=== PATIENT | male | born 1965 ===

== ENCOUNTER 2017-05-08 13:41 | Emergency (ER) | payer OTHER, SELFPAY ==
[2017-05-08 13:53] VITALS: BMI 29.4
[2017-05-08 13:55] VITALS: BP 124/76; PULSE 105; RESP 20; TEMP 99.5; O2SAT 98
--- NOTE | 2017-05-08 16:05 | C.PDOC ---
History Of Present Illness 51 y/o male presents to ED with complaints of rectal pain and erythema with associated drainage for 2 weeks. Patient states he was taking outpatient antibiotics with no improvement. Patient denies fever, chills, nausea, vomiting , blood in stool or any other complaints at this time. Time Seen by Provider: 05/08/17 15:44 Chief Complaint (Nursing): GI Problem History Per: Patient History/Exam Limitations: no limitations Onset/Duration Of Symptoms: Days Current Symptoms Are (Timing): Still Present Past Medical History Reviewed: Historical Data, Nursing Documentation, Vital Signs Vital Signs: Last Vital Signs Temp 99.5 F 05/08/17 13:54 Pulse 105 H 05/08/17 13:54 Resp 20 05/08/17 13:54 BP 124/76 05/08/17 13:54 Pulse Ox 98 05/08/17 16:09 - Medical History PMH: Diverticulitis Surgical History: No Surg Hx - [facility] Procedures ENDO RECTUM POLYPECTOMY (08/05/13) PERCUTANEOUS ABDOMINAL DRAINAGE (02/10/13) Family History: States: No Known Family Hx - Social History Hx Tobacco Use: Yes Hx Alcohol Use: Yes Hx Substance Use: No - Immunization History Hx Tetanus Toxoid Vaccination: No Hx Influenza Vaccination: No Hx Pneumococcal Vaccination: No Review Of Systems Constitutional: Negative for: Fever, Chills Gastrointestinal: Positive for: Rectal Pain. Negative for: Nausea, Vomiting, Abdominal Pain Skin: Negative for: Rash Physical Exam - Physical Exam Appears: Non-toxic, No Acute Distress Skin: Warm, Dry, No Rash Head: Atraumatic, Normacephalic Oral Mucosa: Moist Neck: Supple Cardiovascular: Rhythm Regular Respiratory: Normal Breath Sounds, No Rales, No Rhonchi, No Wheezing Gastrointestinal/Abdominal: Soft, No Tenderness, No Guarding, No Rebound Rectal: Other (Large area of tenderness and erythema with discharge ) Back: No CVA Tenderness Extremity: Normal ROM Neurological/Psych: Oriented x3 ED Course And Treatment - Laboratory Results Result Diagrams: 05/08/17 16:01 05/08/17 16:01 O2 Sat by Pulse Oximetry: 98 (RA) Pulse Ox Interpretation: Normal Medical Decision Making Medical Decision Making: pt with noted cellutlis, failuf of outpt. ct neg for abscess. pttold he would be admitted, but then later pulled iv and eloped, stating "i hate hospitals" Disposition - Disposition Disposition: ELOPEMENT - ER ONLY Disposition Time: 07:00 Condition: UNKNOWN Forms: [facility] (Belgian) - Clinical Impression Clinical Impression: Cellulitis - Scribe Statement The provider has reviewed the documentation as recorded by the Alexanderibsara Spivey All medical record entries made by the Alexanderibsara were at my direction and personally dictated by me. I have reviewed the chart and agree that the record accurately reflects my personal performance of the history, physical exam, medical decision making, and the department course for this patient. I have also personally directed, reviewed, and agree with the discharge instructions and disposition.
[2017-05-08] MEDS ORDERED: Vancomycin 1 gm/NS 200 ml 1 GM/200 ML BAG IVPB ONE (16:15)
[2017-05-08 16:18] LABS: BASO # 0.1 K/uL (0.0-0.2); EOS # 0.1 K/uL (0.0-0.7); EOS % 2.7 % (0.0-4.0); HEMOGLOBIN 14.5 g/dL (12.0-18.0); LYMPH # 1.2 K/uL (1.0-4.3); LYMPH % 21.3 % (20.0-40.0); MEAN CELL VOLUME 88.1 fL (80.0-94.0); MEAN CORPUSCULAR HGB CONC 32.9 g/dL (33.0-37.0); MEAN PLATELET VOLUME 8.1 fL (7.2-11.7); MONO # 0.4 K/uL (0.0-0.8); MONO % 7.4 % (0.0-10.0); NEUT # 3.7 K/uL (1.8-7.0); NEUT % 67.6 % (50.0-75.0); NRBC % 0.1 % (0.0-2.0); WHITE BLOOD COUNT 5.5 K/uL (4.8-10.8)
[2017-05-08 16:27] LABS: PROTHROMBIN TIME 11.9 SECONDS (9.7-12.2)
[2017-05-08 16:28] LABS: ALB/GLOB RATIO 1.2 (1.0-2.1); ALT/SGPT 43 U/L (21-72); AST/SGOT 30 U/L (17-59); BLOOD UREA NITROGEN 14 mg/dL (9-20); GFR AFRICAN-AMERICAN > 60; GFR NON-AFRICAN AMERICAN > 60
[2017-05-08] MEDS ORDERED: Iohexol 350mg/ml 100 ML ONE (17:28)
--- NOTE | 2017-05-08 18:31 | CT ---
PROCEDURE: CT Abdomen and Pelvis with contrast HISTORY: rectal pain, swelling r/o abscess COMPARISON: CT abdomen and pelvis with 02/18/13 TECHNIQUE: Contrast dose: 100 Omnipaque 350 Radiation dose: Total exam DLP = 997.34 MGy-cm. This CT exam was performed using one or more of the following dose reduction techniques: Automated exposure control, adjustment of the mA and/or kV according to patient size, and/or use of iterative reconstruction technique. FINDINGS: LOWER THORAX: No visible consolidation, pleural effusion, or pneumothorax. LIVER: Unremarkable. GALLBLADDER AND BILE DUCTS: Unremarkable. PANCREAS: Unremarkable. SPLEEN: Unremarkable. ADRENALS: Unremarkable. KIDNEYS AND URETERS: The kidneys enhance symmetrically. No hydronephrosis or obstructing calculus identified. VASCULATURE: No aortic aneurysm. BOWEL: Stomach is nondistended. Lack of oral contrast limits evaluation for bowel pathology. Bowel loops appear within normal limits of caliber without evidence of obstruction. Diverticulosis, wall thickening, and mild adjacent inflammatory changes involving the rectosigmoid colon appear consistent with acute diverticulitis. APPENDIX: The appendix appears within normal limits of caliber. No secondary signs of acute appendicitis. PERITONEUM: No significant free fluid. No definite free. LYMPH NODES: No bulky adenopathy identified. BLADDER: Unremarkable. REPRODUCTIVE: Unremarkable. BONES: Degenerative changes. OTHER FINDINGS: Posterior soft tissue stranding at the level of the buttocks bilaterally. No focal fluid collection or abscess evident. IMPRESSION: Diverticulosis, wall thickening, and mild adjacent inflammatory changes involving the rectosigmoid colon appear consistent with acute diverticulitis. Correlate clinically. Posterior soft tissue stranding at the level of the buttocks bilaterally. No focal fluid collection or abscess evident.
== END 2017-05-08 18:34 | disposition left against medical advice (07) ==
LOC: C.ER 13:41 → UNDOADMIN 18:35 → C.9E 18:35
DX: K61.1 Rectal abscess (principal); Z87.891 Personal history of nicotine dependence
CPT/HCPCS: 74177; 80053; 85025; 85610; 85730; 87040; 96365; 96367; 99281; J3370; Q9967

== ENCOUNTER 2017-05-15 10:31 | Inpatient (IN) | payer MEDICAID, OTHER ==
[2017-05-15 10:32] VITALS: BMI 29.4
--- NOTE | 2017-05-15 12:01 | C.PDOC ---
History Of Present Illness 51 y/o male brought to ED by family for evaluation of bizarre behavior, loss of memory and loss of appetite for 2 weeks. As per sister who is at bedside patient is not at baseline but states she has not been with him until yesterday when she came from [place]. HPI limited secondary to patient not answering questions. Time Seen by Provider: 05/15/17 11:21 Chief Complaint (Nursing): Weakness/Neurological Deficit History Per: Patient History/Exam Limitations: no limitations Onset/Duration Of Symptoms: Days Current Symptoms Are (Timing): Still Present Past Medical History Reviewed: Historical Data, Nursing Documentation, Vital Signs Vital Signs: Last Vital Signs Temp 97.9 F 05/15/17 10:49 Pulse 81 05/15/17 10:49 Resp 18 05/15/17 10:49 BP 95/58 L 05/15/17 10:49 Pulse Ox 97 05/15/17 18:12 - Medical History PMH: Diverticulitis Surgical History: No Surg Hx - [facility] Procedures ENDO RECTUM POLYPECTOMY (08/05/13) PERCUTANEOUS ABDOMINAL DRAINAGE (02/10/13) Family History: States: No Known Family Hx - Social History Hx Tobacco Use: Yes Hx Alcohol Use: No Hx Substance Use: No - Immunization History Hx Tetanus Toxoid Vaccination: No Hx Influenza Vaccination: No Hx Pneumococcal Vaccination: No Review Of Systems Review Of Systems: ROS cannot be obtained secondary to pt's inabilty to answer questions. (Patient is not answering any questions) Physical Exam - Physical Exam Appears: Non-toxic, Other (Bizarre behavior ) Skin: Warm, Dry Head: Atraumatic, Normacephalic Oral Mucosa: Moist Neck: Normal ROM, Supple Cardiovascular: Rhythm Regular Respiratory: Normal Breath Sounds, No Rales, No Rhonchi, No Wheezing Gastrointestinal/Abdominal: Soft, No Tenderness, No Guarding, No Rebound Extremity: Normal ROM, Capillary Refill (<2 seconds) Neurological/Psych: Oriented x3 ED Course And Treatment - Laboratory Results Result Diagrams: 05/15/17 12:46 05/15/17 12:46 Lab Interpretation: Normal O2 Sat by Pulse Oximetry: 97 (RA) Pulse Ox Interpretation: Normal - Radiology CXR: Interpreted by Me CXR Interpretation: Yes: No Acute Disease - Other Rad CXR X-Ray: Viewed By Me, Read By Radiologist Interpretation: HISTORY: SOB. COMPARISON: Chest x-ray performed 02/11/13. TECHNIQUE: Chest PA and lateral. FINDINGS: Examination limited by habitus and hypoinflation. LUNGS: No focal consolidation. Please note that chest x- ray has limited sensitivity for the detection of pulmonary masses. PLEURA: No significant pleural effusion identified. No definite pneumothorax . CARDIOVASCULAR: Heart size appears within normal limits. OSSEOUS STRUCTURES: No acute osseous abnormality identified. VISUALIZED UPPER ABDOMEN: Unremarkable. OTHER FINDINGS: None. IMPRESSION: No focal consolidation, significant pleural effusion, or definite pneumothorax identified. - CT Scan/US No standard instances Other Rad Studies (CT/US): Read By Radiologist, Radiology Report Reviewed CT/US Interpretation: FINDINGS: HEMORRHAGE: No intracranial hemorrhage. BRAIN : No mass effect or edema. Patchy hypodensities involving the left temporal parietal lobe consistent with encephalomalacia. VENTRICLES: No hydrocephalus. CALVARIUM: Unremarkable. PARANASAL SINUSES: Unremarkable as visualized. No significant inflammatory changes. MASTOID AIR CELLS: Unremarkable as visualized. No inflammatory changes. OTHER FINDINGS: Opacification of bilateral external auditory canals, likely cerumen. IMPRESSION: Patchy hypodensities involving the left temporal parietal lobe consistent with encephalomalacia. MRI may be considered for further evaluation if indicated. 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 Case discussed with Dr Starks who agrees to admit. Case discussed with Dr Márquez who request CT abdomen and Pelvis with IV contrast. Shock Panel ordered. Vancomycin and azactam ordered. Patient pacing in room in no distress Reassessment Condition: Unchanged - Physician Consult Information Physician Contacted: Ry Márquez Outcome Of Conversation: admit Medical Decision Making Medical Decision Making: Patient presented to ED with family who report strange behavior over the past 2 weeks Patient had recent abcess on buttocks and on antibiotics patient was evaluated in ED on 05/[address] abdomen/pelvis (+) diverticulitis, patient refused admission and left after he pulled out his IV Patient unable to provide any information and continues to pace in room with occasional outbreaks of smiling Family reports he was working up until 2 weeks ago and was normal Disposition Discussed With : Ry Márquez Doctor Will See Patient In The: Hospital - Disposition Disposition: HOSPITALIZED Disposition Time: 17:20 Condition: STABLE - POA Present On Arrival: None - Clinical Impression Clinical Impression: Altered mental status, Diverticulitis of sigmoid colon - PA / CURING SUPERVISOR / Resident Statement MD/DO has reviewed & agrees with the documentation as recorded. - Scribe Statement The provider has reviewed the documentation as recorded by the Murtaza Spivey All medical record entries made by the Murtaza were at my direction and personally dictated by me. I have reviewed the chart and agree that the record accurately reflects my personal performance of the history, physical exam, medical decision making, and the department course for this patient. I have also personally directed, reviewed, and agree with the discharge instructions and disposition. Decision To Admit - Pt Status Changed To: Hospital Disposition Of: Inpatient - Admit Certification Admit to Inpatient:: After my assessment, the patient will require hospitalization for at least two midnights. This is because of the severity of symptoms shown, intensity of services needed, and/or the medical risk in this patient being treated as an outpatient. - InPatient: Physician Admission Certification: I certify that this patient requires 2 or more midnights of care for the following reason:: AMS - . Bed Request Type: Regular Admitting Physician: Ry Márquez Patient Diagnosis: Altered mental status
--- NOTE | 2017-05-15 12:25 | RAD ---
HISTORY: SOB COMPARISON: Chest x-ray performed 02/11/13 TECHNIQUE: Chest PA and lateral FINDINGS: Examination limited by habitus and hypoinflation. LUNGS: No focal consolidation. Please note that chest x-ray has limited sensitivity for the detection of pulmonary masses. PLEURA: No significant pleural effusion identified. No definite pneumothorax . CARDIOVASCULAR: Heart size appears within normal limits. OSSEOUS STRUCTURES: No acute osseous abnormality identified. VISUALIZED UPPER ABDOMEN: Unremarkable. OTHER FINDINGS: None. IMPRESSION: No focal consolidation, significant pleural effusion, or definite pneumothorax identified.
[2017-05-15 12:49] LABS: BASO # 0.1 K/uL (0.0-0.2); BASO % 1.3 % (0.0-2.0); EOS # 0.1 K/uL (0.0-0.7); EOS % 2.3 % (0.0-4.0); HEMOGLOBIN 13.7 g/dL (12.0-18.0); LYMPH # 0.9 K/uL (1.0-4.3); LYMPH % 24.2 % (20.0-40.0); MEAN CELL VOLUME 87.8 fL (80.0-94.0); MEAN CORPUSCULAR HEMOGLOBIN 29.5 pg (27.0-31.0); MEAN CORPUSCULAR HGB CONC 33.6 g/dL (33.0-37.0); MEAN PLATELET VOLUME 8.3 fL (7.2-11.7); MONO # 0.5 K/uL (0.0-0.8); MONO % 13.8 % (0.0-10.0); NEUT # 2.3 K/uL (1.8-7.0); NEUT % 58.4 % (50.0-75.0); RBC 4.63 Mil/uL (4.40-5.90); RED CELL DISTRIBUTION WIDTH 13.9 % (11.5-14.5); WHITE BLOOD COUNT 3.9 K/uL (4.8-10.8)
--- NOTE | 2017-05-15 12:49 | CT ---
PROCEDURE: CT HEAD WITHOUT CONTRAST. HISTORY: R/O Bleed COMPARISON: None available. TECHNIQUE: Axial computed tomography images were obtained through the head/brain without intravenous contrast. Radiation dose: Total exam DLP = 970.68 mGy-cm. This CT exam was performed using one or more of the following dose reduction techniques: Automated exposure control, adjustment of the mA and/or kV according to patient size, and/or use of iterative reconstruction technique. FINDINGS: HEMORRHAGE: No intracranial hemorrhage. BRAIN: No mass effect or edema. Patchy hypodensities involving the left temporal parietal lobe consistent with encephalomalacia. VENTRICLES: No hydrocephalus. CALVARIUM: Unremarkable. PARANASAL SINUSES: Unremarkable as visualized. No significant inflammatory changes. MASTOID AIR CELLS: Unremarkable as visualized. No inflammatory changes. OTHER FINDINGS: Opacification of bilateral external auditory canals, likely cerumen. IMPRESSION: Patchy hypodensities involving the left temporal parietal lobe consistent with encephalomalacia. MRI may be considered for further evaluation if indicated.
[2017-05-15 13:09] LABS: ALB/GLOB RATIO 1.2 (1.0-2.1); ALT/SGPT 35 U/L (21-72); AST/SGOT 29 U/L (17-59); BLOOD UREA NITROGEN 17 mg/dL (9-20); CALCIUM 8.7 mg/dl (8.6-10.4); GFR AFRICAN-AMERICAN > 60; GFR NON-AFRICAN AMERICAN > 60; LIPASE 61 U/L (23-300)
[2017-05-15 17:23] LABS: SQUAMOUS EPITHIAL < 1 /hpf (0-5); URINE BACTERIA OCC (<OCC); URINE BILIRUBIN NEGATIVE (NEGATIVE); URINE BLOOD NEGATIVE (NEGATIVE); URINE CLARITY Clear (Clear); URINE COLOR Yellow (YELLOW); URINE GLUCOSE (UA) NORMAL (Normal); URINE LEUKOCYTE ESTERASE NEG Leu/uL (Negative); URINE NITRATE NEGATIVE (NEGATIVE); URINE PROTEIN 1+ mg/dL (NEGATIVE)
[2017-05-15 17:49] LABS: BARBITURATES, UR NEGATIVE (NEGATIVE); BENZODIAZEPINES, UR NEGATIVE (NEGATIVE); OPIATES, UR NEGATIVE (NEGATIVE); PHENCYCLIDINE, UR NEGATIVE (NEGATIVE)
[2017-05-15] MEDS ORDERED: Sodium Chloride 0.9% 1,000 ML IV ONE (18:04)
[2017-05-15] MEDS ORDERED: Iohexol 240 (50 ml) PO STA (18:04)
[2017-05-15] MEDS ORDERED: Aztreonam 2 GM in Sodium Chloride 0.9% 100 ML IVPB STA (18:08)
[2017-05-15] MEDS ORDERED: Vancomycin 1 gm/NS 200 ml 1 GM/200 ML BAG IVPB ONE (19:00)
[2017-05-15] MEDS ORDERED: Iohexol 300 100 ML IJ ONE (19:34)
[2017-05-15] MEDS ORDERED: Iohexol 240 (50 ml) ONE (20:14)
[2017-05-15 20:41] LABS: VENOUS BLOOD GAS BASE EXCESS -0.7 mmol/L (0.0-2.0); VENOUS BLOOD GAS PCO2 40 mmHg (40-60); VENOUS BLOOD GAS PO2 46 mm/Hg (30-55); VENOUS BLOOD PH 7.39 (7.32-7.43)
--- NOTE | 2017-05-15 21:10 | CT ---
EXAM: CT Abdomen and Pelvis With Intravenous Contrast CLINICAL HISTORY: 51 years old, male; Pain; Abdominal pain; Flank; Left upper quadrant (luq); Additional info: Diverticulitis TECHNIQUE: Axial computed tomography images of the abdomen and pelvis with intravenous contrast. All CT scans at this facility use one or more dose reduction techniques, viz.: automated exposure control; ma/kV adjustment per patient size (including targeted exams where dose is matched to indication; i.e. head); or iterative reconstruction technique. Coronal and sagittal reformatted images were created and reviewed. CONTRAST: 100 mL of OMNIPAQUE 300 administered intravenously. COMPARISON: CT - ABD PELVIS IV CONTRAST ONLY 2017-05-08 17:47 FINDINGS: Lower thorax: Minimal atelectasis. ABDOMEN: Liver: Fatty infiltration. Few < 0.5 cm lesions. Gallbladder and bile ducts: No calcified stones. No ductal dilation. Pancreas: No ductal dilation. No mass. Spleen: Mildly enlarged. Adrenals: No mass. Kidneys and ureters: No mass. No hydronephrosis. Stomach and bowel: Scattered diverticula within colon. Mild mural thickening short segment of sigmoid colon. Mild stranding within adjacent fat. No obstruction. Appendix: Normal caliber. No inflammation. PELVIS: Bladder: Unremarkable. Reproductive: Unremarkable as visualized. ABDOMEN and PELVIS: Intraperitoneal space: No significant fluid collection. No free air. Bones/joints: Degenerative changes of spine. Chronic deformity L3 vertebral body. Soft tissues: Moderate stranding within subcutaneous tissues of gluteal regions, grossly stable. Vasculature: Unremarkable. No aneurysm. Lymph nodes: No pathologically enlarged lymph nodes. IMPRESSION: 1. Findings compatible with persistent acute diverticulitis of sigmoid colon. Recommend endoscopy following resolution. 2. Mild splenomegaly. 3. Liver lesions. For patients with low to average risk of malignancy, no further follow-up is necessary. For patients with high risk of malignancy (known malignancy that can metastasize or other risk factors), recommend follow-up abdominal CT or MR in 6 months. 4. Incidental/non-acute findings are described above.
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
[2017-05-16] MEDS: Clindamycin 300 MG in Sodium Chloride 0.9% 50 ML IVPB SCH ×2 (05:39→12:13)
[2017-05-16 07:30] LABS: BASO % 0.7 % (0.0-2.0); EOS # 0.1 K/uL (0.0-0.7); EOS % 3.5 % (0.0-4.0); HEMOGLOBIN 13.2 g/dL (12.0-18.0); LYMPH # 0.5 K/uL (1.0-4.3); LYMPH % 13.2 % (20.0-40.0); MEAN CELL VOLUME 86.9 fL (80.0-94.0); MEAN CORPUSCULAR HEMOGLOBIN 29.5 pg (27.0-31.0); MEAN PLATELET VOLUME 8.7 fL (7.2-11.7); MONO # 0.4 K/uL (0.0-0.8); MONO % 10.5 % (0.0-10.0); NEUT % 72.1 % (50.0-75.0); NRBC % 0.1 % (0.0-2.0); RBC 4.46 Mil/uL (4.40-5.90); RED CELL DISTRIBUTION WIDTH 13.8 % (11.5-14.5); WHITE BLOOD COUNT 4.1 K/uL (4.8-10.8)
[2017-05-16 08:32] LABS: ALB/GLOB RATIO 1.2 (1.0-2.1); ALBUMIN 3.6 g/dL (3.5-5.0); ALT/SGPT 37 U/L (21-72); AST/SGOT 28 U/L (17-59); BLOOD UREA NITROGEN 12 mg/dL (9-20); CALCIUM 8.2 mg/dl (8.6-10.4); GFR AFRICAN-AMERICAN > 60; GFR NON-AFRICAN AMERICAN > 60
[2017-05-16] MEDS: Pantoprazole 40 mg EC Tab PO SCH (09:36)
[2017-05-16] MEDS: Saccharomyces Boulardi 250 mg Cap PO SCH ×2 (09:36→17:39)
[2017-05-16] MEDS ORDERED: Collagenase 250 Units/gm Ointment(30 gm) TOP SCH (10:00)
--- NOTE | 2017-05-16 14:49 | CP.PCM.PN ---
Subjective - Date & Time of Evaluation Date of Evaluation: 05/16/17 Time of Evaluation: 07:00 - Subjective Subjective: PGY1- Medicine Note- Dr. Márquez's Service Patient seen and examined at bedside. Patient in no acute distress. Patient laying in bed and smiling. Patient shakes his head to answer questions but will not verbally respond. Patient shakes his head yes to having abdominal pain. Patient denies any other pain. Objective - Vital Signs/Intake and Output Vital Signs (last 24 hours): Temp Pulse Resp BP Pulse Ox 98.3 F 72 20 127/87 96 05/16/17 00:20 05/16/17 00:20 05/16/17 00:20 05/16/17 00:20 05/16/17 00:20 Intake and Output: 05/16/17 05/16/17 06:59 18:59 Intake Total 170 100 Output Total 600 Balance 170 -500 - Medications Medications: Current Medications Collagenase (Santyl) 0 gm TOP DAILY [facility] Last Admin: 05/16/17 11:53 Dose: Not Given Heparin Sodium (Porcine) (Heparin) 5,000 units SC Q8 [facility] Last Admin: 05/16/17 14:41 Dose: 5,000 units Ciprofloxacin (Cipro 400mg/200ml Dsw) 400 mg in 200 mls @ 133 mls/hr IVPB Q12H [facility] Metronidazole (Flagyl) 500 mg in 100 mls @ 100 mls/hr IVPB Q8 [facility] Pantoprazole Sodium (Protonix Ec Tab) 40 mg PO DAILY [facility] Last Admin: 05/16/17 09:36 Dose: 40 mg Pneumococcal Polyvalent Vaccine (Pneumovax 23 Vaccine) 0.5 ml SC .ONCE ONE Stop: 05/18/17 10:01 Saccharomyces Boulardii (Florastor) 250 mg PO BID [facility] Last Admin: 05/16/17 09:36 Dose: 250 mg Tramadol HCl (Ultram) 25 mg PO BID [facility] - Labs Labs: 05/16/17 07:21 05/16/17 07:21 - Constitutional Appears: Non-toxic, No Acute Distress - Head Exam Head Exam: ATRAUMATIC, NORMAL INSPECTION, NORMOCEPHALIC - Eye Exam Eye Exam: EOMI, Normal appearance - ENT Exam ENT Exam: Mucous Membranes Moist - Respiratory Exam Respiratory Exam: Clear to Ausculation Bilateral, NORMAL BREATHING PATTERN. absent: Rales, Rhonchi, Wheezes, Respiratory Distress, Stridor - Cardiovascular Exam Cardiovascular Exam: REGULAR RHYTHM, RRR, +S1, +S2 - GI/Abdominal Exam GI & Abdominal Exam: Soft, Tenderness, Normal Bowel Sounds - Extremities Exam Extremities Exam: Normal Inspection. absent: Pedal Edema - Neurological Exam Neurological Exam: Alert, Awake, Oriented x3 - Psychiatric Exam Psychiatric exam: Normal Affect, Normal Mood - Skin Skin Exam: Intact, Normal Color, Warm Assessment and Plan - Assessment and Plan (Free Text) Assessment: Bizarre Behavior Unknown at this time if behavior is secondary to infection vs manifestation of TBI symptoms vs psychiatric psych consult, Dr. Mccurdy, help appreciated Gluteal wound Surgery consulted, Dr. Neil, help appreciated as per surgery superficial gluteal would, no tract- no surgical intervention wound care kirsten talamantes Cipro 400mg q12h Flagyl 500mg q8h f/u blood cultures Acute diverticulitis Abdomen/Pelvis CT: diverticulitis of sigmoid colon, mild splenomegaly, liver lesions Cipro 400mg q12h Flagyl 500mg q8h GI, Dr. Charles, consulted- help appreciated Prophylactic Measure Regular diet Heparin 5000 units SC Q8 Protonix 40 mg PO daily
--- NOTE | 2017-05-16 14:58 | CARD ---
APPROVED REPORT EKG Measurement Heart [id number] <Conclusion> Normal sinus rhythm Normal ECG
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
[2017-05-16] MEDS: Tramadol 25 mg PO SCH (17:39)
[2017-05-16] MEDS: Ciprofloxacin 400mg/200ml D5W 400 MG/200 ML BAG IVPB SCH (18:08)
[2017-05-16] MEDS: metroNIDAZOLE IV 500 mg/100 ml 500 MG/100 ML BAG IVPB SCH (21:16)
[2017-05-17] MEDS: Ciprofloxacin 400mg/200ml D5W 400 MG/200 ML BAG IVPB SCH ×2 (05:27→17:31)
[2017-05-17] MEDS: metroNIDAZOLE IV 500 mg/100 ml 500 MG/100 ML BAG IVPB SCH ×3 (05:28→21:22)
--- NOTE | 2017-05-17 05:55 | CP.PCM.PN ---
Subjective - Date & Time of Evaluation Date of Evaluation: 05/17/17 Time of Evaluation: 07:00 - Subjective Subjective: PGY1- Medicine Note- Dr. Márquez's Service Patient seen and examined at bedside. Patient unable to verbally respond to any questions. Patient shakes his head to answer some of my questions. Patient admits to abdominal pain. Patient denies any other pain. Objective - Vital Signs/Intake and Output Vital Signs (last 24 hours): Temp Pulse Resp BP Pulse Ox 97.6 F 76 20 111/76 95 05/17/17 00:22 05/17/17 00:22 05/17/17 00:22 05/17/17 00:22 05/17/17 00:22 Intake and Output: 05/16/17 05/17/17 18:59 06:59 Intake Total 100 500 Output Total 600 100 Balance -500 400 - Medications Medications: Current Medications Heparin Sodium (Porcine) (Heparin) 5,000 units SC Q8 [facility] Last Admin: 05/16/17 21:17 Dose: 5,000 units Ciprofloxacin (Cipro 400mg/200ml Dsw) 400 mg in 200 mls @ 133 mls/hr IVPB Q12H [facility] Last Admin: 05/17/17 05:27 Dose: 133 mls/hr Metronidazole (Flagyl) 500 mg in 100 mls @ 100 mls/hr IVPB Q8 [facility] Last Admin: 05/17/17 05:28 Dose: 100 mls/hr Pantoprazole Sodium (Protonix Ec Tab) 40 mg PO DAILY [facility] Last Admin: 05/16/17 09:36 Dose: 40 mg Pneumococcal Polyvalent Vaccine (Pneumovax 23 Vaccine) 0.5 ml SC .ONCE ONE Stop: 05/18/17 10:01 Saccharomyces Boulardii (Florastor) 250 mg PO BID [facility] Last Admin: 05/16/17 17:39 Dose: 250 mg Tramadol HCl (Ultram) 25 mg PO BID [facility] Last Admin: 05/16/17 17:39 Dose: 25 mg - Labs Labs: 05/16/17 07:21 05/16/17 07:21 - Additional Findings Additional findings: - Constitutional Appears: Non-toxic, No Acute Distress - Head Exam Head Exam: ATRAUMATIC, NORMAL INSPECTION, NORMOCEPHALIC - Eye Exam Eye Exam: EOMI, Normal appearance - ENT Exam ENT Exam: Mucous Membranes Moist - Respiratory Exam Respiratory Exam: Clear to Ausculation Bilateral, NORMAL BREATHING PATTERN. absent: Rales, Rhonchi, Wheezes, Respiratory Distress, Stridor - Cardiovascular Exam Cardiovascular Exam: REGULAR RHYTHM, RRR, +S1, +S2 - GI/Abdominal Exam GI & Abdominal Exam: Soft, Tenderness, Normal Bowel Sounds - Extremities Exam Extremities Exam: Normal Inspection. absent: Pedal Edema - Neurological Exam Neurological Exam: Alert, Awake - Psychiatric Exam Psychiatric exam: Normal Affect, Normal Mood - Skin Skin Exam: Intact, Normal Color, Warm Assessment and Plan - Assessment and Plan (Free Text) Assessment: Bizarre Behavior Unknown at this time if behavior is secondary to infection vs manifestation of TBI symptoms vs psychiatric psych consult, Dr. Mccurdy, help appreciated as per Dr. Mccurdy, most likely not a psychiatric cause, Ativan PRN for agitation Gluteal wound no leukocytosis, afebrile Surgery consulted, Dr. Neil, help appreciated as per surgery superficial gluteal would, no tract- no surgical intervention wound care kirsten talamantes Cipro 400mg q12h Flagyl 500mg q8h blood cultures- no growth after 24 hours Acute diverticulitis no leukocytosis, afebrile Abdomen/Pelvis CT: diverticulitis of sigmoid colon, mild splenomegaly, liver lesions Cipro 400mg q12h Flagyl 500mg q8h Ultram 25mg po BID for pain GI, Dr. Charles, consulted- help appreciated -continue antibiotics for 2 weeks Prophylactic Measure Regular diet Heparin 5000 units SC Q8 Protonix 40 mg PO daily
[2017-05-17 07:40] LABS: BASO % 0.6 % (0.0-2.0); EOS # 0.1 K/uL (0.0-0.7); EOS % 3.6 % (0.0-4.0); HEMOGLOBIN 13.3 g/dL (12.0-18.0); LYMPH % 26.5 % (20.0-40.0); MEAN CORPUSCULAR HEMOGLOBIN 29.9 pg (27.0-31.0); MEAN CORPUSCULAR HGB CONC 34.4 g/dL (33.0-37.0); MEAN PLATELET VOLUME 8.8 fL (7.2-11.7); MONO # 0.5 K/uL (0.0-0.8); MONO % 11.9 % (0.0-10.0); NEUT # 2.3 K/uL (1.8-7.0); NEUT % 57.4 % (50.0-75.0); RBC 4.43 Mil/uL (4.40-5.90); RED CELL DISTRIBUTION WIDTH 13.9 % (11.5-14.5); WHITE BLOOD COUNT 3.9 K/uL (4.8-10.8)
--- NOTE | 2017-05-17 07:59 | CP.PCM.PN ---
Subjective - Date & Time of Evaluation Date of Evaluation: 05/17/17 Time of Evaluation: 08:13 - Subjective Subjective: General Surgery Note for Dr. Neil Patient seen and examined at bedside. No acute event overnight. Patient not answering any questions. He is uncooperative. Refusing physical exam and dressing change. Objective - Vital Signs/Intake and Output Vital Signs (last 24 hours): Temp Pulse Resp BP Pulse Ox 97.6 F 76 20 111/76 95 05/17/17 00:22 05/17/17 00:22 05/17/17 00:22 05/17/17 00:22 05/17/17 00:22 Intake and Output: 05/17/17 05/17/17 06:59 18:59 Intake Total 500 Output Total 100 Balance 400 - Medications Medications: Current Medications Heparin Sodium (Porcine) (Heparin) 5,000 units SC Q8 [facility] Last Admin: 05/17/17 05:54 Dose: 5,000 units Ciprofloxacin (Cipro 400mg/200ml Dsw) 400 mg in 200 mls @ 133 mls/hr IVPB Q12H [facility] Last Admin: 05/17/17 05:27 Dose: 133 mls/hr Metronidazole (Flagyl) 500 mg in 100 mls @ 100 mls/hr IVPB Q8 [facility] Last Admin: 05/17/17 05:28 Dose: 100 mls/hr Lorazepam (Ativan) 1 mg IVP Q4H PRN PRN Reason: Agitation Pantoprazole Sodium (Protonix Ec Tab) 40 mg PO DAILY [facility] Last Admin: 05/16/17 09:36 Dose: 40 mg Pneumococcal Polyvalent Vaccine (Pneumovax 23 Vaccine) 0.5 ml SC .ONCE ONE Stop: 05/18/17 10:01 Saccharomyces Boulardii (Florastor) 250 mg PO BID [facility] Last Admin: 05/16/17 17:39 Dose: 250 mg Tramadol HCl (Ultram) 25 mg PO BID [facility] Last Admin: 05/16/17 17:39 Dose: 25 mg - Labs Labs: 05/17/17 07:14 05/16/17 07:21 - Constitutional Appears: No Acute Distress, Other (uncooperative) - Neurological Exam Neurological Exam: Awake - Psychiatric Exam Psychiatric exam: Flat Affect - Additional Findings Additional findings: refusing physical exam Assessment and Plan - Assessment and Plan (Free Text) Plan: 51 with PMH of TBI presents for sacral decubitus wound -Santyl, medihoney and optiform -Wound care -Management as per primary -Discussed with Dr. Rashaad Delgado PGY1
[2017-05-17 08:21] LABS: ALB/GLOB RATIO 1.2 (1.0-2.1); ALBUMIN 3.6 g/dL (3.5-5.0); ALT/SGPT 24 U/L (21-72); AST/SGOT 24 U/L (17-59); BLOOD UREA NITROGEN 11 mg/dL (9-20); CALCIUM 8.3 mg/dl (8.6-10.4); GFR AFRICAN-AMERICAN > 60; GFR NON-AFRICAN AMERICAN > 60; MAGNESIUM 1.8 mg/dL (1.6-2.3)
[2017-05-17] MEDS: Pantoprazole 40 mg EC Tab PO SCH (11:15)
[2017-05-17] MEDS: Saccharomyces Boulardi 250 mg Cap PO SCH ×2 (11:16→17:44)
[2017-05-17] MEDS: Tramadol 25 mg PO SCH ×2 (11:16→17:30)
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
[2017-05-18] MEDS: metroNIDAZOLE IV 500 mg/100 ml 500 MG/100 ML BAG IVPB SCH ×3 (05:02→21:41)
[2017-05-18] MEDS: Ciprofloxacin 400mg/200ml D5W 400 MG/200 ML BAG IVPB SCH ×2 (05:03→18:50)
[2017-05-18 08:14] LABS: BASO % 1.1 % (0.0-2.0); EOS # 0.2 K/uL (0.0-0.7); EOS % 5.2 % (0.0-4.0); HEMOGLOBIN 13.9 g/dL (12.0-18.0); LYMPH # 0.9 K/uL (1.0-4.3); LYMPH % 28.3 % (20.0-40.0); MEAN CELL VOLUME 86.6 fL (80.0-94.0); MEAN CORPUSCULAR HEMOGLOBIN 29.8 pg (27.0-31.0); MEAN CORPUSCULAR HGB CONC 34.4 g/dL (33.0-37.0); MEAN PLATELET VOLUME 8.8 fL (7.2-11.7); MONO # 0.3 K/uL (0.0-0.8); MONO % 9.7 % (0.0-10.0); NEUT # 1.7 K/uL (1.8-7.0); NEUT % 55.7 % (50.0-75.0); RBC 4.68 Mil/uL (4.40-5.90); RED CELL DISTRIBUTION WIDTH 13.8 % (11.5-14.5); WHITE BLOOD COUNT 3.1 K/uL (4.8-10.8)
[2017-05-18 08:34] LABS: ALB/GLOB RATIO 1.2 (1.0-2.1); ALBUMIN 3.6 g/dL (3.5-5.0); ALT/SGPT 35 U/L (21-72); AST/SGOT 25 U/L (17-59); BLOOD UREA NITROGEN 11 mg/dL (9-20); CALCIUM 8.7 mg/dl (8.6-10.4); GFR AFRICAN-AMERICAN > 60; GFR NON-AFRICAN AMERICAN > 60; MAGNESIUM 1.9 mg/dL (1.6-2.3)
[2017-05-18] MEDS ORDERED: Pneumococcal 23-Valent Vaccine SC ONE (10:00)
[2017-05-18] MEDS ORDERED: Influenza Vaccine 60 mcg/0.5 mL SYR (4YR UP) IM ONE (10:00)
[2017-05-18] MEDS: Tramadol 25 mg PO SCH (10:03)
[2017-05-18] MEDS: Saccharomyces Boulardi 250 mg Cap PO SCH ×2 (10:50→18:49)
[2017-05-18] MEDS: Pantoprazole 40 mg EC Tab PO SCH (10:51)
[2017-05-18] MEDS ORDERED: Potassium Chloride 20 mEq ER Tab PO SCH (12:30)
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
[2017-05-18 20:01] LABS: FOLATE 19.8 ng/mL
[2017-05-19] MEDS: Ciprofloxacin 400mg/200ml D5W 400 MG/200 ML BAG IVPB SCH (04:50)
[2017-05-19] MEDS: metroNIDAZOLE IV 500 mg/100 ml 500 MG/100 ML BAG IVPB SCH (05:57)
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
[2017-05-19] MEDS ORDERED: DiphenhydrAMINE 50 mg/ml Inj IVP ONE (08:30)
[2017-05-19 08:35] LABS: BASO # 0.1 K/uL (0.0-0.2); BASO % 1.3 % (0.0-2.0); EOS # 0.2 K/uL (0.0-0.7); EOS % 5.4 % (0.0-4.0); HEMOGLOBIN 14.6 g/dL (12.0-18.0); LYMPH # 0.8 K/uL (1.0-4.3); LYMPH % 19.1 % (20.0-40.0); MEAN CELL VOLUME 85.8 fL (80.0-94.0); MEAN CORPUSCULAR HEMOGLOBIN 30.1 pg (27.0-31.0); MEAN CORPUSCULAR HGB CONC 35.1 g/dL (33.0-37.0); MEAN PLATELET VOLUME 8.9 fL (7.2-11.7); MONO # 0.4 K/uL (0.0-0.8); MONO % 8.9 % (0.0-10.0); NEUT # 2.7 K/uL (1.8-7.0); NEUT % 65.3 % (50.0-75.0); RBC 4.87 Mil/uL (4.40-5.90); RED CELL DISTRIBUTION WIDTH 13.3 % (11.5-14.5); WHITE BLOOD COUNT 4.1 K/uL (4.8-10.8)
[2017-05-19 09:01] LABS: ALB/GLOB RATIO 1.3 (1.0-2.1); ALBUMIN 3.7 g/dL (3.5-5.0); ALT/SGPT 43 U/L (21-72); AST/SGOT 48 U/L (17-59); BLOOD UREA NITROGEN 12 mg/dL (9-20); CALCIUM 8.6 mg/dl (8.6-10.4); GFR AFRICAN-AMERICAN > 60; GFR NON-AFRICAN AMERICAN > 60; MAGNESIUM 1.9 mg/dL (1.6-2.3)
[2017-05-19] MEDS: Pantoprazole 40 mg EC Tab PO SCH (09:40)
[2017-05-19] MEDS: Saccharomyces Boulardi 250 mg Cap PO SCH ×2 (09:40→17:17)
[2017-05-19] MEDS ORDERED: MethylPREDNISolone 40 mg Vial IVP STA (09:59)
[2017-05-19] MEDS ORDERED: Lidocaine 1% Inj (20ml) SC ONE (10:50)
[2017-05-19] MEDS ORDERED: Valproate 1,000 MG in Sodium Chloride 0.9% 100 ML IV STA (12:04)
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
--- NOTE | 2017-05-19 14:51 | MRI ---
PROCEDURE: MRI BRAIN WITHOUT CONTRAST HISTORY: encephalopathy COMPARISON: None. TECHNIQUE: Multiplanar, multisequence MR images of the brain were obtained without intravenous contrast enhancement. The study is compromised by motion artifact. FINDINGS: HEMORRHAGE: No obvious hemorrhage DWI: No evidence of an acute or early subacute infarction. BRAIN PARENCHYMA: No mass effect or edema. There is atrophy and chronic microvascular changes in the periventricular and deep white matter VENTRICLES: Unremarkable. No hydrocephalus. CRANIUM: Unremarkable. ORBITS: Grossly unremarkable. PARANASAL SINUSES/MASTOIDS: Clear VASCULAR SYSTEM: Skull base flow voids intact. OTHER FINDINGS: The report concurs with the preliminary [facility] report IMPRESSION: Study compromised by motion. No territorial infarct or intracranial hemorrhage
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
[2017-05-19] MEDS: Aztreonam 1 GM in Sodium Chloride 0.9% 100 ML IVPB SCH (17:05)
[2017-05-19] MEDS: Clindamycin 300 MG in Sodium Chloride 0.9% 100 ML IVPB SCH (18:49)
[2017-05-19 20:18] LABS: BARBITURATES, UR NEGATIVE (NEGATIVE); BENZODIAZEPINES, UR NEGATIVE (NEGATIVE); OPIATES, UR NEGATIVE (NEGATIVE); PHENCYCLIDINE, UR NEGATIVE (NEGATIVE)
[2017-05-20] MEDS: Aztreonam 1 GM in Sodium Chloride 0.9% 100 ML IVPB SCH ×4 (00:11→23:44)
[2017-05-20] MEDS: Clindamycin 300 MG in Sodium Chloride 0.9% 100 ML IVPB SCH ×3 (02:40→18:23)
--- NOTE | 2017-05-20 08:04 | CP.PCM.PN ---
<Ronni Ford - Last Filed: 05/20/17 18:24> Subjective - Date & Time of Evaluation Date of Evaluation: 05/20/17 Time of Evaluation: 08:20 - Subjective Subjective: Medicine progress note for Dr. Herman Patient seen and examined. Patient responding to questioning with brief answers. Patient states that he feels fine and has no complaints at the moment. Patient denies itchiness of his rashes but was seen scratching himself at one point during encounter. Objective - Vital Signs/Intake and Output Vital Signs (last 24 hours): Temp Pulse Resp BP Pulse Ox 97.8 F 70 18 100/66 95 05/19/17 23:38 05/19/17 23:38 05/19/17 23:38 05/19/17 23:38 05/19/17 23:38 Intake and Output: 05/20/17 05/20/17 06:59 18:59 Intake Total 300 Balance 300 - Medications Medications: Current Medications Aztreonam 1 gm/ Sodium (Chloride) 100 mls @ 200 mls/hr IVPB Q8H [facility] Last Admin: 05/20/17 00:11 Dose: 200 mls/hr Clindamycin Phosphate 300 mg/ (Sodium Chloride) 102 mls @ 104 mls/hr IVPB Q8H [facility] Last Admin: 05/20/17 02:40 Dose: 104 mls/hr Acyclovir 900 mg/ Sodium (Chloride) 100 mls @ 100 mls/hr IV Q8H [facility] Last Admin: 05/20/17 01:09 Dose: 100 mls/hr Lorazepam (Ativan) 1 mg IVP Q4H PRN PRN Reason: Agitation Last Admin: 05/20/17 02:16 Dose: 1 mg Pantoprazole Sodium (Protonix Ec Tab) 40 mg PO DAILY [facility] Last Admin: 05/19/17 09:40 Dose: 40 mg Saccharomyces Boulardii (Florastor) 250 mg PO BID [facility] Last Admin: 05/19/17 17:17 Dose: Not Given - Labs Labs: 05/19/17 08:22 05/19/17 08:22 - Constitutional Appears: No Acute Distress - Head Exam Head Exam: ATRAUMATIC, NORMOCEPHALIC - Eye Exam Eye Exam: EOMI, Normal appearance - ENT Exam ENT Exam: Mucous Membranes Moist - Respiratory Exam Respiratory Exam: Clear to Ausculation Bilateral. absent: Rales, Rhonchi, Wheezes - Cardiovascular Exam Cardiovascular Exam: REGULAR RHYTHM, +S1, +S2 - GI/Abdominal Exam GI & Abdominal Exam: Soft, Normal Bowel Sounds. absent: Tenderness - Extremities Exam Extremities Exam: absent: Pedal Edema - Neurological Exam Neurological Exam: Awake - Skin Skin Exam: Dry, Warm Additional comments: large raised erythematous, sharply demarcated rash on left forearm, diffuse mobilliform rash on back, chest and right arm has diffuse rash. Patient's cheeks appear to be flushed, but may also be due to the rash. stage 2 intragluteal ulcer. Assessment and Plan - Assessment and Plan (Free Text) Plan: Bizarre Behavior Unknown at this time if behavior is secondary to infection vs manifestation of TBI symptoms vs psychiatric psych consult, Dr. Mccurdy, help appreciated as per Dr. Mccurdy, most likely not a psychiatric cause, Ativan PRN for agitation 05/18 Neuro: Dr. Hodges Brain MRI w/ and w/o contrast ordered: Study compromised by motion. No territorial infarct or intracranial hemorrhage Per ID, ruling out viral meningitis. Patient's rash is likely drug related but cannot rule out viral at this time. Droplet precaution in the meantime. Lumbar puncture performed today by anesthesia. F/u CSF studies including cytology, cell count, measles, lyme, [place], herpes Rash, 05/19 05/19 Patient is somnolent, allergic reaction, rash on forearm and all on right arm and scattered rash on chest. Aztreonam 1 gm Q8H, started 05/19 Clindamycin 450mg IVPB Q6H, started 05/19 Saccharomyces 250mg POBID Methylprednisolone 250mg IVP Pepcid 40mg IVP once Gluteal wound, stage 2 intergluteal ulcer no leukocytosis, afebrile Surgery consulted, Dr. Neil, help appreciated as per surgery superficial gluteal would, no tract- no surgical intervention wound care kirsten talamantes blood cultures- no growth after 24 hours Acute diverticulitis no leukocytosis, afebrile Abdomen/Pelvis CT: diverticulitis of sigmoid colon, mild splenomegaly, liver lesions Cipro 400mg q12h, discontinued 05/19 due to rash Flagyl 500mg q8h, discontinued 05/19 due to rash Aztreonam 1 gm Q8H, started 05/19 Clindamycin 450mg IVPB Q6H, started 05/19 Ultram 25mg po BID for pain GI, Dr. Charles, consulted- help appreciated -continue antibiotics for 2 weeks Prophylactic Measure Regular diet Heparin 5000 units SC Q8 Protonix 40 mg PO daily [phone] Virgil Ford PGY-1 <Анна Herman - Last Filed: 05/24/17 20:09> Objective - Vital Signs/Intake and Output Vital Signs (last 24 hours): Temp Pulse Resp BP Pulse Ox 98.0 F 71 20 111/68 94 L 05/20/17 15:05 05/20/17 15:05 05/20/17 15:05 05/20/17 15:05 05/20/17 15:05 Intake and Output: 05/20/17 05/20/17 06:59 18:59 Intake Total 300 530 Balance 300 530 - Medications Medications: Current Medications Heparin Sodium (Porcine) (Heparin) 5,000 units SC Q8 [facility] Aztreonam 1 gm/ Sodium (Chloride) 100 mls @ 200 mls/hr IVPB Q8H [facility] Last Admin: 05/20/17 16:45 Dose: 200 mls/hr Clindamycin Phosphate 300 mg/ (Sodium Chloride) 102 mls @ 104 mls/hr IVPB Q8H [facility] Last Admin: 05/20/17 18:23 Dose: 104 mls/hr Acyclovir 900 mg/ Sodium (Chloride) 100 mls @ 100 mls/hr IV Q8H [facility] Last Admin: 05/20/17 17:19 Dose: 100 mls/hr Lorazepam (Ativan) 1 mg IVP Q4H PRN PRN Reason: Agitation Last Admin: 05/20/17 18:38 Dose: 1 mg Pantoprazole Sodium (Protonix Ec Tab) 40 mg PO DAILY [facility] Last Admin: 05/20/17 10:16 Dose: 40 mg Saccharomyces Boulardii (Florastor) 250 mg PO BID [facility] Last Admin: 05/20/17 17:20 Dose: Not Given - Labs Labs: 05/20/17 08:41 05/20/17 08:41 PT 13.6 SECONDS (9.7-12.2) H 05/20/17 11:33 INR 1.2 05/20/17 11:33 APTT 28 SECONDS (21-34) 05/20/17 11:33 Attending/Attestation - Attestation I have personally seen and examined this patient.: Yes I have fully participated in the care of the patient.: Yes I have reviewed all pertinent clinical information, including history, physical exam and plan: Yes Notes (Text): Patient was seen and discussed with the residnet discussed with the sister and mother I agree with the documentation of the assessment and the plan
[2017-05-20 08:48] LABS: BASO % 0.6 % (0.0-2.0); EOS % 0.4 % (0.0-4.0); HEMOGLOBIN 14.3 g/dL (12.0-18.0); LYMPH # 0.9 K/uL (1.0-4.3); LYMPH % 15.3 % (20.0-40.0); MEAN CELL VOLUME 86.8 fL (80.0-94.0); MEAN CORPUSCULAR HGB CONC 34.6 g/dL (33.0-37.0); MEAN PLATELET VOLUME 8.7 fL (7.2-11.7); MONO # 0.5 K/uL (0.0-0.8); MONO % 8.2 % (0.0-10.0); NEUT # 4.4 K/uL (1.8-7.0); NEUT % 75.5 % (50.0-75.0); RBC 4.77 Mil/uL (4.40-5.90); RED CELL DISTRIBUTION WIDTH 13.8 % (11.5-14.5); WHITE BLOOD COUNT 5.9 K/uL (4.8-10.8)
[2017-05-20 09:10] LABS: ALB/GLOB RATIO 1.1 (1.0-2.1); ALBUMIN 3.8 g/dL (3.5-5.0); ALT/SGPT 75 U/L (21-72); AST/SGOT 74 U/L (17-59); BLOOD UREA NITROGEN 16 mg/dL (9-20); CALCIUM 8.6 mg/dl (8.6-10.4); GFR AFRICAN-AMERICAN > 60; GFR NON-AFRICAN AMERICAN > 60
[2017-05-20] MEDS ORDERED: Valproic Acid 250 mg/5 ml UD Cup PO SCH (10:00)
[2017-05-20] MEDS: Pantoprazole 40 mg EC Tab PO SCH (10:16)
[2017-05-20] MEDS: Saccharomyces Boulardi 250 mg Cap PO SCH ×2 (10:16→17:20)
[2017-05-20 10:17] LABS: HEPATITIS B SURFACE AG NEGATIVE (NEGATIVE)
[2017-05-20 10:24] LABS: HEPATITIS A IGM NEGATIVE (NEGATIVE); HEPATITIS B CORE AB Negative (NEGATIVE)
[2017-05-20 10:34] LABS: HEPATITIS C ANTIBODY Negative (NEGATIVE)
[2017-05-20] MEDS ORDERED: Valproate 750 MG in Sodium Chloride 0.9% 100 ML IVPB ONE (11:00)
[2017-05-20 11:51] LABS: INR 1.2; PROTHROMBIN TIME 13.6 SECONDS (9.7-12.2)
--- NOTE | 2017-05-20 12:54 | CP.PCM.PN ---
Subjective - Date & Time of Evaluation Date of Evaluation: 05/20/17 Time of Evaluation: 12:49 - Subjective Subjective: Mr. Lowry was seen at the bedside. He is awake but episode with confusion. He is unable to answer all questions, moves all extremities spontaneously. He is unable to follow simple commands. There is fading rash noted in his upper extremities. anterior and posterior trunk. He is able to swallow PO intake with assistance. He is on 1:1 sitter for patient safety. An LP was attempted yesterday by neurology (Dr. Hodges), but patient was uncooperative. The patient is place on airborne precaution . There was no untoward events overnight. Objective - Vital Signs/Intake and Output Vital Signs (last 24 hours): Temp Pulse Resp BP Pulse Ox 97.5 F L 55 L 20 100/61 98 05/20/17 08:24 05/20/17 08:24 05/20/17 08:24 05/20/17 08:24 05/20/17 08:24 Intake and Output: 05/20/17 05/20/17 06:59 18:59 Intake Total 300 Balance 300 - Medications Medications: Current Medications Aztreonam 1 gm/ Sodium (Chloride) 100 mls @ 200 mls/hr IVPB Q8H [facility] Last Admin: 05/20/17 10:14 Dose: 200 mls/hr Clindamycin Phosphate 300 mg/ (Sodium Chloride) 102 mls @ 104 mls/hr IVPB Q8H [facility] Last Admin: 05/20/17 12:01 Dose: 104 mls/hr Acyclovir 900 mg/ Sodium (Chloride) 100 mls @ 100 mls/hr IV Q8H [facility] Last Admin: 05/20/17 08:29 Dose: 100 mls/hr Lorazepam (Ativan) 1 mg IVP Q4H PRN PRN Reason: Agitation Last Admin: 05/20/17 02:16 Dose: 1 mg Pantoprazole Sodium (Protonix Ec Tab) 40 mg PO DAILY [facility] Last Admin: 05/20/17 10:16 Dose: 40 mg Saccharomyces Boulardii (Florastor) 250 mg PO BID [facility] Last Admin: 05/20/17 10:16 Dose: 250 mg - Labs Labs: 05/20/17 08:41 05/20/17 08:41 PT 13.6 SECONDS (9.7-12.2) H 05/20/17 11:33 INR 1.2 05/20/17 11:33 APTT 28 SECONDS (21-34) 05/20/17 11:33 - Constitutional Appears: No Acute Distress - Head Exam Head Exam: NORMAL INSPECTION - Neurological Exam Neurological Exam: Awake Neuro motor strength exam: Left Upper Extremity: 4, Right Upper Extremity: 4, Left Lower Extremity: 4, Right Lower Extremity: 4 Additional comments: He is unable to answer questions and follow simple commands. Assessment and Plan (1) Altered mental status Assessment & Plan: Case discussed with Dr. Hodges, continue all current medical regimen. Recommend LP by anesthesia to help further evaluate the mental status of the patient. Consent for LP was given by the patient sister. Status: Acute
--- NOTE | 2017-05-20 14:00 | PCM.PROC ---
Procedures Attestation:: I certify that I have explained the specified Operation(s) or Procedure(s), risks, benefits and reasonable alternatives to the Patient and/or other person responsible. The opportunity was given to ask questions and all questions answered - Lumbar Puncture Consent Obtained: Written Consent Time Out Performed: Yes Patient Position: Upright Skin Prep: Povidone-Iodine 1% Local Anesthetic Used: Lidocaine 1% Amount of Anesthesia Used (mls): 5 Spinal Needle Gauge: 20G Interspace Used: L4-L5 Fluid Initially Obtained: Clear Complications: None
[2017-05-20 14:57] LABS: FLUID TYPE SPINAL FLUID
[2017-05-20 16:06] LABS: CSF APPEARANCE CLEAR/COLORLESS (CLEAR)
[2017-05-20 16:08] LABS: CSF VOLUME 1 mL (0-1)
[2017-05-21] MEDS: Clindamycin 300 MG in Sodium Chloride 0.9% 100 ML IVPB SCH ×3 (02:02→19:08)
--- NOTE | 2017-05-21 07:05 | CP.PCM.PN ---
<Ronni Ford - Last Filed: 05/21/17 15:15> Subjective - Date & Time of Evaluation Date of Evaluation: 05/21/17 Time of Evaluation: 07:00 - Subjective Subjective: Medicine progress note for Dr. Herman Patient seen and examined at bedside. Patient reports no new issues acutely. He still speaks with brief answers. Patient has been witnessed scratching himself on multiple occasions. Objective - Vital Signs/Intake and Output Vital Signs (last 24 hours): Temp Pulse Resp BP Pulse Ox 97.7 F 62 20 118/68 95 05/21/17 00:42 05/21/17 00:42 05/21/17 00:42 05/21/17 00:42 05/21/17 00:42 - Medications Medications: Current Medications Heparin Sodium (Porcine) (Heparin) 5,000 units SC Q8 [facility] Last Admin: 05/21/17 05:21 Dose: 5,000 units Aztreonam 1 gm/ Sodium (Chloride) 100 mls @ 200 mls/hr IVPB Q8H [facility] Last Admin: 05/20/17 23:44 Dose: 200 mls/hr Clindamycin Phosphate 300 mg/ (Sodium Chloride) 102 mls @ 104 mls/hr IVPB Q8H [facility] Last Admin: 05/21/17 02:02 Dose: 104 mls/hr Acyclovir 900 mg/ Sodium (Chloride) 100 mls @ 100 mls/hr IV Q8H [facility] Last Admin: 05/21/17 00:53 Dose: 100 mls/hr Lorazepam (Ativan) 1 mg IVP Q4H PRN PRN Reason: Agitation Last Admin: 05/20/17 18:38 Dose: 1 mg Pantoprazole Sodium (Protonix Ec Tab) 40 mg PO DAILY [facility] Last Admin: 05/20/17 10:16 Dose: 40 mg Saccharomyces Boulardii (Florastor) 250 mg PO BID [facility] Last Admin: 05/20/17 17:20 Dose: Not Given - Labs Labs: 05/20/17 08:41 05/20/17 08:41 PT 13.6 SECONDS (9.7-12.2) H 05/20/17 11:33 INR 1.2 05/20/17 11:33 APTT 28 SECONDS (21-34) 05/20/17 11:33 - Constitutional Appears: No Acute Distress - Head Exam Head Exam: ATRAUMATIC, NORMOCEPHALIC - Eye Exam Eye Exam: EOMI, Normal appearance - ENT Exam ENT Exam: Mucous Membranes Moist - Respiratory Exam Respiratory Exam: Clear to Ausculation Bilateral, NORMAL BREATHING PATTERN. absent: Rales, Rhonchi, Wheezes - Cardiovascular Exam Cardiovascular Exam: REGULAR RHYTHM, +S1, +S2 - GI/Abdominal Exam GI & Abdominal Exam: Soft, Normal Bowel Sounds. absent: Tenderness - Extremities Exam Extremities Exam: absent: Pedal Edema - Neurological Exam Neurological Exam: Awake - Skin Skin Exam: Dry, Warm Additional comments: large raised erythematous, sharply demarcated rash on left forearm, diffuse mobilliform rash on back, chest and right arm has diffuse rash. Patient's cheeks appear to be flushed, but may also be due to the rash. stage 2 intragluteal ulcer. Assessment and Plan - Assessment and Plan (Free Text) Plan: Bizarre Behavior Unknown at this time if behavior is secondary to infection vs manifestation of TBI symptoms vs psychiatric psych consult, Dr. Mccurdy, help appreciated as per Dr. Mccurdy, most likely not a psychiatric cause, Ativan PRN for agitation 05/18 Neuro: Dr. Hodges Brain MRI w/ and w/o contrast ordered: Study compromised by motion. No territorial infarct or intracranial hemorrhage Per ID, ruling out viral meningitis. Patient's rash is likely drug related but cannot rule out viral at this time. Droplet precaution in the meantime. Lumbar puncture performed 05/20/17 by anesthesia. F/u CSF studies including cytology, cell count, measles, lyme, [place], herpes Rash, 05/19 05/19 Patient is somnolent, allergic reaction, rash on forearm and all on right arm and scattered rash on chest. Aztreonam 1 gm Q8H, started 05/19 Clindamycin 450mg IVPB Q6H, started 05/19 Saccharomyces 250mg POBID Methylprednisolone 250mg IVP Pepcid 40mg IVP once Claritin 10 mg PO daily started on 05/21/17 Gluteal wound, stage 2 intergluteal ulcer no leukocytosis, afebrile Surgery consulted, Dr. Neil, help appreciated as per surgery superficial gluteal would, no tract- no surgical intervention wound care kirsten talamantes blood cultures- no growth after 24 hours Acute diverticulitis no leukocytosis, afebrile Abdomen/Pelvis CT: diverticulitis of sigmoid colon, mild splenomegaly, liver lesions Cipro 400mg q12h, discontinued 05/19 due to rash Flagyl 500mg q8h, discontinued 05/19 due to rash Aztreonam 1 gm Q8H, started 05/19 Clindamycin 450mg IVPB Q6H, started 05/19 Ultram 25mg po BID for pain GI, Dr. Charles, consulted- help appreciated -continue antibiotics for 2 weeks Prophylactic Measure Regular diet Heparin 5000 units SC Q8 Protonix 40 mg PO daily [phone] Wendy Diamond--patient's sister and point of contact Disposition: Awaiting further CSF studies. Awaiting measles before discontinuing isolation, though patient's rash is likely drug related. Case DW Dr. Virgil Ford PGY-1 <нАна Herman - Last Filed: 06/12/17 09:44> Objective - Vital Signs/Intake and Output Vital Signs (last 24 hours): Temp Pulse Resp BP Pulse Ox 98.0 F 76 20 121/83 96 06/12/17 08:20 06/12/17 08:20 06/12/17 08:20 06/12/17 08:20 06/12/17 08:20 Intake and Output: 06/12/17 06/12/17 06:59 18:59 Intake Total 100 Balance 100 - Medications Medications: Current Medications Famotidine (Pepcid) 20 mg PO BID [facility] Last Admin: 06/11/17 17:57 Dose: 20 mg Lorazepam (Ativan) 1 mg IVP Q4H PRN PRN Reason: Agitation Last Admin: 06/08/17 06:13 Dose: 1 mg Lorazepam (Ativan) 1 mg IVP ONCE PRN PRN Reason: BEFORE MRI Last Admin: 06/06/17 09:28 Dose: 1 mg Lorazepam (Ativan) 2 mg IVP ONCE PRN PRN Reason: to be given before MRI Mefloquine HCl (Lariam) 1,000 mg PO QWK [facility] Stop: 06/14/17 10:01 Last Admin: 06/07/17 11:26 Dose: 1,000 mg Saccharomyces Boulardii (Florastor) 250 mg PO BID [facility] Last Admin: 06/11/17 17:57 Dose: 250 mg Valproate Sodium (Depakene Oral Soln) 500 mg PO Q12H [facility] Last Admin: 06/11/17 21:18 Dose: 500 mg - Labs Labs: 06/10/17 16:45 06/10/17 16:45 PT 13.6 SECONDS (9.7-12.2) H 05/20/17 11:33 INR 1.2 05/20/17 11:33 APTT 28 SECONDS (21-34) 05/20/17 11:33 Attending/Attestation - Attestation I have personally seen and examined this patient.: Yes I have fully participated in the care of the patient.: Yes I have reviewed all pertinent clinical information, including history, physical exam and plan: Yes Notes (Text): Seen and examined No changes noted Discussed with family continue current medication
[2017-05-21] MEDS: Aztreonam 1 GM in Sodium Chloride 0.9% 100 ML IVPB SCH ×2 (08:00→20:16)
[2017-05-21] MEDS: Pantoprazole 40 mg EC Tab PO SCH (10:33)
[2017-05-21] MEDS: Saccharomyces Boulardi 250 mg Cap PO SCH ×2 (10:34→19:15)
--- NOTE | 2017-05-21 11:07 | CP.PCM.PN ---
Subjective - Date & Time of Evaluation Date of Evaluation: 05/21/17 Time of Evaluation: 09:00 - Subjective Subjective: remains nonverbal confused bedridden but NAD afebrile LP done yesterday was clear and colorless - rules out bacterial meningitis Cannot r/o encephalitis - postinfectious ? EBV titers high ( convalescent ) Cont IV acyclovir await HSV PCR and WNV from CSF EBV titers high ( convalescent ) Await measles Ig M titers before d/c isolation Objective - Vital Signs/Intake and Output Vital Signs (last 24 hours): Temp Pulse Resp BP Pulse Ox 97.7 F 62 20 118/68 95 05/21/17 00:42 05/21/17 00:42 05/21/17 00:42 05/21/17 00:42 05/21/17 00:42 - Medications Medications: Current Medications Heparin Sodium (Porcine) (Heparin) 5,000 units SC Q8 [facility] Last Admin: 05/21/17 05:21 Dose: 5,000 units Aztreonam 1 gm/ Sodium (Chloride) 100 mls @ 200 mls/hr IVPB Q8H [facility] Last Admin: 05/21/17 08:00 Dose: 200 mls/hr Clindamycin Phosphate 300 mg/ (Sodium Chloride) 102 mls @ 104 mls/hr IVPB Q8H [facility] Last Admin: 05/21/17 10:34 Dose: 104 mls/hr Acyclovir 900 mg/ Sodium (Chloride) 150 mls @ 100 mls/hr IV Q8H [facility] Loratadine (Claritin) 10 mg PO DAILY [facility] Last Admin: 05/21/17 10:33 Dose: 10 mg Lorazepam (Ativan) 1 mg IVP Q4H PRN PRN Reason: Agitation Last Admin: 05/20/17 18:38 Dose: 1 mg Pantoprazole Sodium (Protonix Ec Tab) 40 mg PO DAILY [facility] Last Admin: 05/21/17 10:33 Dose: 40 mg Saccharomyces Boulardii (Florastor) 250 mg PO BID [facility] Last Admin: 05/21/17 10:34 Dose: 250 mg - Labs Labs: 05/20/17 08:41 05/20/17 08:41 PT 13.6 SECONDS (9.7-12.2) H 05/20/17 11:33 INR 1.2 05/20/17 11:33 APTT 28 SECONDS (21-34) 05/20/17 11:33 - Constitutional Appears: Non-toxic, Chronically Ill - Head Exam Head Exam: NORMOCEPHALIC - Eye Exam Eye Exam: PERRL - ENT Exam ENT Exam: Mucous Membranes Dry - Neck Exam Neck Exam: absent: Lymphadenopathy - Respiratory Exam Respiratory Exam: Decreased Breath Sounds - Cardiovascular Exam Cardiovascular Exam: REGULAR RHYTHM - GI/Abdominal Exam GI & Abdominal Exam: Distended, Soft - Rectal Exam Rectal Exam: Deferred - Exam Exam: NORMAL INSPECTION - Extremities Exam Extremities Exam: absent: Pedal Edema - Back Exam Back Exam: absent: CVA tenderness (L), CVA tenderness (R) - Neurological Exam Neurological Exam: Altered Neuro motor strength exam: Left Upper Extremity: 4, Right Upper Extremity: 4, Left Lower Extremity: 4, Right Lower Extremity: 4 - Psychiatric Exam Psychiatric exam: Depressed - Skin Skin Exam: Dry Assessment and Plan (1) Altered mental status Status: Acute - Assessment and Plan (Free Text) Assessment: 51 yo male admitted for AMS and diverticulitis GI and surgery on board- belly soft nontender at present rash on trunk persists and may be related to drug reaction LP done yesterday was clear and colorless - rules out bacterial meningitis Cannot r/o encephalitis - postinfectious ? EBV titers high ( convalescent ) Cont IV acyclovir await HSV PCR and WNV from CSF EBV titers high ( convalescent ) Await measles Ig M titers before d/c isolation
[2017-05-21 13:26] LABS: RUBELLA AB (IGG) 1.02 index
[2017-05-21] MEDS ORDERED: ACYCLOVIR IV SCH (16:00)
[2017-05-21] MEDS ORDERED: SODIUM CHLORIDE 0.9% IV SCH (16:00)
[2017-05-21] MEDS: SODIUM CHLORIDE 0.9% IV SCH (21:30)
[2017-05-21] MEDS: ACYCLOVIR IV SCH (21:30)
[2017-05-22] MEDS: Clindamycin 300 MG in Sodium Chloride 0.9% 100 ML IVPB SCH ×3 (02:43→17:19)
[2017-05-22] MEDS: Aztreonam 1 GM in Sodium Chloride 0.9% 100 ML IVPB SCH ×4 (04:09→19:50)
[2017-05-22] MEDS: ACYCLOVIR IV SCH ×3 (05:53→21:33)
[2017-05-22] MEDS: SODIUM CHLORIDE 0.9% IV SCH ×3 (05:53→21:33)
--- NOTE | 2017-05-22 06:56 | CP.PCM.PN ---
<Ronni Ford - Last Filed: 05/22/17 19:35> Subjective - Date & Time of Evaluation Date of Evaluation: 05/22/17 Time of Evaluation: 07:20 - Subjective Subjective: Medicine progress note for Dr. Herman Patient seen and examined at bedside. No acute complaints per patient. He intermittently vocalizes with staff including myself. Objective - Vital Signs/Intake and Output Vital Signs (last 24 hours): Temp Pulse Resp BP Pulse Ox 98.1 F 67 20 111/62 96 05/21/17 23:20 05/21/17 23:20 05/21/17 23:20 05/21/17 23:20 05/21/17 23:20 Intake and Output: 05/21/17 05/22/17 18:59 06:59 Intake Total 500 1100 Balance 500 1100 - Medications Medications: Current Medications Heparin Sodium (Porcine) (Heparin) 5,000 units SC Q8 [facility] Last Admin: 05/22/17 05:53 Dose: 5,000 units Clindamycin Phosphate 300 mg/ (Sodium Chloride) 102 mls @ 104 mls/hr IVPB Q8H [facility] Last Admin: 05/22/17 02:43 Dose: 104 mls/hr Aztreonam 1 gm/ Sodium (Chloride) 100 mls @ 200 mls/hr IVPB Q8H [facility] Last Admin: 05/22/17 04:09 Dose: 200 mls/hr Acyclovir 900 mg/ Sodium (Chloride) 150 mls @ 100 mls/hr IV Q8H [facility] Last Admin: 05/22/17 05:53 Dose: 100 mls/hr Loratadine (Claritin) 10 mg PO DAILY [facility] Last Admin: 05/21/17 10:33 Dose: 10 mg Lorazepam (Ativan) 1 mg IVP Q4H PRN PRN Reason: Agitation Last Admin: 05/20/17 18:38 Dose: 1 mg Pantoprazole Sodium (Protonix Ec Tab) 40 mg PO DAILY [facility] Last Admin: 05/21/17 10:33 Dose: 40 mg Saccharomyces Boulardii (Florastor) 250 mg PO BID [facility] Last Admin: 05/21/17 19:15 Dose: 250 mg - Labs Labs: 05/20/17 08:41 05/20/17 08:41 PT 13.6 SECONDS (9.7-12.2) H 05/20/17 11:33 INR 1.2 05/20/17 11:33 APTT 28 SECONDS (21-34) 05/20/17 11:33 - Constitutional Appears: No Acute Distress - Head Exam Head Exam: ATRAUMATIC, NORMOCEPHALIC - Eye Exam Eye Exam: EOMI, Normal appearance - ENT Exam ENT Exam: Mucous Membranes Moist - Respiratory Exam Respiratory Exam: Clear to Ausculation Bilateral, NORMAL BREATHING PATTERN. absent: Rales, Rhonchi, Wheezes - Cardiovascular Exam Cardiovascular Exam: REGULAR RHYTHM, +S1, +S2 - GI/Abdominal Exam GI & Abdominal Exam: Soft, Normal Bowel Sounds. absent: Distended, Tenderness - Extremities Exam Extremities Exam: absent: Pedal Edema - Neurological Exam Neurological Exam: Awake - Skin Skin Exam: Dry, Warm Additional comments: large raised erythematous, sharply demarcated rash on left forearm, diffuse mobilliform rash on back, chest and right arm has diffuse rash. Patient's cheeks appear to be flushed, but may also be due to the rash. stage 2 intragluteal ulcer. Assessment and Plan - Assessment and Plan (Free Text) Plan: Bizarre Behavior Unknown at this time if behavior is secondary to infection vs manifestation of TBI symptoms vs psychiatric psych consult, Dr. Mccurdy, help appreciated as per Dr. Mccuryd, most likely not a psychiatric cause, Ativan PRN for agitation 05/18 Neuro: Dr. Hodges Brain MRI w/ and w/o contrast ordered: Study compromised by motion. No territorial infarct or intracranial hemorrhage Per ID, ruling out viral meningitis. Patient's rash is likely drug related but cannot rule out viral at this time. Droplet precaution in the meantime. Lumbar puncture performed 05/20/17 by anesthesia. F/u CSF studies though workup unremarkable thus far Rash, 05/19 05/19 Patient is somnolent, allergic reaction, rash on forearm and all on right arm and scattered rash on chest. Aztreonam 1 gm Q8H, started 05/19 Clindamycin 450mg IVPB Q6H, started 05/19 Saccharomyces 250mg POBID Methylprednisolone 250mg IVP Pepcid 40mg IVP once Claritin 10 mg PO daily started on 05/21/17 Gluteal wound, stage 2 intergluteal ulcer no leukocytosis, afebrile Surgery consulted, Dr. Neil, help appreciated as per surgery superficial gluteal would, no tract- no surgical intervention wound care kirsten talamantes blood cultures- no growth after 24 hours Acute diverticulitis no leukocytosis, afebrile Abdomen/Pelvis CT: diverticulitis of sigmoid colon, mild splenomegaly, liver lesions Cipro 400mg q12h, discontinued 05/19 due to rash Flagyl 500mg q8h, discontinued 05/19 due to rash Aztreonam 1 gm Q8H, started 05/19 Clindamycin 450mg IVPB Q6H, started 05/19 Ultram 25mg po BID for pain GI, Dr. Charles, consulted- help appreciated -continue antibiotics for 2 weeks Prophylactic Measure Regular diet Heparin 5000 units SC Q8 Protonix 40 mg PO daily [phone] Wendy Diamond--patient's sister and point of contact Disposition: Awaiting further CSF studies. Awaiting measles before discontinuing isolation, though patient's rash is likely drug related. Case DW Dr. Virgil Ford PGY-1 <Анна Herman - Last Filed: 06/12/17 10:44> Objective - Vital Signs/Intake and Output Vital Signs (last 24 hours): Temp Pulse Resp BP Pulse Ox 98.0 F 76 20 121/83 96 06/12/17 08:20 06/12/17 08:20 06/12/17 08:20 06/12/17 08:20 06/12/17 08:20 Intake and Output: 06/12/17 06/12/17 06:59 18:59 Intake Total 100 Balance 100 - Medications Medications: Current Medications Famotidine (Pepcid) 20 mg PO BID [facility] Last Admin: 06/12/17 10:07 Dose: 20 mg Lorazepam (Ativan) 1 mg IVP Q4H PRN PRN Reason: Agitation Last Admin: 06/08/17 06:13 Dose: 1 mg Lorazepam (Ativan) 1 mg IVP ONCE PRN PRN Reason: BEFORE MRI Last Admin: 06/06/17 09:28 Dose: 1 mg Lorazepam (Ativan) 2 mg IVP ONCE PRN PRN Reason: to be given before MRI Mefloquine HCl (Lariam) 1,000 mg PO QWK [facility] Stop: 06/14/17 10:01 Last Admin: 06/07/17 11:26 Dose: 1,000 mg Saccharomyces Boulardii (Florastor) 250 mg PO BID [facility] Last Admin: 06/12/17 10:07 Dose: 250 mg Valproate Sodium (Depakene Oral Soln) 500 mg PO Q12H [facility] Last Admin: 06/12/17 10:06 Dose: 500 mg - Labs Labs: 06/10/17 16:45 06/10/17 16:45 PT 13.6 SECONDS (9.7-12.2) H 05/20/17 11:33 INR 1.2 05/20/17 11:33 APTT 28 SECONDS (21-34) 05/20/17 11:33 Attending/Attestation - Attestation I have personally seen and examined this patient.: Yes I have fully participated in the care of the patient.: Yes I have reviewed all pertinent clinical information, including history, physical exam and plan: Yes Notes (Text): Seen and examined D/w the resident and the family Occasionally he say one or two words not following directions
[2017-05-22 07:17] LABS: BASO % 0.8 % (0.0-2.0); EOS # 0.2 K/uL (0.0-0.7); EOS % 4.7 % (0.0-4.0); HEMOGLOBIN 13.5 g/dL (12.0-18.0); LYMPH # 1.8 K/uL (1.0-4.3); LYMPH % 35.4 % (20.0-40.0); MEAN CELL VOLUME 87.2 fL (80.0-94.0); MEAN CORPUSCULAR HEMOGLOBIN 29.8 pg (27.0-31.0); MEAN CORPUSCULAR HGB CONC 34.2 g/dL (33.0-37.0); MEAN PLATELET VOLUME 9.1 fL (7.2-11.7); MONO # 0.5 K/uL (0.0-0.8); NEUT # 2.5 K/uL (1.8-7.0); NEUT % 49.1 % (50.0-75.0); NRBC % 0.2 % (0.0-2.0); RBC 4.54 Mil/uL (4.40-5.90); RED CELL DISTRIBUTION WIDTH 13.6 % (11.5-14.5); WHITE BLOOD COUNT 5.1 K/uL (4.8-10.8)
[2017-05-22 07:49] LABS: ALB/GLOB RATIO 1.2 (1.0-2.1); ALBUMIN 3.4 g/dL (3.5-5.0); ALT/SGPT 112 U/L (21-72); AST/SGOT 60 U/L (17-59); BLOOD UREA NITROGEN 12 mg/dL (9-20); CALCIUM 8.2 mg/dl (8.6-10.4)
[2017-05-22 07:51] LABS: GFR AFRICAN-AMERICAN > 60; GFR NON-AFRICAN AMERICAN > 60
[2017-05-22] MEDS: Saccharomyces Boulardi 250 mg Cap PO SCH ×2 (09:31→17:19)
[2017-05-22] MEDS: Pantoprazole 40 mg EC Tab PO SCH (09:31)
--- NOTE | 2017-05-22 12:34 | CP.PCM.PN ---
Subjective - Date & Time of Evaluation Date of Evaluation: 05/22/17 Time of Evaluation: 12:29 - Subjective Subjective: Mr. Lowry was seen and examined at the bedside. He is awake, but with minimal verbal response. He is able to answer few questions such as "How are you?, Are you doing ok?"He is unable to follow simple commands, but with restlessness of bilateral upper and lower extremities. He is responsive to his family and able to tolerate PO intake with moderate assistance. The CSF showed colorless, clear with elevated glucose (79) and protein (72), and RBC-2He remains on 1:1 sitter for patient safety. He is also on airborne precaution. Objective - Vital Signs/Intake and Output Vital Signs (last 24 hours): Temp Pulse Resp BP Pulse Ox 97.3 F L 63 20 101/56 L 97 05/22/17 08:33 05/22/17 08:33 05/22/17 08:33 05/22/17 08:33 05/22/17 08:33 Intake and Output: 05/22/17 05/22/17 06:59 18:59 Intake Total 1100 Balance 1100 - Medications Medications: Current Medications Heparin Sodium (Porcine) (Heparin) 5,000 units SC Q8 [facility] Last Admin: 05/22/17 05:53 Dose: 5,000 units Clindamycin Phosphate 300 mg/ (Sodium Chloride) 102 mls @ 104 mls/hr IVPB Q8H [facility] Last Admin: 05/22/17 02:43 Dose: 104 mls/hr Aztreonam 1 gm/ Sodium (Chloride) 100 mls @ 200 mls/hr IVPB Q8H [facility] Last Admin: 05/22/17 04:09 Dose: 200 mls/hr Acyclovir 900 mg/ Sodium (Chloride) 150 mls @ 100 mls/hr IV Q8H [facility] Last Admin: 05/22/17 05:53 Dose: 100 mls/hr Loratadine (Claritin) 10 mg PO DAILY [facility] Last Admin: 05/22/17 09:31 Dose: 10 mg Lorazepam (Ativan) 1 mg IVP Q4H PRN PRN Reason: Agitation Last Admin: 05/20/17 18:38 Dose: 1 mg Pantoprazole Sodium (Protonix Ec Tab) 40 mg PO DAILY [facility] Last Admin: 05/22/17 09:31 Dose: 40 mg Saccharomyces Boulardii (Florastor) 250 mg PO BID [facility] Last Admin: 05/22/17 09:31 Dose: 250 mg Valproate Sodium (Depakene Cap) 750 mg PO BID [facility] - Labs Labs: 05/22/17 07:06 05/22/17 07:06 PT 13.6 SECONDS (9.7-12.2) H 05/20/17 11:33 INR 1.2 05/20/17 11:33 APTT 28 SECONDS (21-34) 05/20/17 11:33 - Constitutional Appears: No Acute Distress - Head Exam Head Exam: NORMAL INSPECTION - Neurological Exam Neurological Exam: Alert, Awake Neuro motor strength exam: Left Upper Extremity: 5, Right Upper Extremity: 5, Left Lower Extremity: 5, Right Lower Extremity: 5 Additional comments: Neurological improved from previous examination. He is able to utter few words in comparison from previous examination that there were no words. Assessment and Plan (1) Altered mental status Assessment & Plan: Case discussed with Dr. Darnell, continue all current medical, physical therapies. recommend EEG. Status: Acute
--- NOTE | 2017-05-22 15:02 | CP.PCM.PN ---
Subjective - Date & Time of Evaluation Date of Evaluation: 05/22/17 Time of Evaluation: 08:00 - Subjective Subjective: arousable moves all extrem no fever Objective - Vital Signs/Intake and Output Vital Signs (last 24 hours): Temp Pulse Resp BP Pulse Ox 97.3 F L 63 20 101/56 L 97 05/22/17 08:33 05/22/17 08:33 05/22/17 08:33 05/22/17 08:33 05/22/17 08:33 Intake and Output: 05/22/17 05/22/17 06:59 18:59 Intake Total 1100 Balance 1100 - Medications Medications: Current Medications Heparin Sodium (Porcine) (Heparin) 5,000 units SC Q8 [facility] Last Admin: 05/22/17 14:35 Dose: 5,000 units Clindamycin Phosphate 300 mg/ (Sodium Chloride) 102 mls @ 104 mls/hr IVPB Q8H [facility] Last Admin: 05/22/17 10:00 Dose: 104 mls/hr Aztreonam 1 gm/ Sodium (Chloride) 100 mls @ 200 mls/hr IVPB Q8H [facility] Last Admin: 05/22/17 12:44 Dose: 200 mls/hr Acyclovir 900 mg/ Sodium (Chloride) 150 mls @ 100 mls/hr IV Q8H [facility] Last Admin: 05/22/17 14:00 Dose: 100 mls/hr Loratadine (Claritin) 10 mg PO DAILY [facility] Last Admin: 05/22/17 09:31 Dose: 10 mg Lorazepam (Ativan) 1 mg IVP Q4H PRN PRN Reason: Agitation Last Admin: 05/20/17 18:38 Dose: 1 mg Pantoprazole Sodium (Protonix Ec Tab) 40 mg PO DAILY [facility] Last Admin: 05/22/17 09:31 Dose: 40 mg Saccharomyces Boulardii (Florastor) 250 mg PO BID [facility] Last Admin: 05/22/17 09:31 Dose: 250 mg Valproate Sodium (Depakene Cap) 750 mg PO BID [facility] - Labs Labs: 05/22/17 07:06 05/22/17 07:06 PT 13.6 SECONDS (9.7-12.2) H 05/20/17 11:33 INR 1.2 05/20/17 11:33 APTT 28 SECONDS (21-34) 05/20/17 11:33 - Constitutional Appears: Non-toxic, Chronically Ill - Head Exam Head Exam: NORMOCEPHALIC - Eye Exam Eye Exam: PERRL - ENT Exam ENT Exam: Mucous Membranes Dry - Neck Exam Neck Exam: absent: Lymphadenopathy - Respiratory Exam Respiratory Exam: Decreased Breath Sounds - Cardiovascular Exam Cardiovascular Exam: REGULAR RHYTHM - GI/Abdominal Exam GI & Abdominal Exam: Distended - Rectal Exam Rectal Exam: Deferred - Exam Exam: NORMAL INSPECTION - Extremities Exam Extremities Exam: absent: Pedal Edema - Back Exam Back Exam: absent: CVA tenderness (L), CVA tenderness (R) - Neurological Exam Neurological Exam: Alert, Awake Assessment and Plan (1) Altered mental status Status: Acute - Assessment and Plan (Free Text) Assessment: resolving rash Measles Ig G elevated- ok to d/c airborne cont work up for possible encephalitis as per Neuro cont rx for diverticulitis as per Dr Charles- will need GI follow up for this
[2017-05-22 15:15] LABS: HTLV-I-II AB W/REFL CONF Nonreactive (Nonreactive)
[2017-05-22] MEDS ORDERED: Potassium Chloride 20 mEq ER Tab PO ONE (22:00)
[2017-05-23 00:40] LABS: SOURCE CSF; SOURCE: CEREBROSPINAL FLUID
[2017-05-23] MEDS: Clindamycin 300 MG in Sodium Chloride 0.9% 100 ML IVPB SCH ×3 (02:14→18:03)
[2017-05-23 02:44] LABS: SPECIMEN SOURCE CSF
[2017-05-23] MEDS: Aztreonam 1 GM in Sodium Chloride 0.9% 100 ML IVPB SCH ×3 (03:42→20:56)
[2017-05-23] MEDS: ACYCLOVIR IV SCH ×3 (05:06→22:30)
[2017-05-23] MEDS: SODIUM CHLORIDE 0.9% IV SCH ×2 (05:06→14:40)
[2017-05-23 06:35] LABS: BASO # 0.1 K/uL (0.0-0.2); BASO % 0.9 % (0.0-2.0); EOS # 0.2 K/uL (0.0-0.7); EOS % 3.6 % (0.0-4.0); HEMOGLOBIN 14.2 g/dL (12.0-18.0); LYMPH # 1.3 K/uL (1.0-4.3); MEAN CELL VOLUME 87.2 fL (80.0-94.0); MEAN CORPUSCULAR HGB CONC 34.5 g/dL (33.0-37.0); MEAN PLATELET VOLUME 8.7 fL (7.2-11.7); MONO # 0.6 K/uL (0.0-0.8); MONO % 10.6 % (0.0-10.0); NEUT # 3.6 K/uL (1.8-7.0); NEUT % 62.9 % (50.0-75.0); NRBC % 0.1 % (0.0-2.0); RBC 4.73 Mil/uL (4.40-5.90); RED CELL DISTRIBUTION WIDTH 13.6 % (11.5-14.5); WHITE BLOOD COUNT 5.7 K/uL (4.8-10.8)
[2017-05-23 06:48] LABS: ALB/GLOB RATIO 1.3 (1.0-2.1); ALBUMIN 3.6 g/dL (3.5-5.0); ALT/SGPT 104 U/L (21-72); AST/SGOT 53 U/L (17-59); BLOOD UREA NITROGEN 11 mg/dL (9-20); CALCIUM 9.1 mg/dl (8.6-10.4); GFR AFRICAN-AMERICAN > 60; GFR NON-AFRICAN AMERICAN > 60
--- NOTE | 2017-05-23 07:03 | CP.PCM.PN ---
Subjective - Date & Time of Evaluation Date of Evaluation: 05/23/17 Time of Evaluation: 07:10 - Subjective Subjective: Medicine progress note for Dr. Herman Patient seen and examined at bedside. Patient reports no complaints today. He remains minimally verbal. Patient was also witnessed later on rounds ambulating during physical therapy. Objective - Vital Signs/Intake and Output Vital Signs (last 24 hours): Temp Pulse Resp BP Pulse Ox 98.0 F 75 20 124/82 98 05/23/17 01:50 05/23/17 01:50 05/23/17 01:50 05/23/17 01:50 05/23/17 01:50 - Medications Medications: Current Medications Heparin Sodium (Porcine) (Heparin) 5,000 units SC Q8 [facility] Last Admin: 05/23/17 05:53 Dose: 5,000 units Clindamycin Phosphate 300 mg/ (Sodium Chloride) 102 mls @ 104 mls/hr IVPB Q8H [facility] Last Admin: 05/23/17 02:14 Dose: 104 mls/hr Aztreonam 1 gm/ Sodium (Chloride) 100 mls @ 200 mls/hr IVPB Q8H [facility] Last Admin: 05/23/17 03:42 Dose: 200 mls/hr Acyclovir 900 mg/ Sodium (Chloride) 150 mls @ 100 mls/hr IV Q8H [facility] Last Admin: 05/23/17 05:06 Dose: 100 mls/hr Loratadine (Claritin) 10 mg PO DAILY [facility] Last Admin: 05/22/17 09:31 Dose: 10 mg Lorazepam (Ativan) 1 mg IVP Q4H PRN PRN Reason: Agitation Last Admin: 05/22/17 20:30 Dose: 1 mg Pantoprazole Sodium (Protonix Ec Tab) 40 mg PO DAILY [facility] Last Admin: 05/22/17 09:31 Dose: 40 mg Potassium Chloride (Potassium Chloride Oral Soln) 20 meq PO DAILY [facility] Stop: 05/23/17 10:01 Saccharomyces Boulardii (Florastor) 250 mg PO BID [facility] Last Admin: 05/22/17 17:19 Dose: 250 mg Valproate Sodium (Depakene Cap) 750 mg PO BID [facility] Last Admin: 05/22/17 17:19 Dose: 750 mg - Labs Labs: 05/23/17 06:23 01/18/18 06:23 PT 13.6 SECONDS (9.7-12.2) H 05/20/17 11:33 INR 1.2 05/20/17 11:33 APTT 28 SECONDS (21-34) 05/20/17 11:33 - Constitutional Appears: No Acute Distress - Head Exam Head Exam: ATRAUMATIC, NORMOCEPHALIC - Eye Exam Eye Exam: EOMI, Normal appearance - ENT Exam ENT Exam: Mucous Membranes Moist - Respiratory Exam Respiratory Exam: Clear to Ausculation Bilateral, NORMAL BREATHING PATTERN. absent: Rales, Rhonchi, Wheezes - Cardiovascular Exam Cardiovascular Exam: REGULAR RHYTHM, +S1, +S2 - GI/Abdominal Exam GI & Abdominal Exam: Soft, Normal Bowel Sounds. absent: Distended, Tenderness - Extremities Exam Extremities Exam: absent: Pedal Edema - Neurological Exam Neurological Exam: Awake - Skin Skin Exam: Dry, Warm Additional comments: large raised erythematous, sharply demarcated rash on left forearm, diffuse mobilliform rash on back, chest and right arm has diffuse rash. Patient's cheeks appear to be flushed, but may also be due to the rash. stage 2 intragluteal ulcer. Assessment and Plan - Assessment and Plan (Free Text) Plan: Bizarre Behavior Unknown at this time if behavior is secondary to infection vs manifestation of TBI symptoms vs psychiatric psych consult, Dr. Mccurdy, help appreciated as per Dr. Mccurdy, most likely not a psychiatric cause, Ativan PRN for agitation 05/18 Neuro: Dr. Hodges Brain MRI w/ and w/o contrast ordered: Study compromised by motion. No territorial infarct or intracranial hemorrhage Per ID, ruling out viral meningitis. Patient's rash is likely drug related but cannot rule out viral at this time. Measles IgM later came back negative. Lumbar puncture performed 05/20/17 by anesthesia. F/u CSF studies though workup unremarkable thus far Brain MRI w. contrast ordered and sedation ordered in anticipation Rash, 05/19 05/19 Patient is somnolent, allergic reaction, rash on forearm and all on right arm and scattered rash on chest. Aztreonam 1 gm Q8H, started 05/19 Clindamycin 450mg IVPB Q6H, started 05/19 Saccharomyces 250mg POBID Methylprednisolone 250mg IVP Pepcid 40mg IVP once Claritin 10 mg PO daily started on 05/21/17 Gluteal wound, stage 2 intergluteal ulcer no leukocytosis, afebrile Surgery consulted, Dr. Neil, help appreciated as per surgery superficial gluteal would, no tract- no surgical intervention wound care kirsten talamantes blood cultures- no growth Acute diverticulitis no leukocytosis, afebrile Abdomen/Pelvis CT: diverticulitis of sigmoid colon, mild splenomegaly, liver lesions Cipro 400mg q12h, discontinued 05/19 due to rash Flagyl 500mg q8h, discontinued 05/19 due to rash Aztreonam 1 gm Q8H, started 05/19 Clindamycin 450mg IVPB Q6H, started 05/19 Ultram 25mg po BID for pain GI, Dr. Charles, consulted- help appreciated -continue antibiotics for 2 weeks Prophylactic Measure Regular diet Heparin 5000 units SC Q8 Protonix 40 mg PO daily [phone] Wendy Codysara--patient's sister and point of contact Disposition: Awaiting HSV IgM titer. At this time, there is still no explanation of why the patient is experiencing this change in behavior from baseline. Case DW Dr. Virgil Ford PGY-1
[2017-05-23] MEDS ORDERED: Potassium Chloride 20 mEq/15 ml LIQ UD PO SCH (10:00)
[2017-05-23] MEDS: Saccharomyces Boulardi 250 mg Cap PO SCH ×3 (11:15→18:03)
[2017-05-23] MEDS: Pantoprazole 40 mg EC Tab PO SCH ×2 (11:15→11:41)
--- NOTE | 2017-05-23 12:32 | CP.PCM.PN ---
Subjective - Date & Time of Evaluation Date of Evaluation: 05/23/17 Time of Evaluation: 12:23 - Subjective Subjective: Mr. hanna was seen and examined at the bedside. He is awake, but non-verbal. He opens his eyes with tactile stimuli. He is unable to follow simple commands. He remains with healing rash in his bilateral upper extremities. He is out of isolation. His EEG showed slow brain wave but no seizure activity noted. He remains on 1:1 sitter for patient safety. There was no untoward events overnight. Objective - Vital Signs/Intake and Output Vital Signs (last 24 hours): Temp Pulse Resp BP Pulse Ox 97.2 F L 58 L 20 129/81 96 05/23/17 07:15 05/23/17 07:15 05/23/17 07:15 05/23/17 07:15 05/23/17 07:15 - Medications Medications: Current Medications Heparin Sodium (Porcine) (Heparin) 5,000 units SC Q8 [facility] Last Admin: 05/23/17 05:53 Dose: 5,000 units Clindamycin Phosphate 300 mg/ (Sodium Chloride) 102 mls @ 104 mls/hr IVPB Q8H [facility] Last Admin: 05/23/17 11:16 Dose: 104 mls/hr Aztreonam 1 gm/ Sodium (Chloride) 100 mls @ 200 mls/hr IVPB Q8H [facility] Last Admin: 05/23/17 03:42 Dose: 200 mls/hr Acyclovir 900 mg/ Sodium (Chloride) 150 mls @ 100 mls/hr IV Q8H [facility] Last Admin: 05/23/17 05:06 Dose: 100 mls/hr Loratadine (Claritin) 10 mg PO DAILY [facility] Last Admin: 05/23/17 11:40 Dose: Not Given Lorazepam (Ativan) 1 mg IVP Q4H PRN PRN Reason: Agitation Last Admin: 05/22/17 20:30 Dose: 1 mg Pantoprazole Sodium (Protonix Ec Tab) 40 mg PO DAILY [facility] Last Admin: 05/23/17 11:41 Dose: Not Given Saccharomyces Boulardii (Florastor) 250 mg PO BID [facility] Last Admin: 05/23/17 11:41 Dose: Not Given Valproate Sodium (Depakene Cap) 750 mg PO BID [facility] Last Admin: 05/23/17 11:40 Dose: Not Given - Labs Labs: 05/23/17 06:23 05/23/17 06:23 PT 13.6 SECONDS (9.7-12.2) H 05/20/17 11:33 INR 1.2 05/20/17 11:33 APTT 28 SECONDS (21-34) 05/20/17 11:33 - Constitutional Appears: No Acute Distress - Head Exam Head Exam: NORMAL INSPECTION - Neurological Exam Neurological Exam: Awake Neuro motor strength exam: Left Upper Extremity: 4, Right Upper Extremity: 4, Left Lower Extremity: 4, Right Lower Extremity: 4 Additional comments: He is unable to participate during assessment, but able to response to pain stimuli. Assessment and Plan (1) Altered mental status Assessment & Plan: Case discussed with Dr. Darnell, continue all current medical regimen. Status: Acute
--- NOTE | 2017-05-23 18:45 | CP.PCM.PN ---
Subjective - Date & Time of Evaluation Date of Evaluation: 05/23/17 Time of Evaluation: 08:00 - Subjective Subjective: awake alert afebrile follows commands but is not verbalizing appears frustrated recognizes relatives moves all extremities Objective - Vital Signs/Intake and Output Vital Signs (last 24 hours): Temp Pulse Resp BP Pulse Ox 97.7 F 81 20 141/61 95 05/23/17 15:00 05/23/17 15:00 05/23/17 15:00 05/23/17 15:00 05/23/17 15:00 - Medications Medications: Current Medications Heparin Sodium (Porcine) (Heparin) 5,000 units SC Q8 [facility] Last Admin: 05/23/17 14:38 Dose: 5,000 units Clindamycin Phosphate 300 mg/ (Sodium Chloride) 102 mls @ 104 mls/hr IVPB Q8H [facility] Last Admin: 05/23/17 18:03 Dose: 104 mls/hr Aztreonam 1 gm/ Sodium (Chloride) 100 mls @ 200 mls/hr IVPB Q8H [facility] Last Admin: 05/23/17 12:33 Dose: 200 mls/hr Acyclovir 900 mg/ Dextrose 250 mls @ 100 mls/hr IV Q8H [facility] Loratadine (Claritin) 10 mg PO DAILY [facility] Last Admin: 05/23/17 11:40 Dose: Not Given Lorazepam (Ativan) 1 mg IVP Q4H PRN PRN Reason: Agitation Last Admin: 05/22/17 20:30 Dose: 1 mg Lorazepam (Ativan) 2 mg IVP ONCE PRN PRN Reason: Give dose prior to MRI Pantoprazole Sodium (Protonix Ec Tab) 40 mg PO DAILY [facility] Last Admin: 05/23/17 11:41 Dose: Not Given Saccharomyces Boulardii (Florastor) 250 mg PO BID [facility] Last Admin: 05/23/17 18:03 Dose: 250 mg Valproate Sodium (Depakene Cap) 750 mg PO BID [facility] Last Admin: 05/23/17 18:03 Dose: 750 mg - Labs Labs: 05/23/17 06:23 05/23/17 06:23 PT 13.6 SECONDS (9.7-12.2) H 05/20/17 11:33 INR 1.2 05/20/17 11:33 APTT 28 SECONDS (21-34) 05/20/17 11:33 - Constitutional Appears: Non-toxic, Chronically Ill - Head Exam Head Exam: NORMOCEPHALIC - Eye Exam Eye Exam: PERRL - ENT Exam ENT Exam: Mucous Membranes Dry - Neck Exam Neck Exam: absent: Lymphadenopathy - Respiratory Exam Respiratory Exam: Decreased Breath Sounds - Cardiovascular Exam Cardiovascular Exam: REGULAR RHYTHM - GI/Abdominal Exam GI & Abdominal Exam: Distended, Soft - Rectal Exam Rectal Exam: Deferred - Exam Exam: NORMAL INSPECTION - Extremities Exam Extremities Exam: absent: Pedal Edema - Back Exam Back Exam: absent: CVA tenderness (L), CVA tenderness (R) - Neurological Exam Neurological Exam: Alert, Altered, Awake - Psychiatric Exam Psychiatric exam: Depressed - Skin Skin Exam: Dry Assessment and Plan (1) Altered mental status Status: Acute - Assessment and Plan (Free Text) Assessment: HSV PCR negative consider d/c acyclovir
[2017-05-23] MEDS ORDERED: Potassium Chloride 20 mEq ER Tab PO ONE (20:43)
--- NOTE | 2017-05-23 22:05 | PCM.PYCHPN ---
Psychiatric Progress Note - Psychiatric Progress Note Patient seen today, length of contact: 15 min Patient Chief Complaint: ozzie Problems Identified/Issues Discussed: Pt seen and evaluated, discussed with the staff and chart reviewed. Pt is smiling, and looking all around. He remained mute, disorganized and internally preoccupied. He is still not responding to any questions. Patient's mother and sister were present at the bedside. As per them he is still unable to eat, unable to walk and unable to dress by himself. Patient is still behaving strangely and still urinating and defecating on the bed. Medication Change: No Medical Record Reviewed: Yes Mental Status Examination - Cognitive Function Orientation: Person Memory: Impaired Attention: Poor Concentration: Poor Association: Loose Fund of Knowledge: Poor - Mood Mood: Anxious - Affect Affect: Constricted - Speech Speech: Soft - Formal Thought Process Formal Thought Process: Paranoia, Loosening of associations - Suicidal Ideation Suicidal Ideation: No - Homicidal Ideation Homicidal Ideation: No Goal/Treatment Plan - Goal/Treatment Plan Need for Continued Stay: Severe depression anxiety, Severe functional impairment Progress Toward Problem(s) and Goals/Treatment Plan: Delirium secondary to medical condition Continue haldol, benadryl, and ativan as needed for agitation. Continue medical management as per medicine team. - Smoking Cessation Smoking Cessation Initiated: No
--- NOTE | 2017-05-23 22:05 | PCM.PYCHPN ---
Psychiatric Progress Note - Psychiatric Progress Note Patient seen today, length of contact: 16 min Patient Chief Complaint: ozzie. Problems Identified/Issues Discussed: Pt seen and evaluated, discussed with the staff and chart reviewed. Patient's mother and sister were present at the bedside. As per them he is still unable to eat, unable to walk and unable to dress by himself. Patient is still behaving strangely and still urinating and defecating on the bed. Pt remained mute, disorganized and internally preoccupied. He is still not responding to any questions. He is smiling, and looking all around. He is not even moving any limb. Medication Change: No Medical Record Reviewed: Yes Mental Status Examination - Cognitive Function Memory: Impaired Attention: Poor Concentration: Poor Association: Loose Fund of Knowledge: Poor - Mood Mood: Anxious - Affect Affect: Constricted - Speech Speech: Soft - Formal Thought Process Formal Thought Process: Paranoia, Loosening of associations - Suicidal Ideation Suicidal Ideation: No - Homicidal Ideation Homicidal Ideation: No Goal/Treatment Plan - Goal/Treatment Plan Need for Continued Stay: Severe depression anxiety, Severe functional impairment Progress Toward Problem(s) and Goals/Treatment Plan: Delirium secondary to medical condition Continue haldol, benadryl, and ativan as needed for agitation. Continue medical management as per medicine team. - Smoking Cessation Smoking Cessation Initiated: No
[2017-05-23] MEDS: DEXTROSE 5% IV SCH (22:30)
[2017-05-23] MEDS: WATER IV SCH (22:30)
[2017-05-24] MEDS: Clindamycin 300 MG in Sodium Chloride 0.9% 100 ML IVPB SCH ×3 (01:24→18:02)
[2017-05-24] MEDS: Aztreonam 1 GM in Sodium Chloride 0.9% 100 ML IVPB SCH ×4 (03:00→21:19)
[2017-05-24] MEDS: WATER IV SCH ×3 (04:00→21:59)
[2017-05-24] MEDS: DEXTROSE 5% IV SCH ×3 (04:00→21:59)
[2017-05-24] MEDS: ACYCLOVIR IV SCH ×3 (04:00→21:59)
--- NOTE | 2017-05-24 07:30 | CP.PCM.PN ---
<Ronni Ford S - Last Filed: 05/24/17 22:15> Subjective - Date & Time of Evaluation Date of Evaluation: 05/24/17 Time of Evaluation: 07:40 - Subjective Subjective: Medicine progress note for Dr. Herman Patient seen and examined at bedside. Patient still speaks minimally in brief phrases or one word answers. Patient denies complaint at this time. Objective - Vital Signs/Intake and Output Vital Signs (last 24 hours): Temp Pulse Resp BP Pulse Ox 98.2 F 82 20 102/68 95 05/23/17 23:00 05/23/17 23:00 05/23/17 23:00 05/23/17 23:00 05/23/17 23:00 Intake and Output: 05/24/17 05/24/17 06:59 18:59 Intake Total 1000 Balance 1000 - Medications Medications: Current Medications Heparin Sodium (Porcine) (Heparin) 5,000 units SC Q8 [facility] Last Admin: 05/24/17 05:44 Dose: 5,000 units Clindamycin Phosphate 300 mg/ (Sodium Chloride) 102 mls @ 104 mls/hr IVPB Q8H [facility] Last Admin: 05/24/17 01:24 Dose: 104 mls/hr Aztreonam 1 gm/ Sodium (Chloride) 100 mls @ 200 mls/hr IVPB Q8H [facility] Last Admin: 05/24/17 03:00 Dose: 200 mls/hr Acyclovir 900 mg/ Dextrose 250 mls @ 100 mls/hr IV Q8H [facility] Last Admin: 05/24/17 04:00 Dose: 100 mls/hr Loratadine (Claritin) 10 mg PO DAILY [facility] Last Admin: 05/23/17 11:40 Dose: Not Given Lorazepam (Ativan) 1 mg IVP Q4H PRN PRN Reason: Agitation Last Admin: 05/22/17 20:30 Dose: 1 mg Lorazepam (Ativan) 2 mg IVP ONCE PRN PRN Reason: Give dose prior to MRI Pantoprazole Sodium (Protonix Ec Tab) 40 mg PO DAILY [facility] Last Admin: 05/23/17 11:41 Dose: Not Given Saccharomyces Boulardii (Florastor) 250 mg PO BID [facility] Last Admin: 05/23/17 18:03 Dose: 250 mg Valproate Sodium (Depakene Cap) 750 mg PO BID [facility] Last Admin: 05/23/17 18:03 Dose: 750 mg - Labs Labs: 05/23/17 06:23 05/23/17 06:23 PT 13.6 SECONDS (9.7-12.2) H 05/20/17 11:33 INR 1.2 05/20/17 11:33 APTT 28 SECONDS (21-34) 05/20/17 11:33 - Additional Findings Additional findings: - Constitutional Appears: No Acute Distress - Head Exam Head Exam: ATRAUMATIC, NORMOCEPHALIC - Eye Exam Eye Exam: EOMI, Normal appearance - ENT Exam ENT Exam: Mucous Membranes Moist - Respiratory Exam Respiratory Exam: Clear to Ausculation Bilateral, NORMAL BREATHING PATTERN. absent: Rales, Rhonchi, Wheezes - Cardiovascular Exam Cardiovascular Exam: REGULAR RHYTHM, +S1, +S2 - GI/Abdominal Exam GI & Abdominal Exam: Soft, Normal Bowel Sounds. absent: Distended, Tenderness - Extremities Exam Extremities Exam: absent: Pedal Edema - Neurological Exam Neurological Exam: Awake - Skin Skin Exam: Dry, Warm Additional comments: large raised erythematous, sharply demarcated rash on left forearm, diffuse mobilliform rash on back, chest and right arm with diffuse rash now improving. Patient's flushed cheeks have also improved. stage 2 intragluteal ulcer. Assessment and Plan - Assessment and Plan (Free Text) Plan: Bizarre Behavior Unknown at this time if behavior is secondary to infection vs manifestation of TBI symptoms vs psychiatric psych consult, Dr. Mccurdy, help appreciated as per Dr. Mccurdy, most likely not a psychiatric cause, Ativan PRN for agitation 05/18 Neuro: Dr. Hodges Brain MRI w/ and w/o contrast ordered: Study compromised by motion. No territorial infarct or intracranial hemorrhage Per ID, ruling out viral meningitis. Patient's rash is likely drug related but cannot rule out viral at this time. Measles IgM later came back negative. Lumbar puncture performed 05/20/17 by anesthesia. Empiric acyclovir due to suspicion of viral encephalitis. CSF studies though workup unremarkable thus far Brain MRI w. contrast * Prominent cerebral white matter changes are stable at may reflect PML, press, toxic/ metabolic demyelination sequelae from immunodeficiency including potential AIDS. 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 No interval mass effect or suspicious extra-axial collection identified. Plasma LILIYA virus ordered To rule out possible [employer] lymphoma, Dr. Lizama consulted, help appreciated Rash, 05/19 05/19 Patient is somnolent, allergic reaction, rash on forearm and all on right arm and scattered rash on chest. Aztreonam 1 gm Q8H, started 05/19 Clindamycin 450mg IVPB Q6H, started 05/19 Saccharomyces 250mg POBID Methylprednisolone 250mg IVP Pepcid 40mg IVP once Claritin 10 mg PO daily started on 05/21/17 Gluteal wound, stage 2 intergluteal ulcer no leukocytosis, afebrile Surgery consulted, Dr. Neil, help appreciated as per surgery superficial gluteal wound, no tract- no surgical intervention wound care kirsten talamantes blood cultures- no growth Acute diverticulitis no leukocytosis, afebrile Abdomen/Pelvis CT: diverticulitis of sigmoid colon, mild splenomegaly, liver lesions Cipro 400mg q12h, discontinued 05/19 due to rash Flagyl 500mg q8h, discontinued 05/19 due to rash Aztreonam 1 gm Q8H, started 05/19 Clindamycin 450mg IVPB Q6H, started 05/19 Ultram 25mg po BID for pain GI, Dr. Charles, consulted- help appreciated -continue antibiotics for 2 weeks Prophylactic Measure Regular diet Heparin 5000 units SC Q8 Protonix 40 mg PO daily [phone] Wendy Diamond--patient's sister and point of contact Disposition: At this time, there is still no explanation of why the patient is experiencing this change in behavior from baseline. Considering PML vs [employer] lymphoma currently. HSV IgM and IgG have been negative thus far. Case DW Dr. Virgil Ford PGY-1 <Анна Herman - Last Filed: 06/12/17 15:42> Objective - Vital Signs/Intake and Output Vital Signs (last 24 hours): Temp Pulse Resp BP Pulse Ox 98.0 F 76 20 121/83 96 06/12/17 08:20 06/12/17 08:20 06/12/17 08:20 06/12/17 08:20 06/12/17 08:20 Intake and Output: 06/12/17 06/12/17 06:59 18:59 Intake Total 100 Balance 100 - Medications Medications: Current Medications Famotidine (Pepcid) 20 mg PO BID [facility] Last Admin: 06/12/17 10:07 Dose: 20 mg Lorazepam (Ativan) 1 mg IVP Q4H PRN PRN Reason: Agitation Last Admin: 06/08/17 06:13 Dose: 1 mg Lorazepam (Ativan) 1 mg IVP ONCE PRN PRN Reason: BEFORE MRI Last Admin: 06/06/17 09:28 Dose: 1 mg Lorazepam (Ativan) 2 mg IVP ONCE PRN PRN Reason: to be given before MRI Mefloquine HCl (Lariam) 1,000 mg PO QWK [facility] Stop: 06/14/17 10:01 Last Admin: 06/07/17 11:26 Dose: 1,000 mg Saccharomyces Boulardii (Florastor) 250 mg PO BID [facility] Last Admin: 06/12/17 10:07 Dose: 250 mg Valproate Sodium (Depakene Oral Soln) 500 mg PO Q12H [facility] Last Admin: 06/12/17 10:06 Dose: 500 mg - Labs Labs: 06/10/17 16:45 06/10/17 16:45 PT 13.6 SECONDS (9.7-12.2) H 05/20/17 11:33 INR 1.2 05/20/17 11:33 APTT 28 SECONDS (21-34) 05/20/17 11:33 Attending/Attestation - Attestation I have personally seen and examined this patient.: Yes I have fully participated in the care of the patient.: Yes I have reviewed all pertinent clinical information, including history, physical exam and plan: Yes Notes (Text): Seen and examined No changes noted in his mental status Discussed with the resident I agree with the resident's documentation
[2017-05-24 08:06] LABS: BASO # 0.1 K/uL (0.0-0.2); BASO % 1.1 % (0.0-2.0); EOS # 0.2 K/uL (0.0-0.7); EOS % 4.1 % (0.0-4.0); HEMOGLOBIN 13.4 g/dL (12.0-18.0); LYMPH # 1.2 K/uL (1.0-4.3); LYMPH % 21.7 % (20.0-40.0); MEAN CELL VOLUME 87.1 fL (80.0-94.0); MEAN CORPUSCULAR HEMOGLOBIN 30.2 pg (27.0-31.0); MEAN CORPUSCULAR HGB CONC 34.6 g/dL (33.0-37.0); MEAN PLATELET VOLUME 8.9 fL (7.2-11.7); MONO # 0.6 K/uL (0.0-0.8); MONO % 11.2 % (0.0-10.0); NEUT # 3.5 K/uL (1.8-7.0); NEUT % 61.9 % (50.0-75.0); NRBC % 0.1 % (0.0-2.0); RBC 4.44 Mil/uL (4.40-5.90); RED CELL DISTRIBUTION WIDTH 13.9 % (11.5-14.5); WHITE BLOOD COUNT 5.6 K/uL (4.8-10.8)
[2017-05-24 08:40] LABS: ALB/GLOB RATIO 1.3 (1.0-2.1); ALBUMIN 3.4 g/dL (3.5-5.0); ALT/SGPT 73 U/L (21-72); AST/SGOT 26 U/L (17-59); BLOOD UREA NITROGEN 12 mg/dL (9-20); CALCIUM 8.7 mg/dl (8.6-10.4); GFR AFRICAN-AMERICAN > 60; GFR NON-AFRICAN AMERICAN > 60
[2017-05-24] MEDS ORDERED: Gadodiamide 287 mg/ml 20 ml IV ONE ×2 (09:29)
[2017-05-24] MEDS: Pantoprazole 40 mg EC Tab PO SCH (10:00)
[2017-05-24] MEDS: Saccharomyces Boulardi 250 mg Cap PO SCH ×2 (10:00→18:01)
--- NOTE | 2017-05-24 10:33 | MRI ---
PROCEDURE: MRI BRAIN WITH AND WITHOUT CONTRAST HISTORY: r/o space occupying lesion, AMS COMPARISON: Unenhanced brain MRI 05/18/2017. TECHNIQUE: Multiplanar, multisequence MR images of the brain were obtained with and without intravenous contrast enhancement. 19 cc of Omniscan was utilized for intravenous contrast. FINDINGS: Extensive motion artifacts degrade the quality of this examination despite measures being performed to attempt to counter this problem across numerous sequences. HEMORRHAGE: None DWI: Prominent diffusion-weighted imaging corresponds to T2 shine through effects involving the majority of the a peripheral white matter of the cerebrum. Brainstem and posterior fossa remains uninvolved. BRAIN PARENCHYMA: Prominent cerebral white matter changes are stable at may reflect PML, press, toxic/ metabolic demyelination sequelae from immunodeficiency including potential AIDS. 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 No interval mass effect or suspicious extra-axial collection identified. ENHANCEMENT: Attempted identifying intravenous contrast enhancement are grossly compromised by marked motion artifact. No gross enhancement is appreciable. Lesser amounts of enhancement throughout the implant excluded but are not clearly identified. VENTRICLES: Unremarkable. No hydrocephalus. CRANIUM: Unremarkable. ORBITS: Grossly unremarkable. PARANASAL SINUSES/MASTOIDS: Clear VASCULAR SYSTEM: Skull base flow voids intact. OTHER FINDINGS: None . IMPRESSION: Stable widespread white matter signal abnormality is appreciated throughout the cerebrum sparing the posterior fossa contents and brainstem and extends to the basal ganglia as well. 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 Motion artifacts degrade this examination and [id number] enhancement is not excluded but is not clearly identified. No prominent intracranial enhancement appreciable.
--- NOTE | 2017-05-24 14:47 | CP.PCM.PN ---
<Amada Ohara - Last Filed: 05/24/17 14:42> Subjective - Date & Time of Evaluation Date of Evaluation: 05/24/17 Time of Evaluation: 14:42 - Subjective Subjective: Mr. Lowry was seen and examined at the bedside. He is sleepy but responsive to tactile stimuli. He just finished with MRI and ativan was given prioi. He spontaneously move all his extremities but will not able to answer or follow simple commands. MRI of the brain showed widespread white matter signal abnormality is appreciated throughout the cerebrum sparing the posterior fossa contents and brainstem and extends to the basal ganglia. He remins on 1:1 sitter for patient safety. There was no untoward events overnight. Objective - Vital Signs/Intake and Output Vital Signs (last 24 hours): Temp Pulse Resp BP Pulse Ox 98 F 56 L 20 106/69 96 05/24/17 10:17 05/24/17 10:17 05/24/17 10:17 05/24/17 10:17 05/24/17 10:17 Intake and Output: 05/24/17 05/24/17 06:59 18:59 Intake Total 1000 Balance 1000 - Medications Medications: Current Medications Heparin Sodium (Porcine) (Heparin) 5,000 units SC Q8 [facility] Last Admin: 05/24/17 13:55 Dose: 5,000 units Clindamycin Phosphate 300 mg/ (Sodium Chloride) 102 mls @ 104 mls/hr IVPB Q8H [facility] Last Admin: 05/24/17 10:00 Dose: 104 mls/hr Aztreonam 1 gm/ Sodium (Chloride) 100 mls @ 200 mls/hr IVPB Q8H [facility] Last Admin: 05/24/17 12:00 Dose: 200 mls/hr Acyclovir 900 mg/ Dextrose 250 mls @ 100 mls/hr IV Q8H [facility] Last Admin: 05/24/17 13:05 Dose: 100 mls/hr Loratadine (Claritin) 10 mg PO DAILY [facility] Last Admin: 05/24/17 10:00 Dose: 10 mg Lorazepam (Ativan) 1 mg IVP Q4H PRN PRN Reason: Agitation Last Admin: 05/22/17 20:30 Dose: 1 mg Lorazepam (Ativan) 2 mg IVP ONCE PRN PRN Reason: Give dose prior to MRI Last Admin: 05/24/17 08:36 Dose: 2 mg Pantoprazole Sodium (Protonix Ec Tab) 40 mg PO DAILY [facility] Last Admin: 05/24/17 10:00 Dose: 40 mg Saccharomyces Boulardii (Florastor) 250 mg PO BID [facility] Last Admin: 05/24/17 10:00 Dose: 250 mg Valproate Sodium (Depakene Cap) 750 mg PO BID [facility] Last Admin: 05/24/17 10:00 Dose: 750 mg - Labs Labs: 05/24/17 07:47 05/24/17 07:47 PT 13.6 SECONDS (9.7-12.2) H 05/20/17 11:33 INR 1.2 05/20/17 11:33 APTT 28 SECONDS (21-34) 05/20/17 11:33 - Constitutional Appears: No Acute Distress - Head Exam Head Exam: NORMAL INSPECTION - Neurological Exam Neuro motor strength exam: Left Upper Extremity: 4, Right Upper Extremity: 4, Left Lower Extremity: 4, Right Lower Extremity: 4 Additional comments: He is very sleepy, but responsive to irvin stimuli. He moves all his extremities spontaneously. Assessment and Plan (1) Altered mental status Assessment & Plan: Case discussed with Dr. Darnell, continue all current medical regimen. recommend LILIYA virus. Status: Acute <Trung Darnell - Last Filed: 05/24/17 19:49> Objective - Vital Signs/Intake and Output Vital Signs (last 24 hours): Temp Pulse Resp BP Pulse Ox 97.8 F 58 L 20 102/68 95 05/24/17 17:06 05/24/17 17:06 05/24/17 17:06 05/24/17 17:06 05/24/17 17:06 Intake and Output: 05/24/17 05/25/17 18:59 06:59 Intake Total 800 Balance 800 - Medications Medications: Current Medications Heparin Sodium (Porcine) (Heparin) 5,000 units SC Q8 [facility] Last Admin: 05/24/17 13:55 Dose: 5,000 units Clindamycin Phosphate 300 mg/ (Sodium Chloride) 102 mls @ 104 mls/hr IVPB Q8H [facility] Last Admin: 05/24/17 18:02 Dose: 104 mls/hr Aztreonam 1 gm/ Sodium (Chloride) 100 mls @ 200 mls/hr IVPB Q8H [facility] Last Admin: 05/24/17 12:00 Dose: 200 mls/hr Acyclovir 900 mg/ Dextrose 250 mls @ 100 mls/hr IV Q8H [facility] Last Admin: 05/24/17 13:05 Dose: 100 mls/hr Loratadine (Claritin) 10 mg PO DAILY [facility] Last Admin: 05/24/17 10:00 Dose: 10 mg Lorazepam (Ativan) 1 mg IVP Q4H PRN PRN Reason: Agitation Last Admin: 05/22/17 20:30 Dose: 1 mg Lorazepam (Ativan) 2 mg IVP ONCE PRN PRN Reason: Give dose prior to MRI Last Admin: 05/24/17 08:36 Dose: 2 mg Pantoprazole Sodium (Protonix Ec Tab) 40 mg PO DAILY [facility] Last Admin: 05/24/17 10:00 Dose: 40 mg Saccharomyces Boulardii (Florastor) 250 mg PO BID [facility] Last Admin: 05/24/17 18:01 Dose: 250 mg Valproate Sodium (Depakene Cap) 750 mg PO BID [facility] Last Admin: 05/24/17 18:02 Dose: 750 mg - Labs Labs: 05/24/17 07:47 05/24/17 07:47 PT 13.6 SECONDS (9.7-12.2) H 05/20/17 11:33 INR 1.2 05/20/17 11:33 APTT 28 SECONDS (21-34) 05/20/17 11:33 Assessment and Plan - Assessment and Plan (Free Text) Assessment: The differential diagnosis includes PML, SPINDLE SETTER vasculitis, MS, and SPINDLE SETTER lymphoma. Plan: The case was discussed with Dr. Herman. With the patient's history of encephalopathy, and the MRI demonstrating diffuse vasogenic edema and T2 hyperintensities, there is concern for PML. However, the patient is not immunocompromised and this is less likely. The elevated EBV IgG taken with the MRI findings are concerning for SPINDLE SETTER lymphoma. We will check LILIYA virus PCR, consult with oncology if LILIYA virus is negative. We may consider giving decadron for the vasogenic edema, but a biopsy should ultimately be obtained. Ideally, a biopsy should be done before steroids.
[2017-05-24 15:04] LABS: URINE BILIRUBIN NEGATIVE (NEGATIVE); URINE BLOOD NEGATIVE (NEGATIVE); URINE CLARITY Clear (Clear); URINE COLOR Straw (YELLOW); URINE GLUCOSE (UA) NORMAL (Normal); URINE LEUKOCYTE ESTERASE NEG Leu/uL (Negative); URINE NITRATE NEGATIVE (NEGATIVE); URINE PROTEIN NEGATIVE (NEGATIVE); URINE UROBILINOGEN NORMAL mg/dL (0.2-1.0)
[2017-05-24 17:55] LABS: % CD4 (T HELPER CELL) 54 Percent (30-61); % CD8 (SUPPRESSOR T CELL) 20 Percent (12-42); ABSOLUTE CD4 CELLS 671 Cells/mcL (490-1740); ABSOLUTE CD8 CELLS 249 Cells/mcL (180-1170); ABSOLUTE LYMPHOCYTES 1251 Cells/mcL (850-3900)
--- NOTE | 2017-05-25 00:08 | PCM.PYCHPN ---
Psychiatric Progress Note - Psychiatric Progress Note Patient seen today, length of contact: 15 min Patient Chief Complaint: ozzie.' Problems Identified/Issues Discussed: Pt seen and evaluated, discussed with the staff and chart reviewed. Pt remained mute, disorganized and internally preoccupied. He is still not responding to any questions. He is smiling, and looking all around. Patient's mother and sister were present at the bedside. As per them he is still unable to eat, unable to walk and unable to dress by himself. Patient is still behaving strangely and still urinating and defecating on the bed. Medication Change: No Medical Record Reviewed: Yes Mental Status Examination - Cognitive Function Memory: Impaired Attention: Poor Concentration: Poor Association: Loose Fund of Knowledge: Poor - Mood Mood: Anxious - Affect Affect: Constricted - Speech Speech: Soft - Formal Thought Process Formal Thought Process: Delusions, Paranoia, Loosening of associations - Suicidal Ideation Suicidal Ideation: No - Homicidal Ideation Homicidal Ideation: No Goal/Treatment Plan - Goal/Treatment Plan Need for Continued Stay: Severe depression anxiety, Severe functional impairment Progress Toward Problem(s) and Goals/Treatment Plan: Delirium secondary to medical condition Continue haldol, benadryl, and ativan as needed for agitation. Continue medical management as per medicine team. - Smoking Cessation Smoking Cessation Initiated: No
[2017-05-25] MEDS: Clindamycin 300 MG in Sodium Chloride 0.9% 100 ML IVPB SCH ×4 (02:42→18:01)
[2017-05-25] MEDS: Aztreonam 1 GM in Sodium Chloride 0.9% 100 ML IVPB SCH ×3 (04:53→19:31)
[2017-05-25] MEDS: DEXTROSE 5% IV SCH ×3 (06:12→22:05)
[2017-05-25] MEDS: ACYCLOVIR IV SCH ×3 (06:12→22:05)
[2017-05-25] MEDS: WATER IV SCH ×3 (06:12→22:05)
[2017-05-25 11:35] LABS: BASO # 0.1 K/uL (0.0-0.2); BASO % 1.2 % (0.0-2.0); EOS # 0.2 K/uL (0.0-0.7); HEMOGLOBIN 13.8 g/dL (12.0-18.0); LYMPH # 1.2 K/uL (1.0-4.3); LYMPH % 25.5 % (20.0-40.0); MEAN CELL VOLUME 88.4 fL (80.0-94.0); MEAN CORPUSCULAR HEMOGLOBIN 29.8 pg (27.0-31.0); MEAN CORPUSCULAR HGB CONC 33.7 g/dL (33.0-37.0); MEAN PLATELET VOLUME 9.2 fL (7.2-11.7); MONO # 0.5 K/uL (0.0-0.8); MONO % 10.1 % (0.0-10.0); NEUT # 2.8 K/uL (1.8-7.0); NEUT % 59.2 % (50.0-75.0); NRBC % 0.1 % (0.0-2.0); RBC 4.61 Mil/uL (4.40-5.90); RED CELL DISTRIBUTION WIDTH 14.4 % (11.5-14.5); WHITE BLOOD COUNT 4.7 K/uL (4.8-10.8)
[2017-05-25] MEDS: Pantoprazole 40 mg EC Tab PO SCH ×2 (12:07→12:39)
[2017-05-25] MEDS: Saccharomyces Boulardi 250 mg Cap PO SCH ×4 (12:07→18:03)
[2017-05-25 12:18] LABS: ALB/GLOB RATIO 1.2 (1.0-2.1); ALBUMIN 3.6 g/dL (3.5-5.0); ALT/SGPT 66 U/L (21-72); AST/SGOT 40 U/L (17-59); BLOOD UREA NITROGEN 10 mg/dL (9-20); CALCIUM 8.8 mg/dl (8.6-10.4); GFR AFRICAN-AMERICAN > 60; GFR NON-AFRICAN AMERICAN > 60
[2017-05-25] MEDS ORDERED: Valproate 750 MG in Sodium Chloride 0.9% 100 ML IVPB ONE ×2 (12:53→15:00)
--- NOTE | 2017-05-25 19:09 | CP.PCM.PN ---
<Tristen Sanchez - Last Filed: 05/25/17 19:39> Subjective - Date & Time of Evaluation Date of Evaluation: 05/25/17 Time of Evaluation: 08:30 - Subjective Subjective: Medicine progress note for Dr. Herman Patient seen and examined at bedside, with family present. Patient still speaks minimally in brief phrases or one word answers. Patient allowed us to examine his gluteal wound (wound care on board). Family reports he is eating more; ate a [employer] [place] today. Patient denies complaint at this time. Objective - Vital Signs/Intake and Output Vital Signs (last 24 hours): Temp Pulse Resp BP Pulse Ox 98.4 F 80 20 108/67 97 05/25/17 16:48 05/25/17 15:00 05/25/17 15:00 05/25/17 15:00 05/25/17 15:00 Intake and Output: 05/25/17 05/26/17 18:59 06:59 Intake Total 310 Balance 310 - Medications Medications: Current Medications Famotidine (Pepcid) 20 mg PO BID [facility] Last Admin: 05/25/17 18:04 Dose: 20 mg Heparin Sodium (Porcine) (Heparin) 5,000 units SC Q8 [facility] Last Admin: 05/25/17 15:01 Dose: 5,000 units Clindamycin Phosphate 300 mg/ (Sodium Chloride) 102 mls @ 104 mls/hr IVPB Q8H [facility] Last Admin: 05/25/17 18:01 Dose: 104 mls/hr Aztreonam 1 gm/ Sodium (Chloride) 100 mls @ 200 mls/hr IVPB Q8H [facility] Last Admin: 05/25/17 13:02 Dose: Not Given Acyclovir 900 mg/ Dextrose 250 mls @ 100 mls/hr IV Q8H [facility] Last Admin: 05/25/17 13:30 Dose: Not Given Lorazepam (Ativan) 1 mg IVP Q4H PRN PRN Reason: Agitation Last Admin: 05/22/17 20:30 Dose: 1 mg Lorazepam (Ativan) 2 mg IVP ONCE PRN PRN Reason: Give dose prior to MRI Last Admin: 05/24/17 08:36 Dose: 2 mg Saccharomyces Boulardii (Florastor) 250 mg PO BID [facility] Last Admin: 05/25/17 18:03 Dose: 250 mg - Labs Labs: 05/25/17 11:28 05/25/17 11:28 PT 13.6 SECONDS (9.7-12.2) H 05/20/17 11:33 INR 1.2 05/20/17 11:33 APTT 28 SECONDS (21-34) 05/20/17 11:33 - Additional Findings Additional findings: - Constitutional Appears: No Acute Distress - Head Exam Head Exam: ATRAUMATIC, NORMOCEPHALIC - Eye Exam Eye Exam: EOMI, Normal appearance - ENT Exam ENT Exam: Mucous Membranes Moist - Respiratory Exam Respiratory Exam: Clear to Ausculation Bilateral, NORMAL BREATHING PATTERN. absent: Rales, Rhonchi, Wheezes - Cardiovascular Exam Cardiovascular Exam: REGULAR RHYTHM, +S1, +S2 - GI/Abdominal Exam GI & Abdominal Exam: Soft, Normal Bowel Sounds. absent: Distended, Tenderness - Extremities Exam Extremities Exam: absent: Pedal Edema - Neurological Exam Neurological Exam: Awake - Skin Skin Exam: Dry, Warm Additional comments: stage 2 intra-gluteal ulcer. Assessment and Plan - Assessment and Plan (Free Text) Assessment: Bizarre Behavior 05/25: Continue acyclovir x10d. Continue abx x10d. f/u LILIYA virus Ab. Valproic acid changed to IV per neuro recommendation. D/C'd Loratidine Psych on board - Continue haldol, benadryl, and ativan as needed for agitation. Delirium secondary to medical condition Neurology on board - check LILIYA virus PCR, consult with oncology if LILIYA virus is negative. We may consider giving decadron for the vasogenic edema, but a biopsy should ultimately be obtained. Ideally, a biopsy should be done before steroids. prior: Unknown at this time if behavior is secondary to infection vs manifestation of TBI symptoms vs psychiatric psych consult, Dr. Mccurdy, help appreciated as per Dr. Mccurdy, most likely not a psychiatric cause, Ativan PRN for agitation 05/18 Neuro: Dr. Hodges Brain MRI w/ and w/o contrast ordered: Study compromised by motion. No territorial infarct or intracranial hemorrhage Per ID, ruling out viral meningitis. Patient's rash is likely drug related but cannot rule out viral at this time. Measles IgM later came back negative. Lumbar puncture performed 05/20/17 by anesthesia. Empiric acyclovir due to suspicion of viral encephalitis. CSF studies though workup unremarkable thus far Brain MRI w. contrast * Prominent cerebral white matter changes are stable at may reflect PML, press, toxic/ metabolic demyelination sequelae from immunodeficiency including potential AIDS. 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 No interval mass effect or suspicious extra-axial collection identified. Plasma LILIYA virus ordered To rule out possible [employer] DES[employer]INEER lymphoma, Dr. Lizama consulted, help appreciated Rash, 05/19 05/19 Patient is somnolent, allergic reaction, rash on forearm and all on right arm and scattered rash on chest. Aztreonam 1 gm Q8H, started 05/19 Clindamycin 450mg IVPB Q6H, started 05/19 Saccharomyces 250mg POBID Methylprednisolone 250mg IVP Pepcid 40mg IVP once Claritin 10 mg PO daily started on 05/21/17 Gluteal wound, stage 2 intergluteal ulcer 05/25: wound care on board. ulcer is stable. no leukocytosis, afebrile Surgery consulted, Dr. Neil, help appreciated as per surgery superficial gluteal wound, no tract- no surgical intervention wound care kirsten talamantes blood cultures- no growth Acute diverticulitis no leukocytosis, afebrile Abdomen/Pelvis CT: diverticulitis of sigmoid colon, mild splenomegaly, liver lesions Cipro 400mg q12h, discontinued 05/19 due to rash Flagyl 500mg q8h, discontinued 05/19 due to rash Aztreonam 1 gm Q8H, started 05/19 Clindamycin 450mg IVPB Q6H, started 05/19 Ultram 25mg po BID for pain GI, Dr. Charles, consulted- help appreciated -continue antibiotics for 2 weeks Prophylactic Measure Regular diet Heparin 5000 units SC Q8 Protonix 40 mg PO daily [phone] Wendy Diamond--patient's sister and point of contact Disposition: At this time, there is still no explanation of why the patient is experiencing this change in behavior from baseline. Considering PML vs [employer] DES[employer] ENG[employer]ER lymphoma currently. HSV IgM and IgG have been negative thus far. Case DW Dr. Virgil Sanchez, PGY2 <Анна Herman - Last Filed: 06/12/17 18:55> Objective - Vital Signs/Intake and Output Vital Signs (last 24 hours): Temp Pulse Resp BP Pulse Ox 97.9 F 60 20 117/74 95 05/26/17 07:35 05/26/17 07:35 05/26/17 07:35 05/26/17 07:35 05/26/17 07:35 Intake and Output: 05/26/17 05/27/17 18:59 06:59 Intake Total 500 Balance 500 - Medications Medications: Current Medications Dexamethasone (Decadron Inj) 10 mg IVP Q8H [facility] Last Admin: 05/26/17 12:17 Dose: 10 mg Famotidine (Pepcid) 20 mg PO BID [facility] Last Admin: 05/26/17 17:23 Dose: Not Given Heparin Sodium (Porcine) (Heparin) 5,000 units SC Q8 [facility] Last Admin: 05/26/17 13:24 Dose: 5,000 units Clindamycin Phosphate 300 mg/ (Sodium Chloride) 102 mls @ 104 mls/hr IVPB Q8H [facility] Last Admin: 05/26/17 17:29 Dose: 104 mls/hr Aztreonam 1 gm/ Sodium (Chloride) 100 mls @ 200 mls/hr IVPB Q8H [facility] Last Admin: 05/26/17 11:31 Dose: 200 mls/hr Acyclovir 900 mg/ Dextrose 250 mls @ 100 mls/hr IV Q8H [facility] Last Admin: 05/26/17 13:22 Dose: 100 mls/hr Sodium Chloride (Sodium Chloride 0.45%) 1,000 mls @ 100 mls/hr IV .Q10H [facility] Last Admin: 05/26/17 11:31 Dose: 100 mls/hr Lorazepam (Ativan) 1 mg IVP Q4H PRN PRN Reason: Agitation Last Admin: 05/22/17 20:30 Dose: 1 mg Lorazepam (Ativan) 2 mg IVP ONCE PRN PRN Reason: Give dose prior to MRI Last Admin: 05/24/17 08:36 Dose: 2 mg Ondansetron HCl (Zofran Inj) 4 mg IVP Q4H PRN PRN Reason: GI distress Saccharomyces Boulardii (Florastor) 250 mg PO BID [facility] Last Admin: 05/26/17 17:22 Dose: Not Given - Labs Labs: 05/26/17 08:12 05/26/17 08:12 PT 13.6 SECONDS (9.7-12.2) H 05/20/17 11:33 INR 1.2 05/20/17 11:33 APTT 28 SECONDS (21-34) 05/20/17 11:33 Attending/Attestation - Attestation I have personally seen and examined this patient.: Yes I have fully participated in the care of the patient.: Yes I have reviewed all pertinent clinical information, including history, physical exam and plan: Yes Notes (Text): Patient was seen and examined I agree with the resident's assessment and the plan
[2017-05-26] MEDS: Clindamycin 300 MG in Sodium Chloride 0.9% 100 ML IVPB SCH ×3 (01:13→17:29)
[2017-05-26] MEDS: Aztreonam 1 GM in Sodium Chloride 0.9% 100 ML IVPB SCH ×3 (03:16→22:13)
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
[2017-05-26] MEDS: DEXTROSE 5% IV SCH ×2 (05:10→13:22)
[2017-05-26] MEDS: WATER IV SCH ×2 (05:10→13:22)
[2017-05-26] MEDS: ACYCLOVIR IV SCH ×2 (05:10→13:22)
[2017-05-26 08:36] LABS: BASO # 0.1 K/uL (0.0-0.2); BASO % 1.2 % (0.0-2.0); EOS # 0.2 K/uL (0.0-0.7); EOS % 4.4 % (0.0-4.0); HEMOGLOBIN 13.4 g/dL (12.0-18.0); LYMPH # 1.6 K/uL (1.0-4.3); LYMPH % 32.1 % (20.0-40.0); MEAN CELL VOLUME 88.8 fL (80.0-94.0); MEAN CORPUSCULAR HEMOGLOBIN 30.4 pg (27.0-31.0); MEAN CORPUSCULAR HGB CONC 34.2 g/dL (33.0-37.0); MEAN PLATELET VOLUME 9.3 fL (7.2-11.7); MONO # 0.5 K/uL (0.0-0.8); MONO % 10.6 % (0.0-10.0); NEUT # 2.6 K/uL (1.8-7.0); NEUT % 51.7 % (50.0-75.0); RBC 4.4 Mil/uL (4.40-5.90); RED CELL DISTRIBUTION WIDTH 14.6 % (11.5-14.5)
[2017-05-26 09:03] LABS: ALB/GLOB RATIO 1.2 (1.0-2.1); ALBUMIN 3.4 g/dL (3.5-5.0); ALT/SGPT 63 U/L (21-72); AST/SGOT 31 U/L (17-59); BLOOD UREA NITROGEN 13 mg/dL (9-20); CALCIUM 9.3 mg/dl (8.6-10.4); GFR AFRICAN-AMERICAN > 60; GFR NON-AFRICAN AMERICAN 59
[2017-05-26] MEDS: Saccharomyces Boulardi 250 mg Cap PO SCH ×3 (09:45→17:22)
[2017-05-26] MEDS: Sodium Chloride 0.45% 1,000 ML IV SCH ×2 (11:31→22:14)
--- NOTE | 2017-05-26 14:54 | CP.PCM.PN ---
Subjective - Date & Time of Evaluation Date of Evaluation: 05/26/17 Time of Evaluation: 14:51 - Subjective Subjective: Mr. hanna was seen and examined at the bedside. He is more alert with minimal few words utter. He is unable to follow simple commands. He just vomitted few minutes prior to examination, but no s/s distress. He moves all his extremities spontaneously. He remains with 1:1 sitter for patient safety. There was no untoward events overnight. Objective - Vital Signs/Intake and Output Vital Signs (last 24 hours): Temp Pulse Resp BP Pulse Ox 97.9 F 60 20 117/74 95 05/26/17 07:35 05/26/17 07:35 05/26/17 07:35 05/26/17 07:35 05/26/17 07:35 Intake and Output: 05/26/17 05/26/17 06:59 18:59 Intake Total 640 Balance 640 - Medications Medications: Current Medications Dexamethasone (Decadron Inj) 10 mg IVP Q8H [facility] Last Admin: 05/26/17 12:17 Dose: 10 mg Famotidine (Pepcid) 20 mg PO BID [facility] Last Admin: 05/26/17 09:54 Dose: Not Given Heparin Sodium (Porcine) (Heparin) 5,000 units SC Q8 [facility] Last Admin: 05/26/17 13:24 Dose: 5,000 units Clindamycin Phosphate 300 mg/ (Sodium Chloride) 102 mls @ 104 mls/hr IVPB Q8H [facility] Last Admin: 05/26/17 09:44 Dose: 104 mls/hr Aztreonam 1 gm/ Sodium (Chloride) 100 mls @ 200 mls/hr IVPB Q8H [facility] Last Admin: 05/26/17 11:31 Dose: 200 mls/hr Acyclovir 900 mg/ Dextrose 250 mls @ 100 mls/hr IV Q8H [facility] Last Admin: 05/26/17 13:22 Dose: 100 mls/hr Sodium Chloride (Sodium Chloride 0.45%) 1,000 mls @ 100 mls/hr IV .Q10H [facility] Last Admin: 05/26/17 11:31 Dose: 100 mls/hr Lorazepam (Ativan) 1 mg IVP Q4H PRN PRN Reason: Agitation Last Admin: 05/22/17 20:30 Dose: 1 mg Lorazepam (Ativan) 2 mg IVP ONCE PRN PRN Reason: Give dose prior to MRI Last Admin: 05/24/17 08:36 Dose: 2 mg Ondansetron HCl (Zofran Inj) 4 mg IVP Q4H PRN PRN Reason: GI distress Saccharomyces Boulardii (Florastor) 250 mg PO BID [facility] Last Admin: 05/26/17 09:54 Dose: Not Given - Labs Labs: 05/26/17 08:12 05/26/17 08:12 PT 13.6 SECONDS (9.7-12.2) H 05/20/17 11:33 INR 1.2 05/20/17 11:33 APTT 28 SECONDS (21-34) 05/20/17 11:33 - Constitutional Appears: No Acute Distress - Head Exam Head Exam: NORMAL INSPECTION - Neurological Exam Neurological Exam: Awake Neuro motor strength exam: Left Upper Extremity: 5, Right Upper Extremity: 5, Left Lower Extremity: 5, Right Lower Extremity: 5 Additional comments: He is able to move all extremities spontaneously, but unable to follow simple commands. Assessment and Plan (1) Altered mental status Assessment & Plan: Case discussed with Dr. Darnell, continue all current medical treatment. Decadron 10 mg IV q 8 hours. Status: Acute
--- NOTE | 2017-05-26 20:31 | CP.PCM.PN ---
Subjective - Date & Time of Evaluation Date of Evaluation: 05/26/17 Time of Evaluation: 11:00 - Subjective Subjective: Seen and examined patient is nauseous,vomiting,not able to talk,look more confused today d/w sister and mother at bedside able to move all four extremities, has eye contacts,not following command Objective - Vital Signs/Intake and Output Vital Signs (last 24 hours): Temp Pulse Resp BP Pulse Ox 97.9 F 60 20 117/74 95 05/26/17 07:35 05/26/17 07:35 05/26/17 07:35 05/26/17 07:35 05/26/17 07:35 Intake and Output: 05/26/17 05/27/17 18:59 06:59 Intake Total 500 Balance 500 - Medications Medications: Current Medications Dexamethasone (Decadron Inj) 10 mg IVP Q8H [facility] Last Admin: 05/26/17 12:17 Dose: 10 mg Famotidine (Pepcid) 20 mg PO BID [facility] Last Admin: 05/26/17 17:23 Dose: Not Given Heparin Sodium (Porcine) (Heparin) 5,000 units SC Q8 [facility] Last Admin: 05/26/17 13:24 Dose: 5,000 units Clindamycin Phosphate 300 mg/ (Sodium Chloride) 102 mls @ 104 mls/hr IVPB Q8H [facility] Last Admin: 05/26/17 17:29 Dose: 104 mls/hr Aztreonam 1 gm/ Sodium (Chloride) 100 mls @ 200 mls/hr IVPB Q8H [facility] Last Admin: 05/26/17 11:31 Dose: 200 mls/hr Acyclovir 900 mg/ Dextrose 250 mls @ 100 mls/hr IV Q8H [facility] Last Admin: 05/26/17 13:22 Dose: 100 mls/hr Sodium Chloride (Sodium Chloride 0.45%) 1,000 mls @ 100 mls/hr IV .Q10H [facility] Last Admin: 05/26/17 11:31 Dose: 100 mls/hr Lorazepam (Ativan) 1 mg IVP Q4H PRN PRN Reason: Agitation Last Admin: 05/22/17 20:30 Dose: 1 mg Lorazepam (Ativan) 2 mg IVP ONCE PRN PRN Reason: Give dose prior to MRI Last Admin: 05/24/17 08:36 Dose: 2 mg Ondansetron HCl (Zofran Inj) 4 mg IVP Q4H PRN PRN Reason: GI distress Saccharomyces Boulardii (Florastor) 250 mg PO BID [facility] Last Admin: 05/26/17 17:22 Dose: Not Given - Labs Labs: 05/26/17 08:12 05/26/17 08:12 PT 13.6 SECONDS (9.7-12.2) H 05/20/17 11:33 INR 1.2 05/20/17 11:33 APTT 28 SECONDS (21-34) 05/20/17 11:33 - Constitutional Appears: No Acute Distress, Unkempt - Head Exam Head Exam: NORMAL INSPECTION - ENT Exam ENT Exam: Mucous Membranes Moist - Neck Exam Neck Exam: Full ROM - Respiratory Exam Respiratory Exam: Clear to Ausculation Bilateral, NORMAL BREATHING PATTERN - Cardiovascular Exam Cardiovascular Exam: REGULAR RHYTHM - GI/Abdominal Exam GI & Abdominal Exam: Soft, Normal Bowel Sounds - Extremities Exam Extremities Exam: Full ROM, Normal Inspection - Back Exam Back Exam: NORMAL INSPECTION - Neurological Exam Neurological Exam: Abnormal Gait, Awake. absent: Oriented x3 - Psychiatric Exam Psychiatric exam: Flat Affect. absent: Agitated, Anxious - Skin Skin Exam: Dry Assessment and Plan - Assessment and Plan (Free Text) Assessment: this is a 51 year old male with PMHx TBI with pseudobulbar affect, diverticulosis who presented to the ED after being brought by family for bizarre behavior. Patient himself states that he feels fine and has no acute complaints, stating that "nothing's wrong." The patient would not answer further questioning properly, instead smiling and laughing. Patient's mother Alejandrina Lowry [phone] was called and spoken with. Per mother, this started on May 05 when patient started complaining of abdominal pain and diarrhea. Patient was stating that his stomach was "like fire." The mother stated that after this, the patient began engaging in bizarre behavior such as trying to put on one shoe on top of the other and defecating around the home in the living room and on the stairs. The patient also would not speak very much per the mother. Plan: 1.Altered mental status with while matter changes on MRI brain Lumbar puncture performed 05/20/17 by anesthesia. Empiric acyclovir due to suspicion of viral encephalitis. on valproic acid as per neuro CSF studies though workup unremarkable thus far Brain MRI w. contrast * Prominent cerebral white matter changes are stable at may reflect PML, press, toxic/ metabolic demyelination sequelae from immunodeficiency including potential AIDS. 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 No interval mass effect or suspicious extra-axial collection identified. Plasma LILIYA virus ordered To rule out possible INTEGRATION ASSISTANT lymphoma, Dr. Lizama consulted, help appreciated.Recommending CT chest with contrast and csf flow cytometry d/w Dr Waller who recommend csf LILIYA viral study patient is nauseous and vomiting and unable talk/more confused d/w Dr Darnell -started on Decadron diet changed to clear liquids 2. Gluteal wound, stage 2 intergluteal ulcer no leukocytosis, afebrile Surgery consulted, Dr. Neil, help appreciated as per surgery superficial gluteal wound, no tract- no surgical intervention wound care kirsten talamantes blood cultures- no growth 3.Acute diverticulitis no leukocytosis, afebrile Abdomen/Pelvis CT: diverticulitis of sigmoid colon, mild splenomegaly, liver lesions Cipro 400mg q12h, discontinued 05/19 due to rash Flagyl 500mg q8h, discontinued 05/19 due to rash Aztreonam 1 gm Q8H, started 05/19 Clindamycin 450mg IVPB Q6H, started 05/19 Ultram 25mg po BID for pain GI, Dr. Charles, consulted- help appreciated -continue antibiotics for 2 weeks 4. Prophylactic Measure Regular diet Heparin 5000 units SC Q8 Protonix 40 mg PO daily [phone] Wendy Diamond--patient's sister and point of contact
[2017-05-27] MEDS: Clindamycin 300 MG in Sodium Chloride 0.9% 100 ML IVPB SCH ×3 (02:34→17:54)
[2017-05-27] MEDS: Aztreonam 1 GM in Sodium Chloride 0.9% 100 ML IVPB SCH ×3 (04:29→20:26)
[2017-05-27] MEDS: WATER IV SCH ×3 (05:13→21:32)
[2017-05-27] MEDS: ACYCLOVIR IV SCH ×3 (05:13→21:32)
[2017-05-27] MEDS: DEXTROSE 5% IV SCH ×3 (05:13→21:32)
[2017-05-27 07:18] LABS: ALB/GLOB RATIO 1.1 (1.0-2.1); ALBUMIN 3.8 g/dL (3.5-5.0); ALT/SGPT 71 U/L (21-72); AST/SGOT 47 U/L (17-59); BLOOD UREA NITROGEN 19 mg/dL (9-20); CALCIUM 9.2 mg/dl (8.6-10.4); GFR AFRICAN-AMERICAN > 60; GFR NON-AFRICAN AMERICAN > 60
--- NOTE | 2017-05-27 07:25 | CP.PCM.PN ---
<Ronni Ford - Last Filed: 05/27/17 17:58> Subjective - Date & Time of Evaluation Date of Evaluation: 05/27/17 Time of Evaluation: 07:30 - Subjective Subjective: Medicine progress note for Dr. Banda Patient seen and examined. Patient is saying a bit more this morning than before. He said that he was doing well and asked how I was doing. He shakes his head when asked of any complaints. Patient was also seen on rounds in presence of family and the attending. During this time, the patient had little to say. Objective - Vital Signs/Intake and Output Vital Signs (last 24 hours): Temp Pulse Resp BP Pulse Ox 98.1 F 96 H 20 105/63 97 05/26/17 23:00 05/26/17 23:00 05/26/17 23:00 05/26/17 23:00 05/26/17 23:00 - Medications Medications: Current Medications Dexamethasone (Decadron Inj) 10 mg IVP Q8H [facility] Last Admin: 05/27/17 02:34 Dose: 10 mg Famotidine (Pepcid) 20 mg PO BID [facility] Last Admin: 05/26/17 17:23 Dose: Not Given Heparin Sodium (Porcine) (Heparin) 5,000 units SC Q8 [facility] Last Admin: 05/27/17 05:25 Dose: 5,000 units Clindamycin Phosphate 300 mg/ (Sodium Chloride) 102 mls @ 104 mls/hr IVPB Q8H [facility] Last Admin: 05/27/17 02:34 Dose: 104 mls/hr Aztreonam 1 gm/ Sodium (Chloride) 100 mls @ 200 mls/hr IVPB Q8H [facility] Last Admin: 05/27/17 04:29 Dose: 200 mls/hr Acyclovir 900 mg/ Dextrose 250 mls @ 100 mls/hr IV Q8H [facility] Last Admin: 05/27/17 05:13 Dose: 100 mls/hr Sodium Chloride (Sodium Chloride 0.45%) 1,000 mls @ 100 mls/hr IV .Q10H [facility] Last Admin: 05/26/17 22:14 Dose: Not Given Lorazepam (Ativan) 1 mg IVP Q4H PRN PRN Reason: Agitation Last Admin: 05/22/17 20:30 Dose: 1 mg Lorazepam (Ativan) 2 mg IVP ONCE PRN PRN Reason: Give dose prior to MRI Last Admin: 05/24/17 08:36 Dose: 2 mg Ondansetron HCl (Zofran Inj) 4 mg IVP Q4H PRN PRN Reason: GI distress Saccharomyces Boulardii (Florastor) 250 mg PO BID [facility] Last Admin: 05/26/17 17:22 Dose: Not Given - Labs Labs: 05/26/17 08:12 05/27/17 05:54 PT 13.6 SECONDS (9.7-12.2) H 05/20/17 11:33 INR 1.2 05/20/17 11:33 APTT 28 SECONDS (21-34) 05/20/17 11:33 - Additional Findings Additional findings: - Constitutional Appears: No Acute Distress - Head Exam Head Exam: ATRAUMATIC, NORMOCEPHALIC - Eye Exam Eye Exam: EOMI, Normal appearance - ENT Exam ENT Exam: Mucous Membranes Moist - Respiratory Exam Respiratory Exam: Clear to Ausculation Bilateral, NORMAL BREATHING PATTERN. absent: Rales, Rhonchi, Wheezes - Cardiovascular Exam Cardiovascular Exam: REGULAR RHYTHM, +S1, +S2 - GI/Abdominal Exam GI & Abdominal Exam: Soft, Normal Bowel Sounds. absent: Distended, Tenderness - Extremities Exam Extremities Exam: absent: Pedal Edema - Neurological Exam Neurological Exam: Awake - Skin Skin Exam: Dry, Warm Additional comments: stage 2 intra-gluteal ulcer. Rash on arms, chest, and back are much improved and not very noticeable. Assessment and Plan - Assessment and Plan (Free Text) Plan: 1.Altered mental status with while matter changes on MRI brain Lumbar puncture performed 05/20/17 by anesthesia. Empiric acyclovir due to suspicion of viral encephalitis. on valproic acid as per neuro CSF studies though workup unremarkable thus far Brain MRI w. contrast * Prominent cerebral white matter changes are stable at may reflect PML, press, toxic/ metabolic demyelination sequelae from immunodeficiency including potential AIDS. 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 No interval mass effect or suspicious extra-axial collection identified. Plasma LILIYA virus ordered To rule out possible RESOURCE RECOVERY ENGINEER lymphoma, Dr. Lizama consulted, help appreciated.Recommending CT chest with contrast and csf flow cytometry d/w Dr Waller who recommend csf LILIYA viral study patient is nauseous and vomiting and unable talk/more confused d/w Dr Darnell -started on Decadron 10 mg IV Q8 on 05/26/17 diet changed to clear liquids due to nausea/vomiting 2. Gluteal wound, stage 2 intergluteal ulcer no leukocytosis, afebrile Surgery consulted, Dr. Neil, help appreciated as per surgery superficial gluteal wound, no tract- no surgical intervention wound care kirsten talamantes blood cultures- no growth 3.Acute diverticulitis no leukocytosis, afebrile Abdomen/Pelvis CT: diverticulitis of sigmoid colon, mild splenomegaly, liver lesions Cipro 400mg q12h, discontinued 05/19 due to rash Flagyl 500mg q8h, discontinued 05/19 due to rash Aztreonam 1 gm Q8H, started 05/19 Clindamycin 450mg IVPB Q6H, started 05/19 Ultram 25mg po BID for pain GI, Dr. Charles, consulted- help appreciated -continue antibiotics for 2 weeks 4. Prophylactic Measure Regular diet Heparin 5000 units SC Q8 Protonix 40 mg PO daily [phone] Wendy Diamond--patient's sister and point of contact Disposition: There is still no official cause for the patient's abnormal behavior. As of now, he is unable to properly take care of himself. We will consider autoimmune etiology. ESR and LEA were ordered. Serum LILIYA still pending. Case DW Dr. Veronika Ford PGY-1 <Tristen Banda - Last Filed: 05/27/17 18:26> Objective - Vital Signs/Intake and Output Vital Signs (last 24 hours): Temp Pulse Resp BP Pulse Ox 97.0 F L 54 L 20 104/63 95 05/27/17 07:40 05/27/17 07:40 05/27/17 07:40 05/27/17 07:40 05/27/17 07:40 - Medications Medications: Current Medications Dexamethasone (Decadron Inj) 10 mg IVP Q8H [facility] Last Admin: 05/27/17 11:05 Dose: 10 mg Famotidine (Pepcid) 20 mg PO BID [facility] Last Admin: 05/27/17 17:51 Dose: 20 mg Heparin Sodium (Porcine) (Heparin) 5,000 units SC Q8 [facility] Last Admin: 05/27/17 14:23 Dose: 5,000 units Clindamycin Phosphate 300 mg/ (Sodium Chloride) 102 mls @ 104 mls/hr IVPB Q8H [facility] Last Admin: 05/27/17 17:54 Dose: 104 mls/hr Aztreonam 1 gm/ Sodium (Chloride) 100 mls @ 200 mls/hr IVPB Q8H [facility] Last Admin: 05/27/17 12:45 Dose: 200 mls/hr Acyclovir 900 mg/ Dextrose 250 mls @ 100 mls/hr IV Q8H [facility] Last Admin: 05/27/17 14:22 Dose: 100 mls/hr Sodium Chloride (Sodium Chloride 0.45%) 1,000 mls @ 100 mls/hr IV .Q10H [facility] Last Admin: 05/27/17 17:55 Dose: Not Given Lorazepam (Ativan) 1 mg IVP Q4H PRN PRN Reason: Agitation Last Admin: 05/22/17 20:30 Dose: 1 mg Lorazepam (Ativan) 2 mg IVP ONCE PRN PRN Reason: Give dose prior to MRI Last Admin: 05/24/17 08:36 Dose: 2 mg Ondansetron HCl (Zofran Inj) 4 mg IVP Q4H PRN PRN Reason: GI distress Saccharomyces Boulardii (Florastor) 250 mg PO BID [facility] Last Admin: 05/27/17 17:51 Dose: 250 mg - Labs Labs: 05/26/17 08:12 05/27/17 05:54 PT 13.6 SECONDS (9.7-12.2) H 05/20/17 11:33 INR 1.2 05/20/17 11:33 APTT 28 SECONDS (21-34) 05/20/17 11:33 Attending/Attestation - Attestation I have personally seen and examined this patient.: Yes I have fully participated in the care of the patient.: Yes I have reviewed all pertinent clinical information, including history, physical exam and plan: Yes Notes (Text): 05/27/17 18:26 Medical attending: Patient was seen and examined, I reviewed and agree with the above note by medical assembler. This is my first time seeing the patient so I had to review the previous notes as well as discuss with the family members present in the room. Present in the room was the patient's mother as well as the patient's sister Per review of the previous weeks he's had extensive testing done including, an MRI, CT scan of the brain. The CT scan showed that he had areas the left temporal/parietal lobes suggestive of encephalomalacia. The MRI showing that he does not have hemorrhage, but that there is some white matter changes and the report suggested a possible PML/immunodeficiency. I spoke with the infectious disease doctor the case. It seems highly unlikely that this could be a PML situation however we are currently pending on a serum LILIYA virus study to return. The patient does not seem to be immune compromise at this time. He is negative for HIV and his CD4 cell count is within normal range. Also had a lumbar puncture the previous week on extensive testing has been done so far currently those tests are coming back negative. There is also been some consideration if he could have some type of lymphoma. Per hematology oncology status also seems unlikely. Nevertheless will get a CT scan of the chest as well with IV contrast. Thank you very much, Tristen Banda
[2017-05-27] MEDS: Sodium Chloride 0.45% 1,000 ML IV SCH ×2 (07:57→17:55)
[2017-05-27] MEDS: Saccharomyces Boulardi 250 mg Cap PO SCH ×2 (11:05→17:51)
[2017-05-27] MEDS ORDERED: Iohexol 240 (50 ml) PO ONE (12:45)
[2017-05-27] MEDS ORDERED: Iohexol 350mg/ml 100 ML ONE (14:37)
--- NOTE | 2017-05-27 15:50 | PCM.PYCHPN ---
Psychiatric Progress Note - Psychiatric Progress Note Patient seen today, length of contact: 16 min Patient Chief Complaint: "Patient is much happier than yesterday- Sister" Problems Identified/Issues Discussed: Pt seen and evaluated, discussed with the staff and chart reviewed. Patient's mother and sister were present at the bedside. As per them he is still unable to eat, unable to walk and unable to dress by himself. Patient is still behaving strangely and still urinating and defecating on the bed. Pt remained mute, disorganized and internally preoccupied. He is still not responding to any questions. He is smiling, looking all around, and fidgeting in bed. His sister states that today was a good day for him as he said a few words which is an improvement from yesterday. She states he is also much happier. Medication Change: No Medical Record Reviewed: Yes Mental Status Examination - Cognitive Function Memory: Impaired Attention: Poor Concentration: Poor Association: Loose Fund of Knowledge: Poor - Mood Mood: Anxious - Affect Affect: Constricted - Speech Speech: Soft - Formal Thought Process Formal Thought Process: Paranoia, Loosening of associations - Suicidal Ideation Suicidal Ideation: No - Homicidal Ideation Homicidal Ideation: No Goal/Treatment Plan - Goal/Treatment Plan Need for Continued Stay: Severe depression anxiety, Severe functional impairment Progress Toward Problem(s) and Goals/Treatment Plan: Delirium secondary to medical condition Continue haldol, benadryl, and ativan as needed for agitation. Continue medical management as per medicine team.
--- NOTE | 2017-05-27 18:12 | CT ---
PROCEDURE: CT Chest, Abdomen and Pelvis with intravenous contrast HISTORY: R/O LYMPHOMA / Lymphadenopathy COMPARISON: 05/15/2017 CT abdomen and pelvis TECHNIQUE: IV dose administered: 100 cc Omnipaque 350. Radiation dose: Total exam DLP = 2998.64 mGy-cm. This CT exam was performed using one or more of the following dose reduction techniques: Automated exposure control, adjustment of the mA and/or kV according to patient size, and/or use of iterative reconstruction technique. FINDINGS: CT CHEST WITH CONTRAST: LUNGS: No discrete pulmonary nodules, masses or infiltrates. MEDIASTINUM: Dilated main pulmonary artery suggestive of pulmonary arterial hypertension. . Normal caliber aorta and pulmonary arterial trunk. No aortic dissection. Normal size heart. LYMPH NODES: Unremarkable. PLEURA: Unremarkable. No pneumothorax. No pleural fluid. BONES: Unremarkable. OTHER FINDINGS: None. CT ABDOMEN AND PELVIS: LIVER: Hepatic steatosis. No focal masses. No intrahepatic bile duct dilatation or perihepatic ascites. GALLBLADDER AND BILE DUCTS: Unremarkable. PANCREAS: Unremarkable. No gross lesion or ductal dilatation. SPLEEN: Stable, mild splenomegaly ADRENALS: Unremarkable. No mass. KIDNEYS AND URETERS: Abnormal contrast enhancement of the kidneys with focal areas of abnormal diminished attenuation bilaterally. The findings are nonspecific but can be seen in inflammatory process ease/pyelonephritis or other non infectious inflammatory process ease. There is no evidence of renal vein thrombosis. No evidence of obstructive uropathy. VASCULATURE: Unremarkable. No aortic aneurysm. BOWEL: Improving sigmoid diverticulitis. APPENDIX: Normal appendix. PERITONEUM: Unremarkable. No free fluid. No free air. LYMPH NODES: Unremarkable. No enlarged lymph nodes. BLADDER: Unremarkable. REPRODUCTIVE: Unremarkable. BONES: No acute fracture. Evidence of old pelvic ring fracture on the right. Multilevel degenerative changes common non marginal osteophyte formation. Evidence of old fracture L3 vertebral body. OTHER FINDINGS: None. IMPRESSION: Improving sigmoid diverticulitis. Abnormal contrast-enhancing characteristics to the kidneys suggests inflammatory/infectious etiology. No appreciable/ significant lymphadenopathy. Additional benign and/or incidental findings described above.
[2017-05-28] MEDS: Clindamycin 300 MG in Sodium Chloride 0.9% 100 ML IVPB SCH ×3 (01:49→18:00)
[2017-05-28] MEDS: Sodium Chloride 0.45% 1,000 ML IV SCH ×3 (03:00→13:26)
[2017-05-28] MEDS: Aztreonam 1 GM in Sodium Chloride 0.9% 100 ML IVPB SCH ×3 (04:15→20:16)
[2017-05-28] MEDS: ACYCLOVIR IV SCH ×3 (05:30→21:30)
[2017-05-28] MEDS: WATER IV SCH ×3 (05:30→21:30)
[2017-05-28] MEDS: DEXTROSE 5% IV SCH ×3 (05:30→21:30)
[2017-05-28 08:38] LABS: ALB/GLOB RATIO 1.2 (1.0-2.1); ALBUMIN 3.4 g/dL (3.5-5.0); ALT/SGPT 64 U/L (21-72); AST/SGOT 35 U/L (17-59); BLOOD UREA NITROGEN 25 mg/dL (9-20); CALCIUM 9.2 mg/dl (8.6-10.4); GFR AFRICAN-AMERICAN > 60; GFR NON-AFRICAN AMERICAN > 60
[2017-05-28] MEDS: Saccharomyces Boulardi 250 mg Cap PO SCH ×2 (10:10→18:00)
[2017-05-28 12:15] LABS: SOURCE Plasma
--- NOTE | 2017-05-28 13:34 | CP.PCM.PN ---
<Ronni Ford - Last Filed: 05/28/17 13:55> Subjective - Date & Time of Evaluation Date of Evaluation: 05/28/17 Time of Evaluation: 07:50 - Subjective Subjective: Medicine progress note for Dr. Banda Patient seen and examined. Patient verbalized that he was doing well today. When seen later on rounds, he was emotional around family. Patient was shaking hands with the attending. When patient's arms were raised they tended to drift. Per patient's sister, patient is very emotional at baseline around close family and relatives. Objective - Vital Signs/Intake and Output Vital Signs (last 24 hours): Temp Pulse Resp BP Pulse Ox 97.4 F L 58 L 20 111/62 95 05/28/17 07:34 05/28/17 07:34 05/28/17 07:34 05/28/17 07:34 05/28/17 07:34 Intake and Output: 05/28/17 05/28/17 06:59 18:59 Intake Total 1790 Balance 1790 - Medications Medications: Current Medications Dexamethasone (Decadron Inj) 10 mg IVP Q8H [facility] Last Admin: 05/28/17 11:39 Dose: 10 mg Famotidine (Pepcid) 20 mg PO BID [facility] Last Admin: 05/28/17 10:10 Dose: 20 mg Heparin Sodium (Porcine) (Heparin) 5,000 units SC Q8 [facility] Last Admin: 05/28/17 13:24 Dose: Not Given Clindamycin Phosphate 300 mg/ (Sodium Chloride) 102 mls @ 104 mls/hr IVPB Q8H [facility] Last Admin: 05/28/17 10:10 Dose: 104 mls/hr Aztreonam 1 gm/ Sodium (Chloride) 100 mls @ 200 mls/hr IVPB Q8H [facility] Last Admin: 05/28/17 11:39 Dose: 200 mls/hr Acyclovir 900 mg/ Dextrose 250 mls @ 100 mls/hr IV Q8H [facility] Last Admin: 05/28/17 13:23 Dose: 100 mls/hr Sodium Chloride (Sodium Chloride 0.45%) 1,000 mls @ 100 mls/hr IV .Q10H [facility] Last Admin: 05/28/17 13:26 Dose: Not Given Lorazepam (Ativan) 1 mg IVP Q4H PRN PRN Reason: Agitation Last Admin: 05/22/17 20:30 Dose: 1 mg Lorazepam (Ativan) 2 mg IVP ONCE PRN PRN Reason: Give dose prior to MRI Last Admin: 05/24/17 08:36 Dose: 2 mg Ondansetron HCl (Zofran Inj) 4 mg IVP Q4H PRN PRN Reason: GI distress Saccharomyces Boulardii (Florastor) 250 mg PO BID [facility] Last Admin: 05/28/17 10:10 Dose: 250 mg - Labs Labs: 05/26/17 08:12 05/28/17 07:54 PT 13.6 SECONDS (9.7-12.2) H 05/20/17 11:33 INR 1.2 05/20/17 11:33 APTT 28 SECONDS (21-34) 05/20/17 11:33 - Additional Findings Additional findings: - Constitutional Appears: No Acute Distress - Head Exam Head Exam: ATRAUMATIC, NORMOCEPHALIC - Eye Exam Eye Exam: EOMI, Normal appearance - ENT Exam ENT Exam: Mucous Membranes Moist - Respiratory Exam Respiratory Exam: Clear to Ausculation Bilateral, NORMAL BREATHING PATTERN. absent: Rales, Rhonchi, Wheezes - Cardiovascular Exam Cardiovascular Exam: REGULAR RHYTHM, +S1, +S2 - GI/Abdominal Exam GI & Abdominal Exam: Soft, Normal Bowel Sounds. absent: Distended, Tenderness - Extremities Exam Extremities Exam: absent: Pedal Edema - Neurological Exam Neurological Exam: Awake - Skin Skin Exam: Dry, Warm Additional comments: stage 2 intra-gluteal ulcer. Rash on arms, chest, and back have resolved. Assessment and Plan - Assessment and Plan (Free Text) Plan: 1.Altered mental status with while matter changes on MRI brain Lumbar puncture performed 05/20/17 by anesthesia. Empiric acyclovir due to suspicion of viral encephalitis. CSF studies though workup unremarkable thus far Brain MRI w. contrast * Prominent cerebral white matter changes are stable at may reflect PML, press, toxic/ metabolic demyelination sequelae from immunodeficiency including potential AIDS. 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 No interval mass effect or suspicious extra-axial collection identified. Plasma LILIYA virus ordered-pending To rule out possible HARDWARE ENGINEERING MANAGER lymphoma, Dr. Lizama consulted, help appreciated.Recommending CT chest with contrast and csf flow cytometry d/w Dr Waller who recommend csf LILIYA viral study patient is nauseous and vomiting and unable talk/more confused d/w Dr Darnell -started on Decadron 10 mg IV Q8 on 05/26/17 diet changed to clear liquids due to nausea/vomiting CT Chest/Abdomen/Pelvis 05/27/17 showed no lymphadenopathy 2. Gluteal wound, stage 2 intergluteal ulcer no leukocytosis, afebrile Surgery consulted, Dr. Neil, help appreciated as per surgery superficial gluteal wound, no tract- no surgical intervention wound care kirsten talamantes blood cultures- no growth 3.Acute diverticulitis no leukocytosis, afebrile Repeat CT 05/27/17 shows improved diverticulitis Abdomen/Pelvis CT: diverticulitis of sigmoid colon, mild splenomegaly, liver lesions Cipro 400mg q12h, discontinued 05/19 due to rash Flagyl 500mg q8h, discontinued 05/19 due to rash Aztreonam 1 gm Q8H, started 05/19 Clindamycin 450mg IVPB Q6H, started 05/19 Ultram 25mg po BID for pain GI, Dr. Charles, consulted- help appreciated -continue antibiotics for 2 weeks 4. Prophylactic Measure Regular diet Heparin 5000 units SC Q8 Protonix 40 mg PO daily [phone] Wendy Diamond--patient's sister and point of contact Disposition: There is still no official cause for the patient's abnormal behavior. As of now, he is unable to properly take care of himself. Continuing IV Decadron for now. We will consider autoimmune etiology. LEA is pending. Serum LILIYA still pending. Case DW Dr. Veronika Ford PGY-1 <Tristen Banda H - Last Filed: 05/28/17 14:50> Objective - Vital Signs/Intake and Output Vital Signs (last 24 hours): Temp Pulse Resp BP Pulse Ox 97.4 F L 58 L 20 111/62 95 05/28/17 07:34 05/28/17 07:34 05/28/17 07:34 05/28/17 07:34 05/28/17 07:34 Intake and Output: 05/28/17 05/28/17 06:59 18:59 Intake Total 1790 Balance 1790 - Medications Medications: Current Medications Dexamethasone (Decadron Inj) 10 mg IVP Q8H [facility] Last Admin: 05/28/17 11:39 Dose: 10 mg Famotidine (Pepcid) 20 mg PO BID [facility] Last Admin: 05/28/17 10:10 Dose: 20 mg Heparin Sodium (Porcine) (Heparin) 5,000 units SC Q8 [facility] Last Admin: 05/28/17 13:24 Dose: Not Given Clindamycin Phosphate 300 mg/ (Sodium Chloride) 102 mls @ 104 mls/hr IVPB Q8H [facility] Last Admin: 05/28/17 10:10 Dose: 104 mls/hr Aztreonam 1 gm/ Sodium (Chloride) 100 mls @ 200 mls/hr IVPB Q8H [facility] Last Admin: 05/28/17 11:39 Dose: 200 mls/hr Acyclovir 900 mg/ Dextrose 250 mls @ 100 mls/hr IV Q8H [facility] Last Admin: 05/28/17 13:23 Dose: 100 mls/hr Sodium Chloride (Sodium Chloride 0.45%) 1,000 mls @ 100 mls/hr IV .Q10H [facility] Last Admin: 05/28/17 13:26 Dose: Not Given Lorazepam (Ativan) 1 mg IVP Q4H PRN PRN Reason: Agitation Last Admin: 05/22/17 20:30 Dose: 1 mg Lorazepam (Ativan) 2 mg IVP ONCE PRN PRN Reason: Give dose prior to MRI Last Admin: 05/24/17 08:36 Dose: 2 mg Ondansetron HCl (Zofran Inj) 4 mg IVP Q4H PRN PRN Reason: GI distress Saccharomyces Boulardii (Florastor) 250 mg PO BID [facility] Last Admin: 05/28/17 10:10 Dose: 250 mg - Labs Labs: 05/26/17 08:12 05/28/17 07:54 PT 13.6 SECONDS (9.7-12.2) H 05/20/17 11:33 INR 1.2 05/20/17 11:33 APTT 28 SECONDS (21-34) 05/20/17 11:33 Attending/Attestation - Attestation I have personally seen and examined this patient.: Yes I have fully participated in the care of the patient.: Yes I have reviewed all pertinent clinical information, including history, physical exam and plan: Yes Notes (Text): 05/28/17 14:50 Medical attending: Patient was seen and examined by me, reviewed the above note by medical manager and agree The patient's to family members were also present in the room as well again it was the patient's mother as well as the patient's sister. We again had a long conversation. Were still pending on in a as well as LILIYA virus studies to return. Today on exam he was able to reach out with his right hand and shake my right hand. He appeared to be more alert today. He will occasionally say some words on exam. However for the most part he remains nonverbal He also has the ability to grasp both of my hands bilaterally. However he does not seem to follow the commands to raise his arms or his legs. However when we were there we observed him being able to raise his arms or legs on his own. At this time he remains on IV Decadron Thank you very much, Tristen Banda
[2017-05-29] MEDS: Aztreonam 1 GM in Sodium Chloride 0.9% 100 ML IVPB SCH ×3 (04:05→19:30)
[2017-05-29] MEDS: ACYCLOVIR IV SCH ×3 (04:41→22:17)
[2017-05-29] MEDS: WATER IV SCH ×3 (04:41→22:17)
[2017-05-29] MEDS: DEXTROSE 5% IV SCH ×3 (04:41→22:17)
[2017-05-29] MEDS: Clindamycin 300 MG in Sodium Chloride 0.9% 100 ML IVPB SCH ×4 (05:10→18:23)
--- NOTE | 2017-05-29 07:14 | CP.PCM.PN ---
<Ronni Ford - Last Filed: 05/29/17 18:38> Subjective - Date & Time of Evaluation Date of Evaluation: 05/29/17 Time of Evaluation: 07:10 - Subjective Subjective: Medicine progress note for Dr. Banda Patient seen and examined. Patient responding "about the same" when asked how he was doing early this morning. Later this morning, LABORATORY MILLER was called due to bradycardia. Patient was asymptomatic and still responding to questions with brief answers. Patient was able to follow directions during the rapid as well. Objective - Vital Signs/Intake and Output Vital Signs (last 24 hours): Temp Pulse Resp BP Pulse Ox 97.9 F 65 20 112/66 98 05/29/17 01:40 05/29/17 01:40 05/29/17 01:40 05/29/17 01:40 05/29/17 01:40 Intake and Output: 05/29/17 05/29/17 06:59 18:59 Intake Total 800 Balance 800 - Medications Medications: Current Medications Famotidine (Pepcid) 20 mg PO BID [facility] Last Admin: 05/28/17 18:00 Dose: 20 mg Heparin Sodium (Porcine) (Heparin) 5,000 units SC Q8 [facility] Last Admin: 05/28/17 21:30 Dose: 5,000 units Clindamycin Phosphate 300 mg/ (Sodium Chloride) 102 mls @ 104 mls/hr IVPB Q8H [facility] Last Admin: 05/28/17 18:00 Dose: 104 mls/hr Aztreonam 1 gm/ Sodium (Chloride) 100 mls @ 200 mls/hr IVPB Q8H [facility] Last Admin: 05/28/17 20:16 Dose: 200 mls/hr Acyclovir 900 mg/ Dextrose 250 mls @ 100 mls/hr IV Q8H [facility] Last Admin: 05/28/17 21:30 Dose: 100 mls/hr Sodium Chloride (Sodium Chloride 0.45%) 1,000 mls @ 100 mls/hr IV .Q10H [facility] Last Admin: 05/28/17 13:26 Dose: Not Given Lorazepam (Ativan) 1 mg IVP Q4H PRN PRN Reason: Agitation Last Admin: 05/22/17 20:30 Dose: 1 mg Lorazepam (Ativan) 2 mg IVP ONCE PRN PRN Reason: Give dose prior to MRI Last Admin: 05/24/17 08:36 Dose: 2 mg Ondansetron HCl (Zofran Inj) 4 mg IVP Q4H PRN PRN Reason: GI distress Saccharomyces Boulardii (Florastor) 250 mg PO BID [facility] Last Admin: 05/28/17 18:00 Dose: 250 mg - Labs Labs: 05/26/17 08:12 05/28/17 07:54 PT 13.6 SECONDS (9.7-12.2) H 05/20/17 11:33 INR 1.2 05/20/17 11:33 APTT 28 SECONDS (21-34) 05/20/17 11:33 - Additional Findings Additional findings: - Constitutional Appears: No Acute Distress - Head Exam Head Exam: ATRAUMATIC, NORMOCEPHALIC - Eye Exam Eye Exam: EOMI, Normal appearance - ENT Exam ENT Exam: Mucous Membranes Moist - Respiratory Exam Respiratory Exam: Clear to Ausculation Bilateral, NORMAL BREATHING PATTERN. absent: Rales, Rhonchi, Wheezes - Cardiovascular Exam Cardiovascular Exam: REGULAR RHYTHM, +S1, +S2 - GI/Abdominal Exam GI & Abdominal Exam: Soft, Normal Bowel Sounds. absent: Distended, Tenderness - Extremities Exam Extremities Exam: absent: Pedal Edema - Neurological Exam Neurological Exam: Awake - Skin Skin Exam: Dry, Warm Additional comments: stage 2 intra-gluteal ulcer. Rash on arms, chest, and back have resolved. Assessment and Plan - Assessment and Plan (Free Text) Plan: 1.Altered mental status with while matter changes on MRI brain Lumbar puncture performed 05/20/17 by anesthesia. Empiric acyclovir due to suspicion of viral encephalitis. CSF studies though workup unremarkable thus far Brain MRI w. contrast * Prominent cerebral white matter changes are stable at may reflect PML, press, toxic/ metabolic demyelination sequelae from immunodeficiency including potential AIDS. 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 No interval mass effect or suspicious extra-axial collection identified. Plasma LILIYA virus ordered--elevated at 3261 To rule out possible ACCESS DATABASE DEVELOPER lymphoma, Dr. Lizama consulted, help appreciated.Recommending CT chest with contrast and csf flow cytometry d/w Dr Waller who recommend csf LILIYA viral study patient is nauseous and vomiting and unable talk/more confused d/w Dr Darnell -started on Decadron 10 mg IV Q8 on 05/26/17--discontinued after finding elevated serum LILIYA virus diet changed to clear liquids due to nausea/vomiting CT Chest/Abdomen/Pelvis 05/27/17 showed no lymphadenopathy Will ask anesthesia to perform another LP to assess for LILIYA virus in the CSF and flow cytometry for ACCESS DATABASE DEVELOPER lymphoma 2. Gluteal wound, stage 2 intergluteal ulcer no leukocytosis, afebrile Surgery consulted, Dr. Neil, help appreciated as per surgery superficial gluteal wound, no tract- no surgical intervention wound care kirsten talamantes blood cultures- no growth 3.Acute diverticulitis no leukocytosis, afebrile Repeat CT 05/27/17 shows improved diverticulitis Abdomen/Pelvis CT: diverticulitis of sigmoid colon, mild splenomegaly, liver lesions Cipro 400mg q12h, discontinued 05/19 due to rash Flagyl 500mg q8h, discontinued 05/19 due to rash Aztreonam 1 gm Q8H, started 05/19 Clindamycin 450mg IVPB Q6H, started 05/19 Ultram 25mg po BID for pain GI, Dr. Charles, consulted- help appreciated -continue antibiotics for 2 weeks 4. Prophylactic Measure Regular diet Heparin 5000 units SC Q8 Protonix 40 mg PO daily [phone] Wendy Diamond--patient's sister and point of contact Disposition: Will ask anesthesia to perform another LP to assess for LILIYA virus in the CSF and flow cytometry for ACCESS DATABASE DEVELOPER lymphoma. This is a very poor prognosis. Palliative care consult placed. Case DW Dr. Veronika Ford PGY-1 <Tristen Banda H - Last Filed: 05/30/17 07:22> Objective - Vital Signs/Intake and Output Vital Signs (last 24 hours): Temp Pulse Resp BP Pulse Ox 98.1 F 54 L 20 106/60 95 05/29/17 23:30 05/29/17 23:45 05/29/17 23:30 05/29/17 23:30 05/29/17 23:30 Intake and Output: 05/30/17 05/30/17 06:59 18:59 Intake Total 300 Balance 300 - Medications Medications: Current Medications Famotidine (Pepcid) 20 mg PO BID [facility] Last Admin: 05/29/17 18:23 Dose: 20 mg Heparin Sodium (Porcine) (Heparin) 5,000 units SC Q8 [facility] Last Admin: 05/30/17 05:29 Dose: 5,000 units Aztreonam 1 gm/ Sodium (Chloride) 100 mls @ 200 mls/hr IVPB Q8H [facility] Last Admin: 05/30/17 03:08 Dose: 200 mls/hr Acyclovir 900 mg/ Dextrose 250 mls @ 100 mls/hr IV Q8H [facility] Last Admin: 05/30/17 04:10 Dose: 100 mls/hr Lorazepam (Ativan) 1 mg IVP Q4H PRN PRN Reason: Agitation Last Admin: 05/22/17 20:30 Dose: 1 mg Lorazepam (Ativan) 2 mg IVP ONCE PRN PRN Reason: Give dose prior to MRI Last Admin: 05/24/17 08:36 Dose: 2 mg Ondansetron HCl (Zofran Inj) 4 mg IVP Q4H PRN PRN Reason: GI distress Saccharomyces Boulardii (Florastor) 250 mg PO BID [facility] Last Admin: 05/29/17 18:23 Dose: 250 mg - Labs Labs: 05/29/17 08:54 05/29/17 08:52 PT 13.6 SECONDS (9.7-12.2) H 05/20/17 11:33 INR 1.2 05/20/17 11:33 APTT 28 SECONDS (21-34) 05/20/17 11:33 Attending/Attestation - Attestation I have personally seen and examined this patient.: Yes I have fully participated in the care of the patient.: Yes I have reviewed all pertinent clinical information, including history, physical exam and plan: Yes Notes (Text): 05/30/17 07:22 Medical attending: Patient was seen and examined by me with the remote medical coder. I reviewed the above note by remote medical coder and agree. When we saw the patient today there were not any family members around. I spoke with neurologist Dr. Hodges over the phone with regards to the patient's serum LILIYA virus being elevated. As mentioned previously patient CD4 and CD8 cell counts are stable. H this testing for HIV have been negative so far. After some discussion, were to get a second lumbar puncture to specifically test the CSF for LILIYA virus. I also spoke with hematology/oncology Dr. Lizama and will get try to get lymphoma studies in that CSF. Possible lymphoma could be affecting the immune system in such a way that it's [place] the patient at risk for LILIYA virus/PML Try to reach out to anesthesia now for the second lumbar puncture. Also her Dr. Hodges try to get a neurosurgery evaluation for potential brain biopsy. thank you Tristen Banda
[2017-05-29 09:02] LABS: BASO % 0.2 % (0.0-2.0); HEMOGLOBIN 13.2 g/dL (12.0-18.0); LYMPH # 1.3 K/uL (1.0-4.3); LYMPH % 14.6 % (20.0-40.0); MEAN CELL VOLUME 90.3 fL (80.0-94.0); MEAN CORPUSCULAR HEMOGLOBIN 30.8 pg (27.0-31.0); MEAN CORPUSCULAR HGB CONC 34.2 g/dL (33.0-37.0); MEAN PLATELET VOLUME 10.2 fL (7.2-11.7); MONO # 0.7 K/uL (0.0-0.8); MONO % 8.1 % (0.0-10.0); NEUT # 6.6 K/uL (1.8-7.0); NEUT % 77.1 % (50.0-75.0); RBC 4.27 Mil/uL (4.40-5.90); RED CELL DISTRIBUTION WIDTH 14.5 % (11.5-14.5)
[2017-05-29 09:04] LABS: WHITE BLOOD COUNT 8.6 K/uL (4.8-10.8)
[2017-05-29 09:17] LABS: ALB/GLOB RATIO 1.2 (1.0-2.1); ALBUMIN 3.5 g/dL (3.5-5.0); ALT/SGPT 53 U/L (21-72); AST/SGOT 22 U/L (17-59); BLOOD UREA NITROGEN 26 mg/dL (9-20); CALCIUM 9.3 mg/dl (8.6-10.4); GFR AFRICAN-AMERICAN > 60; GFR NON-AFRICAN AMERICAN > 60
--- NOTE | 2017-05-29 09:48 | RAD ---
HISTORY: bradycardia COMPARISON: Chest radiograph dated 05/15/2017. FINDINGS: LUNGS: Low lung volumes. Prominence of the pulmonary vasculature. No focal consolidation. PLEURA: No significant pleural effusion identified, no pneumothorax apparent. CARDIOVASCULAR: Normal. OSSEOUS STRUCTURES: No significant abnormalities. VISUALIZED UPPER ABDOMEN: Normal. OTHER FINDINGS: Overlying pacing pads. IMPRESSION: Prominence of the pulmonary vasculature may be secondary to low lung volumes, AP technique and/or pulmonary vascular congestion. No focal consolidation or pleural effusion.
[2017-05-29] MEDS: Saccharomyces Boulardi 250 mg Cap PO SCH ×2 (10:00→18:23)
--- NOTE | 2017-05-29 11:02 | PCM.RRT ---
PHARMACEUTICAL DETAILER Nurses Assessment - Situation Date: 05/29/17 Time PHARMACEUTICAL DETAILER was called: 08:40 PHARMACEUTICAL DETAILER Responder Arrival Time:: 08:41 PHARMACEUTICAL DETAILER Location:: Med/Surg Room Number: 659B PHARMACEUTICAL DETAILER Reason for Call: Bradycardia PHARMACEUTICAL DETAILER Called By: RN - IV IV Inserted during PHARMACEUTICAL DETAILER?: No New IV Insertion Tolerance: Good - Respiratory PHARMACEUTICAL DETAILER Delivery Method: Room Air Received Nebulizer Treatments: No Was the Patient Ventilated with Bag/Mask 100% O2?: No Secretions Suctioned?: No Was the Patient Intubated?: No Was the Patient Placed on a Ventilator?: No - Diagnostic Test Ordered EKG: Yes Chest X-Ray: Yes CT Scan: No - Stat Labs Ordered PHARMACEUTICAL DETAILER Stat Labs Ordered: CBC, LACTIC ACID PHARMACEUTICAL DETAILER Other Labs Ordered: [place] CPR started during PHARMACEUTICAL DETAILER?: No - Vital Signs Vital Signs: Rapid Response Vital Sign Blood Pressure 97/48 Pulse Rate 37 Respiratory Rate 16 Temperature 98.0 F Oxygen Saturation 95 - [place] Coma Scale Coma Scale Eye Opening: Spontaneous Coma Scale Motor: Obeys Commands Movement Coma Scale Verbal: Confused/able to answer Coma Scale Total: 14 - Time PHARMACEUTICAL DETAILER Ended Time PHARMACEUTICAL DETAILER Ended: 09:00 - Vital Signs at end of PHARMACEUTICAL DETAILER Vital Signs at end of PHARMACEUTICAL DETAILER: Rapid Response End Vital Sign Blood Pressure 112/57 Pulse Rate 33 Respiratory Rate 16 O2 Sat by Pulse Oximetry 96 - Recommendations 5) PHARMACEUTICAL DETAILER Level of Care Recommendations: Placed on telemetry and to remain in current setting Notifications: Attending Physician I.Reason for PHARMACEUTICAL DETAILER - A) Acute Change in Patient: (Select all that apply): Staff member or family is worried about patient - Neurological Status (Select all that apply): Alert, Responsive, Follows Commands - Respiratory Oxygen Delivery Method: Room Air - Extremities Exam Additional comments: - Constitutional Appears: No Acute Distress - Head Exam Head Exam: ATRAUMATIC, NORMOCEPHALIC - Eye Exam Eye Exam: EOMI, Normal appearance - ENT Exam ENT Exam: Mucous Membranes Moist - Respiratory Exam Respiratory Exam: Clear to Ausculation Bilateral, NORMAL BREATHING PATTERN. absent: Rales, Rhonchi, Wheezes - Cardiovascular Exam Cardiovascular Exam: Bradycardia, +S1, +S2 - GI/Abdominal Exam GI & Abdominal Exam: Soft, Normal Bowel Sounds. absent: Distended, Tenderness - Extremities Exam Extremities Exam: absent: Pedal Edema - Neurological Exam Neurological Exam: Awake - Skin Skin Exam: Dry, Warm Additional comments: stage 2 intra-gluteal ulcer. Rash on arms, chest, and back have resolved. Plan - Assessment of Findings&Treatment Plan PHARMACEUTICAL DETAILER called for bradycardia. Blood pressure unable to be obtained via machine, but we were able to obtain one with a manual device. Patient with asymptomatic bradycardia. Patient responding with his baseline brief phrases and was following commands. Patient placed on telemetry for monitoring.
--- NOTE | 2017-05-29 18:37 | CP.PCM.PN ---
Subjective - Date & Time of Evaluation Date of Evaluation: 05/29/17 Time of Evaluation: 07:00 - Subjective Subjective: events noted + LILIYA Virus PCR recc LP to check CSF poor prognosis Objective - Vital Signs/Intake and Output Vital Signs (last 24 hours): Temp Pulse Resp BP Pulse Ox 97.8 F 53 L 20 93/53 L 95 05/29/17 15:00 05/29/17 15:00 05/29/17 15:00 05/29/17 15:00 05/29/17 15:00 Intake and Output: 05/29/17 05/29/17 06:59 18:59 Intake Total 800 Balance 800 - Medications Medications: Current Medications Famotidine (Pepcid) 20 mg PO BID [facility] Last Admin: 05/29/17 18:23 Dose: 20 mg Heparin Sodium (Porcine) (Heparin) 5,000 units SC Q8 [facility] Last Admin: 05/29/17 13:48 Dose: 5,000 units Aztreonam 1 gm/ Sodium (Chloride) 100 mls @ 200 mls/hr IVPB Q8H [facility] Last Admin: 05/29/17 11:37 Dose: 200 mls/hr Acyclovir 900 mg/ Dextrose 250 mls @ 100 mls/hr IV Q8H [facility] Last Admin: 05/29/17 13:33 Dose: 100 mls/hr Lorazepam (Ativan) 1 mg IVP Q4H PRN PRN Reason: Agitation Last Admin: 05/22/17 20:30 Dose: 1 mg Lorazepam (Ativan) 2 mg IVP ONCE PRN PRN Reason: Give dose prior to MRI Last Admin: 05/24/17 08:36 Dose: 2 mg Ondansetron HCl (Zofran Inj) 4 mg IVP Q4H PRN PRN Reason: GI distress Saccharomyces Boulardii (Florastor) 250 mg PO BID [facility] Last Admin: 05/29/17 18:23 Dose: 250 mg - Labs Labs: 05/29/17 08:54 05/29/17 08:52 PT 13.6 SECONDS (9.7-12.2) H 05/20/17 11:33 INR 1.2 05/20/17 11:33 APTT 28 SECONDS (21-34) 05/20/17 11:33 Assessment and Plan (1) Altered mental status Status: Acute
--- NOTE | 2017-05-29 22:03 | CP.PCM.PN ---
Subjective - Date & Time of Evaluation Date of Evaluation: 05/29/17 Time of Evaluation: 17:30 - Subjective Subjective: + LILIYA virus PCR for repeat LP; recommend sending CSF for flow cytometery to rule out lymphoproliferative disorder in CSF. Objective - Vital Signs/Intake and Output Vital Signs (last 24 hours): Temp Pulse Resp BP Pulse Ox 97.8 F 50 L 20 93/53 L 95 05/29/17 15:00 05/29/17 18:00 05/29/17 15:00 05/29/17 15:00 05/29/17 15:00 - Medications Medications: Current Medications Famotidine (Pepcid) 20 mg PO BID [facility] Last Admin: 05/29/17 18:23 Dose: 20 mg Heparin Sodium (Porcine) (Heparin) 5,000 units SC Q8 [facility] Last Admin: 05/29/17 13:48 Dose: 5,000 units Aztreonam 1 gm/ Sodium (Chloride) 100 mls @ 200 mls/hr IVPB Q8H [facility] Last Admin: 05/29/17 19:30 Dose: 200 mls/hr Acyclovir 900 mg/ Dextrose 250 mls @ 100 mls/hr IV Q8H [facility] Last Admin: 05/29/17 13:33 Dose: 100 mls/hr Lorazepam (Ativan) 1 mg IVP Q4H PRN PRN Reason: Agitation Last Admin: 05/22/17 20:30 Dose: 1 mg Lorazepam (Ativan) 2 mg IVP ONCE PRN PRN Reason: Give dose prior to MRI Last Admin: 05/24/17 08:36 Dose: 2 mg Ondansetron HCl (Zofran Inj) 4 mg IVP Q4H PRN PRN Reason: GI distress Saccharomyces Boulardii (Florastor) 250 mg PO BID [facility] Last Admin: 05/29/17 18:23 Dose: 250 mg - Labs Labs: 05/29/17 08:54 05/29/17 08:52 PT 13.6 SECONDS (9.7-12.2) H 05/20/17 11:33 INR 1.2 05/20/17 11:33 APTT 28 SECONDS (21-34) 05/20/17 11:33 Assessment and Plan (1) Altered mental status Status: Acute
[2017-05-30] MEDS: Aztreonam 1 GM in Sodium Chloride 0.9% 100 ML IVPB SCH ×2 (03:08→11:31)
[2017-05-30] MEDS: DEXTROSE 5% IV SCH ×4 (04:10→22:19)
[2017-05-30] MEDS: WATER IV SCH ×4 (04:10→22:19)
[2017-05-30] MEDS: ACYCLOVIR IV SCH ×4 (04:10→22:19)
--- NOTE | 2017-05-30 06:47 | CP.PCM.PN ---
<Amada Ohara - Last Filed: 05/30/17 06:48> Subjective - Date & Time of Evaluation Date of Evaluation: 05/29/17 Time of Evaluation: 12:00 - Subjective Subjective: Mr. Lowry was seen and examined at the bedside. He is awake but not able to comprehend any commands. He is being fed by the mother. There is no s/s of aspiration. He moves all extremities spontaneously. He had an episode of bradycardia (37), DIRECTOR OF TECHNOLOGY was called and patient was placed on pipeline controller.He remains on 1:1 sitter. Objective - Vital Signs/Intake and Output Vital Signs (last 24 hours): Temp Pulse Resp BP Pulse Ox 98.1 F 54 L 20 106/60 95 05/29/17 23:30 05/29/17 23:45 05/29/17 23:30 05/29/17 23:30 05/29/17 23:30 Intake and Output: 05/29/17 05/30/17 18:59 06:59 Intake Total 300 Balance 300 - Medications Medications: Current Medications Famotidine (Pepcid) 20 mg PO BID [facility] Last Admin: 05/29/17 18:23 Dose: 20 mg Heparin Sodium (Porcine) (Heparin) 5,000 units SC Q8 [facility] Last Admin: 05/30/17 05:29 Dose: 5,000 units Aztreonam 1 gm/ Sodium (Chloride) 100 mls @ 200 mls/hr IVPB Q8H [facility] Last Admin: 05/30/17 03:08 Dose: 200 mls/hr Acyclovir 900 mg/ Dextrose 250 mls @ 100 mls/hr IV Q8H [facility] Last Admin: 05/30/17 04:10 Dose: 100 mls/hr Lorazepam (Ativan) 1 mg IVP Q4H PRN PRN Reason: Agitation Last Admin: 05/22/17 20:30 Dose: 1 mg Lorazepam (Ativan) 2 mg IVP ONCE PRN PRN Reason: Give dose prior to MRI Last Admin: 05/24/17 08:36 Dose: 2 mg Ondansetron HCl (Zofran Inj) 4 mg IVP Q4H PRN PRN Reason: GI distress Saccharomyces Boulardii (Florastor) 250 mg PO BID [facility] Last Admin: 05/29/17 18:23 Dose: 250 mg - Labs Labs: 05/29/17 08:54 05/29/17 08:52 PT 13.6 SECONDS (9.7-12.2) H 05/20/17 11:33 INR 1.2 05/20/17 11:33 APTT 28 SECONDS (21-34) 05/20/17 11:33 - Constitutional Appears: No Acute Distress - Head Exam Head Exam: NORMAL INSPECTION - Neurological Exam Neurological Exam: Awake Neuro motor strength exam: Left Upper Extremity: 5, Right Upper Extremity: 5, Left Lower Extremity: 5, Right Lower Extremity: 5 Additional comments: He moves all extremities but unable to follow simple commands. Assessment and Plan (1) Altered mental status Assessment & Plan: Case discussed with Dr. Hodges, continue all current medical regimen. With The SIL virus PCR of 3260. Please communicate to ID ( Dr. Waller) for any new treatment. Status: Acute <Monica Hodges - Last Filed: 05/30/17 10:35> Subjective - Subjective Subjective: Plan: 1. Spoke to , anesthesiologist: will perform LP today and send off for cytology for justice court judge lymphoma, sil virus and other panels as per dr fonseca 2. Will also contact re: brain biopsy 3. Continue depakote 500 bid 4. Repeat EEG tomorrow am Dr. Hodges Objective - Vital Signs/Intake and Output Vital Signs (last 24 hours): Temp Pulse Resp BP Pulse Ox 97.3 F L 41 L 20 107/71 95 05/30/17 09:28 05/30/17 09:28 05/30/17 09:28 05/30/17 09:28 05/30/17 09:28 Intake and Output: 05/30/17 05/30/17 06:59 18:59 Intake Total 300 Balance 300 - Medications Medications: Current Medications Famotidine (Pepcid) 20 mg PO BID [facility] Last Admin: 05/30/17 09:28 Dose: 20 mg Heparin Sodium (Porcine) (Heparin) 5,000 units SC Q8 [facility] Last Admin: 05/30/17 05:29 Dose: 5,000 units Aztreonam 1 gm/ Sodium (Chloride) 100 mls @ 200 mls/hr IVPB Q8H [facility] Last Admin: 05/30/17 03:08 Dose: 200 mls/hr Acyclovir 900 mg/ Dextrose 250 mls @ 100 mls/hr IV Q8H [facility] Last Admin: 05/30/17 04:10 Dose: 100 mls/hr Lorazepam (Ativan) 1 mg IVP Q4H PRN PRN Reason: Agitation Last Admin: 05/22/17 20:30 Dose: 1 mg Lorazepam (Ativan) 2 mg IVP ONCE PRN PRN Reason: Give dose prior to MRI Last Admin: 05/24/17 08:36 Dose: 2 mg Ondansetron HCl (Zofran Inj) 4 mg IVP Q4H PRN PRN Reason: GI distress Saccharomyces Boulardii (Florastor) 250 mg PO BID [facility] Last Admin: 05/30/17 09:28 Dose: 250 mg - Labs Labs: 05/30/17 08:30 05/30/17 08:30 PT 13.6 SECONDS (9.7-12.2) H 05/20/17 11:33 INR 1.2 05/20/17 11:33 APTT 28 SECONDS (21-34) 05/20/17 11:33
--- NOTE | 2017-05-30 06:51 | CP.PCM.PN ---
<Ronni Ford - Last Filed: 05/30/17 14:25> Subjective - Date & Time of Evaluation Date of Evaluation: 05/30/17 Time of Evaluation: 07:00 - Subjective Subjective: Medicine progress note for Dr. Banda Patient seen and examined. Patient shook my hand today and stated he was feeling well. He did not say much else during our encounter. On rounds, patient was sleeping. Family was spoken with at bedside and updated about the current situation. Objective - Vital Signs/Intake and Output Vital Signs (last 24 hours): Temp Pulse Resp BP Pulse Ox 98.1 F 54 L 20 106/60 95 05/29/17 23:30 05/29/17 23:45 05/29/17 23:30 05/29/17 23:30 05/29/17 23:30 Intake and Output: 05/29/17 05/30/17 18:59 06:59 Intake Total 300 Balance 300 - Medications Medications: Current Medications Famotidine (Pepcid) 20 mg PO BID [facility] Last Admin: 05/29/17 18:23 Dose: 20 mg Heparin Sodium (Porcine) (Heparin) 5,000 units SC Q8 [facility] Last Admin: 05/30/17 05:29 Dose: 5,000 units Aztreonam 1 gm/ Sodium (Chloride) 100 mls @ 200 mls/hr IVPB Q8H [facility] Last Admin: 05/30/17 03:08 Dose: 200 mls/hr Acyclovir 900 mg/ Dextrose 250 mls @ 100 mls/hr IV Q8H [facility] Last Admin: 05/30/17 04:10 Dose: 100 mls/hr Lorazepam (Ativan) 1 mg IVP Q4H PRN PRN Reason: Agitation Last Admin: 05/22/17 20:30 Dose: 1 mg Lorazepam (Ativan) 2 mg IVP ONCE PRN PRN Reason: Give dose prior to MRI Last Admin: 05/24/17 08:36 Dose: 2 mg Ondansetron HCl (Zofran Inj) 4 mg IVP Q4H PRN PRN Reason: GI distress Saccharomyces Boulardii (Florastor) 250 mg PO BID [facility] Last Admin: 05/29/17 18:23 Dose: 250 mg - Labs Labs: 05/29/17 08:54 05/29/17 08:52 PT 13.6 SECONDS (9.7-12.2) H 05/20/17 11:33 INR 1.2 05/20/17 11:33 APTT 28 SECONDS (21-34) 05/20/17 11:33 - Additional Findings Additional findings: - Constitutional Appears: No Acute Distress - Head Exam Head Exam: ATRAUMATIC, NORMOCEPHALIC - Eye Exam Eye Exam: EOMI, Normal appearance - ENT Exam ENT Exam: Mucous Membranes Moist - Respiratory Exam Respiratory Exam: Clear to Ausculation Bilateral, NORMAL BREATHING PATTERN. absent: Rales, Rhonchi, Wheezes - Cardiovascular Exam Cardiovascular Exam: Bradycardia, +S1, +S2 - GI/Abdominal Exam GI & Abdominal Exam: Soft, Normal Bowel Sounds. absent: Distended, Tenderness - Extremities Exam Extremities Exam: absent: Pedal Edema - Neurological Exam Neurological Exam: Awake - Skin Skin Exam: Dry, Warm Additional comments: stage 2 intra-gluteal ulcer. Rash on arms, chest, and back have resolved. Assessment and Plan - Assessment and Plan (Free Text) Plan: 1.Altered mental status with white matter changes on MRI brain. Working diagnosis: PML Lumbar puncture performed 05/20/17 by anesthesia. Empiric acyclovir due to suspicion of viral encephalitis. CSF studies workup unremarkable thus far Brain MRI w. contrast * Prominent cerebral white matter changes are stable at may reflect PML, press, toxic/ metabolic demyelination sequelae from immunodeficiency including potential AIDS. 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 No interval mass effect or suspicious extra-axial collection identified. Plasma LILIYA virus ordered--elevated at 3261 To rule out possible [employer] lymphoma, Dr. Lizama consulted, help appreciated.Recommending CT chest with contrast and csf flow cytometry d/w Dr Waller who recommend csf LILIYA viral study d/w Dr Darnell -started on Decadron 10 mg IV Q8 on 05/26/17--discontinued after finding elevated serum LILIYA virus CT Chest/Abdomen/Pelvis 05/27/17 showed no lymphadenopathy Will ask anesthesia to perform another LP to assess for LILIYA virus in the CSF and flow cytometry for [employer] lymphoma 2. Gluteal wound, stage 2 intergluteal ulcer no leukocytosis, afebrile Surgery consulted, Dr. Neil, help appreciated as per surgery superficial gluteal wound, no tract- no surgical intervention wound care kirsten talamantes blood cultures- no growth 3.Acute diverticulitis no leukocytosis, afebrile Repeat CT 05/27/17 shows improved diverticulitis Abdomen/Pelvis CT: diverticulitis of sigmoid colon, mild splenomegaly, liver lesions Cipro 400mg q12h, discontinued 05/19 due to rash Flagyl 500mg q8h, discontinued 05/19 due to rash Aztreonam 1 gm Q8H, started 05/19--discontinued Clindamycin 450mg IVPB Q6H, started 05/19--discontinued Ultram 25mg po BID for pain GI, Dr. Charles, consulted- help appreciated -continue antibiotics for 2 weeks 4. 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 Patient now made DNR/DNI after discussion between palliative care and family. Patient with asymptomatic bradycardia being monitored on telemetry. We will ask anesthesia to perform another LP to assess for LILIYA virus in the CSF and flow cytometry for [employer] lymphoma. Case DW Dr. Veronika Ford PGY-1 <Tristen Banda H - Last Filed: 05/30/17 15:20> Objective - Vital Signs/Intake and Output Vital Signs (last 24 hours): Temp Pulse Resp BP Pulse Ox 97.3 F L 41 L 20 107/71 95 05/30/17 09:28 05/30/17 09:28 05/30/17 09:28 05/30/17 09:28 05/30/17 09:28 Intake and Output: 05/30/17 05/30/17 06:59 18:59 Intake Total 300 Balance 300 - Medications Medications: Current Medications Enoxaparin Sodium (Lovenox) 40 mg SC DAILY [facility] Famotidine (Pepcid) 20 mg PO BID [facility] Last Admin: 05/30/17 09:28 Dose: 20 mg Acyclovir 900 mg/ Dextrose 250 mls @ 100 mls/hr IV Q8H [facility] Last Admin: 05/30/17 13:21 Dose: 100 mls/hr Lorazepam (Ativan) 1 mg IVP Q4H PRN PRN Reason: Agitation Last Admin: 05/22/17 20:30 Dose: 1 mg Lorazepam (Ativan) 2 mg IVP ONCE PRN PRN Reason: Give dose prior to MRI Last Admin: 05/24/17 08:36 Dose: 2 mg Ondansetron HCl (Zofran Inj) 4 mg IVP Q4H PRN PRN Reason: GI distress Saccharomyces Boulardii (Florastor) 250 mg PO BID [facility] Last Admin: 05/30/17 09:28 Dose: 250 mg - Labs Labs: 05/30/17 08:30 05/30/17 08:30 PT 13.6 SECONDS (9.7-12.2) H 05/20/17 11:33 INR 1.2 05/20/17 11:33 APTT 28 SECONDS (21-34) 05/20/17 11:33 Attending/Attestation - Attestation I have personally seen and examined this patient.: Yes I have fully participated in the care of the patient.: Yes I have reviewed all pertinent clinical information, including history, physical exam and plan: Yes Notes (Text): 05/30/17 15:20 Medical attending: Patient was seen and examined by me with the medical front desk coordinator. I reviewed the above note by medical front desk coordinator and agree. Earlier this morning I spoke with anesthesia Dr. Markham [phone] as well as neurology Dr. Hodges. The plan is to have a second lumbar puncture done to assess for CSF for elevated LILIYA virus. I also spoke with hematology oncology we're also going to try to get the CSF for flow cytometry to test for lymphoma. We spoke at long length with the family members were present at bedside. This is the patient's mother as well as his sister. thank you Tristen Banda
--- NOTE | 2017-05-30 06:55 | CP.PCM.PN ---
Subjective - Date & Time of Evaluation Date of Evaluation: 05/30/17 Time of Evaluation: 06:52 - Subjective Subjective: Mr. hanna was seen and examined at the bedside. He is alert, awake only response to few words such as yes, missy. He is not able to follow simple commands such as raising his upper extremities. He states that his arms are raised up but no movement noted. However, without any commands the patient moves all his extremities spontaneously. He remains on 1:1 sitter for patient safety. Objective - Vital Signs/Intake and Output Vital Signs (last 24 hours): Temp Pulse Resp BP Pulse Ox 98.1 F 54 L 20 106/60 95 05/29/17 23:30 05/29/17 23:45 05/29/17 23:30 05/29/17 23:30 05/29/17 23:30 Intake and Output: 05/29/17 05/30/17 18:59 06:59 Intake Total 300 Balance 300 - Medications Medications: Current Medications Famotidine (Pepcid) 20 mg PO BID [facility] Last Admin: 05/29/17 18:23 Dose: 20 mg Heparin Sodium (Porcine) (Heparin) 5,000 units SC Q8 [facility] Last Admin: 05/30/17 05:29 Dose: 5,000 units Aztreonam 1 gm/ Sodium (Chloride) 100 mls @ 200 mls/hr IVPB Q8H [facility] Last Admin: 05/30/17 03:08 Dose: 200 mls/hr Acyclovir 900 mg/ Dextrose 250 mls @ 100 mls/hr IV Q8H [facility] Last Admin: 05/30/17 04:10 Dose: 100 mls/hr Lorazepam (Ativan) 1 mg IVP Q4H PRN PRN Reason: Agitation Last Admin: 05/22/17 20:30 Dose: 1 mg Lorazepam (Ativan) 2 mg IVP ONCE PRN PRN Reason: Give dose prior to MRI Last Admin: 05/24/17 08:36 Dose: 2 mg Ondansetron HCl (Zofran Inj) 4 mg IVP Q4H PRN PRN Reason: GI distress Saccharomyces Boulardii (Florastor) 250 mg PO BID [facility] Last Admin: 05/29/17 18:23 Dose: 250 mg - Labs Labs: 05/29/17 08:54 05/29/17 08:52 PT 13.6 SECONDS (9.7-12.2) H 05/20/17 11:33 INR 1.2 05/20/17 11:33 APTT 28 SECONDS (21-34) 05/20/17 11:33 - Constitutional Appears: No Acute Distress - Head Exam Head Exam: NORMAL INSPECTION - Cardiovascular Exam Cardiovascular Exam: Bradycardia - Neurological Exam Neurological Exam: Alert, Awake Neuro motor strength exam: Left Upper Extremity: 5, Right Upper Extremity: 5, Left Lower Extremity: 5, Right Lower Extremity: 5 Additional comments: He is awake but not following any commands. Assessment and Plan (1) Altered mental status Assessment & Plan: Case discussed with Dr. Hodges, continue all current medical regimen. Seen by ID with recommendations for a repeat LP. Please communicate to primary physician if anesthesia depart can do it due to patient mental state. Status: Acute
[2017-05-30 08:46] LABS: BASO % 0.3 % (0.0-2.0); EOS # 0.1 K/uL (0.0-0.7); HEMOGLOBIN 14.3 g/dL (12.0-18.0); LYMPH # 2.4 K/uL (1.0-4.3); LYMPH % 37.6 % (20.0-40.0); MEAN CELL VOLUME 89.9 fL (80.0-94.0); MEAN CORPUSCULAR HEMOGLOBIN 30.8 pg (27.0-31.0); MEAN CORPUSCULAR HGB CONC 34.3 g/dL (33.0-37.0); MONO # 0.6 K/uL (0.0-0.8); MONO % 8.8 % (0.0-10.0); NEUT # 3.4 K/uL (1.8-7.0); NEUT % 52.3 % (50.0-75.0); NRBC % 0.1 % (0.0-2.0); RBC 4.62 Mil/uL (4.40-5.90); RED CELL DISTRIBUTION WIDTH 14.6 % (11.5-14.5); WHITE BLOOD COUNT 6.4 K/uL (4.8-10.8)
[2017-05-30 08:56] LABS: ALB/GLOB RATIO 1.2 (1.0-2.1); ALBUMIN 3.5 g/dL (3.5-5.0); ALT/SGPT 55 U/L (21-72); AST/SGOT 26 U/L (17-59); BLOOD UREA NITROGEN 23 mg/dL (9-20); CALCIUM 9.2 mg/dl (8.6-10.4); GFR AFRICAN-AMERICAN > 60; GFR NON-AFRICAN AMERICAN > 60; MAGNESIUM 2.1 mg/dL (1.6-2.3)
[2017-05-30] MEDS: Sodium Chloride 0.45% 1,000 ML IV SCH (09:27)
[2017-05-30] MEDS: Saccharomyces Boulardi 250 mg Cap PO SCH ×2 (09:28→18:33)
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
--- NOTE | 2017-05-30 14:25 | EEG ---
DATE: 05/23/2017 TECHNICAL DESCRIPTION: This is an EEG acquired with 16 electrodes placed with 10-20 standard international electrode placement system. Digital acquisition was acquired using spike detection . Electrodes were referring to P1/P2 and A1/A2 electrodes in average reference. GENERAL DESCRIPTION: The patient has slow background at 6-7 Hz, which is poorly reactive, symmetric, and attenuating to eye opening. There is bifrontal slowing with admixture of theta and delta activities. Throughout the record, there are frequent triphasics noted in the bifrontal region. There are no interictal discharges and there is no free capture. There were no subclinical or clinical seizures noted. IMPRESSION: This is an abnormal awake and drowsy EEG. The presence of a shows severe metabolic encephalopathy, bifrontal slowing and indicate a structural abnormality that may be present or could also be white matter disease or could be postictal in nature. Evidence of triphasic waves also indicate a uremic or hepatic encephalopathy, but could also be generalized encephalopathy. Clinical correlation is required. Monica Hodges MD
[2017-05-31] MEDS: ACYCLOVIR IV SCH ×3 (05:46→21:43)
[2017-05-31] MEDS: DEXTROSE 5% IV SCH ×3 (05:46→21:43)
[2017-05-31] MEDS: WATER IV SCH ×3 (05:46→21:43)
--- NOTE | 2017-05-31 07:10 | CP.PCM.PN ---
<Travon Irvingssyca AngelHuy - Last Filed: 05/31/17 19:23> Subjective - Date & Time of Evaluation Date of Evaluation: 05/31/17 Time of Evaluation: 07:00 - Subjective Subjective: Medicine Progress Note: Patient was seen and examined at bedside in the AM. Patient shook my hand today and stated he was feeling well. Objective - Vital Signs/Intake and Output Vital Signs (last 24 hours): Temp Pulse Resp BP Pulse Ox 98.3 F 48 L 20 98/68 L 95 05/30/17 23:25 05/30/17 23:40 05/30/17 23:25 05/30/17 23:25 05/30/17 23:25 - Medications Medications: Current Medications Enoxaparin Sodium (Lovenox) 40 mg SC DAILY [facility] Famotidine (Pepcid) 20 mg PO BID [facility] Last Admin: 05/30/17 18:33 Dose: 20 mg Acyclovir 900 mg/ Dextrose 250 mls @ 100 mls/hr IV Q8H [facility] Last Admin: 05/31/17 05:46 Dose: 100 mls/hr Lorazepam (Ativan) 1 mg IVP Q4H PRN PRN Reason: Agitation Last Admin: 05/22/17 20:30 Dose: 1 mg Lorazepam (Ativan) 2 mg IVP ONCE PRN PRN Reason: Give dose prior to MRI Last Admin: 05/24/17 08:36 Dose: 2 mg Ondansetron HCl (Zofran Inj) 4 mg IVP Q4H PRN PRN Reason: GI distress Saccharomyces Boulardii (Florastor) 250 mg PO BID [facility] Last Admin: 05/30/17 18:33 Dose: 250 mg - Labs Labs: 05/30/17 08:30 05/30/17 08:30 PT 13.6 SECONDS (9.7-12.2) H 05/20/17 11:33 INR 1.2 05/20/17 11:33 APTT 28 SECONDS (21-34) 05/20/17 11:33 - Constitutional Appears: No Acute Distress - Head Exam Head Exam: ATRAUMATIC, NORMAL INSPECTION - Eye Exam Eye Exam: EOMI, Normal appearance - ENT Exam ENT Exam: Mucous Membranes Moist - Respiratory Exam Respiratory Exam: Clear to Ausculation Bilateral, NORMAL BREATHING PATTERN - Cardiovascular Exam Cardiovascular Exam: Bradycardia, REGULAR RHYTHM, +S1, +S2 - GI/Abdominal Exam GI & Abdominal Exam: Soft, Normal Bowel Sounds. absent: Tenderness - Extremities Exam Extremities Exam: Normal Inspection - Neurological Exam Neurological Exam: Awake - Skin Skin Exam: Normal Color, Warm Assessment and Plan - Assessment and Plan (Free Text) Assessment: 1.Altered mental status with white matter changes on MRI brain. Working diagnosis: PML Lumbar puncture performed 05/20/17 by anesthesia. Empiric acyclovir due to suspicion of viral encephalitis. CSF studies workup unremarkable thus far Brain MRI w. contrast * Prominent cerebral white matter changes are stable at may reflect PML, press, toxic/ metabolic demyelination sequelae from immunodeficiency including potential AIDS. 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 No interval mass effect or suspicious extra-axial collection identified. Plasma LILIYA virus ordered--elevated at 3261 To rule out possible SEAFOOD MANAGER lymphoma, Dr. Lizama consulted, help appreciated.Recommending CT chest with contrast and csf flow cytometry d/w Dr Waller who recommend csf LILIYA viral study d/w Dr Darnell -started on Decadron 10 mg IV Q8 on 05/26/17--discontinued after finding elevated serum LILIYA virus CT Chest/Abdomen/Pelvis 05/27/17 showed no lymphadenopathy Anesthesia performed LP to assess for LILIYA virus in the CSF and flow cytometry for SEAFOOD MANAGER lymphoma - f/u oligoclonal band 2. Gluteal wound, stage 2 intergluteal ulcer no leukocytosis, afebrile Surgery consulted, Dr. Neil, help appreciated as per surgery superficial gluteal wound, no tract- no surgical intervention wound care kirsten talamantes blood cultures- no growth 3.Acute diverticulitis no leukocytosis, afebrile Repeat CT 05/27/17 shows improved diverticulitis Abdomen/Pelvis CT: diverticulitis of sigmoid colon, mild splenomegaly, liver lesions Cipro 400mg q12h, discontinued 05/19 due to rash Flagyl 500mg q8h, discontinued 05/19 due to rash Aztreonam 1 gm Q8H, started 05/19--discontinued Clindamycin 450mg IVPB Q6H, started 05/19--discontinued Ultram 25mg po BID for pain GI, Dr. Charles, consulted- help appreciated -continue antibiotics for 2 weeks 4. 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 Patient now made DNR/DNI after discussion between palliative care and family. Patient with asymptomatic bradycardia being monitored on telemetry. Case discussed with Dr. Veronika Irving PGY-1 <Tristen Banda - Last Filed: 06/01/17 07:28> Objective - Vital Signs/Intake and Output Vital Signs (last 24 hours): Temp Pulse Resp BP Pulse Ox 97.7 F 54 L 18 108/71 97 05/31/17 23:24 05/31/17 23:24 05/31/17 23:24 05/31/17 23:24 05/31/17 23:24 - Medications Medications: Current Medications Famotidine (Pepcid) 20 mg PO BID [facility] Last Admin: 05/31/17 17:49 Dose: 20 mg Acyclovir 900 mg/ Dextrose 250 mls @ 100 mls/hr IV Q8H [facility] Last Admin: 06/01/17 04:33 Dose: 100 mls/hr Lorazepam (Ativan) 1 mg IVP Q4H PRN PRN Reason: Agitation Last Admin: 05/22/17 20:30 Dose: 1 mg Lorazepam (Ativan) 2 mg IVP ONCE PRN PRN Reason: Give dose prior to MRI Last Admin: 05/24/17 08:36 Dose: 2 mg Mefloquine HCl (Lariam) 1,000 mg PO QWK [facility] Stop: 06/14/17 10:01 Last Admin: 05/31/17 22:33 Dose: 1,000 mg Ondansetron HCl (Zofran Inj) 4 mg IVP Q4H PRN PRN Reason: GI distress Last Admin: 05/31/17 22:12 Dose: 4 mg Quetiapine Fumarate (Seroquel) 25 mg PO ONCE PRN PRN Reason: Anxiety Saccharomyces Boulardii (Florastor) 250 mg PO BID [facility] Last Admin: 05/31/17 17:49 Dose: 250 mg - Labs Labs: 05/31/17 11:16 05/31/17 11:16 PT 13.6 SECONDS (9.7-12.2) H 05/20/17 11:33 INR 1.2 05/20/17 11:33 APTT 28 SECONDS (21-34) 05/20/17 11:33 Attending/Attestation - Attestation I have personally seen and examined this patient.: Yes I have fully participated in the care of the patient.: Yes I have reviewed all pertinent clinical information, including history, physical exam and plan: Yes Notes (Text): 06/01/17 07:28 Medical attending: Patient was seen and examined by me, his family members were present at bedside. I reviewed the above note by medical technologist prn and agree with the above note. The family members signed a consent for LP to be done. I thank the anesthesiologist for coming to do the second LP. So work is sent for LILIYA virus in the CSF, lymphoma flow cytometry studies ( we had the specific hematology forms and I understand that this is currently a send out lab) also oligoclonal CSF studies as well (however it's doubtful that this is actually MS) So at this time were to wait on the second studies to return. It may be that the patient does have PML from lymphoma as his HIV studies have repeatedly come back negative Tristen Banda
[2017-05-31] MEDS ORDERED: Enoxaparin 40 mg Syringe SC SCH (10:00)
[2017-05-31 11:33] LABS: BASO % 0.4 % (0.0-2.0); EOS # 0.3 K/uL (0.0-0.7); EOS % 3.9 % (0.0-4.0); HEMOGLOBIN 14.6 g/dL (12.0-18.0); LYMPH # 1.7 K/uL (1.0-4.3); LYMPH % 26.3 % (20.0-40.0); MEAN CELL VOLUME 89.4 fL (80.0-94.0); MEAN CORPUSCULAR HEMOGLOBIN 31.1 pg (27.0-31.0); MEAN CORPUSCULAR HGB CONC 34.8 g/dL (33.0-37.0); MEAN PLATELET VOLUME 9.9 fL (7.2-11.7); MONO # 0.5 K/uL (0.0-0.8); MONO % 6.9 % (0.0-10.0); NEUT # 4.1 K/uL (1.8-7.0); NEUT % 62.5 % (50.0-75.0); NRBC % 0.1 % (0.0-2.0); RBC 4.69 Mil/uL (4.40-5.90); RED CELL DISTRIBUTION WIDTH 14.6 % (11.5-14.5); WHITE BLOOD COUNT 6.6 K/uL (4.8-10.8)
[2017-05-31] MEDS: Saccharomyces Boulardi 250 mg Cap PO SCH ×2 (11:36→17:49)
[2017-05-31 11:49] LABS: ALB/GLOB RATIO 1.1 (1.0-2.1); ALBUMIN 3.4 g/dL (3.5-5.0); ALT/SGPT 45 U/L (21-72); AST/SGOT 18 U/L (17-59); BLOOD UREA NITROGEN 19 mg/dL (9-20); CALCIUM 9.4 mg/dl (8.6-10.4); GFR AFRICAN-AMERICAN > 60; GFR NON-AFRICAN AMERICAN > 60; MAGNESIUM 1.7 mg/dL (1.6-2.3)
--- NOTE | 2017-05-31 13:31 | CP.PCM.PN ---
Subjective - Date & Time of Evaluation Date of Evaluation: 05/31/17 Time of Evaluation: 13:28 - Subjective Subjective: Ms. Lowry was seen and examined at the bedside. He is awake, but very confused. He is unable to follow commands or answer questions, but moves all extremities spontaneously He respond more to his family members. He is being prepped for another LP by anesthesia department. He remains with 1:1 sitter for patient safety. There was no untoward events overnight. Objective - Vital Signs/Intake and Output Vital Signs (last 24 hours): Temp Pulse Resp BP Pulse Ox 98.1 F 58 L 20 107/69 96 05/31/17 08:54 05/31/17 08:54 05/31/17 08:54 05/31/17 08:54 05/31/17 08:54 - Medications Medications: Current Medications Enoxaparin Sodium (Lovenox) 40 mg SC DAILY [facility] Last Admin: 05/31/17 11:36 Dose: 40 mg Famotidine (Pepcid) 20 mg PO BID [facility] Last Admin: 05/31/17 11:36 Dose: 20 mg Acyclovir 900 mg/ Dextrose 250 mls @ 100 mls/hr IV Q8H [facility] Last Admin: 05/31/17 13:03 Dose: 100 mls/hr Lorazepam (Ativan) 1 mg IVP Q4H PRN PRN Reason: Agitation Last Admin: 05/22/17 20:30 Dose: 1 mg Lorazepam (Ativan) 2 mg IVP ONCE PRN PRN Reason: Give dose prior to MRI Last Admin: 05/24/17 08:36 Dose: 2 mg Ondansetron HCl (Zofran Inj) 4 mg IVP Q4H PRN PRN Reason: GI distress Saccharomyces Boulardii (Florastor) 250 mg PO BID [facility] Last Admin: 05/31/17 11:36 Dose: 250 mg - Labs Labs: 05/31/17 11:16 05/31/17 11:16 PT 13.6 SECONDS (9.7-12.2) H 05/20/17 11:33 INR 1.2 05/20/17 11:33 APTT 28 SECONDS (21-34) 05/20/17 11:33 - Constitutional Appears: No Acute Distress - Head Exam Head Exam: NORMAL INSPECTION - Neurological Exam Neurological Exam: Awake Neuro motor strength exam: Left Upper Extremity: 5, Right Upper Extremity: 5, Left Lower Extremity: 5, Right Lower Extremity: 5 Additional comments: unable to do any assessment, but moves all extremities spontaneously. Assessment and Plan (1) Altered mental status Assessment & Plan: Case discussed with Dr. Hodges, recommend repeat another MRI of the brain, repeat LP. Continue all current medical therapy. Status: Acute
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
--- NOTE | 2017-05-31 19:18 | CP.PCM.PN ---
Subjective - Date & Time of Evaluation Date of Evaluation: 05/31/17 Time of Evaluation: 09:00 - Subjective Subjective: s/p LP consider Mefloquine rx to discuss Objective - Vital Signs/Intake and Output Vital Signs (last 24 hours): Temp Pulse Resp BP Pulse Ox 98.2 F 60 18 99/64 L 95 05/31/17 15:00 05/31/17 15:00 05/31/17 15:00 05/31/17 15:00 05/31/17 15:00 Intake and Output: 05/31/17 06/01/17 18:59 06:59 Intake Total 970 Balance 970 - Medications Medications: Current Medications Famotidine (Pepcid) 20 mg PO BID [facility] Last Admin: 05/31/17 17:49 Dose: 20 mg Acyclovir 900 mg/ Dextrose 250 mls @ 100 mls/hr IV Q8H [facility] Last Admin: 05/31/17 13:03 Dose: 100 mls/hr Lorazepam (Ativan) 1 mg IVP Q4H PRN PRN Reason: Agitation Last Admin: 05/22/17 20:30 Dose: 1 mg Lorazepam (Ativan) 2 mg IVP ONCE PRN PRN Reason: Give dose prior to MRI Last Admin: 05/24/17 08:36 Dose: 2 mg Ondansetron HCl (Zofran Inj) 4 mg IVP Q4H PRN PRN Reason: GI distress Quetiapine Fumarate (Seroquel) 25 mg PO ONCE PRN PRN Reason: Anxiety Saccharomyces Boulardii (Florastor) 250 mg PO BID [facility] Last Admin: 05/31/17 17:49 Dose: 250 mg - Labs Labs: 05/31/17 11:16 05/31/17 11:16 PT 13.6 SECONDS (9.7-12.2) H 05/20/17 11:33 INR 1.2 05/20/17 11:33 APTT 28 SECONDS (21-34) 05/20/17 11:33 Assessment and Plan (1) Altered mental status Status: Acute
--- NOTE | 2017-06-01 03:06 | CP.PCM.PN ---
<MarcelleRonni schumacher - Last Filed: 06/01/17 07:49> Subjective - Date & Time of Evaluation Date of Evaluation: 06/01/17 Time of Evaluation: 05:30 - Subjective Subjective: Medicine progress note for Dr. Banda Patient seen and examined. Patient reports feeling well and denies any complaints. Patient had LP yesterday. Objective - Vital Signs/Intake and Output Vital Signs (last 24 hours): Temp Pulse Resp BP Pulse Ox 97.7 F 54 L 18 108/71 97 05/31/17 23:24 05/31/17 23:24 05/31/17 23:24 05/31/17 23:24 05/31/17 23:24 Intake and Output: 05/31/17 06/01/17 18:59 06:59 Intake Total 970 Balance 970 - Medications Medications: Current Medications Famotidine (Pepcid) 20 mg PO BID [facility] Last Admin: 05/31/17 17:49 Dose: 20 mg Acyclovir 900 mg/ Dextrose 250 mls @ 100 mls/hr IV Q8H [facility] Last Admin: 05/31/17 21:43 Dose: 100 mls/hr Lorazepam (Ativan) 1 mg IVP Q4H PRN PRN Reason: Agitation Last Admin: 05/22/17 20:30 Dose: 1 mg Lorazepam (Ativan) 2 mg IVP ONCE PRN PRN Reason: Give dose prior to MRI Last Admin: 05/24/17 08:36 Dose: 2 mg Mefloquine HCl (Lariam) 1,000 mg PO QWK [facility] Stop: 06/14/17 10:01 Last Admin: 05/31/17 22:33 Dose: 1,000 mg Ondansetron HCl (Zofran Inj) 4 mg IVP Q4H PRN PRN Reason: GI distress Last Admin: 05/31/17 22:12 Dose: 4 mg Quetiapine Fumarate (Seroquel) 25 mg PO ONCE PRN PRN Reason: Anxiety Saccharomyces Boulardii (Florastor) 250 mg PO BID [facility] Last Admin: 05/31/17 17:49 Dose: 250 mg - Labs Labs: 05/31/17 11:16 05/31/17 11:16 PT 13.6 SECONDS (9.7-12.2) H 01/15/18 11:33 INR 1.2 05/20/17 11:33 APTT 28 SECONDS (21-34) 05/20/17 11:33 - Additional Findings Additional findings: - Constitutional Appears: No Acute Distress - Head Exam Head Exam: ATRAUMATIC, NORMAL INSPECTION - Eye Exam Eye Exam: EOMI, Normal appearance - ENT Exam ENT Exam: Mucous Membranes Moist - Respiratory Exam Respiratory Exam: Clear to Ausculation Bilateral, NORMAL BREATHING PATTERN - Cardiovascular Exam Cardiovascular Exam: Bradycardia, REGULAR RHYTHM, +S1, +S2 - GI/Abdominal Exam GI & Abdominal Exam: Soft, Normal Bowel Sounds. absent: Tenderness - Extremities Exam Extremities Exam: Normal Inspection - Neurological Exam Neurological Exam: Awake - Skin Skin Exam: Normal Color, Warm Assessment and Plan - Assessment and Plan (Free Text) Plan: 1.Altered mental status with white matter changes on MRI brain. Working diagnosis: PML Lumbar puncture performed 05/20/17 by anesthesia. Empiric acyclovir due to suspicion of viral encephalitis. CSF studies workup unremarkable thus far Brain MRI w. contrast * Prominent cerebral white matter changes are stable at may reflect PML, press, toxic/ metabolic demyelination sequelae from immunodeficiency including potential AIDS. 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 No interval mass effect or suspicious extra-axial collection identified. Plasma LILIYA virus ordered--elevated at 3261 To rule out possible OCCASIONAL BABYSITTER lymphoma, Dr. Lizama consulted, help appreciated.Recommending CT chest with contrast and csf flow cytometry d/w Dr Waller who recommend csf LILIYA viral study d/w Dr Darnell -started on Decadron 10 mg IV Q8 on 05/26/17--discontinued after finding elevated serum LILIYA virus CT Chest/Abdomen/Pelvis 05/27/17 showed no lymphadenopathy Repeat LP on 05/31/17 to assess for LILIYA virus in the CSF and flow cytometry for OCCASIONAL BABYSITTER lymphoma - f/u oligoclonal band Per Dr. Waller, Mefloquine 1000 mg QWK started on 05/31/17 2. Gluteal wound, stage 2 intergluteal ulcer no leukocytosis, afebrile Surgery consulted, Dr. Neil, help appreciated as per surgery superficial gluteal wound, no tract- no surgical intervention wound care kirsten talamantes blood cultures- no growth 3.Acute diverticulitis no leukocytosis, afebrile Repeat CT 05/27/17 shows improved diverticulitis Abdomen/Pelvis CT: diverticulitis of sigmoid colon, mild splenomegaly, liver lesions Cipro 400mg q12h, discontinued 05/19 due to rash Flagyl 500mg q8h, discontinued 05/19 due to rash Aztreonam 1 gm Q8H, started 05/19--discontinued Clindamycin 450mg IVPB Q6H, started 05/19--discontinued Ultram 25mg po BID for pain GI, Dr. Charles, consulted- help appreciated -continue antibiotics for 2 weeks 4. 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 Patient now made DNR/DNI after discussion between palliative care and family. Patient with asymptomatic bradycardia being monitored on telemetry. Per Dr. Waller, consider IVIG to be discussed with neuro. Will discuss case with Dr. Veronika Ford PGY-1 <Tristen Banda - Last Filed: 06/01/17 11:41> Objective - Vital Signs/Intake and Output Vital Signs (last 24 hours): Temp Pulse Resp BP Pulse Ox 97.4 F L 43 L 20 96/56 L 95 06/01/17 07:10 06/01/17 07:10 06/01/17 07:10 06/01/17 07:10 06/01/17 07:10 - Medications Medications: Current Medications Famotidine (Pepcid) 20 mg PO BID [facility] Last Admin: 06/01/17 09:51 Dose: 20 mg Acyclovir 900 mg/ Dextrose 250 mls @ 100 mls/hr IV Q8H [facility] Last Admin: 06/01/17 04:33 Dose: 100 mls/hr Lorazepam (Ativan) 1 mg IVP Q4H PRN PRN Reason: Agitation Last Admin: 05/22/17 20:30 Dose: 1 mg Lorazepam (Ativan) 2 mg IVP ONCE PRN PRN Reason: Give dose prior to MRI Last Admin: 05/24/17 08:36 Dose: 2 mg Mefloquine HCl (Lariam) 1,000 mg PO QWK [facility] Stop: 06/14/17 10:01 Last Admin: 05/31/17 22:33 Dose: 1,000 mg Ondansetron HCl (Zofran Inj) 4 mg IVP Q4H PRN PRN Reason: GI distress Last Admin: 05/31/17 22:12 Dose: 4 mg Quetiapine Fumarate (Seroquel) 25 mg PO ONCE PRN PRN Reason: Anxiety Saccharomyces Boulardii (Florastor) 250 mg PO BID [facility] Last Admin: 06/01/17 09:51 Dose: 250 mg - Labs Labs: 05/31/17 11:16 06/01/17 08:59 PT 13.6 SECONDS (9.7-12.2) H 05/20/17 11:33 INR 1.2 05/20/17 11:33 APTT 28 SECONDS (21-34) 05/20/17 11:33 Attending/Attestation - Attestation I have personally seen and examined this patient.: Yes I have fully participated in the care of the patient.: Yes I have reviewed all pertinent clinical information, including history, physical exam and plan: Yes Notes (Text): 06/01/17 11:37 Medical attending: Patient was seen and examined by me. Agree with the above note by the resident The patient's situation was unchaged from previous. Yesterday had second LP Clinically unchanged from the past few days. He is awake, follows simple commands like squeeze hand and raise arms. He is able to shake my hand as a greeting. He is also moving lower extremities on his own as well. Again not changed from the beggining of the week So at this moment we are now waiting for CSF LILIYA virus, Lymphoma flow cytometry from the CSF, CSF oligoclonal study as well. His HIV studies including 4th generation have been negative. There is some literature suggesting Mefloquine be given in cases of non-HIV PML so he has been started on Mefloquine. A new MRI of brain has been ordered of the brain. Has not yet been done. Tristen Banda
[2017-06-01] MEDS: ACYCLOVIR IV SCH ×3 (04:33→20:12)
[2017-06-01] MEDS: WATER IV SCH ×3 (04:33→20:12)
[2017-06-01] MEDS: DEXTROSE 5% IV SCH ×3 (04:33→20:12)
[2017-06-01 09:27] LABS: ALB/GLOB RATIO 1.1 (1.0-2.1); ALBUMIN 3.5 g/dL (3.5-5.0); ALT/SGPT 34 U/L (21-72); AST/SGOT 46 U/L (17-59); BLOOD UREA NITROGEN 18 mg/dL (9-20); CALCIUM 9.2 mg/dl (8.6-10.4); GFR AFRICAN-AMERICAN > 60; GFR NON-AFRICAN AMERICAN > 60; MAGNESIUM 1.8 mg/dL (1.6-2.3)
[2017-06-01] MEDS: Saccharomyces Boulardi 250 mg Cap PO SCH ×2 (09:51→17:15)
[2017-06-01 11:47] LABS: BASO % 0.2 % (0.0-2.0); EOS # 0.3 K/uL (0.0-0.7); EOS % 4.5 % (0.0-4.0); LYMPH # 1.5 K/uL (1.0-4.3); LYMPH % 21.9 % (20.0-40.0); MEAN CELL VOLUME 89.5 fL (80.0-94.0); MEAN CORPUSCULAR HEMOGLOBIN 31.3 pg (27.0-31.0); MEAN PLATELET VOLUME 9.6 fL (7.2-11.7); MONO # 0.4 K/uL (0.0-0.8); MONO % 5.4 % (0.0-10.0); NEUT # 4.6 K/uL (1.8-7.0); RBC 4.79 Mil/uL (4.40-5.90); RED CELL DISTRIBUTION WIDTH 14.7 % (11.5-14.5); WHITE BLOOD COUNT 6.8 K/uL (4.8-10.8)
[2017-06-01 12:11] LABS: IMMUNOGLOBULIN A 108.8 mg/dL (70.0-400.0)
--- NOTE | 2017-06-01 12:22 | CP.PCM.PN ---
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 LP done yesterday and fluid sent for LILIYA virus again, and Cytology for HAND KISS SETTER lymphoma. Today his neuro exam is as follows: awake, grunting, nonverbal. Cannot name or repeat. Pupils 3mm-2mm wtih light. EOMI. no neck stiffness. Tracks and does not follow commands. Equal strenght. +palmomental, +glabellar tap, +suck, +grasp. +2 dtr ul and ll bl. Objective - Vital Signs/Intake and Output Vital Signs (last 24 hours): Temp Pulse Resp BP Pulse Ox 97.4 F L 43 L 20 96/56 L 95 06/01/17 07:10 06/01/17 07:10 06/01/17 07:10 06/01/17 07:10 06/01/17 07:10 - Medications Medications: Current Medications Famotidine (Pepcid) 20 mg PO BID [facility] Last Admin: 06/01/17 09:51 Dose: 20 mg Acyclovir 900 mg/ Dextrose 250 mls @ 100 mls/hr IV Q8H [facility] Last Admin: 06/01/17 04:33 Dose: 100 mls/hr Lorazepam (Ativan) 1 mg IVP Q4H PRN PRN Reason: Agitation Last Admin: 05/22/17 20:30 Dose: 1 mg Lorazepam (Ativan) 2 mg IVP ONCE PRN PRN Reason: Give dose prior to MRI Last Admin: 05/24/17 08:36 Dose: 2 mg Mefloquine HCl (Lariam) 1,000 mg PO QWK [facility] Stop: 06/14/17 10:01 Last Admin: 05/31/17 22:33 Dose: 1,000 mg Ondansetron HCl (Zofran Inj) 4 mg IVP Q4H PRN PRN Reason: GI distress Last Admin: 05/31/17 22:12 Dose: 4 mg Quetiapine Fumarate (Seroquel) 25 mg PO ONCE PRN PRN Reason: Anxiety Saccharomyces Boulardii (Florastor) 250 mg PO BID [facility] Last Admin: 06/01/17 09:51 Dose: 250 mg - Labs Labs: 06/01/17 11:40 06/01/17 08:59 PT 13.6 SECONDS (9.7-12.2) H 05/20/17 11:33 INR 1.2 05/20/17 11:33 APTT 28 SECONDS (21-34) 05/20/17 11:33 Assessment and Plan - Assessment and Plan (Free Text) Assessment: 51 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 However, i feel that he is having sporadic seizures. Although his initial eeg did not show subclinical epilepsy, his clnical presentation suggests it. Plan: 1. Load with IV depakote 1000 mg now and 500 mg IV twice daily. 2. EEG saturday 3. MRI brain tomorrow- premedicate with seroquel. 4. LP results for LILIYA virus and cytology 5. Continue acyclovir. Thank you we will follow.
[2017-06-01] MEDS: Valproate 1,000 MG in Sodium Chloride 0.9% 100 ML IVPB ONE ×2 (14:57→18:30)
--- NOTE | 2017-06-02 00:05 | CP.PCM.PN ---
<Ronni Ford - Last Filed: 06/02/17 07:28> Subjective - Date & Time of Evaluation Date of Evaluation: 06/02/17 Time of Evaluation: 06:00 - Subjective Subjective: Medicine progress note for Dr. Banda Patient seen and examined. Patient reports feeling well and denies any complaints. Objective - Vital Signs/Intake and Output Vital Signs (last 24 hours): Temp Pulse Resp BP Pulse Ox 98.5 F 77 20 104/67 94 L 06/01/17 15:35 06/01/17 21:00 06/01/17 07:10 06/01/17 15:35 06/01/17 15:35 Intake and Output: 06/01/17 06/02/17 18:59 06:59 Intake Total 500 550 Output Total 500 Balance 0 550 - Medications Medications: Current Medications Famotidine (Pepcid) 20 mg PO BID [facility] Last Admin: 06/01/17 17:15 Dose: 20 mg Acyclovir 900 mg/ Dextrose 250 mls @ 100 mls/hr IV Q8H [facility] Last Admin: 06/01/17 20:12 Dose: 100 mls/hr Valproate Sodium 500 mg/ (Sodium Chloride) 105 mls @ 100 mls/hr IVPB Q12 [facility] Lorazepam (Ativan) 1 mg IVP Q4H PRN PRN Reason: Agitation Last Admin: 05/22/17 20:30 Dose: 1 mg Lorazepam (Ativan) 2 mg IVP ONCE PRN PRN Reason: Give dose prior to MRI Last Admin: 05/24/17 08:36 Dose: 2 mg Mefloquine HCl (Lariam) 1,000 mg PO QWK [facility] Stop: 06/14/17 10:01 Last Admin: 05/31/17 22:33 Dose: 1,000 mg Ondansetron HCl (Zofran Inj) 4 mg IVP Q4H PRN PRN Reason: GI distress Last Admin: 05/31/17 22:12 Dose: 4 mg Quetiapine Fumarate (Seroquel) 25 mg PO ONCE PRN PRN Reason: Anxiety Saccharomyces Boulardii (Florastor) 250 mg PO BID [facility] Last Admin: 06/01/17 17:15 Dose: 250 mg - Labs Labs: 06/01/17 11:40 06/01/17 08:59 PT 13.6 SECONDS (9.7-12.2) H 05/20/17 11:33 INR 1.2 05/20/17 11:33 APTT 28 SECONDS (21-34) 05/20/17 11:33 - Additional Findings Additional findings: - Constitutional Appears: No Acute Distress - Head Exam Head Exam: ATRAUMATIC, NORMAL INSPECTION - Eye Exam Eye Exam: EOMI, Normal appearance - ENT Exam ENT Exam: Mucous Membranes Moist - Respiratory Exam Respiratory Exam: Clear to Ausculation Bilateral, NORMAL BREATHING PATTERN - Cardiovascular Exam Cardiovascular Exam: Bradycardia, REGULAR RHYTHM, +S1, +S2 - GI/Abdominal Exam GI & Abdominal Exam: Soft, Normal Bowel Sounds. absent: Tenderness - Extremities Exam Extremities Exam: Normal Inspection - Neurological Exam Neurological Exam: Awake - Skin Skin Exam: Normal Color, Warm Assessment and Plan - Assessment and Plan (Free Text) Plan: 1.Altered mental status with white matter changes on MRI brain. Working diagnosis: PML Lumbar puncture performed 05/20/17 by anesthesia. Empiric acyclovir due to suspicion of viral encephalitis. CSF studies workup unremarkable thus far Brain MRI w. contrast * Prominent cerebral white matter changes are stable at may reflect PML, press, toxic/ metabolic demyelination sequelae from immunodeficiency including potential AIDS. 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 No interval mass effect or suspicious extra-axial collection identified. Plasma LILIYA virus ordered--elevated at 3261 To rule out possible EMPLOYEE BENEFITS ATTORNEY lymphoma, Dr. Lizama consulted, help appreciated.Recommending CT chest with contrast and csf flow cytometry d/w Dr Waller who recommend csf LILIYA viral study d/w Dr Darnell -started on Decadron 10 mg IV Q8 on 05/26/17--discontinued after finding elevated serum LILIYA virus CT Chest/Abdomen/Pelvis 05/27/17 showed no lymphadenopathy Repeat LP on 05/31/17 to assess for LILIYA virus in the CSF and flow cytometry for EMPLOYEE BENEFITS ATTORNEY lymphoma - f/u oligoclonal band Per Dr. Waller, Mefloquine 1000 mg QWK started on 05/31/17 f/u MRI w./w.out contrast 2. Gluteal wound, stage 2 intergluteal ulcer no leukocytosis, afebrile Surgery consulted, Dr. Neil, help appreciated as per surgery superficial gluteal wound, no tract- no surgical intervention wound care kirsten talamantes blood cultures- no growth 3.Acute diverticulitis no leukocytosis, afebrile Repeat CT 05/27/17 shows improved diverticulitis Abdomen/Pelvis CT: diverticulitis of sigmoid colon, mild splenomegaly, liver lesions Cipro 400mg q12h, discontinued 05/19 due to rash Flagyl 500mg q8h, discontinued 05/19 due to rash Aztreonam 1 gm Q8H, started 05/19--discontinued Clindamycin 450mg IVPB Q6H, started 05/19--discontinued Ultram 25mg po BID for pain GI, Dr. Charles, consulted- help appreciated -continue antibiotics for 2 weeks 4. 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 Patient now made DNR/DNI after discussion between palliative care and family. Patient with asymptomatic bradycardia being monitored on telemetry. Per Dr. Waller, consider IVIG to be discussed with neuro. We are awaiting CSF LILIYA virus, Lymphoma flow cytometry from the CSF, CSF oligoclonal study. Follow up MRI with and without contrast due to neuro suspicion of subclinical epilepsy. Will discuss case with Dr. Veronika Ford PGY-1 <Tristen Banda H - Last Filed: 06/02/17 12:02> Objective - Vital Signs/Intake and Output Vital Signs (last 24 hours): Temp Pulse Resp BP Pulse Ox 97.9 F 78 20 107/72 97 06/02/17 09:20 06/02/17 09:20 06/02/17 09:20 06/02/17 00:00 06/02/17 09:20 Intake and Output: 06/02/17 06/02/17 06:59 18:59 Intake Total 550 Balance 550 - Medications Medications: Current Medications Famotidine (Pepcid) 20 mg PO BID [facility] Last Admin: 06/02/17 09:29 Dose: 20 mg Acyclovir 900 mg/ Dextrose 250 mls @ 100 mls/hr IV Q8H [facility] Last Admin: 06/02/17 04:35 Dose: 100 mls/hr Valproate Sodium 500 mg/ (Sodium Chloride) 105 mls @ 100 mls/hr IVPB Q12 [facility] Last Admin: 06/02/17 09:55 Dose: 100 mls/hr Lorazepam (Ativan) 1 mg IVP Q4H PRN PRN Reason: Agitation Last Admin: 05/22/17 20:30 Dose: 1 mg Lorazepam (Ativan) 2 mg IVP ONCE PRN PRN Reason: Give dose prior to MRI Last Admin: 05/24/17 08:36 Dose: 2 mg Mefloquine HCl (Lariam) 1,000 mg PO QWK [facility] Stop: 06/14/17 10:01 Last Admin: 05/31/17 22:33 Dose: 1,000 mg Ondansetron HCl (Zofran Inj) 4 mg IVP Q4H PRN PRN Reason: GI distress Last Admin: 05/31/17 22:12 Dose: 4 mg Quetiapine Fumarate (Seroquel) 25 mg PO ONCE PRN PRN Reason: Anxiety Saccharomyces Boulardii (Florastor) 250 mg PO BID [facility] Last Admin: 06/02/17 09:29 Dose: 250 mg - Labs Labs: 06/02/17 07:02 06/02/17 07:02 PT 13.6 SECONDS (9.7-12.2) H 05/20/17 11:33 INR 1.2 05/20/17 11:33 APTT 28 SECONDS (21-34) 05/20/17 11:33 Assessment and Plan - Assessment and Plan (Free Text) Assessment: Medical attending: Patient was seen and examined by me. Agree with the above note by the resident At this moment there are no large changes in his physical status. He moves both arms and legs. He is able to shake my hand and look at me when name is called. We are pending the CSF studies. So at this moment we are now waiting for CSF LILIYA virus, Lymphoma flow cytometry from the CSF, CSF oligoclonal study as well. His HIV studies including 4th generation have been negative. As mentioned previously now on Mefloquine be given in cases of non-HIV PML, however there is not good data on this. A new MRI of brain has been ordered of the brain. Has not yet been done. Tristen Banda
[2017-06-02] MEDS: DEXTROSE 5% IV SCH ×3 (04:35→21:03)
[2017-06-02] MEDS: ACYCLOVIR IV SCH ×3 (04:35→21:03)
[2017-06-02] MEDS: WATER IV SCH ×3 (04:35→21:03)
[2017-06-02 07:13] LABS: BASO # 0.1 K/uL (0.0-0.2); BASO % 0.6 % (0.0-2.0); EOS # 0.4 K/uL (0.0-0.7); EOS % 4.3 % (0.0-4.0); HEMOGLOBIN 15.4 g/dL (12.0-18.0); LYMPH # 1.6 K/uL (1.0-4.3); LYMPH % 19.4 % (20.0-40.0); MEAN CELL VOLUME 89.8 fL (80.0-94.0); MEAN CORPUSCULAR HEMOGLOBIN 30.6 pg (27.0-31.0); MEAN CORPUSCULAR HGB CONC 34.1 g/dL (33.0-37.0); MEAN PLATELET VOLUME 9.1 fL (7.2-11.7); MONO # 0.6 K/uL (0.0-0.8); MONO % 6.7 % (0.0-10.0); NEUT # 5.7 K/uL (1.8-7.0); NRBC % 0.1 % (0.0-2.0); RBC 5.03 Mil/uL (4.40-5.90); RED CELL DISTRIBUTION WIDTH 14.4 % (11.5-14.5); WHITE BLOOD COUNT 8.3 K/uL (4.8-10.8)
[2017-06-02 07:44] LABS: ALB/GLOB RATIO 1.2 (1.0-2.1); ALBUMIN 3.8 g/dL (3.5-5.0); ALT/SGPT 43 U/L (21-72); AST/SGOT 18 U/L (17-59); BLOOD UREA NITROGEN 18 mg/dL (9-20); CALCIUM 9.3 mg/dl (8.6-10.4); GFR AFRICAN-AMERICAN > 60; GFR NON-AFRICAN AMERICAN > 60; MAGNESIUM 1.8 mg/dL (1.6-2.3)
[2017-06-02] MEDS: Saccharomyces Boulardi 250 mg Cap PO SCH ×2 (09:29→17:16)
[2017-06-02] MEDS: Valproate 500 MG in Sodium Chloride 0.9% 100 ML IVPB SCH ×2 (09:55→21:04)
--- NOTE | 2017-06-02 10:34 | CP.PCM.PN ---
Subjective - Date & Time of Evaluation Date of Evaluation: 06/02/17 Time of Evaluation: 10:33 - Subjective Subjective: Mr. hanna was seen and examined at the bedside. He is awake, but not able to follow commands or answer questions appropriately. He moves all his extremities spontaneously. He remains on 1:1 sitter for patient safety. There was no untoward events overnight. Objective - Vital Signs/Intake and Output Vital Signs (last 24 hours): Temp Pulse Resp BP Pulse Ox 97.9 F 78 20 107/72 97 06/02/17 09:20 06/02/17 09:20 06/02/17 09:20 06/02/17 00:00 06/02/17 09:20 Intake and Output: 06/02/17 06/02/17 06:59 18:59 Intake Total 550 Balance 550 - Medications Medications: Current Medications Famotidine (Pepcid) 20 mg PO BID [facility] Last Admin: 06/02/17 09:29 Dose: 20 mg Acyclovir 900 mg/ Dextrose 250 mls @ 100 mls/hr IV Q8H [facility] Last Admin: 06/02/17 04:35 Dose: 100 mls/hr Valproate Sodium 500 mg/ (Sodium Chloride) 105 mls @ 100 mls/hr IVPB Q12 [facility] Last Admin: 06/02/17 09:55 Dose: 100 mls/hr Lorazepam (Ativan) 1 mg IVP Q4H PRN PRN Reason: Agitation Last Admin: 05/22/17 20:30 Dose: 1 mg Lorazepam (Ativan) 2 mg IVP ONCE PRN PRN Reason: Give dose prior to MRI Last Admin: 05/24/17 08:36 Dose: 2 mg Mefloquine HCl (Lariam) 1,000 mg PO QWK [facility] Stop: 06/14/17 10:01 Last Admin: 05/31/17 22:33 Dose: 1,000 mg Ondansetron HCl (Zofran Inj) 4 mg IVP Q4H PRN PRN Reason: GI distress Last Admin: 05/31/17 22:12 Dose: 4 mg Quetiapine Fumarate (Seroquel) 25 mg PO ONCE PRN PRN Reason: Anxiety Saccharomyces Boulardii (Florastor) 250 mg PO BID [facility] Last Admin: 06/02/17 09:29 Dose: 250 mg - Labs Labs: 06/02/17 07:02 06/02/17 07:02 PT 13.6 SECONDS (9.7-12.2) H 05/20/17 11:33 INR 1.2 05/20/17 11:33 APTT 28 SECONDS (21-34) 05/20/17 11:33 - Head Exam Additional comments: Pupils 3mm-2mm wtih light. EOMI. - Neurological Exam Neurological Exam: Awake Neuro motor strength exam: Left Upper Extremity: 5, Right Upper Extremity: 5, Left Lower Extremity: 5, Right Lower Extremity: 5 Additional comments: no neck stiffness. Tracks and does not follow commands. Equal strength. + palmomental, +glabellar tap, +suck, +grasp. +2 dtr ul and ll bl. Assessment and Plan (1) Altered mental status Assessment & Plan: Case discussed with Dr. Hodges, continue all current medical treatment including AED and antiviral. Recommend repeat MRI of the brain and EEG. monitor depakote level. Status: Acute
--- NOTE | 2017-06-02 16:12 | CP.PCM.PN ---
Subjective - Date & Time of Evaluation Date of Evaluation: 06/02/17 Time of Evaluation: 08:00 - Subjective Subjective: awake alert responsive confused moves all extremities follows simple commands Objective - Vital Signs/Intake and Output Vital Signs (last 24 hours): Temp Pulse Resp BP Pulse Ox 97.9 F 78 20 107/72 97 06/02/17 09:20 06/02/17 09:20 06/02/17 09:20 06/02/17 00:00 06/02/17 09:20 Intake and Output: 06/02/17 06/02/17 06:59 18:59 Intake Total 550 350 Balance 550 350 - Medications Medications: Current Medications Famotidine (Pepcid) 20 mg PO BID [facility] Last Admin: 06/02/17 09:29 Dose: 20 mg Acyclovir 900 mg/ Dextrose 250 mls @ 100 mls/hr IV Q8H [facility] Last Admin: 06/02/17 12:19 Dose: 100 mls/hr Valproate Sodium 500 mg/ (Sodium Chloride) 105 mls @ 100 mls/hr IVPB Q12 [facility] Last Admin: 06/02/17 09:55 Dose: 100 mls/hr Lorazepam (Ativan) 1 mg IVP Q4H PRN PRN Reason: Agitation Last Admin: 05/22/17 20:30 Dose: 1 mg Lorazepam (Ativan) 2 mg IVP ONCE PRN PRN Reason: Give dose prior to MRI Last Admin: 05/24/17 08:36 Dose: 2 mg Mefloquine HCl (Lariam) 1,000 mg PO QWK [facility] Stop: 06/14/17 10:01 Last Admin: 05/31/17 22:33 Dose: 1,000 mg Ondansetron HCl (Zofran Inj) 4 mg IVP Q4H PRN PRN Reason: GI distress Last Admin: 05/31/17 22:12 Dose: 4 mg Quetiapine Fumarate (Seroquel) 25 mg PO ONCE PRN PRN Reason: Anxiety Saccharomyces Boulardii (Florastor) 250 mg PO BID [facility] Last Admin: 06/02/17 09:29 Dose: 250 mg - Labs Labs: 06/02/17 07:02 06/02/17 07:02 PT 13.6 SECONDS (9.7-12.2) H 01/15/18 11:33 INR 1.2 05/20/17 11:33 APTT 28 SECONDS (21-34) 05/20/17 11:33 - Constitutional Appears: Non-toxic, Chronically Ill - Head Exam Head Exam: NORMOCEPHALIC - Eye Exam Eye Exam: PERRL - ENT Exam ENT Exam: Mucous Membranes Dry - Neck Exam Neck Exam: absent: Lymphadenopathy - Respiratory Exam Respiratory Exam: Prolonged Expiratory Phase - Cardiovascular Exam Cardiovascular Exam: REGULAR RHYTHM - GI/Abdominal Exam GI & Abdominal Exam: Distended - Rectal Exam Rectal Exam: Deferred - Exam Exam: NORMAL INSPECTION Assessment and Plan (1) Altered mental status Status: Acute (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 - Assessment and Plan (Free Text) Assessment: cont rx as ordered
[2017-06-03] MEDS: WATER IV SCH ×3 (04:47→21:41)
[2017-06-03] MEDS: DEXTROSE 5% IV SCH ×3 (04:47→21:41)
[2017-06-03] MEDS: ACYCLOVIR IV SCH ×3 (04:47→21:41)
--- NOTE | 2017-06-03 07:27 | CP.PCM.PN ---
Subjective - Date & Time of Evaluation Date of Evaluation: 06/03/17 Time of Evaluation: 07:10 - Subjective Subjective: Medicine progress note for Dr. Márquez Patient seen and examined. Patient reports feeling well and denies any complaints. No acute events overnight per nursing. Objective - Vital Signs/Intake and Output Vital Signs (last 24 hours): Temp Pulse Resp BP Pulse Ox 97.9 F 71 18 115/77 97 06/02/17 23:26 06/03/17 00:29 06/02/17 23:26 06/02/17 23:26 06/02/17 23:26 Intake and Output: 06/03/17 06/03/17 06:59 18:59 Intake Total 350 Balance 350 - Medications Medications: Current Medications Famotidine (Pepcid) 20 mg PO BID [facility] Last Admin: 06/02/17 17:21 Dose: 20 mg Acyclovir 900 mg/ Dextrose 250 mls @ 100 mls/hr IV Q8H [facility] Last Admin: 06/03/17 04:47 Dose: 100 mls/hr Valproate Sodium 500 mg/ (Sodium Chloride) 105 mls @ 100 mls/hr IVPB Q12 [facility] Last Admin: 06/02/17 21:04 Dose: 100 mls/hr Lorazepam (Ativan) 1 mg IVP Q4H PRN PRN Reason: Agitation Last Admin: 05/22/17 20:30 Dose: 1 mg Lorazepam (Ativan) 2 mg IVP ONCE PRN PRN Reason: Give dose prior to MRI Last Admin: 05/24/17 08:36 Dose: 2 mg Mefloquine HCl (Lariam) 1,000 mg PO QWK [facility] Stop: 06/14/17 10:01 Last Admin: 05/31/17 22:33 Dose: 1,000 mg Ondansetron HCl (Zofran Inj) 4 mg IVP Q4H PRN PRN Reason: GI distress Last Admin: 05/31/17 22:12 Dose: 4 mg Quetiapine Fumarate (Seroquel) 25 mg PO ONCE PRN PRN Reason: Anxiety Saccharomyces Boulardii (Florastor) 250 mg PO BID [facility] Last Admin: 06/02/17 17:16 Dose: 250 mg - Labs Labs: 06/02/17 07:02 06/02/17 07:02 PT 13.6 SECONDS (9.7-12.2) H 05/20/17 11:33 INR 1.2 05/20/17 11:33 APTT 28 SECONDS (21-34) 05/20/17 11:33 - Additional Findings Additional findings: - Constitutional Appears: No Acute Distress - Head Exam Head Exam: ATRAUMATIC, NORMAL INSPECTION - Eye Exam Eye Exam: EOMI, Normal appearance - ENT Exam ENT Exam: Mucous Membranes Moist - Respiratory Exam Respiratory Exam: Clear to Ausculation Bilateral, NORMAL BREATHING PATTERN - Cardiovascular Exam Cardiovascular Exam: Regular Rhythm, REGULAR RHYTHM, +S1, +S2 - GI/Abdominal Exam GI & Abdominal Exam: Soft, Normal Bowel Sounds. absent: Tenderness - Extremities Exam Extremities Exam: Normal Inspection - Neurological Exam Neurological Exam: Awake - Skin Skin Exam: Normal Color, Warm Assessment and Plan - Assessment and Plan (Free Text) Plan: 1.Altered mental status with white matter changes on MRI brain. Working diagnosis: PML Lumbar puncture performed 05/20/17 by anesthesia. Empiric acyclovir due to suspicion of viral encephalitis. CSF studies workup unremarkable thus far Brain MRI w. contrast * Prominent cerebral white matter changes are stable at may reflect PML, press, toxic/ metabolic demyelination sequelae from immunodeficiency including potential AIDS. 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 No interval mass effect or suspicious extra-axial collection identified. Plasma LILIYA virus ordered--elevated at 3261 To rule out possible LAUNDRY PRICING CLERK lymphoma, Dr. Lizama consulted, help appreciated.Recommending CT chest with contrast and csf flow cytometry d/w Dr Waller who recommend csf LILIYA viral study d/w Dr Darnell -started on Decadron 10 mg IV Q8 on 05/26/17--discontinued after finding elevated serum LILIYA virus CT Chest/Abdomen/Pelvis 05/27/17 showed no lymphadenopathy Repeat LP on 05/31/17 to assess for LILIYA virus in the CSF and flow cytometry for LAUNDRY PRICING CLERK lymphoma - f/u oligoclonal band * Per Dr. Waller, Mefloquine 1000 mg QWK started on 05/31/17 * Continue Acyclovir 900 mg IV Q8 * Continue Depakote 500 mg IV Q12-->switched to oral solution MRI w./w.out contrast demonstrates regions of hypoxia likely due from old TBI as well as encephalomalacia. 2. Gluteal wound, stage 2 intergluteal ulcer no leukocytosis, afebrile Surgery consulted, Dr. Neil, help appreciated as per surgery superficial gluteal wound, no tract- no surgical intervention wound care kirsten talamantes blood cultures- no growth 3.Acute diverticulitis no leukocytosis, afebrile Repeat CT 05/27/17 shows improved diverticulitis Abdomen/Pelvis CT: diverticulitis of sigmoid colon, mild splenomegaly, liver lesions Cipro 400mg q12h, discontinued 05/19 due to rash Flagyl 500mg q8h, discontinued 05/19 due to rash Aztreonam 1 gm Q8H, started 05/19--discontinued Clindamycin 450mg IVPB Q6H, started 05/19--discontinued Ultram 25mg po BID for pain GI, Dr. Charles, consulted- help appreciated -continue antibiotics for 2 weeks 4. 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 Patient now made DNR/DNI after discussion between palliative care and family. We are awaiting CSF LILIYA virus, Lymphoma flow cytometry from the CSF, CSF oligoclonal study. 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 Patient will need Medicaid to qualify for group home. Per case management team, the sister has been provided the materials to apply for it. Case DW Dr. Yulisa Ford PGY-1
[2017-06-03 08:04] LABS: BASO % 0.5 % (0.0-2.0); EOS # 0.4 K/uL (0.0-0.7); EOS % 4.7 % (0.0-4.0); HEMOGLOBIN 15.6 g/dL (12.0-18.0); LYMPH % 26.1 % (20.0-40.0); MEAN CELL VOLUME 90.5 fL (80.0-94.0); MEAN CORPUSCULAR HGB CONC 34.2 g/dL (33.0-37.0); MEAN PLATELET VOLUME 9.2 fL (7.2-11.7); MONO # 0.7 K/uL (0.0-0.8); MONO % 8.6 % (0.0-10.0); NEUT # 4.6 K/uL (1.8-7.0); NEUT % 60.1 % (50.0-75.0); RBC 5.02 Mil/uL (4.40-5.90); RED CELL DISTRIBUTION WIDTH 15.4 % (11.5-14.5); WHITE BLOOD COUNT 7.6 K/uL (4.8-10.8)
[2017-06-03 08:45] LABS: ALB/GLOB RATIO 1.2 (1.0-2.1); ALBUMIN 3.9 g/dL (3.5-5.0); ALT/SGPT 40 U/L (21-72); AST/SGOT 18 U/L (17-59); BLOOD UREA NITROGEN 21 mg/dL (9-20); CALCIUM 9.6 mg/dl (8.6-10.4); GFR AFRICAN-AMERICAN > 60; GFR NON-AFRICAN AMERICAN > 60
[2017-06-03] MEDS: Valproate 500 MG in Sodium Chloride 0.9% 100 ML IVPB SCH (10:40)
[2017-06-03] MEDS: Saccharomyces Boulardi 250 mg Cap PO SCH ×2 (10:40→17:35)
--- NOTE | 2017-06-03 12:13 | CP.PCM.PN ---
Subjective - Date & Time of Evaluation Date of Evaluation: 06/03/17 Time of Evaluation: 12:11 - Subjective Subjective: Mr. Lowry was seen and examined at the bedside. He is sleepy, but responsive to tactile stimuli. He is non-verbal and unable to follow commands and answer questions. He remains on 1:1 sitter for patient safety. Valproic leel of 40.3, HIV 1& 2 4th gen showed non reactive. There was no untoward events overnight. Objective - Vital Signs/Intake and Output Vital Signs (last 24 hours): Temp Pulse Resp BP Pulse Ox 97.8 F 60 20 134/88 98 06/03/17 07:15 06/03/17 07:15 06/03/17 07:15 06/03/17 07:15 06/03/17 07:15 Intake and Output: 06/03/17 06/03/17 06:59 18:59 Intake Total 350 Balance 350 - Medications Medications: Current Medications Famotidine (Pepcid) 20 mg PO BID [facility] Last Admin: 06/03/17 10:40 Dose: 20 mg Acyclovir 900 mg/ Dextrose 250 mls @ 100 mls/hr IV Q8H [facility] Last Admin: 06/03/17 04:47 Dose: 100 mls/hr Valproate Sodium 500 mg/ (Sodium Chloride) 105 mls @ 100 mls/hr IVPB Q12 [facility] Last Admin: 06/03/17 10:40 Dose: 100 mls/hr Lorazepam (Ativan) 1 mg IVP Q4H PRN PRN Reason: Agitation Last Admin: 05/22/17 20:30 Dose: 1 mg Lorazepam (Ativan) 2 mg IVP ONCE PRN PRN Reason: Give dose prior to MRI Last Admin: 05/24/17 08:36 Dose: 2 mg Mefloquine HCl (Lariam) 1,000 mg PO QWK [facility] Stop: 06/14/17 10:01 Last Admin: 05/31/17 22:33 Dose: 1,000 mg Ondansetron HCl (Zofran Inj) 4 mg IVP Q4H PRN PRN Reason: GI distress Last Admin: 05/31/17 22:12 Dose: 4 mg Quetiapine Fumarate (Seroquel) 25 mg PO ONCE PRN PRN Reason: Anxiety Last Admin: 06/03/17 08:06 Dose: 25 mg Saccharomyces Boulardii (Florastor) 250 mg PO BID [facility] Last Admin: 06/03/17 10:40 Dose: 250 mg - Labs Labs: 06/03/17 07:34 06/03/17 07:34 PT 13.6 SECONDS (9.7-12.2) H 05/20/17 11:33 INR 1.2 05/20/17 11:33 APTT 28 SECONDS (21-34) 05/20/17 11:33 - Constitutional Appears: No Acute Distress - Head Exam Head Exam: NORMAL INSPECTION - Neurological Exam Neurological Exam: Awake Neuro motor strength exam: Left Upper Extremity: 4, Right Upper Extremity: 4, Left Lower Extremity: 4, Right Lower Extremity: 4 Additional comments: He is non verbal, moves his extremities spontaneously. Assessment and Plan (1) Altered mental status Assessment & Plan: Case discussed with Dr. Darnell, continue all current medical regimen. Other specimen are still pending. Recommend MRI of the brain. Status: Acute
[2017-06-03] MEDS ORDERED: Gadodiamide 287 MG/ML VIAL (15ML) IV ONE (15:22)
--- NOTE | 2017-06-03 16:34 | MRI ---
PROCEDURE: MRI of the brain dated 06/03/2019 HISTORY: Elevated LILIYA virus, PML. COMPARISON: Comparison made with prior MRI of the brain dated 05/24/2017 TECHNIQUE: Multiplanar, multisequence MR images of the brain were obtained with and without intravenous contrast enhancement. 19 cc Omniscan contrast material injected for this procedure. FINDINGS: HEMORRHAGE: No acute parenchymal, subarachnoid or extra-axial hemorrhage. No evidence of hemosiderin deposition identified on gradient echo weighted sequence. DWI: Re- demonstrated are diffuse/confluent shine through artifact extending from the deep and subcortical white matter at the hemispheres. These changes correspond to diffuse/confluent prolonged T2 signal changes in the same distribution as on heavy T2 weighted sequences. BRAIN PARENCHYMA: As mentioned above, extensive diffuse/confluent prolonged T2 signal changes are seen with periventricular white matter extending into the deep and subcortical regions bilaterally. These changes do not enhance. . These findings are of uncertain etiology however differential diagnosis would include sequela of old trauma - mild hypoxia more discrete encephalomalacia changes seen in the left inferior frontal pole and left inferolateral posterior temporal lobe. Additional differential diagnostic considerations only if patient is immunocompromised. . There is also sparing of the basal nuclei. Clinic correlation recommended. Note is made of a cylindrical area of increased T1 signal the left subinsular region on post-contrast axial T1 sequence which could represent some pulsation type artifact as only seen on the axial T1 sequence no additional sequences. Moderate generalized volume loss. ENHANCEMENT: As mentioned above, no focal areas of abnormal enhancement. VENTRICLES: No obstructive hydrocephalus. CRANIUM: Calvarium appears grossly unremarkable. ORBITS: Orbits and contents also unremarkable. PARANASAL SINUSES/MASTOIDS: Clear VASCULAR SYSTEM: Skull base flow voids intact. OTHER FINDINGS: None . IMPRESSION: No acute intracranial hemorrhage. Re- demonstrated are extensive diffuse/ confluent nonenhancing prolonged T2 signal changes noted from the periventricular into the deep and subcortical regions of both cerebral hemispheres. These changes continue to exhibit shine through artifact although do not enhance. Findings are of uncertain etiology though differential diagnosis would sequela of old trauma -mild hypoxia as more discrete localized encephalomalacia again noted in the left inferior frontal pole and left posterior left inferolateral posterior temporal lobe. . There is also sparing of the deep basal nuclei Additional differential diagnostic considerations only if patient is immunocompromised. . Clinic correlation recommended. Moderate generalized volume loss Suspect pulsation artifact left the subinsular region.
[2017-06-03] MEDS: Valproic Acid 250 mg/5 ml UD Cup PO SCH (21:58)
[2017-06-04] MEDS: WATER IV SCH ×3 (05:09→21:20)
[2017-06-04] MEDS: DEXTROSE 5% IV SCH ×3 (05:09→21:20)
[2017-06-04] MEDS: ACYCLOVIR IV SCH ×3 (05:09→21:20)
--- NOTE | 2017-06-04 07:21 | CP.PCM.PN ---
Subjective - Date & Time of Evaluation Date of Evaluation: 06/04/17 Time of Evaluation: 07:30 - Subjective Subjective: Medicine progress note for Dr. Márquez Patient seen and examined. Patient with no acute complaints. Minimally verbal with few words during encounter. Objective - Vital Signs/Intake and Output Vital Signs (last 24 hours): Temp Pulse Resp BP Pulse Ox 98.3 F 68 20 110/75 96 06/04/17 00:00 06/04/17 00:00 06/04/17 00:00 06/04/17 00:00 06/04/17 00:00 Intake and Output: 06/04/17 06/04/17 06:59 18:59 Intake Total 250 Output Total 600 Balance -350 - Medications Medications: Current Medications Famotidine (Pepcid) 20 mg PO BID [facility] Last Admin: 06/03/17 17:35 Dose: Not Given Acyclovir 900 mg/ Dextrose 250 mls @ 100 mls/hr IV Q8H [facility] Last Admin: 06/04/17 05:09 Dose: 100 mls/hr Lorazepam (Ativan) 1 mg IVP Q4H PRN PRN Reason: Agitation Last Admin: 05/22/17 20:30 Dose: 1 mg Lorazepam (Ativan) 2 mg IVP ONCE PRN PRN Reason: Give dose prior to MRI Last Admin: 05/24/17 08:36 Dose: 2 mg Lorazepam (Ativan) 1 mg IVP ONCE PRN PRN Reason: BEFORE MRI Last Admin: 06/03/17 14:31 Dose: 1 mg Mefloquine HCl (Lariam) 1,000 mg PO QWK [facility] Stop: 06/14/17 10:01 Last Admin: 05/31/17 22:33 Dose: 1,000 mg Ondansetron HCl (Zofran Inj) 4 mg IVP Q4H PRN PRN Reason: GI distress Last Admin: 05/31/17 22:12 Dose: 4 mg Quetiapine Fumarate (Seroquel) 25 mg PO ONCE PRN PRN Reason: Anxiety Last Admin: 06/03/17 08:06 Dose: 25 mg Saccharomyces Boulardii (Florastor) 250 mg PO BID [facility] Last Admin: 06/03/17 17:35 Dose: Not Given Valproate Sodium (Depakene Oral Soln) 500 mg PO Q12H [facility] Last Admin: 06/03/17 21:58 Dose: 500 mg - Labs Labs: 06/03/17 07:34 06/03/17 07:34 PT 13.6 SECONDS (9.7-12.2) H 05/20/17 11:33 INR 1.2 05/20/17 11:33 APTT 28 SECONDS (21-34) 05/20/17 11:33 - Additional Findings Additional findings: - Constitutional Appears: No Acute Distress - Head Exam Head Exam: ATRAUMATIC, NORMAL INSPECTION - Eye Exam Eye Exam: EOMI, Normal appearance - ENT Exam ENT Exam: Mucous Membranes Moist - Respiratory Exam Respiratory Exam: Clear to Ausculation Bilateral, NORMAL BREATHING PATTERN - Cardiovascular Exam Cardiovascular Exam: Regular Rhythm, REGULAR RHYTHM, +S1, +S2 - GI/Abdominal Exam GI & Abdominal Exam: Soft, Normal Bowel Sounds. absent: Tenderness - Extremities Exam Extremities Exam: Normal Inspection - Neurological Exam Neurological Exam: Awake - Skin Skin Exam: Normal Color, Warm Assessment and Plan - Assessment and Plan (Free Text) Plan: 1.Altered mental status with white matter changes on MRI brain. Possible Demyelinating Disease. Lumbar puncture performed 05/20/17 by anesthesia. Empiric acyclovir due to suspicion of viral encephalitis. CSF studies workup unremarkable thus far Brain MRI w. contrast * Prominent cerebral white matter changes are stable at may reflect PML, press, toxic/ metabolic demyelination sequelae from immunodeficiency including potential AIDS. 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 No interval mass effect or suspicious extra-axial collection identified. Plasma LILIYA virus ordered--elevated at 3261 To rule out possible LOADING UNIT OPERATOR POWDER CHARGING lymphoma, Dr. Lizama consulted, help appreciated.Recommending CT chest with contrast and csf flow cytometry d/w Dr Waller who recommend csf LILIYA viral study d/w Dr Darnell -started on Decadron 10 mg IV Q8 on 05/26/17--discontinued after finding elevated serum LILIYA virus CT Chest/Abdomen/Pelvis 05/27/17 showed no lymphadenopathy Repeat LP on 05/31/17 to assess for LILIYA virus in the CSF and flow cytometry for LOADING UNIT OPERATOR POWDER CHARGING lymphoma - f/u oligoclonal band * Per Dr. 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 Will follow up IGG studies. IVIG 400 mg /kg x5 days was ordered. Cervical and thoracic spine MRI w. Gadolinium ordered to evaluate for demyelinating disease 2. Gluteal wound, stage 2 intergluteal ulcer no leukocytosis, afebrile Surgery consulted, Dr. Neil, help appreciated as per surgery superficial gluteal wound, no tract- no surgical intervention wound care kirsten talamantes blood cultures- no growth 3.Acute diverticulitis no leukocytosis, afebrile Repeat CT 05/27/17 shows improved diverticulitis Abdomen/Pelvis CT: diverticulitis of sigmoid colon, mild splenomegaly, liver lesions Cipro 400mg q12h, discontinued 05/19 due to rash Flagyl 500mg q8h, discontinued 05/19 due to rash Aztreonam 1 gm Q8H, started 05/19--discontinued Clindamycin 450mg IVPB Q6H, started 05/19--discontinued Ultram 25mg po BID for pain GI, Dr. Charles, consulted- help appreciated -continue antibiotics for 2 weeks 4. Prophylactic Measure Regular diet Lovenox 40 mg SC--to be held due to LP Protonix 40 mg PO daily [phone] Wendy Diamond--patient's sister and point of contact Disposition: Working diagnosis is demyelinating disease. Trial of IVIG for 5 days began on 06/04/17. Patient will need Medicaid to qualify for longterm. Per case management team, the sister has been provided the materials to apply for it. Case DW Dr. Yulisa Ford PGY-1
[2017-06-04 07:39] LABS: BASO % 0.5 % (0.0-2.0); EOS # 0.3 K/uL (0.0-0.7); EOS % 4.8 % (0.0-4.0); HEMOGLOBIN 15.3 g/dL (12.0-18.0); LYMPH # 1.5 K/uL (1.0-4.3); LYMPH % 23.6 % (20.0-40.0); MEAN CELL VOLUME 90.6 fL (80.0-94.0); MEAN CORPUSCULAR HEMOGLOBIN 31.4 pg (27.0-31.0); MEAN CORPUSCULAR HGB CONC 34.6 g/dL (33.0-37.0); MEAN PLATELET VOLUME 9.4 fL (7.2-11.7); MONO # 0.6 K/uL (0.0-0.8); MONO % 9.4 % (0.0-10.0); NEUT # 3.9 K/uL (1.8-7.0); NEUT % 61.7 % (50.0-75.0); NRBC % 0.1 % (0.0-2.0); RBC 4.87 Mil/uL (4.40-5.90); RED CELL DISTRIBUTION WIDTH 15.6 % (11.5-14.5); WHITE BLOOD COUNT 6.4 K/uL (4.8-10.8)
[2017-06-04 08:03] LABS: ALB/GLOB RATIO 1.2 (1.0-2.1); ALBUMIN 3.8 g/dL (3.5-5.0); ALT/SGPT 38 U/L (21-72); AST/SGOT 22 U/L (17-59); BLOOD UREA NITROGEN 20 mg/dL (9-20); CALCIUM 9.7 mg/dl (8.6-10.4); GFR AFRICAN-AMERICAN > 60; GFR NON-AFRICAN AMERICAN > 60; MAGNESIUM 1.9 mg/dL (1.6-2.3)
[2017-06-04] MEDS: Saccharomyces Boulardi 250 mg Cap PO SCH ×2 (10:12→17:05)
[2017-06-04] MEDS: Valproic Acid 250 mg/5 ml UD Cup PO SCH ×2 (10:12→21:20)
--- NOTE | 2017-06-04 13:29 | CP.PCM.PN ---
Subjective - Date & Time of Evaluation Date of Evaluation: 06/04/17 Time of Evaluation: 12:00 - Subjective Subjective: Mr. Lowry was seen and evaluated today at bedside. He continues to exhibit signs of diffuse encephalopathy. I reviewed the results of the CSF and serum studies as well at the MRI results with the primary team. Objective - Vital Signs/Intake and Output Vital Signs (last 24 hours): Temp Pulse Resp BP Pulse Ox 98.1 F 71 20 106/72 96 06/04/17 08:19 06/04/17 08:19 06/04/17 08:19 06/04/17 08:19 06/04/17 08:19 Intake and Output: 06/04/17 06/04/17 06:59 18:59 Intake Total 250 Output Total 600 Balance -350 - Medications Medications: Current Medications Famotidine (Pepcid) 20 mg PO BID [facility] Last Admin: 06/04/17 10:12 Dose: 20 mg Acyclovir 900 mg/ Dextrose 250 mls @ 100 mls/hr IV Q8H [facility] Last Admin: 06/04/17 05:09 Dose: 100 mls/hr Lorazepam (Ativan) 1 mg IVP Q4H PRN PRN Reason: Agitation Last Admin: 05/22/17 20:30 Dose: 1 mg Lorazepam (Ativan) 2 mg IVP ONCE PRN PRN Reason: Give dose prior to MRI Last Admin: 05/24/17 08:36 Dose: 2 mg Lorazepam (Ativan) 1 mg IVP ONCE PRN PRN Reason: BEFORE MRI Last Admin: 06/03/17 14:31 Dose: 1 mg Mefloquine HCl (Lariam) 1,000 mg PO QWK [facility] Stop: 06/14/17 10:01 Last Admin: 05/31/17 22:33 Dose: 1,000 mg Ondansetron HCl (Zofran Inj) 4 mg IVP Q4H PRN PRN Reason: GI distress Last Admin: 05/31/17 22:12 Dose: 4 mg Quetiapine Fumarate (Seroquel) 25 mg PO ONCE PRN PRN Reason: Anxiety Last Admin: 06/03/17 08:06 Dose: 25 mg Saccharomyces Boulardii (Florastor) 250 mg PO BID [facility] Last Admin: 06/04/17 10:12 Dose: 250 mg Valproate Sodium (Depakene Oral Soln) 500 mg PO Q12H [facility] Last Admin: 06/04/17 10:12 Dose: 500 mg - Labs Labs: 06/04/17 07:32 06/04/17 07:32 PT 13.6 SECONDS (9.7-12.2) H 05/20/17 11:33 INR 1.2 05/20/17 11:33 APTT 28 SECONDS (21-34) 05/20/17 11:33 - Neurological Exam Neurological Exam: Abnormal Gait, Altered, Awake, CN II-XII Intact Neuro motor strength exam: Left Upper Extremity: 4, Right Upper Extremity: 4, Left Lower Extremity: 4, Right Lower Extremity: 4 Assessment and Plan (1) Acute encephalopathy Assessment & Plan: After further discussion with the primary team, radiology and associates, it seems less likely that the patient has PML. The elevated CSF levels of IgG are concerning for a possible auto-immune process. An IgG index may be difficult to obtain at this time, but oligoclonal bands were present. With this regard, it is reasonable to start IVIG for treatment of an underlying auto-immune encephalopathy. Although, the disease course may be difficult to reverse at this point, we will attempt to improve outcome. The plan is to initiate IVIG at 1g/Kg for 5 days and re-assess. In the meantime, an MRI of the spine with contrast can be done to determine if this process also involves the cord and to see if there are any signs of demyelinating disease. Status: Acute
[2017-06-04] MEDS ORDERED: Immune Globulin 50 MG/ML (OCTAGAM 5%) 10 GM/200 ML IV SCH (16:00)
[2017-06-04] MEDS: Immune Globulin 50 MG/ML (OCTAGAM 5%) 10 GM/200 ML IV SCH (16:36)
[2017-06-05] MEDS: DEXTROSE 5% IV SCH ×3 (05:15→21:58)
[2017-06-05] MEDS: ACYCLOVIR IV SCH ×3 (05:15→21:58)
[2017-06-05] MEDS: WATER IV SCH ×3 (05:15→21:58)
--- NOTE | 2017-06-05 07:12 | CP.PCM.PN ---
<LilianaRonni S - Last Filed: 06/05/17 18:27> Subjective - Date & Time of Evaluation Date of Evaluation: 06/05/17 Time of Evaluation: 07:40 - Subjective Subjective: Medicine progress note for Dr. Herman Patient seen and examined. Patient responds "as well as can be" when asked how he is doing. Patient not very verbal after that point. Family was spoken with on rounds today and updated with the current situation. Objective - Vital Signs/Intake and Output Vital Signs (last 24 hours): Temp Pulse Resp BP Pulse Ox 97.4 F L 70 20 113/71 95 06/04/17 23:20 06/04/17 23:20 06/04/17 23:20 06/04/17 23:20 06/04/17 23:20 - Medications Medications: Current Medications Famotidine (Pepcid) 20 mg PO BID [facility] Last Admin: 06/04/17 17:05 Dose: 20 mg Acyclovir 900 mg/ Dextrose 250 mls @ 100 mls/hr IV Q8H [facility] Last Admin: 06/05/17 05:15 Dose: 100 mls/hr Immune Globulin (Octagam 5%) 36 gm IV DAILY@1600 [facility] Stop: 06/08/17 16:01 Last Admin: 06/04/17 16:36 Dose: 36 gm Lorazepam (Ativan) 1 mg IVP Q4H PRN PRN Reason: Agitation Last Admin: 05/22/17 20:30 Dose: 1 mg Lorazepam (Ativan) 2 mg IVP ONCE PRN PRN Reason: Give dose prior to MRI Last Admin: 05/24/17 08:36 Dose: 2 mg Lorazepam (Ativan) 1 mg IVP ONCE PRN PRN Reason: BEFORE MRI Last Admin: 06/03/17 14:31 Dose: 1 mg Lorazepam (Ativan) 2 mg IVP ONCE PRN PRN Reason: to be given before MRI Mefloquine HCl (Lariam) 1,000 mg PO QWK [facility] Stop: 06/14/17 10:01 Last Admin: 05/31/17 22:33 Dose: 1,000 mg Ondansetron HCl (Zofran Inj) 4 mg IVP Q4H PRN PRN Reason: GI distress Last Admin: 05/31/17 22:12 Dose: 4 mg Quetiapine Fumarate (Seroquel) 25 mg PO ONCE PRN PRN Reason: Anxiety Last Admin: 06/03/17 08:06 Dose: 25 mg Saccharomyces Boulardii (Florastor) 250 mg PO BID [facility] Last Admin: 06/04/17 17:05 Dose: 250 mg Valproate Sodium (Depakene Oral Soln) 500 mg PO Q12H [facility] Last Admin: 06/04/17 21:20 Dose: 500 mg - Labs Labs: 06/04/17 07:32 06/04/17 07:32 PT 13.6 SECONDS (9.7-12.2) H 05/20/17 11:33 INR 1.2 05/20/17 11:33 APTT 28 SECONDS (21-34) 05/20/17 11:33 - Additional Findings Additional findings: - Constitutional Appears: No Acute Distress - Head Exam Head Exam: ATRAUMATIC, NORMAL INSPECTION - Eye Exam Eye Exam: EOMI, Normal appearance - ENT Exam ENT Exam: Mucous Membranes Moist - Respiratory Exam Respiratory Exam: Clear to Ausculation Bilateral, NORMAL BREATHING PATTERN - Cardiovascular Exam Cardiovascular Exam: Regular Rhythm, REGULAR RHYTHM, +S1, +S2 - GI/Abdominal Exam GI & Abdominal Exam: Soft, Normal Bowel Sounds. absent: Tenderness - Extremities Exam Extremities Exam: Normal Inspection - Neurological Exam Neurological Exam: Awake - Skin Skin Exam: Normal Color, Warm Assessment and Plan - Assessment and Plan (Free Text) Plan: 1.Altered mental status with white matter changes on MRI brain. Possible Demyelinating Disease. Lumbar puncture performed 05/20/17 by anesthesia. Empiric acyclovir due to suspicion of viral encephalitis. CSF studies workup unremarkable thus far Brain MRI w. contrast * Prominent cerebral white matter changes are stable at may reflect PML, press, toxic/ metabolic demyelination sequelae from immunodeficiency including potential AIDS. 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 No interval mass effect or suspicious extra-axial collection identified. Plasma LILIYA virus ordered--elevated at 3261 To rule out possible ASSISTANT GENERAL MANAGER lymphoma, Dr. Lizama consulted, help appreciated.Recommending CT chest with contrast and csf flow cytometry d/w Dr Waller who recommend csf LILIYA viral study d/w Dr Darnell -started on Decadron 10 mg IV Q8 on 05/26/17--discontinued after finding elevated serum LILIYA virus CT Chest/Abdomen/Pelvis 05/27/17 showed no lymphadenopathy Repeat LP on 05/31/17 to assess for LILIYA virus in the CSF and flow cytometry for ASSISTANT GENERAL MANAGER lymphoma - f/u oligoclonal band * Per Dr. 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 Will follow up IGG studies. IVIG 400 mg /kg x5 days was ordered on 06/05/17. Cervical and thoracic spine MRI w. Gadolinium ordered to evaluate for demyelinating disease 2. Gluteal wound, stage 2 intergluteal ulcer no leukocytosis, afebrile Surgery consulted, Dr. Neil, help appreciated as per surgery superficial gluteal wound, no tract- no surgical intervention wound care kirsten talamantes blood cultures- no growth 3.Acute diverticulitis no leukocytosis, afebrile Repeat CT 05/27/17 shows improved diverticulitis Abdomen/Pelvis CT: diverticulitis of sigmoid colon, mild splenomegaly, liver lesions Cipro 400mg q12h, discontinued 05/19 due to rash Flagyl 500mg q8h, discontinued 05/19 due to rash Aztreonam 1 gm Q8H, started 05/19--discontinued Clindamycin 450mg IVPB Q6H, started 05/19--discontinued Ultram 25mg po BID for pain GI, Dr. Charles, consulted- help appreciated -continue antibiotics for 2 weeks 4. Prophylactic Measure Regular diet Lovenox 40 mg SC--to be held due to LP Protonix 40 mg PO daily [phone] Wendy Diamond--patient's sister and point of contact Disposition: Working diagnosis is demyelinating disease. Trial of IVIG for 5 days began on 06/04/17. Patient will need Medicaid to qualify for residential. Per case management team, the sister has been provided the materials to apply for it. Case DW Dr. Virgil Ford PGY-1 <Анна Herman - Last Filed: 06/07/17 17:06> Objective - Vital Signs/Intake and Output Vital Signs (last 24 hours): Temp Pulse Resp BP Pulse Ox 97.0 F L 64 20 113/78 97 06/05/17 08:44 06/05/17 08:44 06/05/17 08:44 06/05/17 08:44 06/05/17 08:44 - Medications Medications: Current Medications Famotidine (Pepcid) 20 mg PO BID [facility] Last Admin: 06/05/17 17:13 Dose: Not Given Acyclovir 900 mg/ Dextrose 250 mls @ 100 mls/hr IV Q8H [facility] Last Admin: 06/05/17 13:49 Dose: 100 mls/hr Immune Globulin (Octagam 5%) 36 gm IV DAILY@1600 [facility] Stop: 06/08/17 16:01 Last Admin: 06/05/17 16:23 Dose: 36 gm Lorazepam (Ativan) 1 mg IVP Q4H PRN PRN Reason: Agitation Last Admin: 05/22/17 20:30 Dose: 1 mg Lorazepam (Ativan) 2 mg IVP ONCE PRN PRN Reason: Give dose prior to MRI Last Admin: 06/05/17 10:27 Dose: 2 mg Lorazepam (Ativan) 1 mg IVP ONCE PRN PRN Reason: BEFORE MRI Last Admin: 06/03/17 14:31 Dose: 1 mg Lorazepam (Ativan) 2 mg IVP ONCE PRN PRN Reason: to be given before MRI Mefloquine HCl (Lariam) 1,000 mg PO QWK [facility] Stop: 06/14/17 10:01 Last Admin: 05/31/17 22:33 Dose: 1,000 mg Ondansetron HCl (Zofran Inj) 4 mg IVP Q4H PRN PRN Reason: GI distress Last Admin: 05/31/17 22:12 Dose: 4 mg Quetiapine Fumarate (Seroquel) 25 mg PO ONCE PRN PRN Reason: Anxiety Last Admin: 06/03/17 08:06 Dose: 25 mg Saccharomyces Boulardii (Florastor) 250 mg PO BID [facility] Last Admin: 06/05/17 17:13 Dose: Not Given Valproate Sodium (Depakene Oral Soln) 500 mg PO Q12H [facility] Last Admin: 06/05/17 10:35 Dose: Not Given - Labs Labs: 06/05/17 08:13 06/05/17 08:13 PT 13.6 SECONDS (9.7-12.2) H 05/20/17 11:33 INR 1.2 05/20/17 11:33 APTT 28 SECONDS (21-34) 05/20/17 11:33 Attending/Attestation - Attestation I have personally seen and examined this patient.: Yes I have fully participated in the care of the patient.: Yes I have reviewed all pertinent clinical information, including history, physical exam and plan: Yes Notes (Text): seen and examined,he is confused and not talking No change in his mental status. patient is sedated for MRI d/w family continue current meds. Discuss with the resident completed acyclovir follow labs continue IV IG discussed with the resident I agree with the documentation of the assessment and the plan
[2017-06-05 08:32] LABS: BASO % 0.7 % (0.0-2.0); EOS # 0.3 K/uL (0.0-0.7); HEMOGLOBIN 14.6 g/dL (12.0-18.0); LYMPH # 1.4 K/uL (1.0-4.3); LYMPH % 25.2 % (20.0-40.0); MEAN CELL VOLUME 90.3 fL (80.0-94.0); MEAN CORPUSCULAR HEMOGLOBIN 31.6 pg (27.0-31.0); MEAN PLATELET VOLUME 9.1 fL (7.2-11.7); MONO # 0.5 K/uL (0.0-0.8); NEUT # 3.2 K/uL (1.8-7.0); NEUT % 59.1 % (50.0-75.0); NRBC % 0.1 % (0.0-2.0); RBC 4.62 Mil/uL (4.40-5.90); RED CELL DISTRIBUTION WIDTH 16.4 % (11.5-14.5); WHITE BLOOD COUNT 5.4 K/uL (4.8-10.8)
[2017-06-05 09:01] LABS: ALBUMIN 3.6 g/dL (3.5-5.0); ALT/SGPT 31 U/L (21-72); AST/SGOT 17 U/L (17-59); BLOOD UREA NITROGEN 19 mg/dL (9-20); CALCIUM 9.2 mg/dl (8.6-10.4); GFR AFRICAN-AMERICAN > 60; GFR NON-AFRICAN AMERICAN > 60; MAGNESIUM 1.9 mg/dL (1.6-2.3)
[2017-06-05] MEDS: Saccharomyces Boulardi 250 mg Cap PO SCH ×3 (10:27→19:24)
[2017-06-05] MEDS: Valproic Acid 250 mg/5 ml UD Cup PO SCH ×2 (10:35→21:56)
--- NOTE | 2017-06-05 13:07 | CP.PCM.PN ---
Subjective - Date & Time of Evaluation Date of Evaluation: 06/05/17 Time of Evaluation: 13:05 - Subjective Subjective: Ms. Lowry was seen and examined at the bedside. He is awake, but confused. He is unable to follow simple commands. He moves all extremities spontaneously. He is incontinent. He remains on 1:1 sitter for patient safety. There was no untoward events overnight. Objective - Vital Signs/Intake and Output Vital Signs (last 24 hours): Temp Pulse Resp BP Pulse Ox 97.0 F L 64 20 113/78 97 06/05/17 08:44 06/05/17 08:44 06/05/17 08:44 06/05/17 08:44 06/05/17 08:44 - Medications Medications: Current Medications Famotidine (Pepcid) 20 mg PO BID [facility] Last Admin: 06/05/17 10:28 Dose: 20 mg Acyclovir 900 mg/ Dextrose 250 mls @ 100 mls/hr IV Q8H [facility] Last Admin: 06/05/17 05:15 Dose: 100 mls/hr Immune Globulin (Octagam 5%) 36 gm IV DAILY@1600 [facility] Stop: 06/08/17 16:01 Last Admin: 06/04/17 16:36 Dose: 36 gm Lorazepam (Ativan) 1 mg IVP Q4H PRN PRN Reason: Agitation Last Admin: 05/22/17 20:30 Dose: 1 mg Lorazepam (Ativan) 2 mg IVP ONCE PRN PRN Reason: Give dose prior to MRI Last Admin: 06/05/17 10:27 Dose: 2 mg Lorazepam (Ativan) 1 mg IVP ONCE PRN PRN Reason: BEFORE MRI Last Admin: 06/03/17 14:31 Dose: 1 mg Lorazepam (Ativan) 2 mg IVP ONCE PRN PRN Reason: to be given before MRI Mefloquine HCl (Lariam) 1,000 mg PO QWK [facility] Stop: 06/14/17 10:01 Last Admin: 05/31/17 22:33 Dose: 1,000 mg Ondansetron HCl (Zofran Inj) 4 mg IVP Q4H PRN PRN Reason: GI distress Last Admin: 05/31/17 22:12 Dose: 4 mg Quetiapine Fumarate (Seroquel) 25 mg PO ONCE PRN PRN Reason: Anxiety Last Admin: 06/03/17 08:06 Dose: 25 mg Saccharomyces Boulardii (Florastor) 250 mg PO BID [facility] Last Admin: 06/05/17 10:27 Dose: 250 mg Valproate Sodium (Depakene Oral Soln) 500 mg PO Q12H [facility] Last Admin: 06/04/17 21:20 Dose: 500 mg - Labs Labs: 06/05/17 08:13 06/05/17 08:13 PT 13.6 SECONDS (9.7-12.2) H 05/20/17 11:33 INR 1.2 05/20/17 11:33 APTT 28 SECONDS (21-34) 05/20/17 11:33 - Constitutional Appears: No Acute Distress - Head Exam Head Exam: NORMAL INSPECTION - Neurological Exam Neurological Exam: Awake Neuro motor strength exam: Left Upper Extremity: 5, Right Upper Extremity: 5, Left Lower Extremity: 5, Right Lower Extremity: 5 Additional comments: Neurological unchanged from previous examination. Assessment and Plan (1) Altered mental status Assessment & Plan: Case discussed with Dr. Darnell, continue all current medical regimen including IVIG. Pending results of the cervical MRI. Status: Acute
[2017-06-05] MEDS: Immune Globulin 50 MG/ML (OCTAGAM 5%) 10 GM/200 ML IV SCH (16:23)
[2017-06-06] MEDS: DEXTROSE 5% IV SCH (04:21)
[2017-06-06] MEDS: WATER IV SCH (04:21)
[2017-06-06] MEDS: ACYCLOVIR IV SCH (04:21)
--- NOTE | 2017-06-06 06:34 | CP.PCM.PN ---
Subjective - Date & Time of Evaluation Date of Evaluation: 06/06/17 Time of Evaluation: 06:30 - Subjective Subjective: Mr. Lowry was seen and examined at the bedside. He is awake, with able to mumble few words such as missy, nada, but confused. However he is unable to answer questions that include person, place, and time. He does not follow simple commands. He moves all his extremities spontaneously. He is incontinent to bothe bladder and bowel.He has a bilateral hand mitten for patient safety. He remains with 1:1 sitter . There was no untoward events overnight. Objective - Vital Signs/Intake and Output Vital Signs (last 24 hours): Temp Pulse Resp BP Pulse Ox 97.4 F L 76 20 115/78 98 06/05/17 23:48 06/05/17 23:48 06/05/17 23:48 06/05/17 23:48 06/05/17 23:48 Intake and Output: 06/05/17 06/06/17 18:59 06:59 Output Total 150 Balance -150 - Medications Medications: Current Medications Famotidine (Pepcid) 20 mg PO BID [facility] Last Admin: 06/05/17 19:24 Dose: 20 mg Acyclovir 900 mg/ Dextrose 250 mls @ 100 mls/hr IV Q8H [facility] Last Admin: 06/06/17 04:21 Dose: 100 mls/hr Immune Globulin (Octagam 5%) 36 gm IV DAILY@1600 [facility] Stop: 06/08/17 16:01 Last Admin: 06/05/17 16:23 Dose: 36 gm Lorazepam (Ativan) 1 mg IVP Q4H PRN PRN Reason: Agitation Last Admin: 06/06/17 01:25 Dose: 1 mg Lorazepam (Ativan) 2 mg IVP ONCE PRN PRN Reason: Give dose prior to MRI Last Admin: 06/05/17 10:27 Dose: 2 mg Lorazepam (Ativan) 1 mg IVP ONCE PRN PRN Reason: BEFORE MRI Last Admin: 06/03/17 14:31 Dose: 1 mg Lorazepam (Ativan) 2 mg IVP ONCE PRN PRN Reason: to be given before MRI Mefloquine HCl (Lariam) 1,000 mg PO QWK [facility] Stop: 06/14/17 10:01 Last Admin: 05/31/17 22:33 Dose: 1,000 mg Ondansetron HCl (Zofran Inj) 4 mg IVP Q4H PRN PRN Reason: GI distress Last Admin: 05/31/17 22:12 Dose: 4 mg Quetiapine Fumarate (Seroquel) 25 mg PO ONCE PRN PRN Reason: Anxiety Last Admin: 06/03/17 08:06 Dose: 25 mg Saccharomyces Boulardii (Florastor) 250 mg PO BID [facility] Last Admin: 06/05/17 19:24 Dose: 250 mg Valproate Sodium (Depakene Oral Soln) 500 mg PO Q12H [facility] Last Admin: 06/05/17 21:56 Dose: 500 mg - Labs Labs: 06/05/17 08:13 06/05/17 08:13 PT 13.6 SECONDS (9.7-12.2) H 05/20/17 11:33 INR 1.2 05/20/17 11:33 APTT 28 SECONDS (21-34) 05/20/17 11:33 - Constitutional Appears: No Acute Distress - Head Exam Head Exam: NORMAL INSPECTION - Neurological Exam Neurological Exam: Awake Neuro motor strength exam: Left Upper Extremity: 5, Right Upper Extremity: 5, Left Lower Extremity: 5, Right Lower Extremity: 5 Additional comments: Neurological unchanged from previous examination. Assessment and Plan (1) Altered mental status Assessment & Plan: Case discussed with Dr. Darnell, continue all current medical treatment. Cervical MRI results still pending. Status: Acute
--- NOTE | 2017-06-06 07:32 | CP.PCM.PN ---
<Ronni Ford - Last Filed: 06/06/17 16:04> Subjective - Date & Time of Evaluation Date of Evaluation: 06/06/17 Time of Evaluation: 07:50 - Subjective Subjective: Medicine progress note for Dr. Herman Patient seen and examined. Patient currently sedated due to Ativan given to allow for MRI of the spine to check for demyelinated disease. Per nursing staff , patient was restless and agitated with the IV line. Patient was given mittens. Objective - Vital Signs/Intake and Output Vital Signs (last 24 hours): Temp Pulse Resp BP Pulse Ox 97.4 F L 76 20 115/78 98 06/05/17 23:48 06/05/17 23:48 06/05/17 23:48 06/05/17 23:48 06/05/17 23:48 Intake and Output: 06/06/17 06/06/17 06:59 18:59 Output Total 150 Balance -150 - Medications Medications: Current Medications Famotidine (Pepcid) 20 mg PO BID [facility] Last Admin: 06/05/17 19:24 Dose: 20 mg Acyclovir 900 mg/ Dextrose 250 mls @ 100 mls/hr IV Q8H [facility] Last Admin: 06/06/17 04:21 Dose: 100 mls/hr Immune Globulin (Octagam 5%) 36 gm IV DAILY@1600 [facility] Stop: 06/08/17 16:01 Last Admin: 06/05/17 16:23 Dose: 36 gm Lorazepam (Ativan) 1 mg IVP Q4H PRN PRN Reason: Agitation Last Admin: 06/06/17 01:25 Dose: 1 mg Lorazepam (Ativan) 2 mg IVP ONCE PRN PRN Reason: Give dose prior to MRI Last Admin: 06/05/17 10:27 Dose: 2 mg Lorazepam (Ativan) 1 mg IVP ONCE PRN PRN Reason: BEFORE MRI Last Admin: 06/03/17 14:31 Dose: 1 mg Lorazepam (Ativan) 2 mg IVP ONCE PRN PRN Reason: to be given before MRI Mefloquine HCl (Lariam) 1,000 mg PO QWK [facility] Stop: 06/14/17 10:01 Last Admin: 05/31/17 22:33 Dose: 1,000 mg Ondansetron HCl (Zofran Inj) 4 mg IVP Q4H PRN PRN Reason: GI distress Last Admin: 05/31/17 22:12 Dose: 4 mg Quetiapine Fumarate (Seroquel) 25 mg PO ONCE PRN PRN Reason: Anxiety Last Admin: 06/03/17 08:06 Dose: 25 mg Saccharomyces Boulardii (Florastor) 250 mg PO BID [facility] Last Admin: 06/05/17 19:24 Dose: 250 mg Valproate Sodium (Depakene Oral Soln) 500 mg PO Q12H [facility] Last Admin: 06/05/17 21:56 Dose: 500 mg - Labs Labs: 06/05/17 08:13 06/05/17 08:13 PT 13.6 SECONDS (9.7-12.2) H 05/20/17 11:33 INR 1.2 05/20/17 11:33 APTT 28 SECONDS (21-34) 05/20/17 11:33 - Additional Findings Additional findings: - Constitutional Appears: No Acute Distress - Head Exam Head Exam: ATRAUMATIC, NORMAL INSPECTION - Eye Exam Eye Exam: EOMI, Normal appearance - ENT Exam ENT Exam: Mucous Membranes Moist - Respiratory Exam Respiratory Exam: Clear to Ausculation Bilateral, NORMAL BREATHING PATTERN - Cardiovascular Exam Cardiovascular Exam: Regular Rhythm, REGULAR RHYTHM, +S1, +S2 - GI/Abdominal Exam GI & Abdominal Exam: Soft, Normal Bowel Sounds. absent: Tenderness - Extremities Exam Extremities Exam: Normal Inspection - Neurological Exam Neurological Exam: Awake - Skin Skin Exam: Normal Color, Warm Assessment and Plan - Assessment and Plan (Free Text) Plan: 1.Altered mental status with white matter changes on MRI brain. Possible Demyelinating Disease. Lumbar puncture performed 05/20/17 by anesthesia. Empiric acyclovir due to suspicion of viral encephalitis. CSF studies workup unremarkable thus far Brain MRI w. contrast * Prominent cerebral white matter changes are stable at may reflect PML, press, toxic/ metabolic demyelination sequelae from immunodeficiency including potential AIDS. 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 No interval mass effect or suspicious extra-axial collection identified. Plasma LILIYA virus ordered--elevated at 3261 To rule out possible DISTRIBUTION COLLECTION OPERATOR lymphoma, Dr. Lizama consulted, help appreciated.Recommending CT chest with contrast and csf flow cytometry d/w Dr Waller who recommend csf LILIYA viral study d/w Dr Darnell -started on Decadron 10 mg IV Q8 on 05/26/17--discontinued after finding elevated serum LILIYA virus CT Chest/Abdomen/Pelvis 05/27/17 showed no lymphadenopathy Repeat LP on 05/31/17 to assess for LILIYA virus in the CSF and flow cytometry for DISTRIBUTION COLLECTION OPERATOR lymphoma - f/u oligoclonal band * Per Dr. 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 Will follow up IGG studies. IVIG 400 mg /kg x5 days was ordered on 06/05/17. Cervical and thoracic spine MRI w. Gadolinium ordered to evaluate for demyelinating disease. No evidence of demyelinating disease seen on Cervical MRI. Thoracic MRI pending. 2. Gluteal wound, stage 2 intergluteal ulcer no leukocytosis, afebrile Surgery consulted, Dr. Neil, help appreciated as per surgery superficial gluteal wound, no tract- no surgical intervention wound care kirsten talamantes blood cultures- no growth 3.Acute diverticulitis no leukocytosis, afebrile Repeat CT 05/27/17 shows improved diverticulitis Abdomen/Pelvis CT: diverticulitis of sigmoid colon, mild splenomegaly, liver lesions Cipro 400mg q12h, discontinued 05/19 due to rash Flagyl 500mg q8h, discontinued 05/19 due to rash Aztreonam 1 gm Q8H, started 05/19--discontinued Clindamycin 450mg IVPB Q6H, started 05/19--discontinued Ultram 25mg po BID for pain GI, Dr. Charels, consulted- help appreciated -continue antibiotics for 2 weeks 4. Prophylactic Measure Regular diet Lovenox 40 mg SC--to be held due to LP Protonix 40 mg PO daily [phone] Wendy Diamond--patient's sister and point of contact Disposition: Working diagnosis is demyelinating disease. Trial of IVIG for 5 days began on 06/04/17. Patient will need Medicaid to qualify for correction. Per case management team, the sister has been provided the materials to apply for it. Case DW Dr. Virgil Ford PGY-1 <Анна Herman - Last Filed: 06/07/17 17:12> Objective - Vital Signs/Intake and Output Vital Signs (last 24 hours): Temp Pulse Resp BP Pulse Ox 98.1 F 64 20 124/82 96 06/07/17 08:37 06/07/17 08:37 06/07/17 08:37 06/07/17 08:37 06/07/17 08:37 Intake and Output: 06/07/17 06/07/17 06:59 18:59 Intake Total 1000 500 Balance 1000 500 - Medications Medications: Current Medications Famotidine (Pepcid) 20 mg PO BID [facility] Last Admin: 06/07/17 11:25 Dose: 20 mg Immune Globulin (Octagam 5%) 720 mls @ 0 mls/hr IV 1600 [facility] PRN Reason: UD Stop: 06/08/17 16:01 Lorazepam (Ativan) 1 mg IVP Q4H PRN PRN Reason: Agitation Last Admin: 06/07/17 07:21 Dose: 1 mg Lorazepam (Ativan) 1 mg IVP ONCE PRN PRN Reason: BEFORE MRI Last Admin: 06/06/17 09:28 Dose: 1 mg Lorazepam (Ativan) 2 mg IVP ONCE PRN PRN Reason: to be given before MRI Mefloquine HCl (Lariam) 1,000 mg PO QWK [facility] Stop: 06/14/17 10:01 Last Admin: 06/07/17 11:26 Dose: 1,000 mg Ondansetron HCl (Zofran Inj) 4 mg IVP Q4H PRN PRN Reason: GI distress Last Admin: 05/31/17 22:12 Dose: 4 mg Quetiapine Fumarate (Seroquel) 25 mg PO ONCE PRN PRN Reason: Anxiety Last Admin: 06/03/17 08:06 Dose: 25 mg Saccharomyces Boulardii (Florastor) 250 mg PO BID [facility] Last Admin: 06/07/17 11:25 Dose: 250 mg Valproate Sodium (Depakene Oral Soln) 500 mg PO Q12H [facility] Last Admin: 06/07/17 11:25 Dose: 500 mg - Labs Labs: 06/07/17 07:54 06/07/17 07:54 PT 13.6 SECONDS (9.7-12.2) H 05/20/17 11:33 INR 1.2 05/20/17 11:33 APTT 28 SECONDS (21-34) 05/20/17 11:33 Attending/Attestation - Attestation I have personally seen and examined this patient.: Yes I have fully participated in the care of the patient.: Yes I have reviewed all pertinent clinical information, including history, physical exam and plan: Yes Notes (Text): Patient was sleeping after IV ativan for MRI No mental status changes reported. Patient is confused I agree with the documentation of the assessment and the plan d/w DR Waller off Acyclovir/completed continue IV Ig d/w family d/w the resident I agree with the documentation of the resident's assessment and the plan
[2017-06-06] MEDS: Valproic Acid 250 mg/5 ml UD Cup PO SCH ×2 (10:36→21:47)
[2017-06-06] MEDS: Saccharomyces Boulardi 250 mg Cap PO SCH ×2 (10:36→19:45)
--- NOTE | 2017-06-06 11:03 | PCM.PYCHPN ---
Psychiatric Progress Note - Psychiatric Progress Note Patient seen today, length of contact: 20 min Patient Chief Complaint: confused Problems Identified/Issues Discussed: Psychiatry Progress Note for Dr. Mccurdy's Service Patient was seen and examined at bedside, with family present. As per nursing, at baseline he is awake, not oriented to person, place, or time. As per family he now mumbles some words and is able to respond to some simple questions his sister asks him. Patient is currently sedated, as an attempt was made to have him go for MRI. As per nursing, patient becomes aggressive and agitated at night , mittens placed and 1:1 sitter. Today he required total 3mg of IV Ativan for Thoracic MRI - which he was unable to sit for. MRI called again to take down patient as he is completely sedated now. Continues with urinary and bowel incontinence. Medication Change: No Medical Record Reviewed: Yes Mental Status Examination - Cognitive Function Memory: Impaired Attention: Poor Concentration: Poor Association: Loose Fund of Knowledge: Poor - Mood Mood: Anxious - Affect Affect: Constricted - Speech Speech: Slurred, Soft - Formal Thought Process Formal Thought Process: Paranoia, Loosening of associations - Suicidal Ideation Suicidal Ideation: No - Homicidal Ideation Homicidal Ideation: No Goal/Treatment Plan - Goal/Treatment Plan Need for Continued Stay: Severe depression anxiety, Severe functional impairment Progress Toward Problem(s) and Goals/Treatment Plan: Delirium, Secondary to Medical Condition -Continue Ativan as needed for agitation -Continue medical management as per medicine team DW Marii Mayer DO, PGY-1
--- NOTE | 2017-06-06 11:10 | MRI ---
PROCEDURE: MR CERVICAL SPINE WITH AND WITHOUT CONTRAST HISTORY: check for signs of demyelinating disease COMPARISON: None available. TECHNIQUE: Multiecho multiplanar sequences were performed through the cervical spine with and without the use of intravenous contrast. FINDINGS: Normal lordotic curvature. Craniocervical junction unremarkable. Vertebral body heights preserved. No marrow signal abnormality. Normal cervical cord. No paraspinal abnormality. No abnormal enhancement C2-3: No disc herniation, spinal canal stenosis or neural foraminal narrowing. C3-4: No disc herniation, spinal canal stenosis or neural foraminal narrowing. C4-5: There is a small central disc protrusion. No stenosis C5-C6: Disc degeneration with left-sided foraminal stenosis C6-C7: Disc degeneration with severe left-sided foraminal stenosis C7-T1: No disc herniation, spinal canal stenosis or neural foraminal narrowing. OTHER FINDINGS: None. IMPRESSION: No evidence of demyelinating disease. 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
[2017-06-06] MEDS ORDERED: Immune Globulin 50 MG/ML (OCTAGAM 5%) 10 GM/200 ML IV SCH (17:00)
--- NOTE | 2017-06-07 07:15 | CP.PCM.PN ---
<LilianaRonni S - Last Filed: 06/07/17 17:57> Subjective - Date & Time of Evaluation Date of Evaluation: 06/07/17 Time of Evaluation: 07:30 - Subjective Subjective: Medicine progress note for Dr. Herman Patient seen and examined. Patient was sleeping for most of the morning. Per nursing, patient intermittently agitated. Objective - Vital Signs/Intake and Output Vital Signs (last 24 hours): Temp Pulse Resp BP Pulse Ox 98.1 F 72 20 131/84 98 06/06/17 22:00 06/06/17 22:00 06/06/17 22:00 06/06/17 22:00 06/06/17 22:00 Intake and Output: 06/07/17 06/07/17 06:59 18:59 Intake Total 1000 Balance 1000 - Medications Medications: Current Medications Famotidine (Pepcid) 20 mg PO BID [facility] Last Admin: 06/06/17 19:45 Dose: Not Given Immune Globulin (Octagam 5%) 720 mls @ 0 mls/hr IV 1600 [facility] PRN Reason: UD Stop: 06/08/17 16:01 Lorazepam (Ativan) 1 mg IVP Q4H PRN PRN Reason: Agitation Last Admin: 06/06/17 01:25 Dose: 1 mg Lorazepam (Ativan) 2 mg IVP ONCE PRN PRN Reason: Give dose prior to MRI Last Admin: 06/06/17 08:20 Dose: 2 mg Lorazepam (Ativan) 1 mg IVP ONCE PRN PRN Reason: BEFORE MRI Last Admin: 06/06/17 09:28 Dose: 1 mg Lorazepam (Ativan) 2 mg IVP ONCE PRN PRN Reason: to be given before MRI Mefloquine HCl (Lariam) 1,000 mg PO QWK [facility] Stop: 06/14/17 10:01 Last Admin: 05/31/17 22:33 Dose: 1,000 mg Ondansetron HCl (Zofran Inj) 4 mg IVP Q4H PRN PRN Reason: GI distress Last Admin: 05/31/17 22:12 Dose: 4 mg Quetiapine Fumarate (Seroquel) 25 mg PO ONCE PRN PRN Reason: Anxiety Last Admin: 06/03/17 08:06 Dose: 25 mg Saccharomyces Boulardii (Florastor) 250 mg PO BID [facility] Last Admin: 06/06/17 19:45 Dose: Not Given Valproate Sodium (Depakene Oral Soln) 500 mg PO Q12H [facility] Last Admin: 06/06/17 21:47 Dose: 500 mg - Labs Labs: 06/05/17 08:13 06/05/17 08:13 PT 13.6 SECONDS (9.7-12.2) H 05/20/17 11:33 INR 1.2 05/20/17 11:33 APTT 28 SECONDS (21-34) 05/20/17 11:33 - Additional Findings Additional findings: - Constitutional Appears: No Acute Distress - Head Exam Head Exam: ATRAUMATIC, NORMAL INSPECTION - Eye Exam Eye Exam: EOMI, Normal appearance - ENT Exam ENT Exam: Mucous Membranes Moist - Respiratory Exam Respiratory Exam: Clear to Ausculation Bilateral, NORMAL BREATHING PATTERN - Cardiovascular Exam Cardiovascular Exam: Regular Rhythm, REGULAR RHYTHM, +S1, +S2 - GI/Abdominal Exam GI & Abdominal Exam: Soft, Normal Bowel Sounds. absent: Tenderness - Extremities Exam Extremities Exam: Normal Inspection - Neurological Exam Neurological Exam: Awake - Skin Skin Exam: Normal Color, Warm Assessment and Plan - Assessment and Plan (Free Text) Plan: 1.Altered mental status with white matter changes on MRI brain. Possible Demyelinating Disease. Lumbar puncture performed 05/20/17 by anesthesia. Empiric acyclovir due to suspicion of viral encephalitis. CSF studies workup unremarkable thus far Brain MRI w. contrast * Prominent cerebral white matter changes are stable at may reflect PML, press, toxic/ metabolic demyelination sequelae from immunodeficiency including potential AIDS. 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 No interval mass effect or suspicious extra-axial collection identified. Plasma LILIYA virus ordered--elevated at 3261 To rule out possible SENIOR SOFTWARE DEVELOPER lymphoma, Dr. Lizama consulted, help appreciated.Recommending CT chest with contrast and csf flow cytometry d/w Dr Waller who recommend csf LILIYA viral study d/w Dr Darnell -started on Decadron 10 mg IV Q8 on 05/26/17--discontinued after finding elevated serum LILIYA virus CT Chest/Abdomen/Pelvis 05/27/17 showed no lymphadenopathy Repeat LP on 05/31/17 to assess for LILIYA virus in the CSF and flow cytometry for SENIOR SOFTWARE DEVELOPER lymphoma - f/u oligoclonal band * Per Dr. 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 Will follow up IGG studies. IVIG 400 mg /kg x5 days was ordered on 06/05/17. Cervical and thoracic spine MRI w. Gadolinium ordered to evaluate for demyelinating disease. No evidence of demyelinating disease seen on Cervical MRI. Thoracic MRI pending. 2. Gluteal wound, stage 2 intergluteal ulcer no leukocytosis, afebrile Surgery consulted, Dr. Neil, help appreciated as per surgery superficial gluteal wound, no tract- no surgical intervention wound care kirsten talamantes blood cultures- no growth 3.Acute diverticulitis no leukocytosis, afebrile Repeat CT 05/27/17 shows improved diverticulitis Abdomen/Pelvis CT: diverticulitis of sigmoid colon, mild splenomegaly, liver lesions Cipro 400mg q12h, discontinued 05/19 due to rash Flagyl 500mg q8h, discontinued 05/19 due to rash Aztreonam 1 gm Q8H, started 05/19--discontinued Clindamycin 450mg IVPB Q6H, started 05/19--discontinued Ultram 25mg po BID for pain GI, Dr. Charles, consulted- help appreciated -continue antibiotics for 2 weeks 4. Prophylactic Measure Regular diet Lovenox 40 mg SC--to be held due to LP Protonix 40 mg PO daily [phone] Wendyaminah Diamond--patient's sister and point of contact Disposition: Working diagnosis is demyelinating disease. Trial of IVIG for 5 days began on 06/04/17. Last day is on 06/08/17. Patient will need Medicaid to qualify for half-way. Per case management team, the sister has been provided the materials to apply for it. Case DW Dr. Virgil Ford PGY-1 <Анна Herman - Last Filed: 06/08/17 14:23> Objective - Vital Signs/Intake and Output Vital Signs (last 24 hours): Temp Pulse Resp BP Pulse Ox 98.1 F 77 20 140/72 97 06/08/17 08:15 06/08/17 08:15 06/08/17 08:15 06/08/17 08:15 06/08/17 08:15 Intake and Output: 06/08/17 06/08/17 06:59 18:59 Intake Total 1200 Balance 1200 - Medications Medications: Current Medications Famotidine (Pepcid) 20 mg PO BID [facility] Last Admin: 06/08/17 11:00 Dose: 20 mg Immune Globulin (Octagam 5%) 720 mls @ 0 mls/hr IV 1600 SELENE PRN Reason: UD Stop: 06/08/17 16:01 Last Admin: 06/07/17 18:15 Dose: 55 mls/hr Lorazepam (Ativan) 1 mg IVP Q4H PRN PRN Reason: Agitation Last Admin: 06/08/17 06:13 Dose: 1 mg Lorazepam (Ativan) 1 mg IVP ONCE PRN PRN Reason: BEFORE MRI Last Admin: 06/06/17 09:28 Dose: 1 mg Lorazepam (Ativan) 2 mg IVP ONCE PRN PRN Reason: to be given before MRI Mefloquine HCl (Lariam) 1,000 mg PO QWK [facility] Stop: 06/14/17 10:01 Last Admin: 06/07/17 11:26 Dose: 1,000 mg Ondansetron HCl (Zofran Inj) 4 mg IVP Q4H PRN PRN Reason: GI distress Last Admin: 05/31/17 22:12 Dose: 4 mg Quetiapine Fumarate (Seroquel) 25 mg PO ONCE PRN PRN Reason: Anxiety Last Admin: 06/03/17 08:06 Dose: 25 mg Saccharomyces Boulardii (Florastor) 250 mg PO BID [facility] Last Admin: 06/08/17 11:00 Dose: 250 mg Valproate Sodium (Depakene Oral Soln) 500 mg PO Q12H [facility] Last Admin: 06/08/17 11:00 Dose: 500 mg - Labs Labs: 06/07/17 07:54 06/07/17 07:54 PT 13.6 SECONDS (9.7-12.2) H 05/20/17 11:33 INR 1.2 05/20/17 11:33 APTT 28 SECONDS (21-34) 05/20/17 11:33 Attending/Attestation - Attestation I have personally seen and examined this patient.: Yes I have fully participated in the care of the patient.: Yes I have reviewed all pertinent clinical information, including history, physical exam and plan: Yes Notes (Text): Seen and examined.Patient was sleeping this morning. awake in the afternoon.But not following directions,nonverbal d/c family at bedside Continue IVIG Cervical without evidence of demyelinationg disease . thoracic spine MRI not done. Sedated last two days not able to do it. Neuro VOLUNTEER FIRE [employer] called,we will cancel thoracic MRI CSF J virus and flow cytometry pending d/w The resident I agree with the residents documentation of the assessment and the plan
[2017-06-07 08:17] LABS: BASO % 0.7 % (0.0-2.0); EOS # 0.1 K/uL (0.0-0.7); EOS % 2.7 % (0.0-4.0); HEMOGLOBIN 14.3 g/dL (12.0-18.0); LYMPH # 1.3 K/uL (1.0-4.3); LYMPH % 24.7 % (20.0-40.0); MEAN CELL VOLUME 89.8 fL (80.0-94.0); MEAN CORPUSCULAR HEMOGLOBIN 31.8 pg (27.0-31.0); MEAN CORPUSCULAR HGB CONC 35.4 g/dL (33.0-37.0); MEAN PLATELET VOLUME 8.7 fL (7.2-11.7); MONO # 0.5 K/uL (0.0-0.8); MONO % 10.1 % (0.0-10.0); NEUT # 3.2 K/uL (1.8-7.0); NEUT % 61.8 % (50.0-75.0); NRBC % 0.1 % (0.0-2.0); RBC 4.51 Mil/uL (4.40-5.90); RED CELL DISTRIBUTION WIDTH 16.7 % (11.5-14.5); WHITE BLOOD COUNT 5.2 K/uL (4.8-10.8)
[2017-06-07 08:21] LABS: ALB/GLOB RATIO 0.8 (1.0-2.1); ALT/SGPT 38 U/L (21-72); AST/SGOT 26 U/L (17-59); BLOOD UREA NITROGEN 14 mg/dL (9-20); CALCIUM 9.4 mg/dl (8.6-10.4); GFR AFRICAN-AMERICAN > 60; GFR NON-AFRICAN AMERICAN > 60; MAGNESIUM 1.8 mg/dL (1.6-2.3)
[2017-06-07] MEDS: Saccharomyces Boulardi 250 mg Cap PO SCH ×3 (11:25→21:24)
[2017-06-07] MEDS: Valproic Acid 250 mg/5 ml UD Cup PO SCH ×2 (11:25→21:20)
--- NOTE | 2017-06-07 12:40 | CP.PCM.PN ---
Subjective - Date & Time of Evaluation Date of Evaluation: 06/07/17 Time of Evaluation: 12:36 - Subjective Subjective: Mr. Lowry was seen and examined at the bedside. He is awake, but very confused. He is unable to follow simple commands or answer questions. Earlier he had an episode of severe confusion that security needed to calm him down. He remains on 1:1 sitter for patient safety. Objective - Vital Signs/Intake and Output Vital Signs (last 24 hours): Temp Pulse Resp BP Pulse Ox 98.1 F 64 20 124/82 96 06/07/17 08:37 06/07/17 08:37 06/07/17 08:37 06/07/17 08:37 06/07/17 08:37 Intake and Output: 06/07/17 06/07/17 06:59 18:59 Intake Total 1000 Balance 1000 - Medications Medications: Current Medications Famotidine (Pepcid) 20 mg PO BID [facility] Last Admin: 06/07/17 11:25 Dose: 20 mg Immune Globulin (Octagam 5%) 720 mls @ 0 mls/hr IV 1600 SELENE PRN Reason: UD Stop: 06/08/17 16:01 Lorazepam (Ativan) 1 mg IVP Q4H PRN PRN Reason: Agitation Last Admin: 06/07/17 07:21 Dose: 1 mg Lorazepam (Ativan) 2 mg IVP ONCE PRN PRN Reason: Give dose prior to MRI Last Admin: 06/06/17 08:20 Dose: 2 mg Lorazepam (Ativan) 1 mg IVP ONCE PRN PRN Reason: BEFORE MRI Last Admin: 06/06/17 09:28 Dose: 1 mg Lorazepam (Ativan) 2 mg IVP ONCE PRN PRN Reason: to be given before MRI Mefloquine HCl (Lariam) 1,000 mg PO QWK [facility] Stop: 06/14/17 10:01 Last Admin: 06/07/17 11:26 Dose: 1,000 mg Ondansetron HCl (Zofran Inj) 4 mg IVP Q4H PRN PRN Reason: GI distress Last Admin: 05/31/17 22:12 Dose: 4 mg Quetiapine Fumarate (Seroquel) 25 mg PO ONCE PRN PRN Reason: Anxiety Last Admin: 06/03/17 08:06 Dose: 25 mg Saccharomyces Boulardii (Florastor) 250 mg PO BID [facility] Last Admin: 06/07/17 11:25 Dose: 250 mg Valproate Sodium (Depakene Oral Soln) 500 mg PO Q12H [facility] Last Admin: 06/07/17 11:25 Dose: 500 mg - Labs Labs: 06/07/17 07:54 06/07/17 07:54 PT 13.6 SECONDS (9.7-12.2) H 05/20/17 11:33 INR 1.2 05/20/17 11:33 APTT 28 SECONDS (21-34) 05/20/17 11:33 - Constitutional Appears: No Acute Distress - Head Exam Head Exam: NORMAL INSPECTION - Neurological Exam Neurological Exam: Awake Neuro motor strength exam: Left Upper Extremity: 5, Right Upper Extremity: 5, Left Lower Extremity: 5, Right Lower Extremity: 5 Additional comments: Neurological unchanged form previous examination. Assessment and Plan (1) Altered mental status Assessment & Plan: Case discussed with Dr. Darnell, continue all current medical therapy including IVIG. MRI of the thoracic result is pending. Status: Acute
[2017-06-07] MEDS: IMMUNE GLOBULIN 50 MG/ML IV SCH (18:15)
--- NOTE | 2017-06-08 04:56 | CP.PCM.PN ---
<Margaret Irving - Last Filed: 06/08/17 06:20> Subjective - Date & Time of Evaluation Date of Evaluation: 06/08/17 Time of Evaluation: 06:00 - Subjective Subjective: Medicine Progress Note: Patient seen and examined at beside. Per nursing, patient stated he was in [facility]. However when asked again patient stated he was in [facility] and the year was in the 1980s. Objective - Vital Signs/Intake and Output Vital Signs (last 24 hours): Temp Pulse Resp BP Pulse Ox 98.6 F 77 18 109/68 96 06/07/17 23:27 06/07/17 23:27 06/07/17 23:27 06/07/17 23:27 06/07/17 23:27 Intake and Output: 06/07/17 06/08/17 18:59 06:59 Intake Total 500 1200 Balance 500 1200 - Medications Medications: Current Medications Famotidine (Pepcid) 20 mg PO BID [facility] Last Admin: 06/07/17 18:20 Dose: Not Given Immune Globulin (Octagam 5%) 720 mls @ 0 mls/hr IV 1600 SELENE PRN Reason: UD Stop: 06/08/17 16:01 Last Admin: 06/07/17 18:15 Dose: 55 mls/hr Lorazepam (Ativan) 1 mg IVP Q4H PRN PRN Reason: Agitation Last Admin: 06/07/17 23:56 Dose: 1 mg Lorazepam (Ativan) 1 mg IVP ONCE PRN PRN Reason: BEFORE MRI Last Admin: 06/06/17 09:28 Dose: 1 mg Lorazepam (Ativan) 2 mg IVP ONCE PRN PRN Reason: to be given before MRI Mefloquine HCl (Lariam) 1,000 mg PO QWK [facility] Stop: 06/14/17 10:01 Last Admin: 06/07/17 11:26 Dose: 1,000 mg Ondansetron HCl (Zofran Inj) 4 mg IVP Q4H PRN PRN Reason: GI distress Last Admin: 05/31/17 22:12 Dose: 4 mg Quetiapine Fumarate (Seroquel) 25 mg PO ONCE PRN PRN Reason: Anxiety Last Admin: 06/03/17 08:06 Dose: 25 mg Saccharomyces Boulardii (Florastor) 250 mg PO BID [facility] Last Admin: 06/07/17 21:24 Dose: Not Given Valproate Sodium (Depakene Oral Soln) 500 mg PO Q12H [facility] Last Admin: 06/07/17 21:20 Dose: 500 mg - Labs Labs: 06/07/17 07:54 06/07/17 07:54 PT 13.6 SECONDS (9.7-12.2) H 05/20/17 11:33 INR 1.2 05/20/17 11:33 APTT 28 SECONDS (21-34) 05/20/17 11:33 - Constitutional Appears: No Acute Distress - Head Exam Head Exam: ATRAUMATIC, NORMAL INSPECTION - Eye Exam Eye Exam: Normal appearance - ENT Exam ENT Exam: Mucous Membranes Moist - Respiratory Exam Respiratory Exam: Clear to Ausculation Bilateral, NORMAL BREATHING PATTERN - Cardiovascular Exam Cardiovascular Exam: REGULAR RHYTHM, +S1, +S2 - GI/Abdominal Exam GI & Abdominal Exam: Soft, Normal Bowel Sounds. absent: Tenderness - Extremities Exam Extremities Exam: Normal Inspection - Neurological Exam Neurological Exam: Awake - Psychiatric Exam Psychiatric exam: Normal Affect - Skin Skin Exam: Normal Color, Warm Assessment and Plan - Assessment and Plan (Free Text) Assessment: 1.Altered mental status with white matter changes on MRI brain. Possible Demyelinating Disease. Lumbar puncture performed 05/20/17 by anesthesia. Empiric acyclovir due to suspicion of viral encephalitis. CSF studies workup unremarkable thus far Brain MRI w. contrast * Prominent cerebral white matter changes are stable at may reflect PML, press, toxic/ metabolic demyelination sequelae from immunodeficiency including potential AIDS. 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 No interval mass effect or suspicious extra-axial collection identified. Plasma LILIYA virus ordered--elevated at 3261 To rule out possible ROBOTIC WELDING OPERATOR lymphoma, Dr. Lizama consulted, help appreciated.Recommending CT chest with contrast and csf flow cytometry d/w Dr Waller who recommend csf LILIYA viral study d/w Dr Darnell -started on Decadron 10 mg IV Q8 on 05/26/17--discontinued after finding elevated serum LILIYA virus CT Chest/Abdomen/Pelvis 05/27/17 showed no lymphadenopathy Repeat LP on 05/31/17 to assess for LILIYA virus in the CSF and flow cytometry for ROBOTIC WELDING OPERATOR lymphoma - f/u oligoclonal band * Per Dr. 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 Will follow up IGG studies. IVIG 400 mg /kg x5 days was ordered on 06/05/17. Cervical and thoracic spine MRI w. Gadolinium ordered to evaluate for demyelinating disease. No evidence of demyelinating disease seen on Cervical MRI. Thoracic MRI pending. 2. Gluteal wound, stage 2 intergluteal ulcer no leukocytosis, afebrile Surgery consulted, Dr. Neil, help appreciated as per surgery superficial gluteal wound, no tract- no surgical intervention wound care kirsten talamantes blood cultures- no growth 3.Acute diverticulitis no leukocytosis, afebrile Repeat CT 05/27/17 shows improved diverticulitis Abdomen/Pelvis CT: diverticulitis of sigmoid colon, mild splenomegaly, liver lesions Cipro 400mg q12h, discontinued 05/19 due to rash Flagyl 500mg q8h, discontinued 05/19 due to rash Aztreonam 1 gm Q8H, started 05/19--discontinued Clindamycin 450mg IVPB Q6H, started 05/19--discontinued Ultram 25mg po BID for pain GI, Dr. Charles, consulted- help appreciated -continue antibiotics for 2 weeks 4. Prophylactic Measure Regular diet Lovenox 40 mg SC--to be held due to LP Protonix 40 mg PO daily [phone] Wendy Diamond--patient's sister and point of contact Disposition: Working diagnosis is demyelinating disease. Trial of IVIG for 5 days began on 06/04/17. Last day is on 06/08/17. Patient will need Medicaid to qualify for skilled nursing. Per case management team, the sister has been provided the materials to apply for it. <Анна Herman - Last Filed: 06/09/17 15:22> Objective - Vital Signs/Intake and Output Vital Signs (last 24 hours): Temp Pulse Resp BP Pulse Ox 97.6 F 82 20 104/68 96 06/08/17 15:00 06/08/17 15:00 06/08/17 15:00 06/08/17 15:00 06/08/17 15:00 Intake and Output: 06/08/17 06/09/17 18:59 06:59 Intake Total 400 Balance 400 - Medications Medications: Current Medications Famotidine (Pepcid) 20 mg PO BID [facility] Last Admin: 06/08/17 17:35 Dose: 20 mg Lorazepam (Ativan) 1 mg IVP Q4H PRN PRN Reason: Agitation Last Admin: 06/08/17 06:13 Dose: 1 mg Lorazepam (Ativan) 1 mg IVP ONCE PRN PRN Reason: BEFORE MRI Last Admin: 06/06/17 09:28 Dose: 1 mg Lorazepam (Ativan) 2 mg IVP ONCE PRN PRN Reason: to be given before MRI Mefloquine HCl (Lariam) 1,000 mg PO QWK [facility] Stop: 06/14/17 10:01 Last Admin: 06/07/17 11:26 Dose: 1,000 mg Ondansetron HCl (Zofran Inj) 4 mg IVP Q4H PRN PRN Reason: GI distress Last Admin: 05/31/17 22:12 Dose: 4 mg Quetiapine Fumarate (Seroquel) 25 mg PO ONCE PRN PRN Reason: Anxiety Last Admin: 06/03/17 08:06 Dose: 25 mg Saccharomyces Boulardii (Florastor) 250 mg PO BID [facility] Last Admin: 06/08/17 17:35 Dose: 250 mg Valproate Sodium (Depakene Oral Soln) 500 mg PO Q12H [facility] Last Admin: 06/08/17 11:00 Dose: 500 mg - Labs Labs: 06/07/17 07:54 06/07/17 07:54 PT 13.6 SECONDS (9.7-12.2) H 05/20/17 11:33 INR 1.2 05/20/17 11:33 APTT 28 SECONDS (21-34) 05/20/17 11:33 Attending/Attestation - Attestation I have personally seen and examined this patient.: Yes I have fully participated in the care of the patient.: Yes I have reviewed all pertinent clinical information, including history, physical exam and plan: Yes Notes (Text): Patient was seen and examined ]He is awake today,not talking,not following directions.no discomfort noted completed IV IG on Mefloquin d/w patients sister,mother and brother in law I agree with the documentation of the resident's assessment and the plan 06/09/17 15:20
[2017-06-08] MEDS: Saccharomyces Boulardi 250 mg Cap PO SCH ×2 (11:00→17:35)
[2017-06-08] MEDS: Valproic Acid 250 mg/5 ml UD Cup PO SCH ×2 (11:00→21:44)
[2017-06-08] MEDS: IMMUNE GLOBULIN 50 MG/ML IV SCH (16:28)
--- NOTE | 2017-06-09 00:57 | CP.PCM.PN ---
<Margaret Irving - Last Filed: 06/09/17 06:12> Subjective - Date & Time of Evaluation Date of Evaluation: 06/09/17 Time of Evaluation: 06:00 - Subjective Subjective: Medicine Progress Note: Patient seen and examined at beside. Patient reports feeling well and denies any complaints. Objective - Vital Signs/Intake and Output Vital Signs (last 24 hours): Temp Pulse Resp BP Pulse Ox 98.3 F 75 20 115/83 97 06/08/17 23:11 06/08/17 23:11 06/08/17 23:11 06/08/17 23:11 06/08/17 23:11 Intake and Output: 06/08/17 06/09/17 18:59 06:59 Intake Total 400 Balance 400 - Medications Medications: Current Medications Famotidine (Pepcid) 20 mg PO BID [facility] Last Admin: 06/08/17 17:35 Dose: 20 mg Lorazepam (Ativan) 1 mg IVP Q4H PRN PRN Reason: Agitation Last Admin: 06/08/17 06:13 Dose: 1 mg Lorazepam (Ativan) 1 mg IVP ONCE PRN PRN Reason: BEFORE MRI Last Admin: 06/06/17 09:28 Dose: 1 mg Lorazepam (Ativan) 2 mg IVP ONCE PRN PRN Reason: to be given before MRI Mefloquine HCl (Lariam) 1,000 mg PO QWK [facility] Stop: 06/14/17 10:01 Last Admin: 06/07/17 11:26 Dose: 1,000 mg Ondansetron HCl (Zofran Inj) 4 mg IVP Q4H PRN PRN Reason: GI distress Last Admin: 05/31/17 22:12 Dose: 4 mg Quetiapine Fumarate (Seroquel) 25 mg PO ONCE PRN PRN Reason: Anxiety Last Admin: 06/03/17 08:06 Dose: 25 mg Saccharomyces Boulardii (Florastor) 250 mg PO BID [facility] Last Admin: 06/08/17 17:35 Dose: 250 mg Valproate Sodium (Depakene Oral Soln) 500 mg PO Q12H [facility] Last Admin: 06/08/17 21:44 Dose: 500 mg - Labs Labs: 06/07/17 07:54 06/07/17 07:54 PT 13.6 SECONDS (9.7-12.2) H 05/20/17 11:33 INR 1.2 05/20/17 11:33 APTT 28 SECONDS (21-34) 05/20/17 11:33 - Constitutional Appears: No Acute Distress, Chronically Ill - Head Exam Head Exam: NORMAL INSPECTION - Eye Exam Eye Exam: Normal appearance - ENT Exam ENT Exam: Mucous Membranes Moist - Respiratory Exam Respiratory Exam: Clear to Ausculation Bilateral, NORMAL BREATHING PATTERN - Cardiovascular Exam Cardiovascular Exam: REGULAR RHYTHM, +S1, +S2 - GI/Abdominal Exam GI & Abdominal Exam: Soft, Normal Bowel Sounds. absent: Tenderness - Extremities Exam Extremities Exam: Normal Inspection - Neurological Exam Neurological Exam: Awake - Psychiatric Exam Psychiatric exam: Normal Affect - Skin Skin Exam: Normal Color, Warm Assessment and Plan - Assessment and Plan (Free Text) Assessment: 1.Altered mental status with white matter changes on MRI brain. Possible Demyelinating Disease. Lumbar puncture performed 05/20/17 by anesthesia. Empiric acyclovir due to suspicion of viral encephalitis. CSF studies workup unremarkable thus far Brain MRI w. contrast * Prominent cerebral white matter changes are stable at may reflect PML, press, toxic/ metabolic demyelination sequelae from immunodeficiency including potential AIDS. 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 No interval mass effect or suspicious extra-axial collection identified. Plasma LILIYA virus ordered--elevated at 3261 To rule out possible PROGRAM MANAGER TRANSPORTATION lymphoma, Dr. Lizama consulted, help appreciated.Recommending CT chest with contrast and csf flow cytometry d/w Dr Waller who recommend csf LILIYA viral study d/w Dr Darnell -started on Decadron 10 mg IV Q8 on 05/26/17--discontinued after finding elevated serum LILIYA virus CT Chest/Abdomen/Pelvis 05/27/17 showed no lymphadenopathy Repeat LP on 05/31/17 to assess for LILIYA virus in the CSF and flow cytometry for PROGRAM MANAGER TRANSPORTATION lymphoma - f/u oligoclonal band * Per Dr. 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 Will follow up IGG studies. IVIG 400 mg /kg x5 days was ordered on 06/05/17. Cervical and thoracic spine MRI w. Gadolinium ordered to evaluate for demyelinating disease. No evidence of demyelinating disease seen on Cervical MRI. Thoracic MRI pending. 2. Gluteal wound, stage 2 intergluteal ulcer no leukocytosis, afebrile Surgery consulted, Dr. Neil, help appreciated as per surgery superficial gluteal wound, no tract- no surgical intervention wound care kirsten talamantes blood cultures- no growth 3.Acute diverticulitis no leukocytosis, afebrile Repeat CT 05/27/17 shows improved diverticulitis Abdomen/Pelvis CT: diverticulitis of sigmoid colon, mild splenomegaly, liver lesions Cipro 400mg q12h, discontinued 05/19 due to rash Flagyl 500mg q8h, discontinued 05/19 due to rash Aztreonam 1 gm Q8H, started 05/19--discontinued Clindamycin 450mg IVPB Q6H, started 05/19--discontinued Ultram 25mg po BID for pain GI, Dr. Charles, consulted- help appreciated -continue antibiotics for 2 weeks 4. Prophylactic Measure Regular diet Lovenox 40 mg SC--to be held due to LP Protonix 40 mg PO daily [phone] Wendy Diamond--patient's sister and point of contact Disposition: Working diagnosis is demyelinating disease. Trial of IVIG for 5 days began on 06/04/17. Last day is on 06/08/17. Patient will need Medicaid to qualify for [facility]. Per case management team, the sister has been provided the materials to apply for it. <Анна Herman - Last Filed: 06/09/17 15:29> Objective - Vital Signs/Intake and Output Vital Signs (last 24 hours): Temp Pulse Resp BP Pulse Ox 98.3 F 60 20 121/81 97 06/08/17 23:11 06/09/17 08:16 06/09/17 08:16 06/09/17 08:16 06/09/17 08:16 Intake and Output: 06/09/17 06/09/17 06:59 18:59 Intake Total 400 Output Total 500 Balance -500 400 - Medications Medications: Current Medications Famotidine (Pepcid) 20 mg PO BID [facility] Last Admin: 06/09/17 10:32 Dose: 20 mg Lorazepam (Ativan) 1 mg IVP Q4H PRN PRN Reason: Agitation Last Admin: 06/08/17 06:13 Dose: 1 mg Lorazepam (Ativan) 1 mg IVP ONCE PRN PRN Reason: BEFORE MRI Last Admin: 06/06/17 09:28 Dose: 1 mg Lorazepam (Ativan) 2 mg IVP ONCE PRN PRN Reason: to be given before MRI Mefloquine HCl (Lariam) 1,000 mg PO QWK [facility] Stop: 06/14/17 10:01 Last Admin: 06/07/17 11:26 Dose: 1,000 mg Ondansetron HCl (Zofran Inj) 4 mg IVP Q4H PRN PRN Reason: GI distress Last Admin: 05/31/17 22:12 Dose: 4 mg Quetiapine Fumarate (Seroquel) 25 mg PO ONCE PRN PRN Reason: Anxiety Last Admin: 06/03/17 08:06 Dose: 25 mg Saccharomyces Boulardii (Florastor) 250 mg PO BID [facility] Last Admin: 06/09/17 10:32 Dose: 250 mg Valproate Sodium (Depakene Oral Soln) 500 mg PO Q12H [facility] Last Admin: 06/09/17 10:32 Dose: 500 mg - Labs Labs: 06/07/17 07:54 06/07/17 07:54 PT 13.6 SECONDS (9.7-12.2) H 05/20/17 11:33 INR 1.2 05/20/17 11:33 APTT 28 SECONDS (21-34) 05/20/17 11:33 Attending/Attestation - Attestation I have personally seen and examined this patient.: Yes I have fully participated in the care of the patient.: Yes I have reviewed all pertinent clinical information, including history, physical exam and plan: Yes Notes (Text): Awake,Respond with "good morning" but not answering questions and not following directions we will follow with Dr Waller and DR Darnell continue Mefloquin I agree with the resident' s documentation
[2017-06-09] MEDS: Valproic Acid 250 mg/5 ml UD Cup PO SCH ×2 (10:32→21:44)
[2017-06-09] MEDS: Saccharomyces Boulardi 250 mg Cap PO SCH ×2 (10:32→17:50)
--- NOTE | 2017-06-09 16:30 | CP.PCM.PN ---
Subjective - Date & Time of Evaluation Date of Evaluation: 06/09/17 Time of Evaluation: 08:00 - Subjective Subjective: await LILIYA PCR cont rx more awake alet Objective - Vital Signs/Intake and Output Vital Signs (last 24 hours): Temp Pulse Resp BP Pulse Ox 98.3 F 76 20 126/78 96 06/09/17 15:51 06/09/17 15:51 06/09/17 15:51 06/09/17 15:51 06/09/17 15:51 Intake and Output: 06/09/17 06/09/17 06:59 18:59 Intake Total 400 Output Total 500 Balance -500 400 - Medications Medications: Current Medications Famotidine (Pepcid) 20 mg PO BID [facility] Last Admin: 06/09/17 10:32 Dose: 20 mg Lorazepam (Ativan) 1 mg IVP Q4H PRN PRN Reason: Agitation Last Admin: 06/08/17 06:13 Dose: 1 mg Lorazepam (Ativan) 1 mg IVP ONCE PRN PRN Reason: BEFORE MRI Last Admin: 06/06/17 09:28 Dose: 1 mg Lorazepam (Ativan) 2 mg IVP ONCE PRN PRN Reason: to be given before MRI Mefloquine HCl (Lariam) 1,000 mg PO QWK [facility] Stop: 06/14/17 10:01 Last Admin: 06/07/17 11:26 Dose: 1,000 mg Ondansetron HCl (Zofran Inj) 4 mg IVP Q4H PRN PRN Reason: GI distress Last Admin: 05/31/17 22:12 Dose: 4 mg Quetiapine Fumarate (Seroquel) 25 mg PO ONCE PRN PRN Reason: Anxiety Last Admin: 06/03/17 08:06 Dose: 25 mg Saccharomyces Boulardii (Florastor) 250 mg PO BID [facility] Last Admin: 06/09/17 10:32 Dose: 250 mg Valproate Sodium (Depakene Oral Soln) 500 mg PO Q12H [facility] Last Admin: 06/09/17 10:32 Dose: 500 mg - Labs Labs: 06/07/17 07:54 06/07/17 07:54 PT 13.6 SECONDS (9.7-12.2) H 05/20/17 11:33 INR 1.2 05/20/17 11:33 APTT 28 SECONDS (21-34) 05/20/17 11:33 Assessment and Plan (1) Altered mental status Status: Acute (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
--- NOTE | 2017-06-10 08:03 | CP.PCM.PN ---
Subjective - Date & Time of Evaluation Date of Evaluation: 06/10/17 Time of Evaluation: 08:00 - Subjective Subjective: Mr. Lowry was seen and examined at the bedside. He is awake, responsive to only his name,sporadic utters words, but unable to answer questions and follow commands. He moves all his extremities spontaneously. He is unable to let staff his needs so he is incontinent to bladder and bowel. MRI of the cervical spine showed no evidence of demyelinating disease. 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 He remains on 1:1 sitter for patient safety. There was no untoward events overnight. Objective - Vital Signs/Intake and Output Vital Signs (last 24 hours): Temp Pulse Resp BP Pulse Ox 97.9 F 69 20 115/80 96 06/10/17 07:25 06/10/17 07:25 06/10/17 07:25 06/10/17 07:25 06/10/17 07:25 Intake and Output: 06/10/17 06/10/17 06:59 18:59 Output Total 400 Balance -400 - Medications Medications: Current Medications Famotidine (Pepcid) 20 mg PO BID [facility] Last Admin: 06/09/17 17:50 Dose: 20 mg Lorazepam (Ativan) 1 mg IVP Q4H PRN PRN Reason: Agitation Last Admin: 06/08/17 06:13 Dose: 1 mg Lorazepam (Ativan) 1 mg IVP ONCE PRN PRN Reason: BEFORE MRI Last Admin: 06/06/17 09:28 Dose: 1 mg Lorazepam (Ativan) 2 mg IVP ONCE PRN PRN Reason: to be given before MRI Mefloquine HCl (Lariam) 1,000 mg PO QWK [facility] Stop: 06/14/17 10:01 Last Admin: 06/07/17 11:26 Dose: 1,000 mg Ondansetron HCl (Zofran Inj) 4 mg IVP Q4H PRN PRN Reason: GI distress Last Admin: 05/31/17 22:12 Dose: 4 mg Quetiapine Fumarate (Seroquel) 25 mg PO ONCE PRN PRN Reason: Anxiety Last Admin: 06/03/17 08:06 Dose: 25 mg Saccharomyces Boulardii (Florastor) 250 mg PO BID [facility] Last Admin: 06/09/17 17:50 Dose: 250 mg Valproate Sodium (Depakene Oral Soln) 500 mg PO Q12H [facility] Last Admin: 06/09/17 21:44 Dose: 500 mg - Labs Labs: 06/07/17 07:54 06/07/17 07:54 PT 13.6 SECONDS (9.7-12.2) H 05/20/17 11:33 INR 1.2 05/20/17 11:33 APTT 28 SECONDS (21-34) 05/20/17 11:33 - Constitutional Appears: No Acute Distress - Head Exam Head Exam: NORMAL INSPECTION - Neurological Exam Neuro motor strength exam: Left Upper Extremity: 5, Right Upper Extremity: 5, Left Lower Extremity: 5, Right Lower Extremity: 5 Additional comments: He is unable to follow commands, answer questions, moves all extremities spontaneously. Assessment and Plan (1) Altered mental status Assessment & Plan: Case discussed with Dr. Hodges, continue all current medical regimen. Recommend repeat EEG to evaluate any brain activity abnormality. Status: Acute
--- NOTE | 2017-06-10 11:05 | CP.PCM.PN ---
<Ronni Ford - Last Filed: 06/10/17 16:06> Subjective - Date & Time of Evaluation Date of Evaluation: 06/10/17 Time of Evaluation: 07:50 - Subjective Subjective: Medicine progress note for Dr. aBnda Patient seen and examined at bedside. Patient states that he's "same old." Patient not very verbal after that but nods his head to questioning. No acute events noted. Objective - Vital Signs/Intake and Output Vital Signs (last 24 hours): Temp Pulse Resp BP Pulse Ox 97.9 F 69 20 115/80 96 06/10/17 07:25 06/10/17 07:25 06/10/17 07:25 06/10/17 07:25 06/10/17 07:25 Intake and Output: 06/10/17 06/10/17 06:59 18:59 Output Total 400 Balance -400 - Medications Medications: Current Medications Famotidine (Pepcid) 20 mg PO BID [facility] Last Admin: 06/09/17 17:50 Dose: 20 mg Lorazepam (Ativan) 1 mg IVP Q4H PRN PRN Reason: Agitation Last Admin: 06/08/17 06:13 Dose: 1 mg Lorazepam (Ativan) 1 mg IVP ONCE PRN PRN Reason: BEFORE MRI Last Admin: 06/06/17 09:28 Dose: 1 mg Lorazepam (Ativan) 2 mg IVP ONCE PRN PRN Reason: to be given before MRI Mefloquine HCl (Lariam) 1,000 mg PO QWK [facility] Stop: 06/14/17 10:01 Last Admin: 06/07/17 11:26 Dose: 1,000 mg Quetiapine Fumarate (Seroquel) 25 mg PO ONCE PRN PRN Reason: Anxiety Last Admin: 06/03/17 08:06 Dose: 25 mg Saccharomyces Boulardii (Florastor) 250 mg PO BID [facility] Last Admin: 06/09/17 17:50 Dose: 250 mg Valproate Sodium (Depakene Oral Soln) 500 mg PO Q12H [facility] Last Admin: 06/09/17 21:44 Dose: 500 mg - Labs Labs: 06/07/17 07:54 06/07/17 07:54 PT 13.6 SECONDS (9.7-12.2) H 05/20/17 11:33 INR 1.2 01/15/18 11:33 APTT 28 SECONDS (21-34) 05/20/17 11:33 - Additional Findings Additional findings: - Constitutional Appears: No Acute Distress - Head Exam Head Exam: ATRAUMATIC, NORMAL INSPECTION - Eye Exam Eye Exam: EOMI, Normal appearance - ENT Exam ENT Exam: Mucous Membranes Moist - Respiratory Exam Respiratory Exam: Clear to Ausculation Bilateral, NORMAL BREATHING PATTERN - Cardiovascular Exam Cardiovascular Exam: Regular Rhythm, REGULAR RHYTHM, +S1, +S2 - GI/Abdominal Exam GI & Abdominal Exam: Soft, Normal Bowel Sounds. absent: Tenderness - Extremities Exam Extremities Exam: Normal Inspection - Neurological Exam Neurological Exam: Awake - Skin Skin Exam: Normal Color, Warm Assessment and Plan - Assessment and Plan (Free Text) Plan: 1.Altered mental status with white matter changes on MRI brain. Possible Demyelinating Disease. Lumbar puncture performed 05/20/17 by anesthesia. Empiric acyclovir due to suspicion of viral encephalitis. CSF studies workup unremarkable thus far Brain MRI w. contrast * Prominent cerebral white matter changes are stable at may reflect PML, press, toxic/ metabolic demyelination sequelae from immunodeficiency including potential AIDS. 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 No interval mass effect or suspicious extra-axial collection identified. Plasma LILIYA virus ordered--elevated at 3261 To rule out possible FORESTRY TREE PRUNER lymphoma, Dr. Lizama consulted, help appreciated.Recommending CT chest with contrast and csf flow cytometry d/w Dr Waller who recommend csf LILIYA viral study d/w Dr Darnell -started on Decadron 10 mg IV Q8 on 05/26/17--discontinued after finding elevated serum LILIYA virus CT Chest/Abdomen/Pelvis 05/27/17 showed no lymphadenopathy Repeat LP on 05/31/17 to assess for LILIYA virus in the CSF and flow cytometry for FORESTRY TREE PRUNER lymphoma - f/u oligoclonal band * Per Dr. 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 Will follow up IGG studies. IVIG 400 mg /kg x5 days was ordered on 06/05/17. Cervical and thoracic spine MRI w. Gadolinium ordered to evaluate for demyelinating disease. No evidence of demyelinating disease seen on Cervical MRI. Patient could not tolerate getting thoracic MRI. 2. Gluteal wound, stage 2 intergluteal ulcer no leukocytosis, afebrile Surgery consulted, Dr. Neil, help appreciated as per surgery superficial gluteal wound, no tract- no surgical intervention wound care kirsten talamantes blood cultures- no growth 3.Acute diverticulitis no leukocytosis, afebrile Repeat CT 05/27/17 shows improved diverticulitis Abdomen/Pelvis CT: diverticulitis of sigmoid colon, mild splenomegaly, liver lesions Cipro 400mg q12h, discontinued 05/19 due to rash Flagyl 500mg q8h, discontinued 05/19 due to rash Aztreonam 1 gm Q8H, started 05/19--discontinued Clindamycin 450mg IVPB Q6H, started 05/19--discontinued Ultram 25mg po BID for pain GI, Dr. Charles, consulted- help appreciated -continue antibiotics for 2 weeks 4. Prophylactic Measure Regular diet Lovenox 40 mg SC--to be held due to LP Protonix 40 mg PO daily [phone] Wendy Diamond--patient's sister and point of contact Disposition: Working diagnosis is demyelinating disease. Trial of IVIG for 5 days began on 06/04/17. Last day is on 06/08/17. No changes after initiation of Patient will need Medicaid to qualify for half-way. Per case management team , the sister has been provided the materials to apply for it. Case DW Dr. Veronika Ford PGY-1 <Tristen Banda H - Last Filed: 06/10/17 17:46> Objective - Vital Signs/Intake and Output Vital Signs (last 24 hours): Temp Pulse Resp BP Pulse Ox 97.7 F 88 20 120/79 96 06/10/17 15:00 06/10/17 15:00 06/10/17 15:00 06/10/17 15:00 06/10/17 15:00 Intake and Output: 06/10/17 06/10/17 06:59 18:59 Output Total 400 Balance -400 - Medications Medications: Current Medications Famotidine (Pepcid) 20 mg PO BID [facility] Last Admin: 06/10/17 12:15 Dose: 20 mg Lorazepam (Ativan) 1 mg IVP Q4H PRN PRN Reason: Agitation Last Admin: 06/08/17 06:13 Dose: 1 mg Lorazepam (Ativan) 1 mg IVP ONCE PRN PRN Reason: BEFORE MRI Last Admin: 06/06/17 09:28 Dose: 1 mg Lorazepam (Ativan) 2 mg IVP ONCE PRN PRN Reason: to be given before MRI Mefloquine HCl (Lariam) 1,000 mg PO QWK [facility] Stop: 06/14/17 10:01 Last Admin: 06/07/17 11:26 Dose: 1,000 mg Saccharomyces Boulardii (Florastor) 250 mg PO BID [facility] Last Admin: 06/10/17 12:15 Dose: 250 mg Valproate Sodium (Depakene Oral Soln) 500 mg PO Q12H [facility] Last Admin: 06/10/17 12:15 Dose: 500 mg - Labs Labs: 06/10/17 16:45 06/10/17 16:45 PT 13.6 SECONDS (9.7-12.2) H 05/20/17 11:33 INR 1.2 05/20/17 11:33 APTT 28 SECONDS (21-34) 05/20/17 11:33 Attending/Attestation - Attestation I have personally seen and examined this patient.: Yes I have fully participated in the care of the patient.: Yes I have reviewed all pertinent clinical information, including history, physical exam and plan: Yes Notes (Text): 06/10/17 17:46 Medical attending: Patient was seen and examined by me, agrees the above note by medical billing service. I saw the patient together with medical billing service. Unfortunately I do not have any signifigant new news with regards to Fito Daniel. As mentioned previously he's awake, he does not readily respond to commands. Occasionally he'll be able to speak 1 or 2 words. We are still pending on the CSF studies for the lymphoma, LILIYA virus. The only CSF study that has returned so far for the oligo clonal bands - which the patient then underwent additional MRI studies of the cervical spine for any potential demyelination disease. However these were negative. Family was not present at bedside today. Thank you very much, Tristen Banda
[2017-06-10] MEDS: Saccharomyces Boulardi 250 mg Cap PO SCH ×2 (12:15→18:05)
[2017-06-10] MEDS: Valproic Acid 250 mg/5 ml UD Cup PO SCH ×2 (12:15→22:14)
[2017-06-10 16:51] LABS: BASO # 0.1 K/uL (0.0-0.2); BASO % 1.2 % (0.0-2.0); EOS # 0.2 K/uL (0.0-0.7); EOS % 3.5 % (0.0-4.0); HEMOGLOBIN 15.4 g/dL (12.0-18.0); LYMPH # 1.4 K/uL (1.0-4.3); LYMPH % 24.7 % (20.0-40.0); MEAN CELL VOLUME 88.9 fL (80.0-94.0); MEAN CORPUSCULAR HEMOGLOBIN 31.5 pg (27.0-31.0); MEAN CORPUSCULAR HGB CONC 35.4 g/dL (33.0-37.0); MEAN PLATELET VOLUME 8.6 fL (7.2-11.7); MONO # 0.7 K/uL (0.0-0.8); MONO % 12.1 % (0.0-10.0); NEUT # 3.3 K/uL (1.8-7.0); NEUT % 58.5 % (50.0-75.0); NRBC % 0.8 % (0.0-2.0); RBC 4.88 Mil/uL (4.40-5.90); RED CELL DISTRIBUTION WIDTH 17.7 % (11.5-14.5); WHITE BLOOD COUNT 5.6 K/uL (4.8-10.8)
[2017-06-10 17:30] LABS: ALB/GLOB RATIO 0.7 (1.0-2.1); ALT/SGPT 47 U/L (21-72); AST/SGOT 36 U/L (17-59); BLOOD UREA NITROGEN 18 mg/dL (9-20); CALCIUM 9.4 mg/dl (8.6-10.4); GFR AFRICAN-AMERICAN > 60; GFR NON-AFRICAN AMERICAN > 60; MAGNESIUM 1.8 mg/dL (1.6-2.3)
--- NOTE | 2017-06-11 04:44 | CP.PCM.PN ---
Addendum entered and electronically signed by Ronni Ford DO 06/11/17 16:16: After conversation with Dr. Hodges, we will hold off on the IVIG and consider other imaging modalities to acquire a definitive diagnosis. Original Note: <Ronni Ford - Last Filed: 06/11/17 14:58> Subjective - Date & Time of Evaluation Date of Evaluation: 06/11/17 Time of Evaluation: 07:30 - Subjective Subjective: Medicine progress note for Dr. Banda Patient seen and examined at bedside. Patient was seen getting bedside EEG this morning. On rounds, he was more talkative than before. He still will not answer questions at times, but he is conversing more than he has at baseline during this admission. Objective - Vital Signs/Intake and Output Vital Signs (last 24 hours): Temp Pulse Resp BP Pulse Ox 97.8 F 87 20 123/75 95 06/10/17 23:24 06/10/17 23:24 06/10/17 23:24 06/10/17 23:24 06/10/17 23:24 Intake and Output: 06/10/17 06/11/17 18:59 06:59 Intake Total 400 Balance 400 - Medications Medications: Current Medications Famotidine (Pepcid) 20 mg PO BID [facility] Last Admin: 06/10/17 18:05 Dose: 20 mg Lorazepam (Ativan) 1 mg IVP Q4H PRN PRN Reason: Agitation Last Admin: 06/08/17 06:13 Dose: 1 mg Lorazepam (Ativan) 1 mg IVP ONCE PRN PRN Reason: BEFORE MRI Last Admin: 06/06/17 09:28 Dose: 1 mg Lorazepam (Ativan) 2 mg IVP ONCE PRN PRN Reason: to be given before MRI Mefloquine HCl (Lariam) 1,000 mg PO QWK [facility] Stop: 06/14/17 10:01 Last Admin: 06/07/17 11:26 Dose: 1,000 mg Saccharomyces Boulardii (Florastor) 250 mg PO BID [facility] Last Admin: 06/10/17 18:05 Dose: 250 mg Valproate Sodium (Depakene Oral Soln) 500 mg PO Q12H [facility] Last Admin: 06/10/17 22:14 Dose: 500 mg - Labs Labs: 06/10/17 16:45 06/10/17 16:45 PT 13.6 SECONDS (9.7-12.2) H 05/20/17 11:33 INR 1.2 05/20/17 11:33 APTT 28 SECONDS (21-34) 05/20/17 11:33 - Additional Findings Additional findings: - Constitutional Appears: No Acute Distress - Head Exam Head Exam: ATRAUMATIC, NORMAL INSPECTION - Eye Exam Eye Exam: EOMI, Normal appearance - ENT Exam ENT Exam: Mucous Membranes Moist - Respiratory Exam Respiratory Exam: Clear to Auscultation Bilateral, NORMAL BREATHING PATTERN - Cardiovascular Exam Cardiovascular Exam: Regular Rhythm, REGULAR RHYTHM, +S1, +S2 - GI/Abdominal Exam GI & Abdominal Exam: Soft, Normal Bowel Sounds. absent: Tenderness - Extremities Exam Extremities Exam: Normal Inspection - Neurological Exam Neurological Exam: Awake, Alert - Skin Skin Exam: Normal Color, Warm Assessment and Plan - Assessment and Plan (Free Text) Plan: 1.Altered mental status with white matter changes on MRI brain. Possible Demyelinating Disease. Lumbar puncture performed 05/20/17 by anesthesia. Empiric acyclovir due to suspicion of viral encephalitis. CSF studies workup unremarkable thus far Brain MRI w. contrast * Prominent cerebral white matter changes are stable at may reflect PML, press, toxic/ metabolic demyelination sequelae from immunodeficiency including potential AIDS. 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 No interval mass effect or suspicious extra-axial collection identified. Plasma LILIYA virus ordered--elevated at 3261. However, it is not high in the CSF. To rule out possible VP SOFTWARE lymphoma, Dr. Lziama consulted, help appreciated.Recommending CT chest with contrast and csf flow cytometry d/w Dr Waller who recommend csf LILIYA viral study d/w Dr Darnell -started on Decadron 10 mg IV Q8 on 05/26/17--discontinued after finding elevated serum LILIYA virus CT Chest/Abdomen/Pelvis 05/27/17 showed no lymphadenopathy Repeat LP on 05/31/17 to assess for LILIYA virus in the CSF and flow cytometry for VP SOFTWARE lymphoma - f/u flow cytometry * Per Dr. 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 Will follow up IGG studies. IVIG 400 mg /kg x5 days was ordered on 06/05/17. Cervical and thoracic spine MRI w. Gadolinium ordered to evaluate for demyelinating disease. No evidence of demyelinating disease seen on Cervical MRI. Patient could not tolerate getting thoracic MRI. Another 5 day course of IVIG to begin on 06/11/17 after having seen improvement in patient's status. 2. Gluteal wound, stage 2 intergluteal ulcer no leukocytosis, afebrile Surgery consulted, Dr. Neil, help appreciated as per surgery superficial gluteal wound, no tract- no surgical intervention wound care kirsten talamantes blood cultures- no growth 3.Acute diverticulitis no leukocytosis, afebrile Repeat CT 05/27/17 shows improved diverticulitis Abdomen/Pelvis CT: diverticulitis of sigmoid colon, mild splenomegaly, liver lesions Cipro 400mg q12h, discontinued 05/19 due to rash Flagyl 500mg q8h, discontinued 05/19 due to rash Aztreonam 1 gm Q8H, started 05/19--discontinued Clindamycin 450mg IVPB Q6H, started 05/19--discontinued Ultram 25mg po BID for pain GI, Dr. Charles, consulted- help appreciated -continue antibiotics for 2 weeks 4. Prophylactic Measure Regular diet Lovenox 40 mg SC--to be held due to LP Protonix 40 mg PO daily [phone] Wendy Diamond--patient's sister and point of contact Disposition: Working diagnosis is demyelinating disease. Trial of IVIG for 5 days began on 06/04/17 and ended on 06/08/17. No changes were initially seen after initiation of therapy; however, on 06/11/17, patient was conversing with us briefly on rounds. Since LILIYA virus in CSF is negative, we will begin another 5 day course of IVIG. We will continue to monitor. Case DW Dr. Veronika Ford PGY-1 <Tristen Banda - Last Filed: 06/11/17 16:22> Objective - Vital Signs/Intake and Output Vital Signs (last 24 hours): Temp Pulse Resp BP Pulse Ox 98.4 F 82 20 111/74 96 06/11/17 15:15 06/11/17 15:15 06/11/17 15:15 06/11/17 15:15 06/11/17 15:15 Intake and Output: 06/11/17 06/11/17 06:59 18:59 Intake Total 520 Balance 520 - Medications Medications: Current Medications Famotidine (Pepcid) 20 mg PO BID [facility] Last Admin: 06/11/17 10:13 Dose: 20 mg Lorazepam (Ativan) 1 mg IVP Q4H PRN PRN Reason: Agitation Last Admin: 06/08/17 06:13 Dose: 1 mg Lorazepam (Ativan) 1 mg IVP ONCE PRN PRN Reason: BEFORE MRI Last Admin: 06/06/17 09:28 Dose: 1 mg Lorazepam (Ativan) 2 mg IVP ONCE PRN PRN Reason: to be given before MRI Mefloquine HCl (Lariam) 1,000 mg PO QWK [facility] Stop: 06/14/17 10:01 Last Admin: 06/07/17 11:26 Dose: 1,000 mg Saccharomyces Boulardii (Florastor) 250 mg PO BID [facility] Last Admin: 06/11/17 10:13 Dose: 250 mg Valproate Sodium (Depakene Oral Soln) 500 mg PO Q12H [facility] Last Admin: 06/11/17 10:13 Dose: 500 mg - Labs Labs: 06/10/17 16:45 06/10/17 16:45 PT 13.6 SECONDS (9.7-12.2) H 05/20/17 11:33 INR 1.2 05/20/17 11:33 APTT 28 SECONDS (21-34) 05/20/17 11:33 Attending/Attestation - Attestation I have personally seen and examined this patient.: Yes I have fully participated in the care of the patient.: Yes I have reviewed all pertinent clinical information, including history, physical exam and plan: Yes Notes (Text): 06/11/17 16:22 Medical attending: Patient was seen and examined by me as well, agrees the above note by the medical artist. Earlier in the morning I went down to the laboratory and after a very long search we were able to walk on to [facility] lab system and I was able to find the patient's CSF for LILIYA virus which if I understand correctly looking at it is very low. I spoke with the neurologist seen the patient this week, and I discussed with her the low LILIYA virus found in the CSF Because the patient appeared to be much better on physical exam today than previous times I seen we consider continuing with the IVIG especially since the LILIYA virus was not elevated in the CSF taken from the second lumbar puncture Later on during the day pharmacy got back to me explained that is very expensive medication, explained the history of the patient, this went up to him administration and we rediscussed it with neurology as well. So for now and hold off on giving him another 5 day course of IVIG. And see how he continues to respond, him being told that he should continue to monitor the patient's response to the initial course of IVIG. Tristen Banda
[2017-06-11] MEDS: Saccharomyces Boulardi 250 mg Cap PO SCH ×2 (10:13→17:57)
[2017-06-11] MEDS: Valproic Acid 250 mg/5 ml UD Cup PO SCH ×2 (10:13→21:18)
[2017-06-11] MEDS ORDERED: Immune Globulin 50 MG/ML (OCTAGAM 5%) 10 GM/200 ML IV SCH (15:00)
--- NOTE | 2017-06-11 15:25 | CP.PCM.PN ---
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 He said "hi there" when i walked in the room, and tracks. However, when asked specific questions, he is not able to answer appropriately, nor does he follow commands. There are no focal seizures noted, and so far, EEGs have only showed encephalopathy. Repeat LP showed that LILIYA virus load was low, but he is on mefloquine. One exam: Awake, alert, not oriented. Very limited verbal output. EOMI. no facial asymmetry. CN 2-12normal. Asterixis. Motor: strength normal. Sensory: not accurate. Gait not tested. +3 dtr ul and ll bl. Toes downgoing. +asterixis. Objective - Vital Signs/Intake and Output Vital Signs (last 24 hours): Temp Pulse Resp BP Pulse Ox 97.8 F 72 20 117/79 95 06/11/17 08:00 06/11/17 08:00 06/11/17 08:00 06/11/17 08:00 06/11/17 08:00 Intake and Output: 06/11/17 06/11/17 06:59 18:59 Intake Total 520 Balance 520 - Medications Medications: Current Medications Famotidine (Pepcid) 20 mg PO BID [facility] Last Admin: 06/11/17 10:13 Dose: 20 mg Immune Globulin (Octagam 5%) 36 gm IV DAILY [facility] Stop: 06/15/17 10:01 Lorazepam (Ativan) 1 mg IVP Q4H PRN PRN Reason: Agitation Last Admin: 06/08/17 06:13 Dose: 1 mg Lorazepam (Ativan) 1 mg IVP ONCE PRN PRN Reason: BEFORE MRI Last Admin: 06/06/17 09:28 Dose: 1 mg Lorazepam (Ativan) 2 mg IVP ONCE PRN PRN Reason: to be given before MRI Mefloquine HCl (Lariam) 1,000 mg PO QWK [facility] Stop: 06/14/17 10:01 Last Admin: 06/07/17 11:26 Dose: 1,000 mg Saccharomyces Boulardii (Florastor) 250 mg PO BID [facility] Last Admin: 06/11/17 10:13 Dose: 250 mg Valproate Sodium (Depakene Oral Soln) 500 mg PO Q12H [facility] Last Admin: 06/11/17 10:13 Dose: 500 mg - Labs Labs: 06/10/17 16:45 06/10/17 16:45 PT 13.6 SECONDS (9.7-12.2) H 05/20/17 11:33 INR 1.2 05/20/17 11:33 APTT 28 SECONDS (21-34) 05/20/17 11:33 Assessment and Plan - Assessment and Plan (Free Text) Assessment: 51 yr old male with cerebral process that has differential of demyelinating process, Powdered Sugar Supervisor lymphoma, or LILIYA virus. is not having seizures, although I feel he was prior to this week, and the depakote is recommended to be continued. I feel that repeating another round of IVIG may be helpful. We will also repeat an EEG. Plan: 1. EEG 2. One more round of 5 day IVIG 3. Physical therapy.
--- NOTE | 2017-06-12 07:08 | CP.PCM.PN ---
<Ronni Ford - Last Filed: 06/12/17 15:15> Subjective - Date & Time of Evaluation Date of Evaluation: 06/12/17 Time of Evaluation: 07:40 - Subjective Subjective: Medicine progress note for Dr. Banda Patient seen and examined at bedside. Patient was able to tell me this morning that he feels cold in the room. Patient later seen on rounds able to converse with staff. Patient was able to answer some of our questions. Patient was seen visibly trying to think and consider his answers. At times, he could not answer , but it seemed that he was trying to reason. Objective - Vital Signs/Intake and Output Vital Signs (last 24 hours): Temp Pulse Resp BP Pulse Ox 98.4 F 85 20 118/76 95 06/11/17 23:28 06/11/17 23:28 06/11/17 23:28 06/11/17 23:28 06/11/17 23:28 Intake and Output: 06/12/17 06/12/17 06:59 18:59 Intake Total 100 Balance 100 - Medications Medications: Current Medications Famotidine (Pepcid) 20 mg PO BID [facility] Last Admin: 06/11/17 17:57 Dose: 20 mg Lorazepam (Ativan) 1 mg IVP Q4H PRN PRN Reason: Agitation Last Admin: 06/08/17 06:13 Dose: 1 mg Lorazepam (Ativan) 1 mg IVP ONCE PRN PRN Reason: BEFORE MRI Last Admin: 06/06/17 09:28 Dose: 1 mg Lorazepam (Ativan) 2 mg IVP ONCE PRN PRN Reason: to be given before MRI Mefloquine HCl (Lariam) 1,000 mg PO QWK [facility] Stop: 06/14/17 10:01 Last Admin: 06/07/17 11:26 Dose: 1,000 mg Saccharomyces Boulardii (Florastor) 250 mg PO BID [facility] Last Admin: 06/11/17 17:57 Dose: 250 mg Valproate Sodium (Depakene Oral Soln) 500 mg PO Q12H [facility] Last Admin: 06/11/17 21:18 Dose: 500 mg - Labs Labs: 06/10/17 16:45 06/10/17 16:45 PT 13.6 SECONDS (9.7-12.2) H 05/20/17 11:33 INR 1.2 05/20/17 11:33 APTT 28 SECONDS (21-34) 05/20/17 11:33 - Additional Findings Additional findings: - Constitutional Appears: No Acute Distress - Head Exam Head Exam: ATRAUMATIC, NORMAL INSPECTION - Eye Exam Eye Exam: EOMI, Normal appearance - ENT Exam ENT Exam: Mucous Membranes Moist - Respiratory Exam Respiratory Exam: Clear to Auscultation Bilateral, NORMAL BREATHING PATTERN - Cardiovascular Exam Cardiovascular Exam: Regular Rhythm, REGULAR RHYTHM, +S1, +S2 - GI/Abdominal Exam GI & Abdominal Exam: Soft, Normal Bowel Sounds. absent: Tenderness - Extremities Exam Extremities Exam: Normal Inspection - Neurological Exam Neurological Exam: Awake, Alert - Skin Skin Exam: Normal Color, Warm Assessment and Plan - Assessment and Plan (Free Text) Plan: 1.Altered mental status with white matter changes on MRI brain. Possible Demyelinating Disease. Lumbar puncture performed 05/20/17 by anesthesia. Empiric acyclovir due to suspicion of viral encephalitis. CSF studies workup unremarkable thus far Brain MRI w. contrast * Prominent cerebral white matter changes are stable at may reflect PML, press, toxic/ metabolic demyelination sequelae from immunodeficiency including potential AIDS. 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 No interval mass effect or suspicious extra-axial collection identified. Plasma LILIYA virus ordered--elevated at 3261. However, it is not high in the CSF. To rule out possible PARTS CONTROL CLERK lymphoma, Dr. Lizama consulted, help appreciated.Recommending CT chest with contrast and csf flow cytometry d/w Dr Waller who recommend csf LILIYA viral study d/w Dr Darnell -started on Decadron 10 mg IV Q8 on 05/26/17--discontinued after finding elevated serum LILIYA virus CT Chest/Abdomen/Pelvis 05/27/17 showed no lymphadenopathy Repeat LP on 05/31/17 to assess for LILIYA virus in the CSF and flow cytometry for PARTS CONTROL CLERK lymphoma - f/u flow cytometry * Per Dr. 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 Will follow up IGG studies. IVIG 400 mg /kg x5 days was ordered on 06/05/17. Cervical and thoracic spine MRI w. Gadolinium ordered to evaluate for demyelinating disease. No evidence of demyelinating disease seen on Cervical MRI. Patient could not tolerate getting thoracic MRI. Will continue to monitor for now and assess the patient's course. Since improvement seen after the IVIG, we will check for other autoimmune markers in the blood. 2. Gluteal wound, stage 2 intergluteal ulcer no leukocytosis, afebrile Surgery consulted, Dr. Neil, help appreciated as per surgery superficial gluteal wound, no tract- no surgical intervention wound care kirsten talamantes blood cultures- no growth 3.Acute diverticulitis no leukocytosis, afebrile Repeat CT 05/27/17 shows improved diverticulitis Abdomen/Pelvis CT: diverticulitis of sigmoid colon, mild splenomegaly, liver lesions Cipro 400mg q12h, discontinued 05/19 due to rash Flagyl 500mg q8h, discontinued 05/19 due to rash Aztreonam 1 gm Q8H, started 05/19--discontinued Clindamycin 450mg IVPB Q6H, started 05/19--discontinued Ultram 25mg po BID for pain GI, Dr. Charles, consulted- help appreciated -continue antibiotics for 2 weeks 4. Prophylactic Measure Regular diet Lovenox 40 mg SC--to be held due to LP Protonix 40 mg PO daily [phone] Wendy Diamond--patient's sister and point of contact Disposition: Working diagnosis is demyelinating disease. Trial of IVIG for 5 days began on 06/04/17 and ended on 06/08/17. No changes were initially seen after initiation of therapy; however, now the patient is able to converse with us to an extent. I have ordered further autoimmune studies to evaluate for possible etiology. Case DW Dr. Veronika Ford PGY-1 <Tristen Banda - Last Filed: 06/12/17 16:10> Objective - Vital Signs/Intake and Output Vital Signs (last 24 hours): Temp Pulse Resp BP Pulse Ox 98.6 F 84 20 110/73 98 06/12/17 15:30 06/12/17 15:30 06/12/17 15:30 06/12/17 15:30 06/12/17 15:30 Intake and Output: 06/12/17 06/12/17 06:59 18:59 Intake Total 100 Balance 100 - Medications Medications: Current Medications Famotidine (Pepcid) 20 mg PO BID [facility] Last Admin: 06/12/17 10:07 Dose: 20 mg Lorazepam (Ativan) 1 mg IVP Q4H PRN PRN Reason: Agitation Last Admin: 06/08/17 06:13 Dose: 1 mg Lorazepam (Ativan) 1 mg IVP ONCE PRN PRN Reason: BEFORE MRI Last Admin: 06/06/17 09:28 Dose: 1 mg Lorazepam (Ativan) 2 mg IVP ONCE PRN PRN Reason: to be given before MRI Mefloquine HCl (Lariam) 1,000 mg PO QWK [facility] Stop: 06/14/17 10:01 Last Admin: 06/07/17 11:26 Dose: 1,000 mg Saccharomyces Boulardii (Florastor) 250 mg PO BID [facility] Last Admin: 06/12/17 10:07 Dose: 250 mg Valproate Sodium (Depakene Oral Soln) 500 mg PO Q12H [facility] Last Admin: 06/12/17 10:06 Dose: 500 mg - Labs Labs: 06/10/17 16:45 06/10/17 16:45 PT 13.6 SECONDS (9.7-12.2) H 05/20/17 11:33 INR 1.2 05/20/17 11:33 APTT 28 SECONDS (21-34) 05/20/17 11:33 Attending/Attestation - Attestation I have personally seen and examined this patient.: Yes I have fully participated in the care of the patient.: Yes I have reviewed all pertinent clinical information, including history, physical exam and plan: Yes Notes (Text): 06/12/17 16:10 Medical attending: Patient was seen and examined by me, agree with the above note by medical service representative. The patient seems to be remarkably better today. He was able to say many more words. At times it looked almost as if he was struggling to find the words to answer questions. Again he was able to shake my hand, said that he was not short of breath, he said that he is not having pain any place. He was also very active with his arms and legs. It looked almost as if he would be strong enough to fall out of bed So were giving continue to monitor the patient area initially we were going to put in for additional doses of IVIG however we've been told to wait and continue to monitor to see how the patient does with the initial dose of IVIG that he had last week. Like mentioned before, the patient's LILIYA virus and the CSF returned it was low. We've placed the printout in the patient's medical chart. At this time were waiting on the return of the CSF lymphoma studies Thank you so much, Tristen Banda
--- NOTE | 2017-06-12 07:20 | CP.PCM.PN ---
Subjective - Date & Time of Evaluation Date of Evaluation: 06/12/17 Time of Evaluation: 07:17 - Subjective Subjective: Mr. Lowry was seen and examined at the bedside. He is awake, responsive to tactile stimuli, but non verbal. He smiles when staff talks to him.He is able to communicate to staff his needs and less restlessness overnight. He remains on 1:1 sitter for patient safety. There was no untoward events overnight. Objective - Vital Signs/Intake and Output Vital Signs (last 24 hours): Temp Pulse Resp BP Pulse Ox 98.4 F 85 20 118/76 95 06/11/17 23:28 06/11/17 23:28 06/11/17 23:28 06/11/17 23:28 06/11/17 23:28 Intake and Output: 06/12/17 06/12/17 06:59 18:59 Intake Total 100 Balance 100 - Medications Medications: Current Medications Famotidine (Pepcid) 20 mg PO BID [facility] Last Admin: 06/11/17 17:57 Dose: 20 mg Lorazepam (Ativan) 1 mg IVP Q4H PRN PRN Reason: Agitation Last Admin: 06/08/17 06:13 Dose: 1 mg Lorazepam (Ativan) 1 mg IVP ONCE PRN PRN Reason: BEFORE MRI Last Admin: 06/06/17 09:28 Dose: 1 mg Lorazepam (Ativan) 2 mg IVP ONCE PRN PRN Reason: to be given before MRI Mefloquine HCl (Lariam) 1,000 mg PO QWK [facility] Stop: 06/14/17 10:01 Last Admin: 06/07/17 11:26 Dose: 1,000 mg Saccharomyces Boulardii (Florastor) 250 mg PO BID [facility] Last Admin: 06/11/17 17:57 Dose: 250 mg Valproate Sodium (Depakene Oral Soln) 500 mg PO Q12H [facility] Last Admin: 06/11/17 21:18 Dose: 500 mg - Labs Labs: 06/10/17 16:45 06/10/17 16:45 PT 13.6 SECONDS (9.7-12.2) H 05/20/17 11:33 INR 1.2 05/20/17 11:33 APTT 28 SECONDS (21-34) 05/20/17 11:33 - Constitutional Appears: No Acute Distress - Head Exam Head Exam: NORMAL INSPECTION - Neurological Exam Neurological Exam: Awake Neuro motor strength exam: Left Upper Extremity: 5, Right Upper Extremity: 5, Left Lower Extremity: 5, Right Lower Extremity: 5 Additional comments: He is able to move all his extremities spontaneously, but unable to follow simple commands.Sensation remains intact. Assessment and Plan (1) Altered mental status Assessment & Plan: Case discussed with Dr. Hodges, continue all current medical regimen. Pending EEG results. Recommend IVIG at 1g/Kg for 5 days Status: Acute
[2017-06-12] MEDS: Valproic Acid 250 mg/5 ml UD Cup PO SCH ×2 (10:06→21:38)
[2017-06-12] MEDS: Saccharomyces Boulardi 250 mg Cap PO SCH ×2 (10:07→18:02)
[2017-06-12] MEDS ORDERED: Immune Globulin 50 MG/ML (OCTAGAM 5%) 10 GM/200 ML IV SCH (14:00)
[2017-06-12 18:28] LABS: HIV-1 GENOTYPE NOT DETECTED
--- NOTE | 2017-06-13 07:20 | CP.PCM.PN ---
<Ronni Ford - Last Filed: 06/13/17 14:39> Subjective - Date & Time of Evaluation Date of Evaluation: 06/13/17 Time of Evaluation: 07:40 - Subjective Subjective: Medicine progress note for Dr. Banda Patient seen and examined at bedside. Patient answering certain questions. He was seen again on rounds and answering further questions from the attending; however, on certain questions, he seemed to stare off into space. Per nursing staff, he was agitated overnight and given Ativan. Objective - Vital Signs/Intake and Output Vital Signs (last 24 hours): Temp Pulse Resp BP Pulse Ox 98.6 F 74 20 95/63 L 98 06/12/17 15:30 06/13/17 04:27 06/13/17 04:27 06/13/17 04:27 06/12/17 15:30 Intake and Output: 06/13/17 06/13/17 06:59 18:59 Intake Total 620 Balance 620 - Medications Medications: Current Medications Famotidine (Pepcid) 20 mg PO BID [facility] Last Admin: 06/12/17 18:02 Dose: 20 mg Lorazepam (Ativan) 1 mg IVP Q4H PRN PRN Reason: Agitation Last Admin: 06/13/17 00:25 Dose: 1 mg Lorazepam (Ativan) 1 mg IVP ONCE PRN PRN Reason: BEFORE MRI Last Admin: 06/06/17 09:28 Dose: 1 mg Lorazepam (Ativan) 2 mg IVP ONCE PRN PRN Reason: to be given before MRI Mefloquine HCl (Lariam) 1,000 mg PO QWK [facility] Stop: 06/14/17 10:01 Last Admin: 06/07/17 11:26 Dose: 1,000 mg Saccharomyces Boulardii (Florastor) 250 mg PO BID [facility] Last Admin: 06/12/17 18:02 Dose: 250 mg Valproate Sodium (Depakene Oral Soln) 500 mg PO Q12H [facility] Last Admin: 06/12/17 21:38 Dose: 500 mg - Labs Labs: 06/10/17 16:45 06/10/17 16:45 PT 13.6 SECONDS (9.7-12.2) H 05/20/17 11:33 INR 1.2 05/20/17 11:33 APTT 28 SECONDS (21-34) 05/20/17 11:33 - Additional Findings Additional findings: - Constitutional Appears: No Acute Distress - Head Exam Head Exam: ATRAUMATIC, NORMAL INSPECTION - Eye Exam Eye Exam: EOMI, Normal appearance - ENT Exam ENT Exam: Mucous Membranes Moist - Respiratory Exam Respiratory Exam: Clear to Auscultation Bilateral, NORMAL BREATHING PATTERN - Cardiovascular Exam Cardiovascular Exam: Regular Rhythm, REGULAR RHYTHM, +S1, +S2 - GI/Abdominal Exam GI & Abdominal Exam: Soft, Normal Bowel Sounds. absent: Tenderness - Extremities Exam Extremities Exam: Normal Inspection - Neurological Exam Neurological Exam: Awake, Alert - Skin Skin Exam: Normal Color, Warm Assessment and Plan - Assessment and Plan (Free Text) Plan: 1.Altered mental status with white matter changes on MRI brain. Possible Demyelinating Disease. Lumbar puncture performed 05/20/17 by anesthesia. Empiric acyclovir due to suspicion of viral encephalitis. CSF studies workup unremarkable thus far Brain MRI w. contrast * Prominent cerebral white matter changes are stable at may reflect PML, press, toxic/ metabolic demyelination sequelae from immunodeficiency including potential AIDS. 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 No interval mass effect or suspicious extra-axial collection identified. Plasma LILIYA virus ordered--elevated at 3261. However, it is not high in the CSF. To rule out possible FIELD ADMINISTRATOR lymphoma, Dr. Lizama consulted, help appreciated.Recommending CT chest with contrast and csf flow cytometry d/w Dr Waller who recommend csf LILIYA viral study d/w Dr Darnell -started on Decadron 10 mg IV Q8 on 05/26/17--discontinued after finding elevated serum LILIYA virus CT Chest/Abdomen/Pelvis 05/27/17 showed no lymphadenopathy Repeat LP on 05/31/17 to assess for LILIYA virus in the CSF and flow cytometry for FIELD ADMINISTRATOR lymphoma - f/u flow cytometry * Per Dr. 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 Will follow up IGG studies. IVIG 400 mg /kg x5 days was ordered on 06/05/17. Cervical and thoracic spine MRI w. Gadolinium ordered to evaluate for demyelinating disease. No evidence of demyelinating disease seen on Cervical MRI. Patient could not tolerate getting thoracic MRI. Will continue to monitor for now and assess the patient's course. Since improvement seen after the IVIG, we will check for other autoimmune markers in the blood. Discontinued prn Ativan for agitation and replaced with low dose Seroquel prn. 2. Gluteal wound, stage 2 intergluteal ulcer no leukocytosis, afebrile Surgery consulted, Dr. Neil, help appreciated as per surgery superficial gluteal wound, no tract- no surgical intervention wound care kirsten talamantes blood cultures- no growth 3.Acute diverticulitis no leukocytosis, afebrile Repeat CT 05/27/17 shows improved diverticulitis Abdomen/Pelvis CT: diverticulitis of sigmoid colon, mild splenomegaly, liver lesions Cipro 400mg q12h, discontinued 05/19 due to rash Flagyl 500mg q8h, discontinued 05/19 due to rash Aztreonam 1 gm Q8H, started 05/19--discontinued Clindamycin 450mg IVPB Q6H, started 05/19--discontinued Ultram 25mg po BID for pain GI, Dr. Charles, consulted- help appreciated -continue antibiotics for 2 weeks 4. Prophylactic Measure Regular diet Lovenox 40 mg SC--to be held due to LP Protonix 40 mg PO daily [phone] Wendy Diamond--patient's sister and point of contact Disposition: Working diagnosis is demyelinating disease. Trial of IVIG for 5 days began on 06/04/17 and ended on 06/08/17. No changes were initially seen after initiation of therapy; however, now the patient is able to converse with us to an extent. We are awaiting further autoimmune studies to evaluate for possible etiology. Case DW Dr. Veronika Ford PGY-1 <Tristen Banda - Last Filed: 06/13/17 14:49> Objective - Vital Signs/Intake and Output Vital Signs (last 24 hours): Temp Pulse Resp BP Pulse Ox 97.8 F 70 20 117/78 96 06/13/17 07:42 06/13/17 07:42 06/13/17 07:42 06/13/17 07:42 06/13/17 07:42 Intake and Output: 06/13/17 06/13/17 06:59 18:59 Intake Total 620 240 Balance 620 240 - Medications Medications: Current Medications Famotidine (Pepcid) 20 mg PO BID [facility] Last Admin: 06/13/17 09:54 Dose: 20 mg Lorazepam (Ativan) 1 mg IVP Q4H PRN PRN Reason: Agitation Last Admin: 06/13/17 00:25 Dose: 1 mg Mefloquine HCl (Lariam) 1,000 mg PO QWK [facility] Stop: 06/14/17 10:01 Last Admin: 06/07/17 11:26 Dose: 1,000 mg Quetiapine Fumarate (Seroquel) 12.5 mg PO Q4H PRN PRN Reason: Agitation Saccharomyces Boulardii (Florastor) 250 mg PO BID [facility] Last Admin: 06/13/17 09:53 Dose: 250 mg Valproate Sodium (Depakene Oral Soln) 500 mg PO Q12H [facility] Last Admin: 06/13/17 11:01 Dose: 500 mg - Labs Labs: 06/13/17 07:13 06/13/17 07:13 PT 13.6 SECONDS (9.7-12.2) H 05/20/17 11:33 INR 1.2 05/20/17 11:33 APTT 28 SECONDS (21-34) 05/20/17 11:33 Attending/Attestation - Attestation I have personally seen and examined this patient.: Yes I have fully participated in the care of the patient.: Yes I have reviewed all pertinent clinical information, including history, physical exam and plan: Yes Notes (Text): 06/13/17 14:49 Medical attending: Patient was seen and examined by me, we saw together the patient with the medical malpractice paralegal. I reviewed the above note by medical malpractice paralegal and agree. I spoke with the physical therapist staff, they explained that yesterday he was able to get up and walk 300 feet. He needed the assistance of a rolling walker. Today his verbal ability when compared to the previous weeks is again better. He was very active in bed and at times almost went to get out of the bed himself. I told the nursing staff PT that he should be out of bed as much as possible and preferably to a chair He still on one-to-one at this moment Thank you Tristen Banda
--- NOTE | 2017-06-13 07:50 | CP.PCM.PN ---
Subjective - Date & Time of Evaluation Date of Evaluation: 06/13/17 Time of Evaluation: 07:47 - Subjective Subjective: Mr. Lowry was seen and examined at the bedside. He is awake, alert, with few clear words such as "i'm fine and no", but with episode of confusion. He is unable to answer questions and follow simple commands. He moves all his extremities spontaneously. He uses non-verbal cues to let his needs known. He had an episode of agitation yesterday, ativan was given. He remains on 1:1 sitter for patient safety. There was untoward events overnight. Objective - Vital Signs/Intake and Output Vital Signs (last 24 hours): Temp Pulse Resp BP Pulse Ox 97.8 F 70 20 117/78 96 06/13/17 07:42 06/13/17 07:42 06/13/17 07:42 06/13/17 07:42 06/13/17 07:42 Intake and Output: 06/13/17 06/13/17 06:59 18:59 Intake Total 620 Balance 620 - Medications Medications: Current Medications Famotidine (Pepcid) 20 mg PO BID [facility] Last Admin: 06/12/17 18:02 Dose: 20 mg Lorazepam (Ativan) 1 mg IVP Q4H PRN PRN Reason: Agitation Last Admin: 06/13/17 00:25 Dose: 1 mg Lorazepam (Ativan) 1 mg IVP ONCE PRN PRN Reason: BEFORE MRI Last Admin: 06/06/17 09:28 Dose: 1 mg Lorazepam (Ativan) 2 mg IVP ONCE PRN PRN Reason: to be given before MRI Mefloquine HCl (Lariam) 1,000 mg PO QWK [facility] Stop: 06/14/17 10:01 Last Admin: 06/07/17 11:26 Dose: 1,000 mg Saccharomyces Boulardii (Florastor) 250 mg PO BID [facility] Last Admin: 06/12/17 18:02 Dose: 250 mg Valproate Sodium (Depakene Oral Soln) 500 mg PO Q12H [facility] Last Admin: 06/12/17 21:38 Dose: 500 mg - Labs Labs: 06/10/17 16:45 06/10/17 16:45 PT 13.6 SECONDS (9.7-12.2) H 05/20/17 11:33 INR 1.2 01/15/18 11:33 APTT 28 SECONDS (21-34) 05/20/17 11:33 - Constitutional Appears: No Acute Distress - Head Exam Head Exam: NORMAL INSPECTION - Neurological Exam Neurological Exam: Awake Neuro motor strength exam: Left Upper Extremity: 5, Right Upper Extremity: 5, Left Lower Extremity: 5, Right Lower Extremity: 5 Additional comments: Neurological unchanged from previous examination. Assessment and Plan (1) Altered mental status Assessment & Plan: Case discussed with Dr. Hodges, continue all current medical regimen. Recommend another evaluation of his mental status if another dose of IVIG therapy in 2-3 weeks is needed. Status: Acute
[2017-06-13 08:08] LABS: ALB/GLOB RATIO 0.8 (1.0-2.1); ALBUMIN 3.7 g/dL (3.5-5.0); ALT/SGPT 43 U/L (21-72); AST/SGOT 30 U/L (17-59); BLOOD UREA NITROGEN 19 mg/dL (9-20); CALCIUM 9.3 mg/dl (8.6-10.4); GFR AFRICAN-AMERICAN > 60; GFR NON-AFRICAN AMERICAN > 60; MAGNESIUM 1.8 mg/dL (1.6-2.3)
[2017-06-13 08:10] LABS: BASO # 0.1 K/uL (0.0-0.2); EOS # 0.3 K/uL (0.0-0.7); EOS % 5.8 % (0.0-4.0); HEMOGLOBIN 14.8 g/dL (12.0-18.0); LYMPH % 39.4 % (20.0-40.0); MEAN CELL VOLUME 89.1 fL (80.0-94.0); MEAN CORPUSCULAR HEMOGLOBIN 31.5 pg (27.0-31.0); MEAN CORPUSCULAR HGB CONC 35.4 g/dL (33.0-37.0); MEAN PLATELET VOLUME 8.9 fL (7.2-11.7); MONO # 0.6 K/uL (0.0-0.8); MONO % 11.8 % (0.0-10.0); NEUT # 2.1 K/uL (1.8-7.0); NRBC % 0.2 % (0.0-2.0); RBC 4.68 Mil/uL (4.40-5.90); RED CELL DISTRIBUTION WIDTH 18.2 % (11.5-14.5)
[2017-06-13] MEDS: Valproic Acid 250 mg/5 ml UD Cup PO SCH ×3 (09:52→21:38)
[2017-06-13] MEDS: Saccharomyces Boulardi 250 mg Cap PO SCH ×2 (09:53→18:01)
--- NOTE | 2017-06-14 07:22 | CP.PCM.PN ---
<Ronni Ford - Last Filed: 06/14/17 17:27> Subjective - Date & Time of Evaluation Date of Evaluation: 06/14/17 Time of Evaluation: 07:30 - Subjective Subjective: Medicine progress note for Dr. Banda Patient seen and examined. Patient reports that he is doing well. He was able to state his name as well as identify his sister's name. Patient told us on rounds that his favorite football team were [employer] and that he was from [place]. Patient requires assistance for feeding per staff. Objective - Vital Signs/Intake and Output Vital Signs (last 24 hours): Temp Pulse Resp BP Pulse Ox 97.7 F 84 18 111/74 96 06/13/17 23:17 06/13/17 23:17 06/13/17 23:17 06/13/17 23:17 06/13/17 23:17 Intake and Output: 06/14/17 06/14/17 06:59 18:59 Intake Total 120 Balance 120 - Medications Medications: Current Medications Famotidine (Pepcid) 20 mg PO BID [facility] Last Admin: 06/13/17 18:01 Dose: 20 mg Lorazepam (Ativan) 1 mg IVP Q4H PRN PRN Reason: Agitation Last Admin: 06/13/17 00:25 Dose: 1 mg Mefloquine HCl (Lariam) 1,000 mg PO QWK [facility] Stop: 06/14/17 10:01 Last Admin: 06/07/17 11:26 Dose: 1,000 mg Quetiapine Fumarate (Seroquel) 12.5 mg PO Q4H PRN PRN Reason: Agitation Saccharomyces Boulardii (Florastor) 250 mg PO BID [facility] Last Admin: 06/13/17 18:01 Dose: 250 mg Valproate Sodium (Depakene Oral Soln) 500 mg PO Q12H [facility] Last Admin: 06/13/17 21:38 Dose: 500 mg - Labs Labs: 06/13/17 07:13 06/13/17 07:13 PT 13.6 SECONDS (9.7-12.2) H 05/20/17 11:33 INR 1.2 05/20/17 11:33 APTT 28 SECONDS (21-34) 05/20/17 11:33 - Additional Findings Additional findings: - Constitutional Appears: No Acute Distress - Head Exam Head Exam: ATRAUMATIC, NORMAL INSPECTION - Eye Exam Eye Exam: EOMI, Normal appearance - ENT Exam ENT Exam: Mucous Membranes Moist - Respiratory Exam Respiratory Exam: Clear to Auscultation Bilateral, NORMAL BREATHING PATTERN - Cardiovascular Exam Cardiovascular Exam: Regular Rhythm, REGULAR RHYTHM, +S1, +S2 - GI/Abdominal Exam GI & Abdominal Exam: Soft, Normal Bowel Sounds. absent: Tenderness - Extremities Exam Extremities Exam: Normal Inspection - Neurological Exam Neurological Exam: Awake, Alert - Skin Skin Exam: Normal Color, Warm Assessment and Plan - Assessment and Plan (Free Text) Plan: 1.Altered mental status with white matter changes on MRI brain. Possible Demyelinating Disease. Lumbar puncture performed 05/20/17 by anesthesia. Empiric acyclovir due to suspicion of viral encephalitis. CSF studies workup unremarkable thus far Brain MRI w. contrast * Prominent cerebral white matter changes are stable at may reflect PML, press, toxic/ metabolic demyelination sequelae from immunodeficiency including potential AIDS. 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 No interval mass effect or suspicious extra-axial collection identified. Plasma LILIYA virus ordered--elevated at 3261. However, it is not high in the CSF. To rule out possible SHANK STITCHER lymphoma, Dr. Lizama consulted, help appreciated.Recommending CT chest with contrast and csf flow cytometry d/w Dr Waller who recommend csf LILIYA viral study d/w Dr Darnell -started on Decadron 10 mg IV Q8 on 05/26/17--discontinued after finding elevated serum LILIYA virus CT Chest/Abdomen/Pelvis 05/27/17 showed no lymphadenopathy Repeat LP on 05/31/17 to assess for LILIYA virus in the CSF and flow cytometry for SHANK STITCHER lymphoma - f/u flow cytometry * Per Dr. 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 Will follow up IGG studies. IVIG 400 mg /kg x5 days was ordered on 06/05/17. Cervical and thoracic spine MRI w. Gadolinium ordered to evaluate for demyelinating disease. No evidence of demyelinating disease seen on Cervical MRI. Patient could not tolerate getting thoracic MRI. Will continue to monitor for now and assess the patient's course. Since improvement seen after the IVIG, we will check for other autoimmune markers in the blood. Discontinued prn Ativan for agitation and replaced with low dose Seroquel prn. 2. Gluteal wound, stage 2 intergluteal ulcer no leukocytosis, afebrile Surgery consulted, Dr. Neil, help appreciated as per surgery superficial gluteal wound, no tract- no surgical intervention wound care kirsten talamantes blood cultures- no growth 3.Acute diverticulitis no leukocytosis, afebrile Repeat CT 05/27/17 shows improved diverticulitis Abdomen/Pelvis CT: diverticulitis of sigmoid colon, mild splenomegaly, liver lesions Cipro 400mg q12h, discontinued 05/19 due to rash Flagyl 500mg q8h, discontinued 05/19 due to rash Aztreonam 1 gm Q8H, started 05/19--discontinued Clindamycin 450mg IVPB Q6H, started 05/19--discontinued Ultram 25mg po BID for pain GI, Dr. Charles, consulted- help appreciated -continue antibiotics for 2 weeks 4. Prophylactic Measure Regular diet Lovenox 40 mg SC--to be held due to LP Protonix 40 mg PO daily [phone] Wendy Diamond--patient's sister and point of contact Disposition: Working diagnosis is demyelinating disease. Trial of IVIG for 5 days began on 06/04/17 and ended on 06/08/17. No changes were initially seen after initiation of therapy; however, now the patient is able to converse with us to an extent. We are awaiting further autoimmune studies to evaluate for possible etiology. Case DW Dr. Veronika Ford PGY-1 <Tristen Banda H - Last Filed: 06/14/17 17:42> Objective - Vital Signs/Intake and Output Vital Signs (last 24 hours): Temp Pulse Resp BP Pulse Ox 98 F 82 20 120/77 95 06/14/17 15:37 06/14/17 15:37 06/14/17 15:37 06/14/17 15:37 06/14/17 15:37 Intake and Output: 06/14/17 06/14/17 06:59 18:59 Intake Total 120 Output Total 400 Balance 120 -400 - Medications Medications: Current Medications Famotidine (Pepcid) 20 mg PO BID [facility] Last Admin: 06/14/17 09:31 Dose: 20 mg Lorazepam (Ativan) 1 mg IVP Q4H PRN PRN Reason: Agitation Last Admin: 06/13/17 00:25 Dose: 1 mg Quetiapine Fumarate (Seroquel) 12.5 mg PO Q4H PRN PRN Reason: Agitation Saccharomyces Boulardii (Florastor) 250 mg PO BID [facility] Last Admin: 06/14/17 09:31 Dose: 250 mg Valproate Sodium (Depakene Oral Soln) 500 mg PO Q12H [facility] Last Admin: 06/14/17 09:31 Dose: 500 mg - Labs Labs: 06/13/17 07:13 06/13/17 07:13 PT 13.6 SECONDS (9.7-12.2) H 05/20/17 11:33 INR 1.2 05/20/17 11:33 APTT 28 SECONDS (21-34) 05/20/17 11:33 Attending/Attestation - Attestation I have personally seen and examined this patient.: Yes I have fully participated in the care of the patient.: Yes I have reviewed all pertinent clinical information, including history, physical exam and plan: Yes Notes (Text): 06/14/17 17:40 Medical attending: Patient was seen and examined by me. Agree with the above note by the resident We saw the patient in the morning as well as later in the day I saw again the patient with the family members during PT I watched him walk in the hallway with a rolling walker - he moved rather quickly. His main difficulty was getting to stand up from the wheelchair to the rolling walker. He needed a lot of prompting. thank you Tristen Banda
--- NOTE | 2017-06-14 07:25 | CP.PCM.PN ---
Subjective - Date & Time of Evaluation Date of Evaluation: 06/14/17 Time of Evaluation: 07:20 - Subjective Subjective: Mr. Lowry was seen and examined at the bedside. He is awake, smiles when called his name. He was able to utter simple questions such as " I am fine, no headache, You're hurting my toes." He is unable to answer other questions. He uses non-verbal cues such as shaking or nodding his head. He denies blurred vision and when asked to follow simple commands, he shakes his head. He was able to show two fingers from his left hand and refused to repeat the same task in his right hand.He moves all extremities in all extremities spontaneously. He remains on 1:1 sitter for patient safety. His latest LILIYA virus PCR is <500. Lastest EEG showed no seizure activity noted per neurologist.There was no untoward events overnight. Objective - Vital Signs/Intake and Output Vital Signs (last 24 hours): Temp Pulse Resp BP Pulse Ox 97.7 F 84 18 111/74 96 06/13/17 23:17 06/13/17 23:17 06/13/17 23:17 06/13/17 23:17 06/13/17 23:17 Intake and Output: 06/14/17 06/14/17 06:59 18:59 Intake Total 120 Balance 120 - Medications Medications: Current Medications Famotidine (Pepcid) 20 mg PO BID [facility] Last Admin: 06/13/17 18:01 Dose: 20 mg Lorazepam (Ativan) 1 mg IVP Q4H PRN PRN Reason: Agitation Last Admin: 06/13/17 00:25 Dose: 1 mg Mefloquine HCl (Lariam) 1,000 mg PO QWK [facility] Stop: 06/14/17 10:01 Last Admin: 06/07/17 11:26 Dose: 1,000 mg Quetiapine Fumarate (Seroquel) 12.5 mg PO Q4H PRN PRN Reason: Agitation Saccharomyces Boulardii (Florastor) 250 mg PO BID [facility] Last Admin: 06/13/17 18:01 Dose: 250 mg Valproate Sodium (Depakene Oral Soln) 500 mg PO Q12H [facility] Last Admin: 06/13/17 21:38 Dose: 500 mg - Labs Labs: 06/13/17 07:13 06/13/17 07:13 PT 13.6 SECONDS (9.7-12.2) H 05/20/17 11:33 INR 1.2 05/20/17 11:33 APTT 28 SECONDS (21-34) 05/20/17 11:33 - Constitutional Appears: No Acute Distress - Head Exam Head Exam: NORMAL INSPECTION - Neurological Exam Neurological Exam: Alert, Awake Neuro motor strength exam: Left Upper Extremity: 5, Right Upper Extremity: 5, Left Lower Extremity: 5, Right Lower Extremity: 5 Additional comments: Neurological improved, able to utter few words, and able to follow one simple commands. Sensation remains intact. Assessment and Plan (1) Altered mental status Assessment & Plan: Case discussed with Dr. Hodges, continue all current medical regimen. There is no new recommendation [facility] neurology. Status: Acute
--- NOTE | 2017-06-14 09:20 | EEG ---
DATE: TECHNICAL INFORMATION: This is a 16-electrode EEG, placed using a 10-20 international electrode system. All electrodes were referenced to A1/A2 and T1/T2 electrodes. Continuous seizure monitoring was done using spike detection software. There is a 9 Hz posterior dominant rhythm that is well formed, reactive, symmetric, and attenuates to eye opening. It is bilaterally symmetrical. There are no focal epileptiform discharge is noted during this EEG. There are no clinical or subclinical seizures. Stage 1 sleep is captured with the presence of vertex waves. Stage 2 sleep is not captured. There were no clinical or subclinical seizures noted. IMPRESSION: This is a normal, awake, and sleep electroencephalogram. This electroencephalogram is significantly improved from the first EEG that was obtained during the first two days of patient's admission. Clinical correlation is required. Monica Hodges MD
[2017-06-14] MEDS: Saccharomyces Boulardi 250 mg Cap PO SCH ×2 (09:31→18:48)
[2017-06-14] MEDS: Valproic Acid 250 mg/5 ml UD Cup PO SCH ×2 (09:31→22:58)
[2017-06-14 16:25] LABS: ALDOLASE 7.4 U/L (<=8.1)
--- NOTE | 2017-06-15 01:55 | CP.PCM.PN ---
<Jordan Camargo - Last Filed: 06/15/17 01:55> Subjective - Date & Time of Evaluation Date of Evaluation: 06/15/17 Time of Evaluation: 06:55 - Subjective Subjective: Medicine progress note for Dr. Banda Patient seen and examined. Patient reports that he is doing well. He was able to state his name as well as identify his sister's name. Patient requires assistance for feeding per staff. Objective - Vital Signs/Intake and Output Vital Signs (last 24 hours): Temp Pulse Resp BP Pulse Ox 98 F 69 18 117/77 96 06/14/17 23:44 06/14/17 23:44 06/14/17 23:44 06/14/17 23:44 06/14/17 23:44 Intake and Output: 06/14/17 06/15/17 18:59 06:59 Intake Total 400 Output Total 400 Balance -400 400 - Medications Medications: Current Medications Famotidine (Pepcid) 20 mg PO BID [facility] Last Admin: 06/14/17 18:48 Dose: 20 mg Lorazepam (Ativan) 1 mg IVP Q4H PRN PRN Reason: Agitation Last Admin: 06/14/17 22:24 Dose: 1 mg Quetiapine Fumarate (Seroquel) 12.5 mg PO Q4H PRN PRN Reason: Agitation Saccharomyces Boulardii (Florastor) 250 mg PO BID [facility] Last Admin: 06/14/17 18:48 Dose: 250 mg Valproate Sodium (Depakene Oral Soln) 500 mg PO Q12H [facility] Last Admin: 06/14/17 22:58 Dose: 500 mg - Labs Labs: 06/13/17 07:13 06/13/17 07:13 PT 13.6 SECONDS (9.7-12.2) H 05/20/17 11:33 INR 1.2 05/20/17 11:33 APTT 28 SECONDS (21-34) 05/20/17 11:33 <Tristen Banda - Last Filed: 06/15/17 11:18> Objective - Vital Signs/Intake and Output Vital Signs (last 24 hours): Temp Pulse Resp BP Pulse Ox 97.6 F 98 H 20 127/83 96 06/15/17 07:35 06/15/17 07:35 06/15/17 07:35 06/15/17 07:35 06/14/17 23:44 Intake and Output: 06/15/17 06/15/17 06:59 18:59 Intake Total 400 Balance 400 - Medications Medications: Current Medications Famotidine (Pepcid) 20 mg PO BID [facility] Last Admin: 06/15/17 09:26 Dose: 20 mg Lorazepam (Ativan) 1 mg IVP Q4H PRN PRN Reason: Agitation Last Admin: 06/14/17 22:24 Dose: 1 mg Quetiapine Fumarate (Seroquel) 12.5 mg PO Q4H PRN PRN Reason: Agitation Saccharomyces Boulardii (Florastor) 250 mg PO BID [facility] Last Admin: 06/15/17 09:26 Dose: 250 mg Valproate Sodium (Depakene Oral Soln) 500 mg PO Q12H [facility] Last Admin: 06/15/17 09:26 Dose: 500 mg - Labs Labs: 06/13/17 07:13 06/13/17 07:13 PT 13.6 SECONDS (9.7-12.2) H 05/20/17 11:33 INR 1.2 05/20/17 11:33 APTT 28 SECONDS (21-34) 05/20/17 11:33 Attending/Attestation - Attestation I have personally seen and examined this patient.: Yes I have fully participated in the care of the patient.: Yes I have reviewed all pertinent clinical information, including history, physical exam and plan: Yes Notes (Text): Medical attending: Patient was seen and examined by me. Reviewed above note by resident and agree with the above Last night at about 6pm I watched him and family members in the hallway and he was ambulating in the hallway. He needed a lot of prompting to get him to stand from the wheelchair - but he eventually did so and once he did I observed him walking from his room in the corner to the far end of the hospital floor and then back again. He had a rolling walker The patient this morning had DS-DNA ab return - it was slightly elevated. This is not lupus. You would need a number to return in the 100s. So for now we continue to monitor him I asked him if he ate breakfast - and he responds that he ate breakfast but he is not able to say what he had for breakfast. thank you Tristen Banda
[2017-06-15] MEDS: Saccharomyces Boulardi 250 mg Cap PO SCH ×2 (09:26→18:19)
[2017-06-15] MEDS: Valproic Acid 250 mg/5 ml UD Cup PO SCH ×2 (09:26→22:17)
--- NOTE | 2017-06-16 00:30 | CP.PCM.PN ---
<Jordan Camargo - Last Filed: 06/16/17 00:31> Subjective - Date & Time of Evaluation Date of Evaluation: 06/16/17 Time of Evaluation: 06:29 - Subjective Subjective: Medicine progress note for Dr. Banda Patient seen and examined. Patient reports that he is doing well. He was able to state his name as well as identify his sister's name. Patient requires assistance for feeding per staff. Objective - Vital Signs/Intake and Output Vital Signs (last 24 hours): Temp Pulse Resp BP Pulse Ox 97.8 F 80 20 124/76 97 06/15/17 18:00 06/15/17 18:00 06/15/17 18:00 06/15/17 18:00 06/15/17 15:39 - Medications Medications: Current Medications Famotidine (Pepcid) 20 mg PO BID [facility] Last Admin: 06/15/17 18:19 Dose: 20 mg Quetiapine Fumarate (Seroquel) 12.5 mg PO Q4H PRN PRN Reason: Agitation Saccharomyces Boulardii (Florastor) 250 mg PO BID [facility] Last Admin: 06/15/17 18:19 Dose: 250 mg Valproate Sodium (Depakene Oral Soln) 500 mg PO Q12H [facility] Last Admin: 06/15/17 22:17 Dose: 500 mg - Labs Labs: 06/13/17 07:13 06/13/17 07:13 PT 13.6 SECONDS (9.7-12.2) H 05/20/17 11:33 INR 1.2 05/20/17 11:33 APTT 28 SECONDS (21-34) 05/20/17 11:33 - Head Exam Head Exam: ATRAUMATIC, NORMAL INSPECTION, NORMOCEPHALIC - Eye Exam Eye Exam: EOMI, Normal appearance, PERRL. absent: Periorbital tenderness Pupil Exam: NORMAL ACCOMODATION, PERRL - ENT Exam ENT Exam: Mucous Membranes Moist, Normal Oropharynx - Neck Exam Neck Exam: Normal Inspection. absent: Lymphadenopathy, Thyromegaly - Respiratory Exam Respiratory Exam: Clear to Ausculation Bilateral, NORMAL BREATHING PATTERN. absent: Chest Wall Tenderness, Prolonged Expiratory Phase, Respiratory Distress - Cardiovascular Exam Cardiovascular Exam: REGULAR RHYTHM, +S1, +S2 - GI/Abdominal Exam GI & Abdominal Exam: Soft, Normal Bowel Sounds - Extremities Exam Extremities Exam: Full ROM, Normal Inspection. absent: Pedal Edema - Back Exam Back Exam: NORMAL INSPECTION. absent: CVA tenderness (L), CVA tenderness (R), paraspinal tenderness - Neurological Exam Neurological Exam: Alert, Awake, Normal Gait - Psychiatric Exam Psychiatric exam: Normal Affect, Normal Mood - Skin Skin Exam: Dry, Intact Assessment and Plan - Assessment and Plan (Free Text) Plan: 1.Altered mental status with white matter changes on MRI brain. Possible Demyelinating Disease. Lumbar puncture performed 05/20/17 by anesthesia. Empiric acyclovir due to suspicion of viral encephalitis. CSF studies workup unremarkable thus far Brain MRI w. contrast * Prominent cerebral white matter changes are stable at may reflect PML, press, toxic/ metabolic demyelination sequelae from immunodeficiency including potential AIDS. 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 No interval mass effect or suspicious extra-axial collection identified. Plasma LILIYA virus ordered--elevated at 3261. However, it is not high in the CSF. To rule out possible [employer] lymphoma, Dr. Lizama consulted, help appreciated.Recommending CT chest with contrast and csf flow cytometry d/w Dr Waller who recommend csf LILIYA viral study d/w Dr Darnell -started on Decadron 10 mg IV Q8 on 05/26/17--discontinued after finding elevated serum LILIYA virus CT Chest/Abdomen/Pelvis 05/27/17 showed no lymphadenopathy Repeat LP on 05/31/17 to assess for LILIYA virus in the CSF and flow cytometry for [employer] lymphoma - f/u flow cytometry * Per Dr. 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 Will follow up IGG studies. IVIG 400 mg /kg x5 days was ordered on 06/05/17. Cervical and thoracic spine MRI w. Gadolinium ordered to evaluate for demyelinating disease. No evidence of demyelinating disease seen on Cervical MRI. Patient could not tolerate getting thoracic MRI. Will continue to monitor for now and assess the patient's course. Since improvement seen after the IVIG, we will check for other autoimmune markers in the blood. Discontinued prn Ativan for agitation and replaced with low dose Seroquel prn. 2. Gluteal wound, stage 2 intergluteal ulcer no leukocytosis, afebrile Surgery consulted, Dr. Neil, help appreciated as per surgery superficial gluteal wound, no tract- no surgical intervention wound care kirsten talamantes blood cultures- no growth 3.Acute diverticulitis no leukocytosis, afebrile Repeat CT 05/27/17 shows improved diverticulitis Abdomen/Pelvis CT: diverticulitis of sigmoid colon, mild splenomegaly, liver lesions Cipro 400mg q12h, discontinued 05/19 due to rash Flagyl 500mg q8h, discontinued 05/19 due to rash Aztreonam 1 gm Q8H, started 05/19--discontinued Clindamycin 450mg IVPB Q6H, started 05/19--discontinued Ultram 25mg po BID for pain GI, Dr. hCarles, consulted- help appreciated -continue antibiotics for 2 weeks 4. Prophylactic Measure Regular diet Lovenox 40 mg SC--to be held due to LP Protonix 40 mg PO daily [phone] Wendy Diamond--patient's sister and point of contact Disposition: Working diagnosis is demyelinating disease. Trial of IVIG for 5 days began on 06/04/17 and ended on 06/08/17. No changes were initially seen after initiation of therapy; however, now the patient is able to converse with us to an extent. We are awaiting further autoimmune studies to evaluate for possible etiology. <Tristen Banda - Last Filed: 06/16/17 11:14> Objective - Vital Signs/Intake and Output Vital Signs (last 24 hours): Temp Pulse Resp BP Pulse Ox 97.5 F L 64 20 121/76 99 06/16/17 07:00 06/16/17 07:00 06/16/17 07:00 06/16/17 07:00 06/16/17 07:00 - Medications Medications: Current Medications Famotidine (Pepcid) 20 mg PO BID [facility] Last Admin: 06/16/17 09:49 Dose: 20 mg Quetiapine Fumarate (Seroquel) 12.5 mg PO Q4H PRN PRN Reason: Agitation Saccharomyces Boulardii (Florastor) 250 mg PO BID [facility] Last Admin: 06/16/17 09:49 Dose: 250 mg Valproate Sodium (Depakene Oral Soln) 500 mg PO Q12H [facility] Last Admin: 06/16/17 09:49 Dose: 500 mg - Labs Labs: 06/16/17 07:05 06/16/17 07:05 PT 13.6 SECONDS (9.7-12.2) H 05/20/17 11:33 INR 1.2 05/20/17 11:33 APTT 28 SECONDS (21-34) 05/20/17 11:33 Attending/Attestation - Attestation I have personally seen and examined this patient.: Yes I have fully participated in the care of the patient.: Yes I have reviewed all pertinent clinical information, including history, physical exam and plan: Yes Notes (Text): Medical attending: Patient was seen and examined by me On exam he was on command able to raise his arms and also shake my hand. I asked him raise his leg - however he is not able to. Then as I am examining something else he spontaneously moves both legs. As I was examining I turned down the volume on the television, as I was about to leave I asked about the volume and he said "It's ok leave the volume down, I have a remote control" - this is an example of one of the larger sentences that he is able to speak. Also this week the patient has been observed by me to walk with a rolling walker on two occasions by me. He needs a lot of prompting and commands. thank you Tristen Banda
[2017-06-16 07:18] LABS: BASO % 0.9 % (0.0-2.0); EOS # 0.3 K/uL (0.0-0.7); EOS % 6.4 % (0.0-4.0); HEMOGLOBIN 13.1 g/dL (12.0-18.0); LYMPH # 1.6 K/uL (1.0-4.3); LYMPH % 33.5 % (20.0-40.0); MEAN CELL VOLUME 89.6 fL (80.0-94.0); MEAN CORPUSCULAR HEMOGLOBIN 31.1 pg (27.0-31.0); MEAN CORPUSCULAR HGB CONC 34.7 g/dL (33.0-37.0); MEAN PLATELET VOLUME 9.4 fL (7.2-11.7); MONO # 0.6 K/uL (0.0-0.8); MONO % 12.4 % (0.0-10.0); NEUT # 2.2 K/uL (1.8-7.0); NEUT % 46.8 % (50.0-75.0); NRBC % 0.1 % (0.0-2.0); RBC 4.22 Mil/uL (4.40-5.90); RED CELL DISTRIBUTION WIDTH 18.5 % (11.5-14.5); WHITE BLOOD COUNT 4.7 K/uL (4.8-10.8)
[2017-06-16 07:51] LABS: ALBUMIN 3.5 g/dL (3.5-5.0); BLOOD UREA NITROGEN 17 mg/dL (9-20); CALCIUM 8.8 mg/dl (8.6-10.4); GFR AFRICAN-AMERICAN > 60; GFR NON-AFRICAN AMERICAN > 60; MAGNESIUM 1.9 mg/dL (1.6-2.3)
[2017-06-16 07:52] LABS: ALB/GLOB RATIO 0.9 (1.0-2.1); ALT/SGPT 39 U/L (21-72); AST/SGOT 30 U/L (17-59)
--- NOTE | 2017-06-16 07:53 | CP.PCM.PN ---
Subjective - Date & Time of Evaluation Date of Evaluation: 06/16/17 Time of Evaluation: 07:50 - Subjective Subjective: Mr. Lowry was seen and examined at the bedside. He is awake smiles all the time with few words being utter by the patient. He states that he is in [place], but unable to state time and place. He moves all extremities spontaneously but not able to follow simple commands. HE is able to let staff knows his immediate needs. He remains on 1:1 sitter for patient safety. There was no untoward events overnight. Objective - Vital Signs/Intake and Output Vital Signs (last 24 hours): Temp Pulse Resp BP Pulse Ox 97.6 F 86 20 121/75 94 L 06/16/17 00:00 06/16/17 00:00 06/16/17 00:00 06/16/17 00:00 06/16/17 00:00 - Medications Medications: Current Medications Famotidine (Pepcid) 20 mg PO BID [facility] Last Admin: 06/15/17 18:19 Dose: 20 mg Quetiapine Fumarate (Seroquel) 12.5 mg PO Q4H PRN PRN Reason: Agitation Saccharomyces Boulardii (Florastor) 250 mg PO BID [facility] Last Admin: 06/15/17 18:19 Dose: 250 mg Valproate Sodium (Depakene Oral Soln) 500 mg PO Q12H [facility] Last Admin: 06/15/17 22:17 Dose: 500 mg - Labs Labs: 06/16/17 07:05 06/13/17 07:13 PT 13.6 SECONDS (9.7-12.2) H 05/20/17 11:33 INR 1.2 05/20/17 11:33 APTT 28 SECONDS (21-34) 05/20/17 11:33 - Constitutional Appears: No Acute Distress - Head Exam Head Exam: NORMAL INSPECTION - Neurological Exam Neurological Exam: Awake Neuro motor strength exam: Left Upper Extremity: 5, Right Upper Extremity: 5, Left Lower Extremity: 5, Right Lower Extremity: 5 Additional comments: Neurological unchanged from previous examination. Assessment and Plan (1) Altered mental status Assessment & Plan: Case discussed with Dr. Hodges, continue all current medical regimen. There is no new recommendations from neurology. Status: Acute
[2017-06-16] MEDS: Valproic Acid 250 mg/5 ml UD Cup PO SCH ×2 (09:49→21:18)
[2017-06-16] MEDS: Saccharomyces Boulardi 250 mg Cap PO SCH ×2 (09:49→17:25)
[2017-06-16] MEDS: QUEtiapine 12.5 MG TAB PO PRN (21:55)
--- NOTE | 2017-06-17 07:19 | CP.PCM.PN ---
Subjective - Date & Time of Evaluation Date of Evaluation: 06/17/17 Time of Evaluation: 07:16 - Subjective Subjective: Mr. Lowry was seen and examined at the bedside. He is awake, but very sleepy. With tactile stimuli, his response was curse. According to the staff, the patient just fell asleep at around 6 am. He smiles to response to tactile stimuli, but unable to follow simple commands.He moves all extremities spontaneously. He remains on 1:1 sitter for patient safety. There was no untoward events overnight. Objective - Vital Signs/Intake and Output Vital Signs (last 24 hours): Temp Pulse Resp BP Pulse Ox 98.2 F 87 20 123/88 93 L 06/17/17 01:08 06/17/17 01:08 06/17/17 01:08 06/17/17 01:08 06/17/17 01:08 - Medications Medications: Current Medications Famotidine (Pepcid) 20 mg PO BID [facility] Last Admin: 06/16/17 17:25 Dose: 20 mg Quetiapine Fumarate (Seroquel) 12.5 mg PO Q4H PRN PRN Reason: Agitation Last Admin: 06/16/17 21:55 Dose: 12.5 mg Saccharomyces Boulardii (Florastor) 250 mg PO BID [facility] Last Admin: 06/16/17 17:25 Dose: 250 mg Valproate Sodium (Depakene Oral Soln) 500 mg PO Q12H [facility] Last Admin: 06/16/17 21:18 Dose: Not Given - Labs Labs: 06/16/17 07:05 06/16/17 07:05 PT 13.6 SECONDS (9.7-12.2) H 05/20/17 11:33 INR 1.2 05/20/17 11:33 APTT 28 SECONDS (21-34) 05/20/17 11:33 - Constitutional Appears: No Acute Distress - Head Exam Head Exam: NORMAL INSPECTION - Neurological Exam Neurological Exam: Awake Neuro motor strength exam: Left Upper Extremity: 5, Right Upper Extremity: 5, Left Lower Extremity: 5, Right Lower Extremity: 5 Additional comments: Neurological unchanged from previous examination. Assessment and Plan (1) Altered mental status Assessment & Plan: Case discussed with Dr. Darnell, continue all current medical regimen. There is no new recommendations from neurology. Status: Acute
[2017-06-17] MEDS: Saccharomyces Boulardi 250 mg Cap PO SCH ×2 (10:09→18:42)
[2017-06-17] MEDS: Valproic Acid 250 mg/5 ml UD Cup PO SCH ×2 (10:09→21:30)
--- NOTE | 2017-06-17 14:11 | CP.PCM.PN ---
<Delfina Lara - Last Filed: 06/17/17 14:27> Subjective - Date & Time of Evaluation Date of Evaluation: 06/17/17 Time of Evaluation: 09:00 - Subjective Subjective: Patient seen and examined at bedside. No acute events overnight per nursing. Patient resting comfortably in bed. ROS unattainable due to patient status, however patient did respond to me asking how he was doing by saying "fine". Patient occasionally signs that he needs to go to the bathroom per nursing. Objective - Vital Signs/Intake and Output Vital Signs (last 24 hours): Temp Pulse Resp BP Pulse Ox 97.5 F L 71 20 117/82 96 06/17/17 08:22 06/17/17 08:22 06/17/17 08:22 06/17/17 08:22 06/17/17 08:22 - Medications Medications: Current Medications Famotidine (Pepcid) 20 mg PO BID [facility] Last Admin: 06/17/17 10:09 Dose: 20 mg Quetiapine Fumarate (Seroquel) 12.5 mg PO Q4H PRN PRN Reason: Agitation Last Admin: 06/16/17 21:55 Dose: 12.5 mg Saccharomyces Boulardii (Florastor) 250 mg PO BID [facility] Last Admin: 06/17/17 10:09 Dose: 250 mg Valproate Sodium (Depakene Oral Soln) 500 mg PO Q12H [facility] Last Admin: 06/17/17 10:09 Dose: 500 mg - Labs Labs: 06/16/17 07:05 06/16/17 07:05 PT 13.6 SECONDS (9.7-12.2) H 05/20/17 11:33 INR 1.2 05/20/17 11:33 APTT 28 SECONDS (21-34) 05/20/17 11:33 - Constitutional Appears: Non-toxic, No Acute Distress - Head Exam Head Exam: NORMAL INSPECTION, NORMOCEPHALIC - Eye Exam Eye Exam: EOMI, Normal appearance, PERRL - ENT Exam ENT Exam: Mucous Membranes Moist - Respiratory Exam Respiratory Exam: Clear to Ausculation Bilateral, NORMAL BREATHING PATTERN. absent: Rales, Rhonchi, Wheezes - Cardiovascular Exam Cardiovascular Exam: RRR, +S1, +S2 - GI/Abdominal Exam GI & Abdominal Exam: Soft, Normal Bowel Sounds. absent: Distended, Tenderness - Extremities Exam Extremities Exam: Normal Inspection. absent: Calf Tenderness, Pedal Edema - Neurological Exam Neurological Exam: Alert, Awake - Psychiatric Exam Psychiatric exam: Normal Affect, Normal Mood - Skin Skin Exam: Dry, Intact, Normal Color, Warm Assessment and Plan - Assessment and Plan (Free Text) Plan: 1.Altered mental status with white matter changes on MRI brain. Possible Demyelinating Disease. 05/20/17: Lumbar puncture performed by anesthesia. 05/19/17-06/09/17: Empiric acyclovir due to suspicion of viral encephalitis Dr Waller who recommend csf LILIYA viral study * Mefloquine 1000 mg QWK started on 05/31/17 Dr. Lizama consulted to rule out possible ASSISTANT PROFESSOR OF COMMUNICATION lymphoma - Recommended CT chest with contrast and csf flow cytometry CSF studies * Plasma LILIYA virus elevated at 3261, not high in the CSF * 05/31/17 repeat LP to assess for LILIYA virus in the CSF and flow cytometry for ASSISTANT PROFESSOR OF COMMUNICATION lymphoma * Oligoclonal bands were high in the CSF indicating possible demyelinating disease. Will follow up IGG studies. * 06/05/17: IVIG 400 mg /kg x5 days was ordered - improvement noted after, check autoimmune markers in the blood Dr Darnell * 05/26/17-05/29/17: started on Decadron 10 mg IV Q8 discontinued after finding elevated serum LILIYA virus * 05/19/17-current: Depakote 500 mg IV Q12-->switched to oral solution Autoimmune markers: SS-A: 1.7 SS-B Ab interp: Positive DS DNA: 9 Histone AB: 1 Otherwise negative Imaging: Brain MRI w. 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 No interval mass effect or suspicious extra-axial collection identified. 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 Gadolinium: No evidence of demyelinating disease seen on Cervical MRI. Patient could not tolerate getting thoracic MRI. Meds: Seroquel PRN agitation (Discontinued prn Ativan) Depakote Oral solution 500 mg PO Q12H 2. Gluteal wound, stage 2 intergluteal ulcer No leukocytosis, afebrile Surgery consulted, Dr. Neil, help appreciated * superficial gluteal wound, no tract, no surgical intervention needed Wound care kirsten Newton Blood cultures- no growth 3.Acute diverticulitis no leukocytosis, afebrile 05/15: Abdomen/Pelvis CT showed diverticulitis of sigmoid colon, mild splenomegaly, liver lesions 05/27/17: repeat CT shows improved diverticulitis GI, Dr. Charles, consulted and recommended antibiotics for 2 weeks 05/16-05/19: Cipro 400mg q12h and Flagyl 500mg q8h - discontinued due to rash 05/15-05/31: Aztreonam 1 gm Q8H 05/19-05/29: Clindamycin 450mg IVPB Q6H 05/16-05/18: Ultram 25mg po BID for pain 4. Prophylactic Measure Regular diet Lovenox 40 mg SC--to be held due to LP Protonix 40 mg PO daily [phone] Wendy Diamond--patient's sister and point of contact Disposition: Working diagnosis is demyelinating disease. Trial of IVIG for 5 days began on 06/04/17 and ended on 06/08/17. No changes were initially seen after initiation of therapy; however, now the patient is able to converse with us to an extent. We are awaiting further autoimmune studies to evaluate for possible etiology. <Анна Herman - Last Filed: 06/17/17 16:49> Objective - Vital Signs/Intake and Output Vital Signs (last 24 hours): Temp Pulse Resp BP Pulse Ox 98 F 95 H 20 122/73 97 06/17/17 15:15 06/17/17 15:15 06/17/17 15:15 06/17/17 15:15 06/17/17 15:15 Intake and Output: 06/17/17 06/17/17 06:59 18:59 Intake Total 500 Balance 500 - Medications Medications: Current Medications Famotidine (Pepcid) 20 mg PO BID [facility] Last Admin: 06/17/17 10:09 Dose: 20 mg Quetiapine Fumarate (Seroquel) 12.5 mg PO Q4H PRN PRN Reason: Agitation Last Admin: 06/16/17 21:55 Dose: 12.5 mg Saccharomyces Boulardii (Florastor) 250 mg PO BID [facility] Last Admin: 06/17/17 10:09 Dose: 250 mg Valproate Sodium (Depakene Oral Soln) 500 mg PO Q12H [facility] Last Admin: 06/17/17 10:09 Dose: 500 mg - Labs Labs: 06/16/17 07:05 06/16/17 07:05 PT 13.6 SECONDS (9.7-12.2) H 05/20/17 11:33 INR 1.2 05/20/17 11:33 APTT 28 SECONDS (21-34) 05/20/17 11:33 Attending/Attestation - Attestation I have personally seen and examined this patient.: Yes I have fully participated in the care of the patient.: Yes I have reviewed all pertinent clinical information, including history, physical exam and plan: Yes Notes (Text): Significant changes noted this morning. Able to answer he is fine, Follows simple directions. not able to answer place. Sitting comfortable. Spoke to his sister and mother. They are willing to take home if he can go to toilet himself /Not incontinence.They wants speech therapy to help them to give him home speech and language therapy in possible. patient is ambulating with walker Discussed with the resident. Encourage out of bed to chair. I agree with the documentation of the assessment and the plan of the resident medicaid pending. 06/17/17 16:44
[2017-06-17 18:19] LABS: ANCA SCREEN NEGATIVE (NEGATIVE)
[2017-06-17 21:04] LABS: SCL-70 ANTIBODY 1.3 AI (<1.0)
[2017-06-17] MEDS: QUEtiapine 12.5 MG TAB PO PRN (21:30)
[2017-06-18] MEDS: Saccharomyces Boulardi 250 mg Cap PO SCH ×2 (10:38→18:47)
[2017-06-18] MEDS: Valproic Acid 250 mg/5 ml UD Cup PO SCH ×2 (10:38→21:54)
--- NOTE | 2017-06-18 10:47 | CP.PCM.PN ---
<Delfina Lara - Last Filed: 06/18/17 10:44> Subjective - Date & Time of Evaluation Date of Evaluation: 06/18/17 Time of Evaluation: 07:30 - Subjective Subjective: Patient seen and examined at bedside. No acute events overnight per nursing. Patient is responding more appropriately to my questions this morning with 1-3 word phrases. Patient says he is not eating well but cannot continue to tell me why. Denies any new complaints at this time. Objective - Vital Signs/Intake and Output Vital Signs (last 24 hours): Temp Pulse Resp BP Pulse Ox 98 F 95 H 19 124/75 96 06/18/17 07:55 06/18/17 07:55 06/18/17 07:55 06/18/17 07:55 06/18/17 07:55 - Medications Medications: Current Medications Famotidine (Pepcid) 20 mg PO BID [facility] Last Admin: 06/18/17 10:38 Dose: 20 mg Quetiapine Fumarate (Seroquel) 12.5 mg PO Q4H PRN PRN Reason: Agitation Last Admin: 06/17/17 21:30 Dose: 12.5 mg Saccharomyces Boulardii (Florastor) 250 mg PO BID [facility] Last Admin: 06/18/17 10:38 Dose: 250 mg Valproate Sodium (Depakene Oral Soln) 500 mg PO Q12H [facility] Last Admin: 06/18/17 10:38 Dose: 500 mg - Labs Labs: 06/16/17 07:05 06/16/17 07:05 PT 13.6 SECONDS (9.7-12.2) H 05/20/17 11:33 INR 1.2 05/20/17 11:33 APTT 28 SECONDS (21-34) 05/20/17 11:33 - Additional Findings Additional findings: - Constitutional Appears: Non-toxic, No Acute Distress - Head Exam Head Exam: NORMAL INSPECTION, NORMOCEPHALIC - Eye Exam Eye Exam: EOMI, Normal appearance, PERRL - ENT Exam ENT Exam: Mucous Membranes Moist - Respiratory Exam Respiratory Exam: Clear to Ausculation Bilateral, NORMAL BREATHING PATTERN. absent: Rales, Rhonchi, Wheezes - Cardiovascular Exam Cardiovascular Exam: RRR, +S1, +S2 - GI/Abdominal Exam GI & Abdominal Exam: Soft, Normal Bowel Sounds. absent: Distended, Tenderness - Extremities Exam Extremities Exam: Normal Inspection. absent: Calf Tenderness, Pedal Edema - Neurological Exam Neurological Exam: Alert, Awake Responding appropriately to my questions today. Oriented to person. - Psychiatric Exam Psychiatric exam: Normal Affect, Normal Mood - Skin Skin Exam: Dry, Intact, Normal Color, Warm Assessment and Plan - Assessment and Plan (Free Text) Plan: 1.Altered mental status with white matter changes on MRI brain. Possible Demyelinating Disease. 05/20/17: Lumbar puncture performed by anesthesia. 05/19/17-06/09/17: Empiric acyclovir due to suspicion of viral encephalitis Dr Waller who recommend csf LILIYA viral study * Mefloquine 1000 mg QWK started on 05/31/17 Dr. Lizama consulted to rule out possible OTHER SPORTS COACH OR INSTRUCTOR lymphoma - Recommended CT chest with contrast and csf flow cytometry CSF studies * Plasma LILIYA virus elevated at 3261, not high in the CSF * 05/31/17 repeat LP to assess for LILIYA virus in the CSF and flow cytometry for OTHER SPORTS COACH OR INSTRUCTOR lymphoma * Oligoclonal bands were high in the CSF indicating possible demyelinating disease. Will follow up IGG studies. * 06/05/17: IVIG 400 mg /kg x5 days was ordered - improvement noted after, check autoimmune markers in the blood Dr Darnell * 05/26/17-05/29/17: started on Decadron 10 mg IV Q8 discontinued after finding elevated serum LILIYA virus * 05/19/17-current: Depakote 500 mg IV Q12-->switched to oral solution Autoimmune markers: SS-A: 1.7 SS-B Ab interp: Positive DS DNA: 9 Histone AB: 1 Scl-70 1.3 Otherwise negative so far Imaging: Brain MRI w. 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 No interval mass effect or suspicious extra-axial collection identified. 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 Gadolinium: No evidence of demyelinating disease seen on Cervical MRI. Patient could not tolerate getting thoracic MRI. Meds: Seroquel PRN agitation (Discontinued prn Ativan) Depakote Oral solution 500 mg PO Q12H 2. Gluteal wound, stage 2 intergluteal ulcer No leukocytosis, afebrile Surgery consulted, Dr. Neil, help appreciated * superficial gluteal wound, no tract, no surgical intervention needed Wound care kirsten Newton Blood cultures- no growth 3.Acute diverticulitis no leukocytosis, afebrile 05/15: Abdomen/Pelvis CT showed diverticulitis of sigmoid colon, mild splenomegaly, liver lesions 05/27/17: repeat CT shows improved diverticulitis GI, Dr. Charles, consulted and recommended antibiotics for 2 weeks 05/16-05/19: Cipro 400mg q12h and Flagyl 500mg q8h - discontinued due to rash 05/15-05/31: Aztreonam 1 gm Q8H 05/19-05/29: Clindamycin 450mg IVPB Q6H 05/16-05/18: Ultram 25mg po BID for pain 4. Prophylactic Measure Regular diet Lovenox 40 mg SC--to be held due to LP Protonix 40 mg PO daily [phone] Wendy Diamond--patient's sister and point of contact Disposition: Working diagnosis is demyelinating disease. Trial of IVIG for 5 days began on 06/04/17 and ended on 06/08/17. No changes were initially seen after initiation of therapy; however, now the patient is able to converse with us to an extent. Will follow up with neurology, PT, and patient's family for disicharge planning. <Анна Herman - Last Filed: 06/18/17 18:50> Objective - Vital Signs/Intake and Output Vital Signs (last 24 hours): Temp Pulse Resp BP Pulse Ox 98.4 F 70 18 124/75 96 06/18/17 18:01 06/18/17 18:01 06/18/17 18:01 06/18/17 07:55 06/18/17 18:01 Intake and Output: 06/18/17 06/18/17 06:59 18:59 Intake Total 500 Balance 500 - Medications Medications: Current Medications Famotidine (Pepcid) 20 mg PO BID [facility] Last Admin: 06/18/17 10:38 Dose: 20 mg Quetiapine Fumarate (Seroquel) 12.5 mg PO Q4H PRN PRN Reason: Agitation Last Admin: 06/17/17 21:30 Dose: 12.5 mg Saccharomyces Boulardii (Florastor) 250 mg PO BID [facility] Last Admin: 06/18/17 10:38 Dose: 250 mg Valproate Sodium (Depakene Oral Soln) 500 mg PO Q12H [facility] Last Admin: 06/18/17 10:38 Dose: 500 mg - Labs Labs: 06/16/17 07:05 06/16/17 07:05 PT 13.6 SECONDS (9.7-12.2) H 05/20/17 11:33 INR 1.2 05/20/17 11:33 APTT 28 SECONDS (21-34) 05/20/17 11:33 Attending/Attestation - Attestation I have personally seen and examined this patient.: Yes I have fully participated in the care of the patient.: Yes I have reviewed all pertinent clinical information, including history, physical exam and plan: Yes Notes (Text): Patient was seen and examined He is talking,able to answer simple questions. Not able to answer place ,date, year and person. denies pain d/w RN patient was not requesting for urinal. He did poop on bed days ago. I asked to reinforce to use urinal,ask for help and ring to for help. Not following those directions. able walk with walker Discussed with ther sister about Medicaid application spoke to SW/CW Discussed with Dr Darnell about d/c plna and IV Ig. He will follow Discussed with the resident I agree with the documentation of the assessment and the plan 06/18/17 18:44
[2017-06-19 02:26] VITALS: RESP 20
--- NOTE | 2017-06-19 07:36 | CP.PCM.PN ---
Subjective - Date & Time of Evaluation Date of Evaluation: 06/19/17 Time of Evaluation: 07:31 - Subjective Subjective: Mr. Lowry was seen and examined at the bedside. He is alert, up in a chair, able to utter word such as "I'm fine, no". He remains unable to answer questions appropriately. He is able to follow one command such as raising his lower extremities. He refused to do other commands. He remains on 1:1 sitter for patient safety. EEG result last 06/10/2017 showed normal with no signs of seizure. There was no untoward events overnight. Objective - Vital Signs/Intake and Output Vital Signs (last 24 hours): Temp Pulse Resp BP Pulse Ox 97.9 F 88 20 120/82 95 06/18/17 23:10 06/18/17 23:10 06/18/17 23:10 06/18/17 23:10 06/18/17 23:10 Intake and Output: 06/19/17 06/19/17 06:59 18:59 Intake Total 500 Balance 500 - Medications Medications: Current Medications Famotidine (Pepcid) 20 mg PO BID [facility] Last Admin: 06/18/17 18:47 Dose: 20 mg Quetiapine Fumarate (Seroquel) 12.5 mg PO Q4H PRN PRN Reason: Agitation Last Admin: 06/17/17 21:30 Dose: 12.5 mg Saccharomyces Boulardii (Florastor) 250 mg PO BID [facility] Last Admin: 06/18/17 18:47 Dose: 250 mg Valproate Sodium (Depakene Oral Soln) 500 mg PO Q12H [facility] Last Admin: 06/18/17 21:54 Dose: 500 mg - Labs Labs: 06/16/17 07:05 06/16/17 07:05 PT 13.6 SECONDS (9.7-12.2) H 05/20/17 11:33 INR 1.2 05/20/17 11:33 APTT 28 SECONDS (21-34) 05/20/17 11:33 - Constitutional Appears: No Acute Distress - Head Exam Head Exam: NORMAL INSPECTION - Neurological Exam Neurological Exam: Awake Neuro motor strength exam: Left Upper Extremity: 5, Right Upper Extremity: 5, Left Lower Extremity: 5, Right Lower Extremity: 5 Additional comments: Neurological unchanged from previous examination. Assessment and Plan (1) Altered mental status Assessment & Plan: Case discussed with Dr. Darnell, continue all current medical therapy including AED. Recommend valproic level monitoring. Status: Acute
[2017-06-19 07:57] LABS: BASO % 0.8 % (0.0-2.0); EOS # 0.2 K/uL (0.0-0.7); EOS % 3.1 % (0.0-4.0); HEMOGLOBIN 14.1 g/dL (12.0-18.0); LYMPH # 1.5 K/uL (1.0-4.3); LYMPH % 25.1 % (20.0-40.0); MEAN CORPUSCULAR HEMOGLOBIN 31.6 pg (27.0-31.0); MEAN CORPUSCULAR HGB CONC 35.1 g/dL (33.0-37.0); MEAN PLATELET VOLUME 9.2 fL (7.2-11.7); MONO # 0.6 K/uL (0.0-0.8); MONO % 9.9 % (0.0-10.0); NEUT # 3.8 K/uL (1.8-7.0); NEUT % 61.1 % (50.0-75.0); NRBC % 0.1 % (0.0-2.0); RBC 4.47 Mil/uL (4.40-5.90); RED CELL DISTRIBUTION WIDTH 18.4 % (11.5-14.5); WHITE BLOOD COUNT 6.1 K/uL (4.8-10.8)
[2017-06-19 08:56] LABS: ALBUMIN 4.1 g/dL (3.5-5.0); ALT/SGPT 54 U/L (21-72); AST/SGOT 43 U/L (17-59); BLOOD UREA NITROGEN 17 mg/dL (9-20); CALCIUM 9.6 mg/dl (8.6-10.4); GFR AFRICAN-AMERICAN > 60; GFR NON-AFRICAN AMERICAN > 60; MAGNESIUM 1.9 mg/dL (1.6-2.3)
[2017-06-19] MEDS: Saccharomyces Boulardi 250 mg Cap PO SCH ×2 (10:27→18:24)
[2017-06-19] MEDS: Valproic Acid 250 mg/5 ml UD Cup PO SCH ×3 (10:27→22:52)
--- NOTE | 2017-06-19 14:12 | CP.PCM.PN ---
<Delfina Lara - Last Filed: 06/19/17 14:08> Subjective - Date & Time of Evaluation Date of Evaluation: 06/19/17 Time of Evaluation: 08:00 - Subjective Subjective: Patient seen and examined at bedside. Upon arriving to the room patient was exiting the bathroom and walking abck to his bed which he did unassisted. Patient was able to converse with me today without any problems. He denies any new complaints at this time. Objective - Vital Signs/Intake and Output Vital Signs (last 24 hours): Temp Pulse Resp BP Pulse Ox 97.7 F 99 H 20 130/80 96 06/19/17 08:27 06/19/17 08:27 06/19/17 08:27 06/19/17 08:27 06/19/17 08:27 Intake and Output: 06/19/17 06/19/17 06:59 18:59 Intake Total 500 Balance 500 - Medications Medications: Current Medications Famotidine (Pepcid) 20 mg PO BID [facility] [place] Last Admin: 06/19/17 10:27 Dose: 20 mg Quetiapine Fumarate (Seroquel) 12.5 mg PO Q4H PRN PRN Reason: Agitation Last Admin: 06/17/17 21:30 Dose: 12.5 mg Saccharomyces Boulardii (Florastor) 250 mg PO BID [facility] [place] Last Admin: 06/19/17 10:27 Dose: 250 mg Valproate Sodium (Depakene Oral Soln) 500 mg PO Q12H [facility] [place] Last Admin: 06/19/17 10:27 Dose: 500 mg - Labs Labs: 06/19/17 07:36 06/19/17 07:36 PT 13.6 SECONDS (9.7-12.2) H 05/20/17 11:33 INR 1.2 05/20/17 11:33 APTT 28 SECONDS (21-34) 05/20/17 11:33 - Additional Findings Additional findings: - Constitutional Appears: Non-toxic, No Acute Distress - Head Exam Head Exam: NORMAL INSPECTION, NORMOCEPHALIC - Eye Exam Eye Exam: EOMI, Normal appearance, PERRL - ENT Exam ENT Exam: Mucous Membranes Moist - Respiratory Exam Respiratory Exam: Clear to Ausculation Bilateral, NORMAL BREATHING PATTERN. absent: Rales, Rhonchi, Wheezes - Cardiovascular Exam Cardiovascular Exam: RRR, +S1, +S2 - GI/Abdominal Exam GI & Abdominal Exam: Soft, Normal Bowel Sounds. absent: Distended, Tenderness - Extremities Exam Extremities Exam: Normal Inspection. absent: Calf Tenderness, Pedal Edema - Neurological Exam Neurological Exam: Alert, Awake Responding appropriately to my questions today. Oriented to person. - Psychiatric Exam Psychiatric exam: Normal Affect, Normal Mood - Skin Skin Exam: Dry, Intact, Normal Color, Warm Assessment and Plan - Assessment and Plan (Free Text) Plan: 1.Altered mental status with white matter changes on MRI brain. Possible Demyelinating Disease. 05/20/17: Lumbar puncture performed by anesthesia. 05/19/17-06/09/17: Empiric acyclovir due to suspicion of viral encephalitis Dr Waller who recommend csf LILIYA viral study * Mefloquine 1000 mg QWK started on 05/31/17 Dr. Lizama consulted to rule out possible [employer] lymphoma - Recommended CT chest with contrast and csf flow cytometry CSF studies * Plasma LILIYA virus elevated at 3261, not high in the CSF * 05/31/17 repeat LP to assess for LILIYA virus in the CSF and flow cytometry for [employer] lymphoma * Oligoclonal bands were high in the CSF indicating possible demyelinating disease. Will follow up IGG studies. * 06/05/17: IVIG 400 mg /kg x5 days was ordered - improvement noted after, check autoimmune markers in the blood Dr Darnell * 05/26/17-05/29/17: started on Decadron 10 mg IV Q8 discontinued after finding elevated serum LILIYA virus * 05/19/17-current: Depakote 500 mg IV Q12-->switched to oral solution Autoimmune markers: SS-A: 1.7 SS-B Ab interp: Positive DS DNA: 9 Histone AB: 1 Scl-70 1.3 Otherwise negative so far Imaging: Brain MRI w. 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 No interval mass effect or suspicious extra-axial collection identified. 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 Gadolinium: No evidence of demyelinating disease seen on Cervical MRI. Patient could not tolerate getting thoracic MRI. Meds: Seroquel PRN agitation (Discontinued prn Ativan) Depakote Oral solution 500 mg PO Q12H 2. Gluteal wound, stage 2 intergluteal ulcer No leukocytosis, afebrile Surgery consulted, Dr. Neil, help appreciated * superficial gluteal wound, no tract, no surgical intervention needed Wound care kirsten Newton Blood cultures- no growth 3.Acute diverticulitis no leukocytosis, afebrile 05/15: Abdomen/Pelvis CT showed diverticulitis of sigmoid colon, mild splenomegaly, liver lesions 05/27/17: repeat CT shows improved diverticulitis GI, Dr. Charles, consulted and recommended antibiotics for 2 weeks 05/16-05/19: Cipro 400mg q12h and Flagyl 500mg q8h - discontinued due to rash 05/15-05/31: Aztreonam 1 gm Q8H 05/19-05/29: Clindamycin 450mg IVPB Q6H 05/16-05/18: Ultram 25mg po BID for pain 4. Prophylactic Measure Regular diet Lovenox 40 mg SC--to be held due to LP Protonix 40 mg PO daily [phone] Wendy Diamond--patient's sister and point of contact Disposition: Working diagnosis is demyelinating disease. Trial of IVIG for 5 days began on 06/04/17 and ended on 06/08/17. No changes were initially seen after initiation of therapy; however, now the patient is able to converse with us to an extent. Will need follow up with Dr. Darnell upon discharge for possible IVIG therapy in the near future. Patient will likely be discharged tomorrow pending PT session today. Family wants to feel safe taking the patient home where they have stairs so I specifically asked PT to evaluate the patient for this. Will follow up on progress. <Анан Herman - Last Filed: 06/19/17 14:35> Objective - Vital Signs/Intake and Output Vital Signs (last 24 hours): Temp Pulse Resp BP Pulse Ox 97.7 F 99 H 20 130/80 96 06/19/17 08:27 06/19/17 08:27 06/19/17 08:27 06/19/17 08:27 06/19/17 08:27 Intake and Output: 06/19/17 06/19/17 06:59 18:59 Intake Total 500 Balance 500 - Medications Medications: Current Medications Famotidine (Pepcid) 20 mg PO BID [facility] [place] Last Admin: 06/19/17 10:27 Dose: 20 mg Quetiapine Fumarate (Seroquel) 12.5 mg PO Q4H PRN PRN Reason: Agitation Last Admin: 06/17/17 21:30 Dose: 12.5 mg Saccharomyces Boulardii (Florastor) 250 mg PO BID [facility] [place] Last Admin: 06/19/17 10:27 Dose: 250 mg Valproate Sodium (Depakene Oral Soln) 500 mg PO Q12H [facility] [place] Last Admin: 06/19/17 10:27 Dose: 500 mg - Labs Labs: 06/19/17 07:36 06/19/17 07:36 PT 13.6 SECONDS (9.7-12.2) H 05/20/17 11:33 INR 1.2 05/20/17 11:33 APTT 28 SECONDS (21-34) 05/20/17 11:33 Attending/Attestation - Attestation I have personally seen and examined this patient.: Yes I have fully participated in the care of the patient.: Yes I have reviewed all pertinent clinical information, including history, physical exam and plan: Yes Notes (Text): Seen and examined Talking in full sentences. But not able to orient to place and time/date/year. As per sister he walked to bathroom himself and came back to his bed. Discussed with his sister and mother at bedside this afternoon about discharge plan. They are willing to take him home if he is able to walk,climb stairs and started using toilet himself. patient will follow neurologist as an out pt ask for PT to evaluate and try stairs d/w resident. I agree with the documentation of the assessment and the plan of the resident 06/19/17 14:31
--- NOTE | 2017-06-20 07:13 | CP.PCM.PN ---
Subjective - Date & Time of Evaluation Date of Evaluation: 06/20/17 Time of Evaluation: 07:09 - Subjective Subjective: Mr. Lowry was seen and examined at the bedside. He is alert and able to utter few words such as "I'm good as I could be." He smiles with each questions with no verbal response, but keeps on pointing his roommate who yells and talks continuously. He is able to move all extremities spontaneously. He remains incontinent while in bed, still unable to let staff know regarding his needs. He remains on 1:1 sitter for patient safety. His valproic level -43.There was no untoward events overnight. Objective - Vital Signs/Intake and Output Vital Signs (last 24 hours): Temp Pulse Resp BP Pulse Ox 97.8 F 101 H 20 125/85 97 06/19/17 23:10 06/19/17 23:10 06/19/17 23:10 06/19/17 23:10 06/19/17 23:10 Intake and Output: 06/20/17 06/20/17 06:59 18:59 Intake Total 500 Balance 500 - Medications Medications: Current Medications Famotidine (Pepcid) 20 mg PO BID [facility] Last Admin: 06/19/17 18:24 Dose: 20 mg Quetiapine Fumarate (Seroquel) 12.5 mg PO Q4H PRN PRN Reason: Agitation Last Admin: 06/17/17 21:30 Dose: 12.5 mg Saccharomyces Boulardii (Florastor) 250 mg PO BID [facility] Last Admin: 06/19/17 18:24 Dose: 250 mg Valproate Sodium (Depakene Oral Soln) 500 mg PO Q12H [facility] Last Admin: 06/19/17 22:52 Dose: Not Given - Labs Labs: 06/19/17 07:36 06/19/17 07:36 PT 13.6 SECONDS (9.7-12.2) H 05/20/17 11:33 INR 1.2 05/20/17 11:33 APTT 28 SECONDS (21-34) 05/20/17 11:33 - Constitutional Appears: No Acute Distress - Head Exam Head Exam: NORMAL INSPECTION - Neurological Exam Neurological Exam: Awake Neuro motor strength exam: Left Upper Extremity: 5, Right Upper Extremity: 5, Left Lower Extremity: 5, Right Lower Extremity: 5 Additional comments: Neurological unchanged from previous examination. Assessment and Plan (1) Altered mental status Assessment & Plan: Case discussed with Dr. Darnell, continue all current medical, physical, and speech therapies. Recommend to follow up with an outpatient neurologist for discharge planning. Status: Acute
[2017-06-20] MEDS: Saccharomyces Boulardi 250 mg Cap PO SCH (10:03)
[2017-06-20] MEDS: Valproic Acid 250 mg/5 ml UD Cup PO SCH (10:03)
--- NOTE | 2017-06-20 11:36 | CP.PCM.DIS ---
Provider - Provider Date of Admission: 05/15/17 17:18 Attending physician: Tristen Banda DO Consults: Dr. 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 Hospital Course - Lab Results Lab Results: Micro Results 05/20/17 15:22 Other: Please Indicate Mycobacterial Culture - Preliminary 05/28/17 11:46 Stool Ova and Parasite Concentrate Exam - Final 05/26/17 10:39 Stool Ova and Parasite Concentrate Exam - Final 05/20/17 Unknown Cerebral Spinal Fluid Gram Stain - Final 05/20/17 Unknown Cerebral Spinal Fluid CSF Culture - Final NO GROWTH AFTER 5 DAYS 05/18/17 16:30 Blood Blood Culture - Final NO GROWTH AFTER 5 DAYS 05/18/17 16:30 Blood Gram Stain - Final TEST NOT PERFORMED 05/18/17 04:20 Blood Blood Culture - Final NO GROWTH AFTER 5 DAYS 05/18/17 04:20 Blood Gram Stain - Final TEST NOT PERFORMED 05/19/17 19:14 Urine,Catheterized Urine Culture - Final No Growth (<1,000 CFU/ML) 05/15/17 18:06 Blood-Venous Blood Culture - Final NO GROWTH AFTER 5 DAYS 05/15/17 18:06 Blood-Venous Gram Stain - Final TEST NOT PERFORMED 05/15/17 18:06 Blood-Venous Blood Culture - Final NO GROWTH AFTER 5 DAYS 05/15/17 18:06 Blood-Venous Gram Stain - Final TEST NOT PERFORMED 05/20/17 16:45 Cerebral Spinal Fluid Luanne Ink - Final 05/19/17 Unknown Rectum Ova and Parasite Concentrate Exam - Final Most Recent Lab Values WBC 6.1 K/uL (4.8-10.8) 06/19/17 07:36 RBC 4.47 Mil/uL (4.40-5.90) 06/19/17 07:36 Hgb 14.1 g/dL (12.0-18.0) 06/19/17 07:36 Hct 40.3 % (35.0-51.0) 06/19/17 07:36 MCV 90.0 fL (80.0-94.0) 06/19/17 07:36 MCH 31.6 pg (27.0-31.0) H 06/19/17 07:36 MCHC 35.1 g/dL (33.0-37.0) 06/19/17 07:36 RDW 18.4 % (11.5-14.5) H 06/19/17 07:36 Plt Count 196 K/uL (130-400) 06/19/17 07:36 MPV 9.2 fL (7.2-11.7) 06/19/17 07:36 Neut % (Auto) 61.1 % (50.0-75.0) 06/19/17 07:36 Lymph % (Auto) 25.1 % (20.0-40.0) 06/19/17 07:36 [place] % (Auto) 9.9 % (0.0-10.0) 06/19/17 07:36 Eos % (Auto) 3.1 % (0.0-4.0) 06/19/17 07:36 Baso % (Auto) 0.8 % (0.0-2.0) 06/19/17 07:36 Neut # (Auto) 3.8 K/uL (1.8-7.0) 06/19/17 07:36 Lymph # (Auto) 1.5 K/uL (1.0-4.3) 06/19/17 07:36 [place] # (Auto) 0.6 K/uL (0.0-0.8) 06/19/17 07:36 Eos # (Auto) 0.2 K/uL (0.0-0.7) 06/19/17 07:36 Baso # (Auto) 0.0 K/uL (0.0-0.2) 06/19/17 07:36 ESR 15 mm/hr (0-15) 05/28/17 07:54 PT 13.6 SECONDS (9.7-12.2) H 05/20/17 11:33 INR 1.2 05/20/17 11:33 APTT 28 SECONDS (21-34) 05/20/17 11:33 pO2 46 mm/Hg (30-55) 05/15/17 20:38 VBG pH 7.39 (7.32-7.43) 05/15/17 20:38 VBG pCO2 40 mmHg (40-60) 05/15/17 20:38 VBG HCO3 23.9 mmol/L 05/15/17 20:38 VBG Total CO2 25.4 mmol/L (22-28) 05/15/17 20:38 VBG O2 Sat (Calc) 86.5 % (40-65) H 05/15/17 20:38 VBG Base Excess -0.7 mmol/L (0.0-2.0) L 05/15/17 20:38 VBG Potassium 3.8 mmol/L (3.6-5.2) 05/15/17 20:38 Sodium 137.0 mmol/l (132-148) 05/15/17 20:38 Chloride 104.0 mmol/L (98-107) 05/15/17 20:38 Glucose 88 mg/dl (75-110) 05/15/17 20:38 Lactate 0.9 mmol/L (0.7-2.1) 05/15/17 20:38 Sodium 141 mmol/L (132-148) 06/19/17 07:36 Potassium 4.1 mmol/L (3.6-5.2) 06/19/17 07:36 Chloride 102 mmol/L (98-107) 06/19/17 07:36 Carbon Dioxide 25 mmol/L (22-30) 06/19/17 07:36 Anion Gap 17 (10-20) 06/19/17 07:36 BUN 17 mg/dL (9-20) 06/19/17 07:36 Creatinine 0.9 mg/dL (0.8-1.5) 06/19/17 07:36 Est GFR ( Amer) > 60 06/19/17 07:36 Est GFR (Non-Af Amer) > 60 06/19/17 07:36 POC Glucose (mg/dL) 103 mg/dL (65-110) 05/29/17 08:38 Random Glucose 99 mg/dL (75-110) 06/19/17 07:36 Lactic Acid 1.2 mmol/L (0.7-2.1) 05/29/17 09:24 Calcium 9.6 mg/dl (8.6-10.4) 06/19/17 07:36 Phosphorus 3.7 mg/dL (2.5-4.5) 05/20/17 08:41 Magnesium 1.9 mg/dL (1.6-2.3) 06/19/17 07:36 Total Bilirubin 0.7 mg/dL (0.2-1.3) 06/19/17 07:36 AST 43 U/L (17-59) 06/19/17 07:36 ALT 54 U/L (21-72) 06/19/17 07:36 Alkaline Phosphatase 48 U/L (38-126) 06/19/17 07:36 Ammonia < 9 umol/L (9-33) L 05/29/17 09:24 Total Protein 8.3 g/dL (6.3-8.3) 06/19/17 07:36 Albumin 4.1 g/dL (3.5-5.0) 06/19/17 07:36 Globulin 4.2 gm/dL (2.2-3.9) H 06/19/17 07:36 Albumin/Globulin Ratio 1.0 (1.0-2.1) 06/19/17 07:36 Lipase 61 U/L (23-300) 05/15/17 12:46 Aldolase 7.4 U/L (<=8.1) 06/12/17 17:27 Vitamin B12 546 pg/mL (239-931) 05/18/17 17:19 Folate 19.8 ng/mL 05/18/17 17:19 Procalcitonin < 0.05 NG/ML (0.19-0.49) L 05/18/17 17:19 TSH 3rd Generation 2.40 mIU/L (0.46-4.68) 05/18/17 17:19 Venous Blood Potassium 3.8 mmol/L (3.6-5.2) 05/15/17 20:38 Urine Color Straw (YELLOW) 05/24/17 14:47 Urine Clarity Clear (Clear) 05/24/17 14:47 Urine pH 6.0 (5.0-8.0) 05/24/17 14:47 Ur Specific [place] 1.009 (1.003-1.030) 05/24/17 14:47 Urine Protein Negative mg/dL (NEGATIVE) 05/24/17 14:47 Urine Glucose (UA) Normal mg/dL (Normal) 05/24/17 14:47 Urine Ketones Negative mg/dL (NEGATIVE) 05/24/17 14:47 Urine Blood Negative (NEGATIVE) 05/24/17 14:47 Urine Nitrate Negative (NEGATIVE) 05/24/17 14:47 Urine Bilirubin Negative (NEGATIVE) 05/24/17 14:47 Urine Urobilinogen Normal mg/dL (0.2-1.0) 05/24/17 14:47 Ur Leukocyte Esterase Neg [place]/uL (Negative) 05/24/17 14:47 Urine WBC (Auto) 1 /hpf (0-5) 05/24/17 14:47 Urine RBC (Auto) < 1 /hpf (0-3) 05/24/17 14:47 Ur Squamous Epith Cells < 1 /hpf (0-5) 05/15/17 17:12 Urine Bacteria Occ (<OCC) H 05/15/17 17:12 Fluid Type Spinal fluid 05/20/17 14:56 CSF Volume 1 mL (0-1) 05/20/17 14:56 CSF Appearance Clear/colorless (CLEAR) 05/20/17 14:56 CSF WBC 1.0 /mm3 (0.0-5.0) 05/20/17 14:56 CSF RBC 2.0 /mm3 (0.0-0.0) H 05/20/17 14:56 CSF Total Cell Counted TEST NOT PERFORMED 05/20/17 14:56 CSF Lymphocytes % (0-0) 05/20/17 14:56 CSF Monos/Macrophages % (0-0) 05/20/17 14:56 CSF Comment TEST NOT PERFORMED 05/20/17 14:56 CSF Glucose 79 mg/dL (40-70) H 05/20/17 14:56 CSF Total Protein 72.0 mg/dL (12-60) H 05/20/17 14:56 CSF Oligoclonal Bands see note 05/31/17 14:01 CSF Lyme IgG Antibody No bands detected 05/20/17 15:22 CSF Lyme Disease DNA Not detected 05/20/17 15:22 CSF Cryptococcus Ag Negative (NEGATIVE) 05/20/17 16:40 CSF [place] IgG Ab 0.04 05/20/17 15:22 CSF [place] IgM Ab 0.00 05/20/17 15:22 Stool Occult Blood Negative (NEGATIVE) 01/19/18 16:59 Urine Opiates Screen Negative (NEGATIVE) 05/19/17 19:36 Urine Methadone Screen Negative (NEGATIVE) 05/19/17 19:36 Ur Barbiturates Screen Negative (NEGATIVE) 05/19/17 19:36 Valproic Acid 43.0 ug/mL (50.0-100.0) L 06/19/17 10:54 Ur Phencyclidine Scrn Negative (NEGATIVE) 05/19/17 19:36 Ur Amphetamines Screen Negative (NEGATIVE) 05/19/17 19:36 U Benzodiazepines Scrn Negative (NEGATIVE) 05/19/17 19:36 U Oth Cocaine Metabols Negative (NEGATIVE) 05/19/17 19:36 U Cannabinoids Screen Negative (NEGATIVE) 05/19/17 19:36 Alcohol, Quantitative < 10 mg/dl (0-10) 05/15/17 12:46 Whole Blood Lead <1 mcg/dL (<5) 05/19/17 07:33 IgG1 806 mg/dL (382-929) 06/01/17 08:59 IgG2 196 mg/dL (241-700) L 06/01/17 08:59 IgG3 20 mg/dL (22-178) L 06/01/17 08:59 IgA 108.8 mg/dL (70.0-400.0) 06/01/17 11:40 IgG4 96.0 mg/dL (4.0-86.0) H 06/01/17 08:59 IgM 106.0 mg/dL (40.0-230.0) 06/01/17 11:40 IgE 5 kU/L (<wm=877) 06/01/17 08:59 LEA 6 Profile Negative (NEGATIVE) 05/28/17 07:54 Cycl Citrul Peptide IgG <16 Units (<20) 06/12/17 17:27 ANCA Screen Negative (NEGATIVE) 06/12/17 17:27 c-ANCA Titer TNP 06/12/17 17:27 Proteinase 3 (PR3) <1.0 AI (<1.0) 06/12/17 17:27 p-ANCA Titer TNP 06/12/17 17:27 Atypical p-ANCA Titer TNP 06/12/17 17:27 Myeloperoxidase Ab <1.0 AI (<1.0) 06/12/17 17:27 SS-A Antibody 1.7 AI (<1.0) H 06/12/17 17:27 SS-B Ab Interp Positive (Negative) H 06/12/17 17:27 SS-B Antibody <1.0 AI (<1.0) 06/12/17 17:27 SS-B Ab Interp Negative (Negative) 06/12/17 17:27 Scl-70 Scleroderma Ab 1.3 AI (<1.0) H 06/12/17 17:27 Double Strand DNA Ab 9 IU/mL H 06/12/17 17:27 Histone Antibodies 1.0 U (<1.0) H 06/12/17 17:27 Absolute Lymphs (Flow) 1251 Cells/mcL (850-3900) 05/22/17 16:51 % CD4 Cells 54 Percent (30-61) 05/22/17 16:51 Absolute CD4 Count 671 Cells/mcL (490-1740) 05/22/17 16:51 T-Help/Suppress Ratio 2.70 Ratio (0.86-5.00) 05/22/17 16:51 % CD8 Cells 20 Percent (12-42) 05/22/17 16:51 Absolute CD8 Count 249 Cells/mcL (180-1170) 05/22/17 16:51 HLA-B27 Negative (Negative) 06/12/17 17:27 RPR Nonreactive (NONREACTIVE) 05/24/17 17:30 Lyme Specimen Source Csf 05/20/17 15:22 Cryptococcus Ag Screen Not detected (Not Detected) 05/19/17 07:33 CMV Specimen Source Cerebrospinal fluid 05/20/17 15:22 CMV DNA Quant PCR <200 IU/mL 05/20/17 15:22 CMV Qnt PCR log IU/mL <2.30 Log IU/mL 05/20/17 15:22 [place] RNA (RT-PCR) Not detected (Not Detected) 05/20/17 15:22 Anti-NMDA Rec Method See note 06/13/17 17:36 Anti-NMDA Technical Res See note 06/13/17 17:36 Anti-NMDA Rec Interp See note 06/13/17 17:36 Anti-NMDA Rec Comment See note 06/13/17 17:36 Anti-NMDA Rec Reference See note 06/13/17 17:36 EBV Capsid Ag IgG Ab >750.00 U/mL H 05/19/17 07:33 EBV Capsid Ag IgM Ab <36.00 U/mL 05/19/17 07:33 EBV Nuclear Antigen Ab 512.00 U/mL H 05/19/17 07:33 EBV Interpretation See note 05/19/17 07:33 Hepatitis A IgM Ab Negative (NEGATIVE) 05/18/17 17:21 Hep Bs Antigen Negative (NEGATIVE) 05/18/17 17:21 Hep B Core IgM Ab Negative (NEGATIVE) 05/18/17 17:21 Hepatitis C Antibody Negative (NEGATIVE) 05/18/17 17:21 HSV Source Description Csf 05/20/17 15:22 HSV I IgG Ab >58.00 index H 05/19/17 07:33 HSV II IgG <0.90 index 05/19/17 07:33 HSV I DNA PCR Not detected (Not Detected) 05/20/17 15:22 HSV II DNA PCR Not detected (Not Detected) 05/20/17 15:22 HIV-1 RNA Qnt (RT-PCR) <1.30 not detected (<1.30) 05/30/17 08:30 HIV-1 RNA copies/mL <20 not detected copies/mL (<20) 05/30/17 11:19 HIV-1 RNA logcopies/mL <1.30 not detected (<1.30) 05/30/17 11:19 HIV 1&2 Ag/Ab, 4th Gen Nonreactive (Nonreactive) 05/30/17 11:19 HIV 1&2 Antibody Screen Negative (NEGATIVE) 05/30/17 11:19 HIV-1 Genotyping Not detected 05/30/17 11:19 HTLV I/II Antibody Nonreactive (Nonreactive) 05/19/17 07:33 Infectious [place] Assay Negative (NEGATIVE) 05/19/17 07:33 Mumps Virus IgG Ab 59.10 AU/mL 05/19/17 07:33 BK Virus Spec Source Plasma 05/24/17 17:32 BK Virus DNA Qual PCR Not detected (Not Detected) 05/24/17 17:32 Rubella IgG Antibody 1.02 index 05/19/17 07:33 Rubeola (Measles) IgG >300.00 AU/mL 05/19/17 07:33 Rubeola (Measles) IgM <1:20 05/19/17 07:33 LILIYA Virus Spec Source Plasma 06/09/17 19:45 LILIYA Virus DNA (PCR) <500 copies/mL (<500) 06/09/17 19:45 Toxoplasma IgG Ab <7.20 IU/mL 05/19/17 07:33 Toxoplasma IgM Ab <8.00 AU/mL 05/19/17 07:33 Toxoplasma Ab Interp TEST NOT PERFORMED 05/19/17 07:33 VZV IgG Antibody Positive (POSITIVE) 06/12/17 17:27 VZV IgM Antibody 2.86 (<=0.90) H 06/12/17 17:27 - Hospital Course Hospital Course: Upon admission: This is a 51 year old male with PMHx TBI with pseudobulbar affect, diverticulosis who presented to the ED after being brought by family for bizarre behavior. Patient himself states that he feels fine and has no acute complaints, stating that "nothing's wrong." The patient would not answer further questioning properly, instead smiling and laughing. Patient's mother Alejandrina Lowry [phone] was called and spoken with. Per mother, this started on May 05 when patient started complaining of abdominal pain and diarrhea. Patient was stating that his stomach was "like fire." The mother stated that after this, the patient began engaging in bizarre behavior such as trying to put on one shoe on top of the other and defecating around the home in the living room and on the stairs. The patient also would not speak very much per the mother. She stated that she did not know what to do and called her daughter in [place] who told her that he needs to go to the hospital. Hospital course: Patient was admitted for diverticulitis without leukocytosis or fever. Abdomen/ Pelvis CT showed diverticulitis of sigmoid colon, mild splenomegaly, liver lesions. Patient was started on Ultram 25mg po BID for pain. GI, Dr. Charles, consulted and recommended antibiotics for 2 weeks. Patient was started on the following antibiotics for the respective dates indicated: 05/16-05/19: Cipro 400mg q12h and Flagyl 500mg q8h - discontinued due to rash 05/15-05/31: Aztreonam 1 gm Q8H 05/19-05/29: Clindamycin 450mg IVPB Q6H Repeat CT was done on 05/27/17 and showed improved diverticulitis. Patient was worked up for his altered mental status as well. Neurology, Heme/onc , and ID were consulted. Patient was started on emperic acyclovir for suspicion of viral encephalitis on 05/19 and it was continued until 06/09. Patient was also started on depakote which continued the entire hospital stay. Patient had a lumbar puncture done and CSF was negative, other than high oligoclonal bands. Dr. Darnell started decadron on 05/26 but discontinued after finding elevated Plasma LILIYA virus. However it was not elevated in the CSF. Mefloquine 1000 mg QWK started on 05/31/[address] Lizama consulted to rule out possible [employer] lymphoma. He recommended Chest CT and CSF flow cytometry which were both negative. Dr. Darnell ordered IVIG 400 mg /kg x5 days on 06/05/17. Patient showed improvement so autoimmune markers were checked in the blood. The following were noted: SS-A: 1.7 SS-B Ab interp: Positive DS DNA: 9 Histone AB: 1 Scl-70 1.3 The following imaging was done: Brain MRI w. 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 No interval mass effect or suspicious extra-axial collection identified. 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 Gadolinium: No evidence of demyelinating disease seen on Cervical MRI. Patient could not tolerate getting thoracic MRI. Dr. Neil was consulted for a stage 2 gluteal ulcer. Since it was superficial and there were no signs of infection, she recommended no surgical intervention. She ordered santyl and medihoney. Blood cultures were negative. Upon discharge: Discharge was discussed with patient's sister (Wendy Diamond). She was initially concerned about patient being able to walk stairs in her home so PT was consulted to walk with the patient and do stairs, which they cleared the patient. The sister was told that the patient will need follow up with Dr. Darnell upon discharge for possible IVIG therapy in the near future. She was also told to take patient to the [facility] for follow up. Please note that this is a summary of events. For more details, please see complete medical record. Discharge Exam - Head Exam Head Exam: NORMAL INSPECTION - Eye Exam Eye Exam: EOMI, Normal appearance, PERRL - ENT Exam ENT Exam: Mucous Membranes Moist - Respiratory Exam Respiratory Exam: Clear to PA & Lateral, NORMAL BREATHING PATTERN, UNREMARKABLE - Cardiovascular Exam Cardiovascular Exam: RRR, +S1, +S2 - GI/Abdominal Exam GI & Abdominal Exam: Unremarkable - Extremities Exam Extremities exam: normal inspection - Neurological Exam Neurological exam: Alert - Psychiatric Exam Psychiatric exam: Normal Affect, Normal Mood - Skin Skin Exam: Dry, Intact, Normal Color, Warm Discharge Plan - Discharge Medications Prescriptions: Valproic Acid [Depakene] 500 mg PO BID #60 capsule - Follow Up Plan Condition: STABLE Disposition: HOME/ ROUTINE Additional Instructions: Please follow up with the [facility] and Dr. Darnell within 1 week of discharge. Please fill and take Keppra as directed. Referrals: [facility] at [facility] [Outside] Trung Darnell MD [Staff Provider] -
[2017-06-20 16:20] VITALS: BP 103/72; PULSE 72; TEMP 97.9; O2SAT 96
[2017-06-21 20:22] LABS: SOURCE: WHOLE BLOOD
== END 2017-06-20 16:45 | disposition home or self-care (01) | DRG 57 ==
LOC: C.ER 10:31 → C.9E 17:18 → C.5S 22:42
PROVIDERS: ADMIT Hospitalist; ATTEND Hospitalist
PROC: 009U3ZX Drainage of Spinal Canal, Percutaneous Approach, Diagnostic (ICD-10-PCS; principal; 2017-05-20)
DX: A81.2 Progressive multifocal leukoencephalopathy (principal); L89.152 Pressure ulcer of sacral region, stage 2; F05 Delirium due to known physiological condition; K57.32 Diverticulitis of large intestine without perforation or abscess without bleeding; R15.9 Full incontinence of feces; S06.89 Other specified intracranial injury; F17.210 Nicotine dependence, cigarettes, uncomplicated; F48.2 Pseudobulbar affect; V89.2XXS Person injured in unspecified motor-vehicle accident, traffic, sequela; L05.92 Pilonidal sinus without abscess; Z88.0 Allergy status to penicillin; R32 Unspecified urinary incontinence; Z66 Do not resuscitate; Z51.5 Encounter for palliative care; G31.9 Degenerative disease of nervous system, unspecified; G40.909 Epilepsy, unspecified, not intractable, without status epilepticus; R45.1 Restlessness and agitation; R09.02 Hypoxemia